=== PATIENT | male | born 1950 | race Caucasian/White ===

== ENCOUNTER 2020-11-12 06:57 | Outpatient (REF) | payer OTHER, SELFPAY ==
[2020-11-12 07:33] LABS: MANUAL DIFF FLAG NO
[2020-11-12 07:36] LABS: Basophils Percent Auto 0.2 % (0-2); Eosinophils Absolute Auto 0.2 X10*3/uL (0.0-0.4); Eosinophils Percent Auto 3.8 % (0-4); Hematocrit 45.9 % (42-52); Hemoglobin 14.9 g/dl (14.0-18.0); Imm Gran Abs Auto 0.01 X10*3/uL (0.00-0.03); Imm Gran Pct Auto 0.2 % (0.0-0.4); Mean Corpuscular HGB Conc 32.5 g/dl (31.0-36.0); Mean Corpuscular Hemoglobin 28.3 pg (27.0-33.0); Mean Corpuscular Volume 87.3 fL (80-98); Mean Platelet Volume 10.5 fL (9.4-12.4); Monocytes Absolute Auto 0.5 X10*3/uL (0.1-1.2); Monocytes Percent Auto 12.2 % (2-11); Neutrophils Absolute Auto 2.7 X10*3/uL (2.0-8.3); Neutrophils Percent Auto 60.6 % (45-73); Platelet Count 209 X10*3/uL (160-400); Red Blood Count 5.26 X10*6/uL (4.60-5.80); Red Cell Distribution Width 13.2 % (11.0-16.0); White Blood Count 4.4 X10*3/uL (4.8-10.8)
[2020-11-12 07:43] LABS: Glucose Urine UA NEG (NEG); Leukocyte Esterase Urine NEG (NEG); Nitrite Urine NEG (NEG); Urine Blood NEG (NEG); Urine Ketones NEG (NEG); Urine Protein NEG (NEG-TRACE)
[2020-11-12 07:45] LABS: Appearance Urine CLEAR; Color Urine YELLOW
[2020-11-12 07:46] LABS: Estimated Average Glucose 111 mg/dL; Hemoglobin A1c % 5.5 %
[2020-11-12 07:58] LABS: Alanine Aminotransferase 17 U/L (0-40); Albumin Level 4.1 g/dL (3.5-5.0); Alkaline Phosphatase 72 U/L (39-117); Anion Gap 10 (12-20); Aspartate Amino Transferase 18 U/L (5-37); Blood Urea Nitrogen 17 mg/dL (9-16); Calcium 8.7 mg/dL (8.4-10.2); Carbon Dioxide 29 mmol/L (22-29); Chloride 106 mmol/L (96-108); Cholesterol 100 mg/dL; Estimated Glomerular Filt Rate > 60; Glucose Fasting 102 mg/dL (60-99); HDL Cholesterol 40 mg/dL; LDL Cholesterol Calculated 48 mg/dl; Sodium 141 mmol/L (135-145); Total Protein 6.5 g/dL (6.5-8.0); Triglycerides 60 mg/dL
[2020-11-12 08:21] LABS: Creatinine Urine 103.13 mg/dL; Microalbum/Creatinine Ratio Ur 6.7 ug/mg cr
[2020-11-12 08:28] LABS: Prostate Specific Antigen 0.89 ng/mL (<0.05-4.0)
[2020-11-12 08:42] LABS: Reflex LDLD? No
[2020-11-12 08:58] LABS: Thyroid Stimulating Hormone 3.86 uIU/mL (0.32-4.0)
== END 2020-11-12 06:58 | disposition home or self-care (01) ==
LOC: HO.LAB 06:57
PROVIDERS: Visit Provider Internal Medicine
DX: Z00.00 Encounter for general adult medical examination without abnormal findings (principal); E78.00 Pure hypercholesterolemia, unspecified; E03.9 Hypothyroidism, unspecified; R73.03 Prediabetes; E78.6 Lipoprotein deficiency; Z12.5 Encounter for screening for malignant neoplasm of prostate
CPT/HCPCS: 36415; 80053; 80061; 81003; 82043; 83036; 84153; 84443; 85025

== ENCOUNTER → 2020-11-25 08:23 | Outpatient (BNVA) | payer OTHER, SELFPAY | PROVIDERS: PCP Internal Medicine; Visit Provider Internal Medicine Cardiovascular Disease | DX: R00.1 Bradycardia, unspecified (principal); I71.2 Thoracic aortic aneurysm, without rupture; I10 Essential (primary) hypertension; I48.0 Paroxysmal atrial fibrillation | CPT/HCPCS: 93005 ==

== ENCOUNTER → 2021-01-17 08:13 | Outpatient (REF) | payer OTHER, SELFPAY ==
--- NOTE | 2021-01-17 08:17 | CA_ITS ---
Transthoracic Echocardiogram Patient (Last, First, Middle): Cordell Cox H Gender: Male Date of : 1950 Age: 70 Procedure Date: 01/17/2021 Procedure Type: Transthoracic Echocardiogram Location: OP Height: 172.72 cm Weight: 95.26 kg BSA: 2.09 m2 Heart Rate: bpm BP: 128 / 60 mmHg Clinical Sociologist: Referring MD: Troy Collins MD Consumer Marketing Specialist: Troy Collins MD Symptoms: I71.2 - Thoracic aortic aneurysm, without rupture Study Quality: Good ECG Rhythm: Sinus Conclusions: - 1. Normal LV systolic function with impaired relaxation filling pattern 2. Mildly dilated left atrium 3. Mildly dilated ascending aorta at 4.1 cm 4. No pericardial effusion 5. Normal RV systolic pressure Findings Left Ventricle Normal left ventricular size and systolic function. There is mildly increased left ventricular wall thickness. The visually estimated ejection fraction is between 60-65%. Spectral Doppler is indicative of an impaired relaxation filling pattern. E/E prime ratio is <8, consistent with normal filling pressures. Right Ventricle Normal right ventricular cavity size and systolic function. Atria The left atrium is mildly dilated. Interatrial shunt cannot be excluded. The right atrium was not well visualized. Aortic Valve The aortic valve structure and function is likely normal. There is no aortic valve stenosis. There is trace (trivial) aortic valve regurgitation. Mitral Valve Normal mitral valve structure and function. There is trace mitral valve regurgitation. There is no mitral valve stenosis. Pulmonic Valve The pulmonic valve was not well visualized. Tricuspid Valve Likely normal tricuspid valve structure and function. There is trace tricuspid valve regurgitation. The right ventricular systolic pressure is normal. The right ventricular systolic pressure is 16 mmHg. Normal right atrial pressure. There is no evidence of pulmonary hypertension. Great Vessels The pulmonary artery was not well visualized. There is mild dilatation of the ascending aorta measuring 4.10 cm. Venous The inferior vena cava is normal in size and collapses greater than 50% with inspiration. Pericardium/Pleural There is no evidence of pericardial effusion. Prior Study Comparison No significant change compared to prior study dated: 08/17/2019. Measurements 2D Linear Measurements IVSd: 1.30 0.6-0.9/0.6-1.0 cm LVIDd: 4.25 3.9-5.3/4.2-5.9 cm LVIDd Index: 2.03 2.4-3.2/2.2-3.1 cm/m2 LVIDs: 2.51 2.0-3.6 cm LVPWd: 1.23 0.7-1.1 cm Ao Root: 3.70 2.1-3.5 cm LA Diam: 4.00 2.7-3.8/3.0-4.0 cm LAIDs Index: 1.91 1.5-2.3 cm/m2 LV Mass: 244.30 67-162/88-224 g LV Mass Index: 116.89 43-95/49-115 g/m2 LVOT Diam: 2.50 3.0+(-)1.3 cm 2D Systolic Function EF 4C: 66.00 >55% EF 2C: 65.80 >55% EF BiP: 65.50 >55% Mitral Valve MV Pk E: 0.70 MV PK A: 0.83 MV Decel Time: 206.00 E/A: 0.90 E'Lateral: 9.86 E'Medial: 6.58 E/E' Med: 10.70 E/E' Lat: 7.10 PHT: 60.00 MVA PHT: 3.67 Decel Hendricks: 3.42 Aortic Valve AoV Pk Lukasz: 1.21 AoV Mn Lukasz: 0.74 AoV VTI: 0.31 AoV Pk Grad: 6.00 Aov Mn Grad: 3.00 DELVIN Cont.VTI: 3.85 LVOT LVOT Pk Lukasz: 0.95 LVOT Mn Lukasz: 0.62 LVOT VTI: 0.24 LVOT Pk Grad: 4.00 LVOT Mn Grad: 2.00 LVOT Diam: 2.50 LVOT Area: 4.91 Diastolic Function MV Pk E: 0.70 MV Pk A: 0.83 E/A: 0.90 E'Medial: 6.58 E/E' Med: 10.70 E' Laterial: 9.86 E/E' Lat: 7.10 Tricuspid Valve TR Pk Lukasz: 1.80 TR Pk Grad: 13.00 RA Press: 3.00 RVSP: 16.00 Great Vessels Aorta Ao Root-2D: 3.70 2.0-3.7 cm Ao Asc: 4.10 2.1-3.4 cm Pulmonary Valve PV Pk Lukasz: 0.99 Peak PV Grad: 4.00 Updated in Other Vendor System with Status of Final Troy Collins MD electronically signed on 01/18/2021 3:44:25 PM with status of Final
== END ==
LOC: HO.CARD 08:13
PROVIDERS: Visit Provider Internal Medicine Cardiovascular Disease
DX: I10 Essential (primary) hypertension (principal); I48.0 Paroxysmal atrial fibrillation; I71.2 Thoracic aortic aneurysm, without rupture
CPT/HCPCS: 93306

== ENCOUNTER → 2021-05-13 08:09 | Outpatient (BNVA) | payer OTHER, SELFPAY | PROVIDERS: PCP Internal Medicine; Referring Provider Internal Medicine; Visit Provider Internal Medicine Cardiovascular Disease | DX: I48.0 Paroxysmal atrial fibrillation (principal); I71.2 Thoracic aortic aneurysm, without rupture | CPT/HCPCS: 93005 ==

== ENCOUNTER 2021-05-19 10:47 | Outpatient (REF) | payer OTHER, SELFPAY ==
[2021-05-19 11:38] LABS: Estimated Average Glucose 114 mg/dL; Hemoglobin A1c % 5.6 %
[2021-05-19 11:57] LABS: TSH reflex Free T4 1.07 uIU/mL (0.32-4.0)
[2021-05-19 12:11] LABS: Alanine Aminotransferase 9 U/L (0-40); Albumin Level 3.9 g/dL (3.5-5.0); Alkaline Phosphatase 85 U/L (39-117); Aspartate Amino Transferase 15 U/L (5-37); Bilirubin Direct 0.3 mg/dL (0.0-0.5); Bilirubin Total 0.8 mg/dL (0.0-1.0); Cholesterol 92 mg/dL; Glucose Fasting 98 mg/dL (60-99); HDL Cholesterol 31 mg/dL; LDL Cholesterol Calculated 48 mg/dl; Total Protein 6.4 g/dL (6.5-8.0); Triglycerides 68 mg/dL
[2021-05-19 12:22] LABS: Reflex LDLD? No
== END 2021-05-19 10:48 | disposition home or self-care (01) ==
LOC: HO.LNP 10:47
PROVIDERS: Visit Provider Internal Medicine
DX: E03.9 Hypothyroidism, unspecified (principal); R73.03 Prediabetes; E78.00 Pure hypercholesterolemia, unspecified
CPT/HCPCS: 80061; 80076; 82947; 83036; 84443

== ENCOUNTER 2021-11-10 08:25 | Outpatient (REF) | payer OTHER, SELFPAY ==
[2021-11-10 10:26] LABS: Anion Gap 10 (12-20); Blood Urea Nitrogen 14 mg/dL (9-16); Calcium 9.1 mg/dL (8.4-10.2); Carbon Dioxide 28 mmol/L (22-29); Chloride 106 mmol/L (96-108); Estimated Glomerular Filt Rate > 60; Glucose Random 106 mg/dL (60-115); Potassium 4.2 mmol/L (3.3-5.1); Sodium 140 mmol/L (135-145)
== END 2021-11-10 08:26 | disposition home or self-care (01) ==
LOC: HO.LAB 08:25
PROVIDERS: PCP Internal Medicine; Referring Provider Internal Medicine; Visit Provider Internal Medicine Cardiovascular Disease
DX: I48.0 Paroxysmal atrial fibrillation (principal); Z71.2 Person consulting for explanation of examination or test findings
CPT/HCPCS: 36415; 80048; 93005

== ENCOUNTER 2021-12-01 10:38 | Outpatient (REF) | payer OTHER, SELFPAY ==
[2021-12-01 10:41] LABS: MANUAL DIFF FLAG NO
[2021-12-01 10:52] LABS: Basophils Percent Auto 0.6 % (0-2); Eosinophils Absolute Auto 0.2 X10*3/uL (0.0-0.4); Eosinophils Percent Auto 3.3 % (0-4); Hematocrit 46.8 % (42.0-52.0); Hemoglobin 15.1 g/dl (14.0-18.0); Imm Gran Abs Auto 0.01 X10*3/uL (0.00-0.03); Imm Gran Pct Auto 0.2 % (0.0-0.4); Lymphocytes Absolute Auto 1.2 X10*3/uL (1.2-4.9); Lymphocytes Percent Auto 22.6 % (20-40); Mean Corpuscular HGB Conc 32.3 g/dl (31.0-36.0); Mean Corpuscular Hemoglobin 28.3 pg (27.0-33.0); Mean Corpuscular Volume 87.8 fL (80.0-98.0); Mean Platelet Volume 11.5 fL (9.4-12.4); Monocytes Absolute Auto 0.6 X10*3/uL (0.1-1.2); Monocytes Percent Auto 11.7 % (2-11); Neutrophils Absolute Auto 3.2 x10*3/uL (2.0-8.3); Neutrophils Percent Auto 61.6 % (45-73); Platelet Count 216 X10*3/uL (160-400); Red Blood Count 5.33 X10*6/uL (4.60-5.80); Red Cell Distribution Width 13.9 % (11.0-16.0); White Blood Count 5.1 X10*3/uL (4.8-10.8)
[2021-12-01 10:59] LABS: Appearance Urine HAZY; Color Urine STRAW; Glucose Urine UA NEG (NEG); Leukocyte Esterase Urine NEG (NEG); Nitrite Urine NEG (NEG); Specific Gravity - Urine 1.015 (1.005-1.025); Urine Blood NEG (NEG); Urine Ketones NEG (NEG); Urine Protein NEG (NEG-TRACE)
[2021-12-01 11:19] LABS: PSA,Total (Free>4and<10) 0.82 ng/mL (0.00-4.00)
[2021-12-01 11:32] LABS: Alanine Aminotransferase 14 U/L (0-40); Albumin Level 3.8 g/dL (3.5-5.0); Alkaline Phosphatase 71 U/L (39-117); Aspartate Amino Transferase 15 U/L (5-37); Bilirubin Total 0.8 mg/dL (0.0-1.0); Blood Urea Nitrogen 16 mg/dL (9-16); Cholesterol 94 mg/dL; Estimated Glomerular Filt Rate > 60; Glucose Fasting 100 mg/dL (60-99); HDL Cholesterol 35 mg/dL; LDL Cholesterol Calculated 48 mg/dl; Total Protein 6.5 g/dL (6.5-8.0); Triglycerides 56 mg/dL
[2021-12-01 11:42] LABS: Anion Gap 10 (12-20); Carbon Dioxide 28 mmol/L (22-29); Chloride 109 mmol/L (96-108); Potassium 4.1 mmol/L (3.3-5.1); Sodium 143 mmol/L (135-145)
== END 2021-12-01 10:39 | disposition home or self-care (01) ==
LOC: HO.LNP 10:38
PROVIDERS: PCP Internal Medicine; Visit Provider Internal Medicine
DX: Z00.00 Encounter for general adult medical examination without abnormal findings (principal); Z12.5 Encounter for screening for malignant neoplasm of prostate; E03.9 Hypothyroidism, unspecified; I10 Essential (primary) hypertension; E78.00 Pure hypercholesterolemia, unspecified
CPT/HCPCS: 80053; 80061; 81003; 84153; 84443; 85025

== ENCOUNTER → 2022-04-06 07:22 | Outpatient (REF) | payer MEDICARE, SELFPAY ==
--- NOTE | 2022-04-06 07:24 | CA_ITS ---
Transthoracic Echocardiogram Patient (Last, First, Middle): Cordell Cox H Gender: Male Date of : 1950 Age: 71 Procedure Date: 04/06/2022 Procedure Type: Transthoracic Echocardiogram Location: OP Height: 172.72 cm Weight: 96.16 kg BSA: 2.10 m2 Heart Rate: 47 bpm BP: 112 / 78 mmHg Pipe Threading Machine Operator: SB Referring MD: Troy Collins MD Symptoms: I71.2 - Thoracic aortic aneurysm, without rupture Study Quality: Adequate ECG Rhythm: Bradycardia Conclusions: - The left ventricular systolic function is normal. The calculated ejection fraction is 61% by biplane method. - No obvious valvular pathology seen on this study. - Top normal ascending aortic size at 3.9 cm. Findings Left Ventricle Normal left ventricular cavity size. There is normal left ventricular wall thickness. The left ventricular systolic function is normal. The calculated ejection fraction is 61% by biplane method. There is no evidence of regional wall motion abnormalities. Diastolic function is normal for age. Right Ventricle Normal right ventricular cavity size and systolic function. Atria Both atria are normal in size. Aortic Valve There is a normal trileaflet aortic valve. There is no aortic valve stenosis. There is no aortic valve regurgitation. Mitral Valve The mitral valve appears normal. There is trace mitral valve regurgitation. There is no mitral valve stenosis. Pulmonic Valve The pulmonic valve was not well visualized. There is mild pulmonic valve regurgitation. Tricuspid Valve Normal tricuspid valve structure. There is no tricuspid valve regurgitation. The pulmonary artery systolic pressure is normal. Great Vessels The aortic arch is normal in size. Top normal ascending aortic size at 3.9 cm. Venous The inferior vena cava is normal in size and collapses greater than 50% with inspiration. Pericardium/Pleural There is no evidence of pericardial effusion. Prior Study Comparison Changes noted compared to prior study dated: 01/17/2021. Ascending aortic size lower than previously reported. Recommendations, Care & Conclusions No obvious valvular pathology seen on this study. Measurements 2D Linear Measurements RVIDd: 3.42 IVSd: 1.00 0.6-0.9/0.6-1.0 cm LVIDd: 4.58 3.9-5.3/4.2-5.9 cm LVIDd Index: 2.18 2.4-3.2/2.2-3.1 cm/m2 LVIDs: 2.90 2.0-3.6 cm LVPWd: 0.98 0.7-1.1 cm Ao Root: 3.90 2.1-3.5 cm LA Diam: 3.60 2.7-3.8/3.0-4.0 cm LAIDs Index: 1.71 1.5-2.3 cm/m2 LV Mass: 193.28 67-162/88-224 g LV Mass Index: 92.04 43-95/49-115 g/m2 LVOT Diam: 2.60 3.0+(-)1.3 cm RA Area,d: 20.50 8.3-19.5 cm2 2D Volumes LA ESV A/L: 33.80 22-52/18-58 ML/M2 RA ESV A/L: 27.90 19-21 ML/M2 2D Systolic Function EF Teich: 66.00 >55% EF 4C: 57.40 >55% EF 2C: 63.30 >55% EF BiP: 61.10 >55% Mitral Valve MV Pk Grad: 2.00 MV Pk E: 0.78 MV PK A: 0.60 MV Decel Time: 210.00 E/A: 1.30 E'Lateral: 8.38 E'Medial: 6.31 E/E' Med: 12.40 E/E' Lat: 9.40 PHT: 61.00 MVA PHT: 3.61 Decel [place]: 3.73 Aortic Valve AoV Pk Lukasz: 1.07 AoV Mn Lukasz: 0.74 AoV VTI: 0.24 AoV Pk Grad: 5.00 Aov Mn Grad: 2.00 DELVIN Cont.VTI: 3.85 DELVIN Method: Continuity Equation LVOT LVOT Pk Lukasz: 0.80 LVOT Mn Lukasz: 0.53 LVOT VTI: 0.18 LVOT Pk Grad: 3.00 LVOT Mn Grad: 1.00 LVOT Diam: 2.60 LVOT Area: 5.31 Diastolic Function MV Pk E: 0.78 MV Pk A: 0.60 E/A: 1.30 E'Medial: 6.31 E/E' Med: 12.40 E' Laterial: 8.38 E/E' Lat: 9.40 IVC Diam Insp: 1.46 IVC Diam Exp: 0.86 Right Ventricle TAPSE (mm): 25.90 TVS' Lukasz: 11.00 Tricuspid Valve IVC Diam Exp: 0.86 IVC Diam Insp: 1.46 Great Vessels Aorta Ao Root-2D: 3.90 2.0-3.7 cm Sinus of Valsalva: 3.90 2.0-3.[address] [place]: 3.71 1.7-3.4 cm Ao Asc: 3.80 2.1-3.4 cm Ao Arch: 3.40 Pulmonary Veins Pulm Vein Pk S Lukasz: 0.45 Pulm Vein Pk D Lukasz: 0.51 Pulm Vein S/D 0.90 Pulmonary Valve PV Pk Lukasz: 0.98 Peak PV Grad: 4.00 Updated in Other Vendor System with Status of Final Johnathan Claudio MD electronically signed on 04/10/2022 12:59:48 PM with status of Final
== END ==
LOC: HO.CARD 07:22
PROVIDERS: PCP Internal Medicine; Visit Provider Internal Medicine Cardiovascular Disease
DX: I71.2 Thoracic aortic aneurysm, without rupture (principal)
CPT/HCPCS: 93306

== ENCOUNTER → 2022-05-19 08:24 | Outpatient (BNVA) | payer MEDICARE, SELFPAY | PROVIDERS: PCP Internal Medicine; Referring Provider Internal Medicine; Visit Provider Internal Medicine Cardiovascular Disease | DX: R00.1 Bradycardia, unspecified (principal); I48.0 Paroxysmal atrial fibrillation; I71.2 Thoracic aortic aneurysm, without rupture; Z79.899 Other long term (current) drug therapy | CPT/HCPCS: 93005; 99212 ==

== ENCOUNTER 2022-05-28 11:23 | Outpatient (REF) | payer MEDICARE, SELFPAY ==
[2022-05-28 11:52] LABS: Estimated Average Glucose 108 mg/dL; Hemoglobin A1c % 5.4 %
[2022-05-28 12:12] LABS: Alanine Aminotransferase 13 U/L (0-40); Albumin Level 3.9 g/dL (3.5-5.0); Alkaline Phosphatase 77 U/L (39-117); Aspartate Amino Transferase 17 U/L (5-37); Bilirubin Direct 0.5 mg/dL (0.0-0.5); Bilirubin Total 1.2 mg/dL (0.0-1.0); Cholesterol 100 mg/dL; Glucose Fasting 71 mg/dL (60-99); HDL Cholesterol 30 mg/dL; LDL Cholesterol Calculated 56 mg/dl; Total Protein 6.3 g/dL (6.5-8.0); Triglycerides 72 mg/dL
[2022-05-28 13:24] LABS: Reflex LDLD? No
== END 2022-05-28 11:24 | disposition home or self-care (01) ==
LOC: HO.LNP 11:23
PROVIDERS: Visit Provider Internal Medicine
DX: R73.03 Prediabetes (principal); E78.00 Pure hypercholesterolemia, unspecified
CPT/HCPCS: 80061; 80076; 82947; 83036

== ENCOUNTER 2022-06-02 08:59 | Day surgery (SDC) | payer MEDICARE, SELFPAY ==
[2022-05-27 20:27] VITALS: BMI 31.6
--- NOTE | 2022-06-01 10:44 | HO.ANESPROP2 ---
Documented by User: Ginette Gaffney NP 06/01/22 10:48 HPI - Anesthesia Eval Consult details Narrative: 71yo M for Colonoscopy Stable at 05/2022 cardiac visit Eliquis for afib PMFSH Active Problems Active Problems: All Active Problems (Updated 05/27/22 @ 20:27 by Silvana Tim RN) Sinus bradycardia (Acute) Thoracic aortic aneurysm (Acute) HTN (hypertension) (Acute) Paroxysmal atrial fibrillation (Acute) Past Medical History Medical History (Updated 05/27/22 @ 20:27 by Silvana Tim RN) CVA (cerebral vascular accident) HTN (hypertension) Hyperlipemia Hypothyroid Paroxysmal atrial fibrillation Sinus bradycardia Thoracic aortic aneurysm Family History Family History Father No problems noted. Mother CVD (cardiovascular disease) Surgical History Surgical History (Updated 05/27/22 @ 20:27 by Silvana Tim RN) History of colonoscopy History of radiofrequency ablation (RFA) procedure for cardiac arrhythmia Social History Social History Alcohol intake: current Alcohol intake frequency: holidays/special occasions only Patient Tobacco Use Status: Never used Tobacco Use of substances other than those prescribed or required for medical reasons: No Are you DNR?: No Advance Directives: No Advance Directives Information Provided: Yes Advance Directives on File: No Recently lost weight without trying: No Meds Allergies Allergy/AdvReac Type Severity Reaction Status Date / Time No Known Allergies Allergy Verified 05/19/22 08:31 [No Known Allergies*] Home Medications Medication Instructions Recorded Confirmed Last Taken Type atorvastatin 80 mg tablet 80 mg PO DAILY 11/25/20 05/27/22 Unknown History flecainide 100 mg tablet 100 mg PO BID 11/25/20 05/27/22 06/02/22 History levothyroxine 150 mcg tablet 150 mcg PO DAILY 11/25/20 05/27/22 06/02/22 History metoprolol succinate 25 mg 25 mg PO DAILY 11/25/20 05/27/22 06/02/22 History tablet,extended release 24 hr omeprazole 20 mg capsule,delayed 20 mg PO BID 11/25/20 05/27/22 06/02/22 History release tamsulosin 0.4 mg capsule 0.4 mg PO DAILY 11/25/20 05/27/22 Unknown History Exam Exam Date and Time: June 01, 2022 1044 Height,Weight and Vital Signs: Height 5 ft 8 in Weight 94.347 kg Pertinent Lab Results Pertinent Lab Results: Laboratory Tests 12/01/21 12/01/21 07:00 07:00 WBC 5.1 Hgb 15.1 Hct 46.8 Plt Count 216 Sodium 143 Potassium 4.1 Chloride 109 H Carbon Dioxide 28 BUN 16 Creatinine 1.10 Narrative Narrative: ECHO 04/2022 Conclusions: - The left ventricular systolic function is normal.? The ? calculated ejection fraction is 61% by biplane method. ? - No obvious valvular pathology seen on this study.? - Top normal ascending aortic size at 3.9 cm.? ? ? EKG 05/2022 sinus bradycardia with first-degree AV block with nonspecific ST-T in changes with normal QTC interval Assessment and Plan Assessment Anesthesia Assessment: Chart Reviewed Documented by User: Javier Blanca MD 06/02/22 16:49 [facility] Past Medical History Medical History (Updated 05/27/22 @ 20:27 by Silvana Tim RN) CVA (cerebral vascular accident) HTN (hypertension) Hyperlipemia Hypothyroid Paroxysmal atrial fibrillation Sinus bradycardia Thoracic aortic aneurysm Functional capacity: independent ambulation Family History Family History Father No problems noted. Mother CVD (cardiovascular disease) Family history of problems with anesthesia: No Surgical History Surgical History (Updated 05/27/22 @ 20:27 by Silvana Tim RN) History of colonoscopy History of radiofrequency ablation (RFA) procedure for cardiac arrhythmia History of Problems with Anesthesia: No Social History Social History Alcohol intake: current Alcohol intake frequency: holidays/special occasions only Patient Tobacco Use Status: Never used Tobacco Use of substances other than those prescribed or required for medical reasons: No Are you DNR?: No Advance Directives: No Advance Directives Information Provided: Yes Advance Directives on File: No Recently lost weight without trying: No Meds Allergies Allergy/AdvReac Type Severity Reaction Status Date / Time No Known Allergies Allergy Verified 05/19/22 08:31 [No Known Allergies*] Home Medications Medication Instructions Recorded Confirmed Last Taken Type atorvastatin 80 mg tablet 80 mg PO DAILY 11/25/20 05/27/22 Unknown History flecainide 100 mg tablet 100 mg PO BID 11/25/20 05/27/22 06/02/22 History levothyroxine 150 mcg tablet 150 mcg PO DAILY 11/25/20 05/27/22 06/02/22 History metoprolol succinate 25 mg 25 mg PO DAILY 11/25/20 05/27/22 06/02/22 History tablet,extended release 24 hr omeprazole 20 mg capsule,delayed 20 mg PO BID 11/25/20 05/27/22 06/02/22 History release tamsulosin 0.4 mg capsule 0.4 mg PO DAILY 11/25/20 05/27/22 Unknown History Exam Airway Mallampati Class: III TM Dist: >3cm Neck ROM: Full Partial: Upper and Lower Loose/Missing/Broken Teeth: Yes Heart: S1,S2 Lungs: b/l breath sounds Assessment and Plan Assessment Anesthesia Assessment: Anesthesia Plan Discussed Final Anesthetic Review Family History of Problems with Anesthesia: No History of Problems with Anesthesia: No NPO: Yes ASA Class: III Final Preanesthetic Review: Meds/Allgs Chart Reviewed, Consent Obtained/Reviewed and Anes Risks/Benef Reviewed Patient Risk: Intermediate Procedure Risk: Intermediate Anesthetic Plan Anesthetic Plan: MAC: Disposition: Standard PACU
[2022-06-02 09:22] VITALS: BP 156/82; PULSE 50; RESP 16; TEMP 36.7; O2SAT 96
[2022-06-02] MEDS: Lactated Ringers 1,000 ML 100 ML IVCONT (09:28)
--- NOTE | 2022-06-02 10:28 | MHC.SHP ---
Pre-Procedural Eval Section A Date of Service: 06/02/22 Section B Chief Complaint: screening Details of Present Illness: see H&P no changes Relevant Family History (Specify if Yes): No Relevant Social History: None Present Medications: see Short Stay Collaborative assessment Medical History: No relevant PMH History of Previous Operations: No relevant previous surgery Allergies: Allergies Allergy/AdvReac Type Severity Reaction Status Date / Time No Known Allergies Allergy Verified 05/19/22 08:31 [No Known Allergies*] Review of Systems Sugical H&P ROS: Negative: Constitution, Cardiovascular, Respiratory, Neurological, Psychiatric, Hem-Onc, Allergic/Immunologic, Gastrointestinal, Genitourinary, Musculoskeletal, Integumentary, Endocrine and Eyes/Ears/Nose/Throat Exam Surgical H&P Exam: Normal: HEENT, Normal: Heart, Normal: Lungs, Normal: Extremities, Normal: Abdomen, Normal: Skin and Normal: Neurological Plan Diagnosis/Plan: Unchanged I have reviewed the history and physical and performed a pertinent physical examination on my patient. No changes have occurred unless specified.
--- NOTE | 2022-06-02 11:04 | PM.OP ---
Brief Operative Note Date of Service: 06/02/22 Pre-op diagnosis: screening Post-op diagnosis: same Surgeon: Corey Fung Anesthesia: MAC Was an Special Needs Teacher used for this Procedure?: No Estimated blood loss (mL): 0 Pathology: none sent Condition: stable Disposition: PACU
[2022-06-02 11:06] VITALS: BP 84/44; PULSE 46; RESP 16; TEMP 36.7; O2SAT 93
[2022-06-02 11:21] VITALS: BP 122/70; PULSE 45; RESP 18; TEMP 36.7; O2SAT 97
--- NOTE | 2022-06-02 22:18 | OP_ITS ---
SURGEON: Corey Fung MD INDICATIONS: Colon cancer screening. PREOPERATIVE DIAGNOSIS: POSTOPERATIVE DIAGNOSIS: PROCEDURE PERFORMED: Colonoscopy to the terminal ileum. ESTIMATED BLOOD LOSS: COMPLICATIONS: ANESTHESIA: ASSISTANTS: SPECIMENS: MEDICATIONS: Monitored anesthesia care. DESCRIPTION OF PROCEDURE: History and physical performed. The risks and benefits of the procedure were explained to the patient. Informed consent was obtained. The patient was placed in the left lateral decubitus position. A digital rectal exam was performed, was found to be normal. The Olympus pediatric video colonoscope was introduced into the rectum and advanced to the cecum without difficulty. The cecum was identified by transillumination, palpation, and identification of ileocecal valve. Examination was performed. The scope was removed. He tolerated the procedure well and was transferred to recovery area in stable condition. FINDINGS: The terminal ileum was normal. Visualized colonic mucosa was normal. The quality of prep was good. There was mild sigmoid diverticulosis. Retroflexed examination showed small internal hemorrhoids and hypertrophic anal papillae. No polyps were identified. IMPRESSION: Normal screening colonoscopy. RECOMMENDATIONS: 1. Follow up as needed. 2. Repeat colonoscopy could be considered in 10 years. This is optional based on the patient's age. MD CHRIS Chris/HALIE / [phone]
== END 2022-06-02 12:01 | disposition home or self-care (01) ==
PROVIDERS: PCP Internal Medicine; Visit Provider Internal Medicine Gastroenterology
PROC: 0DJD8ZZ Inspection of Lower Intestinal Tract, Via Natural or Artificial Opening Endoscopic (ICD-10-PCS; CPT 45378; principal; 2022-06-02 10:10)
DX: Z12.11 Encounter for screening for malignant neoplasm of colon (principal); K57.30 Diverticulosis of large intestine without perforation or abscess without bleeding; K64.8 Other hemorrhoids; K62.89 Other specified diseases of anus and rectum; K21.9 Gastro-esophageal reflux disease without esophagitis; K44.9 Diaphragmatic hernia without obstruction or gangrene; I25.2 Old myocardial infarction; I25.10 Atherosclerotic heart disease of native coronary artery without angina pectoris; I10 Essential (primary) hypertension; E03.9 Hypothyroidism, unspecified; I48.0 Paroxysmal atrial fibrillation; Z79.01 Long term (current) use of anticoagulants; Z79.899 Other long term (current) drug therapy; Z86.73 Personal history of transient ischemic attack (TIA), and cerebral infarction without residual deficits; Z87.442 Personal history of urinary calculi
CPT/HCPCS: G0121

== ENCOUNTER → 2022-11-24 08:48 | Outpatient (BNVA) | payer MEDICARE, SELFPAY | PROVIDERS: PCP Internal Medicine; Referring Provider Internal Medicine; Visit Provider Internal Medicine Cardiovascular Disease | DX: I48.0 Paroxysmal atrial fibrillation (principal); R00.1 Bradycardia, unspecified; I71.20 Thoracic aortic aneurysm, without rupture, unspecified | CPT/HCPCS: 93005; 99212 ==

== ENCOUNTER 2022-12-01 10:49 | Outpatient (REF) | payer MEDICARE, SELFPAY ==
[2022-12-01 10:52] LABS: MANUAL DIFF FLAG NO
[2022-12-01 11:14] LABS: Basophils Percent Auto 0.7 % (0-2); Eosinophils Absolute Auto 0.2 X10*3/uL (0.0-0.4); Eosinophils Percent Auto 4.5 % (0-4); Hematocrit 46.6 % (42.0-52.0); Hemoglobin 15.1 g/dl (14.0-18.0); Imm Gran Abs Auto 0.02 X10*3/uL (0.00-0.03); Imm Gran Pct Auto 0.5 % (0.0-0.4); Lymphocytes Absolute Auto 1.1 X10*3/uL (1.2-4.9); Lymphocytes Percent Auto 25.3 % (20-40); Mean Corpuscular HGB Conc 32.4 g/dl (31.0-36.0); Mean Corpuscular Hemoglobin 27.7 pg (27.0-33.0); Mean Corpuscular Volume 85.5 fL (80.0-98.0); Mean Platelet Volume 10.7 fL (9.4-12.4); Monocytes Absolute Auto 0.5 X10*3/uL (0.1-1.2); Monocytes Percent Auto 10.8 % (2-11); Neutrophils Absolute Auto 2.6 x10*3/uL (2.0-8.3); Neutrophils Percent Auto 58.2 % (45-73); Platelet Count 238 X10*3/uL (160-400); Red Blood Count 5.45 X10*6/uL (4.60-5.80); Red Cell Distribution Width 13.7 % (11.0-16.0); White Blood Count 4.4 X10*3/uL (4.8-10.8)
[2022-12-01 11:16] LABS: Appearance Urine Cloudy; Color Urine Yellow; Glucose Urine UA Negative (Negative); Leukocyte Esterase Urine Negative (Negative); Nitrite Urine Positive (Negative); PH 6.5 (5.0-9.0); Specific Gravity - Urine 1.025 (1.005-1.025); UMIC TRIGGER UACC YES; Urine Blood Trace (Negative); Urine Ketones Negative (Negative); Urine Protein Trace mg/dL (Neg-Trace)
[2022-12-01 11:20] LABS: Bacteria Urine 4+ (None Seen); Hyaline Casts Urine 0-2 /LPF (0-2); Squamous Epithelial Cell Urine 0-2 /HPF (0-2); UACC Culture Trigger YES
[2022-12-01 12:08] LABS: Alanine Aminotransferase 12 U/L (0-40); Albumin Level 3.7 g/dL (3.5-5.0); Alkaline Phosphatase 90 U/L (39-117); Anion Gap 11 (12-20); Aspartate Amino Transferase 17 U/L (5-37); Bilirubin Total 0.8 mg/dL (0.0-1.0); Blood Urea Nitrogen 16 mg/dL (9-16); Calcium 8.9 mg/dL (8.4-10.2); Carbon Dioxide 29 mmol/L (22-29); Chloride 106 mmol/L (96-108); Cholesterol 109 mg/dL; Estimated Glomerular Filt Rate > 60; Glucose Fasting 97 mg/dL (60-99); HDL Cholesterol 35 mg/dL; LDL Cholesterol Calculated 56 mg/dl; Potassium 3.9 mmol/L (3.3-5.1); Sodium 142 mmol/L (135-145); Total Protein 6.2 g/dL (6.5-8.0); Triglycerides 91 mg/dL
[2022-12-01 12:09] LABS: PSA,Total (Free>4and<10) 1.08 ng/mL (0.00-4.00); TSH reflex Free T4 1.76 uIU/mL (0.32-4.0)
[2022-12-01 12:35] LABS: Estimated Average Glucose 108 mg/dL; Hemoglobin A1c % 5.4 %
[2022-12-01 12:42] LABS: Creatinine Urine 217.53 mg/dL; Microalbum/Creatinine Ratio Ur 7.8 ug/mg cr
== END 2022-12-01 10:50 | disposition home or self-care (01) ==
LOC: HO.LNP 10:49
PROVIDERS: Visit Provider Internal Medicine
DX: Z00.00 Encounter for general adult medical examination without abnormal findings (principal); Z12.5 Encounter for screening for malignant neoplasm of prostate; E03.9 Hypothyroidism, unspecified; I10 Essential (primary) hypertension; R73.03 Prediabetes; E78.00 Pure hypercholesterolemia, unspecified
CPT/HCPCS: 80053; 80061; 81001; 82043; 83036; 84153; 84443; 85025; 87086; 87088; 87186

== ENCOUNTER → 2022-12-10 14:48 | Outpatient (BNVA) | payer MEDICARE, SELFPAY | PROVIDERS: PCP Internal Medicine; Visit Provider Surgery | DX: R19.09 Other intra-abdominal and pelvic swelling, mass and lump (principal); B02.9 Zoster without complications | CPT/HCPCS: 99202 ==

== ENCOUNTER 2022-12-17 11:15 | Outpatient (REF) | payer MEDICARE, SELFPAY ==
[2022-12-17 11:51] LABS: Appearance Urine Clear; Color Urine Yellow; Glucose Urine UA Negative (Negative); Leukocyte Esterase Urine Trace (Negative); Nitrite Urine Negative (Negative); Specific Gravity - Urine 1.015 (1.005-1.025); UMIC TRIGGER UACC YES; Urine Blood Negative (Negative); Urine Ketones Negative (Negative); Urine Protein Negative (Neg-Trace)
[2022-12-17 11:55] LABS: Bacteria Urine None Seen (None Seen); Hyaline Casts Urine 0-2 /LPF (0-2); RBC Urine 0-2 /HPF (0-2); Squamous Epithelial Cell Urine 0-2 /HPF (0-2); WBC Urine 0-5 /HPF (0-5)
== END 2022-12-17 11:16 | disposition home or self-care (01) ==
LOC: HO.LNP 11:15
PROVIDERS: Visit Provider Internal Medicine
DX: R31.9 Hematuria, unspecified (principal)
CPT/HCPCS: 81001

== ENCOUNTER 2022-12-28 09:32 | Outpatient (REF) | payer MEDICARE, SELFPAY ==
--- NOTE | ~2022-12-28 | CT_ITS ---
EXAMINATION: CT ABDOMEN AND PELVIS WITHOUT CONTRAST CLINICAL INFORMATION: Other intra-abdominal and pelvic swelling, mass and lump. COMPARISON: Ultrasound abdomen 04/23/2016, CT abdomen pelvis 04/21/2016. TECHNIQUE: Multidetector volumetric imaging was performed from the superior aspect of the liver through the pubic symphysis. Sagittal and coronal reformatted images were obtained on the technologist's workstation. This CT examination was performed using dose optimization techniques as appropriate, variously including the following: *Automated exposure control *Adjustment of mA and/or kV according to patient size (this includes techniques or standardized protocols for targeted exams where dose is matched to indication/reason for exam; i.e. extremities or head) *Use of iterative reconstruction technique DLP: 854 mGy-cm FINDINGS: LUNG BASES: Again noted, is elevation of the left hemidiaphragm with a large hiatal hernia with the entire stomach in the left chest. Thickening of the distal esophagus is again noted. LIVER, GALLBLADDER, AND BILIARY TREE: The liver is enlarged at 18.5 cm in cephalocaudad dimension in size, shape, and attenuation. No focal hepatic lesion or biliary ductal dilatation is present. The gallbladder is unremarkable with no evidence of radiopaque gallstones, gallbladder wall thickening, or obvious pericholecystic inflammatory changes. PANCREAS: Unremarkable. SPLEEN: Unremarkable. ADRENAL GLANDS: Unremarkable. KIDNEYS AND URETERS: The kidneys are normal in size, shape, and attenuation. Bilateral nonobstructing nephrolithiasis is present with a 5 mm nonobstructing calculus at the lower pole of the right kidney and 3 calculi on the left the largest at the upper pole measuring 6 mm. No hydronephrosis, hydroureter, or solid renal masses seen. Benign Bosniak class I simple renal cysts are present bilaterally, which need no additional imaging or follow-up. No perinephric stranding. BLADDER: Unremarkable. GASTROINTESTINAL TRACT: The small and large bowel are unremarkable. The appendix is unremarkable. ABDOMINAL WALL: There is a left-sided inguinal hernia present containing nonobstructed colon. Diverticular changes are present in the colon without gross diverticulitis. Some mild inflammatory changes are seen around the portion of colon within the left hernia sac. This is a new finding when compared to the 04/21/2016 CT scan and could be the cause of the patient's pelvic swelling, mass and lump . There is a small right inguinal hernia seen containing only fat. LYMPH NODES: No retroperitoneal lymphadenopathy. VASCULAR: Unremarkable. PELVIC VISCERA: Mild to moderate BPH. Seminal vesicles appear normal. OSSEOUS STRUCTURES: Mild scoliosis convex to left with degenerative changes in the spine. CT/CT abdomen pelvis wo IV con IMPRESSION: Left-sided inguinal hernia containing nonobstructed colon. There is some mild inflammatory changes seen around the portion of the colon within the hernia sac. This could be the cause of the patient's pelvic swelling, mass and lump . Incidental note made of elevation of left hemidiaphragm, large hiatal hernia, hepatomegaly, bilateral nonobstructing nephrolithiasis and BPH. Fleischner guidelines were followed.
== END 2022-12-28 09:33 | disposition home or self-care (01) ==
LOC: HO.CT 09:32
PROVIDERS: PCP Internal Medicine; Visit Provider Surgery
DX: R19.09 Other intra-abdominal and pelvic swelling, mass and lump (principal); B02.9 Zoster without complications
CPT/HCPCS: 74176

== ENCOUNTER → 2023-01-05 08:33 | Outpatient (BNVA) | payer MEDICARE, SELFPAY | PROVIDERS: PCP Internal Medicine; Visit Provider Surgery | DX: K40.90 Unilateral inguinal hernia, without obstruction or gangrene, not specified as recurrent (principal); I10 Essential (primary) hypertension; I48.0 Paroxysmal atrial fibrillation; R00.1 Bradycardia, unspecified; I71.20 Thoracic aortic aneurysm, without rupture, unspecified | CPT/HCPCS: 99212 ==

== ENCOUNTER 2023-01-21 07:07 | Day surgery (SDC) | payer MEDICARE, SELFPAY ==
[2023-01-15 13:36] VITALS: BMI 33.0
--- NOTE | 2023-01-20 11:00 | HO.ANESPROP2 ---
Documented by User: Ginette Gaffney NP 01/20/23 11:01 HPI - Anesthesia Eval Consult details Narrative: 72yo M for Left Hernia Repair Inguinal Stable at 11/2022 cardiac visit Eliquis for afib PMFSH Active Problems Active Problems: All Active Problems (Updated 01/05/23 @ 08:44 by Carlyle Ward MD) Left groin mass (Acute) Zoster (Acute) Left inguinal hernia (Acute) Sinus bradycardia (Acute) Thoracic aortic aneurysm (Acute) HTN (hypertension) (Acute) Paroxysmal atrial fibrillation (Acute) Past Medical History Medical History (Updated 01/21/23 @ 07:54 by Aracelis Snow, RN) CVA (cerebral vascular accident) GERD (gastroesophageal reflux disease) HTN (hypertension) Hyperlipemia Hypothyroid Paroxysmal atrial fibrillation Sinus bradycardia Thoracic aortic aneurysm Family History Family History Father No problems noted. Mother CVD (cardiovascular disease) Family history of problems with anesthesia: No Surgical History Surgical History (Updated 01/21/23 @ 07:54 by Aracelis Snow RN) History of colonoscopy History of esophagogastroduodenoscopy (EGD) History of radiofrequency ablation (RFA) procedure for cardiac arrhythmia Hx of cystoscopy History of Problems with Anesthesia: No Social History Social History Alcohol intake: current Alcohol intake frequency: holidays/special occasions only Patient Tobacco Use Status: Never used Tobacco Use of substances other than those prescribed or required for medical reasons: No Are you DNR?: No Advance Directives: No Advance Directives Information Provided: Yes Meds Allergies Allergy/AdvReac Type Severity Reaction Status Date / Time No Known Allergies Allergy Verified 01/21/23 07:54 [No Known Allergies*] Home Medications Medication Instructions Recorded Confirmed Last Taken Type atorvastatin 80 mg tablet 80 mg PO DAILY 11/25/20 01/15/23 Unknown History flecainide 100 mg tablet 100 mg PO BID 11/25/20 01/15/23 01/21/23 05:30 History levothyroxine 150 mcg tablet 150 mcg PO DAILY 11/25/20 01/15/23 01/21/23 05:30 History metoprolol succinate 25 mg 25 mg PO DAILY 11/25/20 01/15/23 01/21/23 05:30 History tablet,extended release 24 hr omeprazole 20 mg capsule,delayed 20 mg PO BID 11/25/20 01/15/23 01/21/23 05:30 History release tamsulosin 0.4 mg capsule 0.4 mg PO DAILY 11/25/20 01/15/23 Unknown History Exam Exam Date and Time: January 20, 2023 1100 Height,Weight and Vital Signs: Height 5 ft 8 in Weight 98.43 kg Narrative Narrative: EKG 11/2022 sinus bradycardia with first-degree AV block with nonspecific T-wave changes ECHO 2021 Conclusions: - The left ventricular systolic function is normal.? The ? calculated ejection fraction is 61% by biplane method. ? - No obvious valvular pathology seen on this study.? - Top normal ascending aortic size at 3.9 cm.? Assessment and Plan Assessment Anesthesia Assessment: Chart Reviewed Final Anesthetic Review Family History of Problems with Anesthesia: No History of Problems with Anesthesia: No Documented by User: Cande Webb MD 01/21/23 08:33 [facility] Past Medical History Medical History (Updated 01/21/23 @ 07:54 by Aracelis Snow RN) CVA (cerebral vascular accident) GERD (gastroesophageal reflux disease) HTN (hypertension) Hyperlipemia Hypothyroid Paroxysmal atrial fibrillation Sinus bradycardia Thoracic aortic aneurysm Family History Family History Father No problems noted. Mother CVD (cardiovascular disease) Surgical History Surgical History (Updated 01/21/23 @ 07:54 by Aracelis Snow, RAN) History of colonoscopy History of esophagogastroduodenoscopy (EGD) History of radiofrequency ablation (RFA) procedure for cardiac arrhythmia Hx of cystoscopy Social History Social History Alcohol intake: current Alcohol intake frequency: holidays/special occasions only Patient Tobacco Use Status: Never used Tobacco Use of substances other than those prescribed or required for medical reasons: No Are you DNR?: No Advance Directives: No Advance Directives Information Provided: Yes Meds Allergies Allergy/AdvReac Type Severity Reaction Status Date / Time No Known Allergies Allergy Verified 01/21/23 07:54 [No Known Allergies*] Home Medications Medication Instructions Recorded Confirmed Last Taken Type atorvastatin 80 mg tablet 80 mg PO DAILY 11/25/20 01/15/23 Unknown History flecainide 100 mg tablet 100 mg PO BID 11/25/20 01/15/23 01/21/23 05:30 History levothyroxine 150 mcg tablet 150 mcg PO DAILY 11/25/20 01/15/23 01/21/23 05:30 History metoprolol succinate 25 mg 25 mg PO DAILY 11/25/20 01/15/23 01/21/23 05:30 History tablet,extended release 24 hr omeprazole 20 mg capsule,delayed 20 mg PO BID 11/25/20 01/15/23 01/21/23 05:30 History release tamsulosin 0.4 mg capsule 0.4 mg PO DAILY 11/25/20 01/15/23 Unknown History Exam Airway Mallampati Class: II TM Dist: >3cm Neck ROM: Full Denture: Upper and Lower Heart: sb rr [id number] Lungs: cta Assessment and Plan Assessment Anesthesia Assessment: Anesthesia Plan Discussed Final Anesthetic Review NPO: Yes ASA Class: II Final Preanesthetic Review: No Changes in Pt Med Stat, Meds/Allgs Chart Reviewed, Consent Obtained/Reviewed and Anes Risks/Benef Reviewed Patient Risk: Intermediate Procedure Risk: Intermediate Anesthetic Plan Anesthetic Plan: MAC: Disposition: Standard PACU
[2023-01-21] VITALS (10 sets, daily range): BP systolic 109–133; BP diastolic 68–80; PULSE 47–71; RESP 12–16; TEMP 36.3–36.6; O2SAT 89–97
--- NOTE | 2023-01-21 08:10 | PCN2_ITS ---
Brief Operative Note Date of procedure: 01/21/23 Procedure: Preop diagnosis: [LEFT inguinal hernia] Postop diagnosis: [Same, indirect] Procedure: [Open left indirect inguinal hernia repair with mesh] Surgeon: Carlyle Ward MD Assist: [] Anesthesia: [general WEAVER NEEDLE LOOM; Marcaine, 0.5% with epi] Estimated blood loss: [10cc] Specimen: [none] Intraoperative findings: [Indirect left inguinal hernia containing viable fat, reduced and ring plasty performed with Bryce tension-free repair using Bard polypropylene mesh.] Indications: [The patient is a 72-year-old gentleman with a symptomatic left inguinal hernia who wished to have it repaired. There were no prior attempts in the hernia is reducible but symptomatic. After reviewing options including laparoscopic/MIS or 2nd opinion, the patient wanted to proceed with an open repair with mesh. These risks of hernia surgery include, but are not limited to: Bleeding, infection, hernia recurrence especially if weight gain or postoperative instructions are not followed, nerve entrapment, urinary retention, chronic pain, mesh complications that could require reoperation. The patient seemed to understand all of these options, had their questions answered and wanted to proceed. Activity restrictions were also discussed at length in the patient's questions seemed to be answered. ] Procedure: [The patient was identified in the preoperative holding area by myself and the operative site marked by me confirming a LEFT inguinal hernia. 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 The operative field hair had been clipped in preop holding. The patient was again identified in the operating suite and placed supine on the table. See anesthesia notes for full details regarding anesthesia care and management. An appropriate time-out was performed confirming the operative site and procedure. The patient was then widely prepped and draped in the usual manner using chlorhexidine. An ileoinguinal nerve block was performed using Marcaine, 0.5% with epi and a standard left inguinal herniorrhaphy incision made sharply through the skin. Dissection was carried through all layers using electric cautery for dissection and hemostasis. Additional local was infiltrated is the external oblique aponeurosis, in the external oblique aponeurosis opened sharply in the direction of its fibers to the external ring. The ilioinguinal nerve was identified and preserved/sacrificed through the dissection. The cord was mobilized at the level of the pubic tubercle and surrounded with hernia tape. The floor was inspected and found intact. Careful dissection of the spermatic cord to preserve the vessels and vas was performed to assess for indirect hernia sac. The hernia sac was highly dissected, opened, its contents reduced and suture ligation performed. Next, a standard Bryce tension-free herniorrhaphy performed using polypropylene patch that was sutured to the pubic tubercle and inguinal ligament using a 2-0 Polysorb. A new internal ring was made using 2-0 polypropylene suture. The new internal ring was snug enough that it could just accommodate a tip of a hemostat. Next, the operative field was inspected for hemostasis which was good, the external oblique aponeurosis was closed with a running 0 Polysorb suture, subcutaneous tissues closed with 3-0 Polysorb and skin closed with running 4-0 Monocryl subcuticular suture. The abdomen was washed and dried, Mastisol and Steri-Strips applied followed by a sterile dressing. Patient tolerated the procedure well was sent to the recovery area in stable condition. All sponge and instrument counts were correct x2. The patient will resume his Eliquis tomorrow night and is advised to avoid aspirin and NSAIDs.]
--- NOTE | 2023-01-21 08:20 | MHC.SHP ---
Pre-Procedural Eval Section A Date of Service: 01/21/23 The patient is an INPATIENT: No The History & Physical has been completed within 30 days and I have reviewed it.: Yes Section B Chief Complaint: Unilateral inguinal hernia, without obstruction or Allergies: Allergies Allergy/AdvReac Type Severity Reaction Status Date / Time No Known Allergies Allergy Verified 01/21/23 07:54 [No Known Allergies*] Plan I have reviewed the history and physical and performed a pertinent physical examination on my patient. No changes have occurred unless specified. Time Spent With Patient Time: Total time managing care of this patient today ____ minutes.
== END 2023-01-21 14:15 | disposition home or self-care (01) ==
PROVIDERS: PCP Internal Medicine; Visit Provider Surgery
PROC: (CPT 49505; principal; 2023-01-21 09:20)
DX: K40.90 Unilateral inguinal hernia, without obstruction or gangrene, not specified as recurrent (principal); I10 Essential (primary) hypertension; I48.0 Paroxysmal atrial fibrillation; I71.20 Thoracic aortic aneurysm, without rupture, unspecified; R00.1 Bradycardia, unspecified; R21 Rash and other nonspecific skin eruption; Z79.01 Long term (current) use of anticoagulants; Z79.899 Other long term (current) drug therapy
CPT/HCPCS: 49505; C1781; J0131; J0690; J2405; J3010

== ENCOUNTER 2023-01-23 11:55 | Inpatient (IN) | payer MEDICARE, SELFPAY ==
[2023-01-23] VITALS (8 sets, daily range): BP systolic 114–155; BP diastolic 65–110; PULSE 63–161; RESP 16–20; TEMP 36.9–37.4; O2SAT 91–95; BMI 31.1
--- NOTE | ~2023-01-23 | XR_ITS ---
EXAMINATION: XR CHEST CLINICAL INFORMATION: Chest pain COMPARISON: CT abdomen pelvis 12/28/2022 TECHNIQUE: Frontal view of the chest was obtained. FINDINGS: There is elevated left hemidiaphragm with a large hiatal hernia. The lungs are otherwise well-expanded and clear. There is minimal compressive atelectasis left lung base secondary to hiatal hernia. Minimal linear atelectatic changes also visualized in right middle lobe. Heart size and pulmonary vascularity is normal. No gross bony abnormality seen. XR/XR chest 1V IMPRESSION: 1. Elevated left hemidiaphragm with compressive atelectasis left lung base. 2. Minimal linear atelectasis right middle lobe. 3. Large hiatal hernia.
--- NOTE | ~2023-01-23 | CT_ITS ---
EXAMINATION: CT ABDOMEN AND PELVIS WITHOUT CONTRAST CLINICAL INFORMATION: Abdominal pain COMPARISON: CT from 12/28/2022 TECHNIQUE: Multidetector volumetric imaging was performed from the superior aspect of the liver through the pubic symphysis. Sagittal and coronal reformatted images were obtained on the technologist's workstation. This CT examination was performed using dose optimization techniques as appropriate, variously including the following: *Automated exposure control *Adjustment of mA and/or kV according to patient size (this includes techniques or standardized protocols for targeted exams where dose is matched to indication/reason for exam; i.e. extremities or head) *Use of iterative reconstruction technique DLP: 705 mGy-cm FINDINGS: LUNG BASES: Atelectasis seen in the bilateral lower lobes, left greater than right LIVER, GALLBLADDER, AND BILIARY TREE: The liver is normal in size, shape, and attenuation. No focal hepatic lesion or biliary ductal dilatation is present. The gallbladder is unremarkable with no evidence of radiopaque gallstones, gallbladder wall thickening, or obvious pericholecystic inflammatory changes. PANCREAS: Unremarkable. SPLEEN: Unremarkable. ADRENAL GLANDS: Unremarkable. KIDNEYS AND URETERS: The kidneys are normal in size, shape, and attenuation. No hydronephrosis, hydroureter seen. No perinephric stranding. Multiple nonobstructing calcification seen in the bilateral renal parenchyma which are stable. There is a stable 2.2 cm simple fluid density cyst in the left kidney. No follow-up indicated. BLADDER: Decompressed by a Dunham catheter GASTROINTESTINAL TRACT: There is a large hiatal hernia containing the stomach extending into the chest. The small and large bowel are unremarkable. The appendix is unremarkable. ABDOMINAL WALL: Previously seen large left inguinal hernia has reduced in size with reduction of the previously seen the bowel loops within the hernia sac. There is significant inflammatory stranding is seen within the left inguinal hernia as well as the surrounding subcutaneous soft tissues of the left inguinal region and visualized scrotal sac. There are a few foci of air are seen within the soft tissues of the left inguinal canal and overlying skin changes suggesting an interval surgery. LYMPH NODES: Normal. VASCULAR: Unremarkable. PELVIC VISCERA: Unremarkable. OSSEOUS STRUCTURES: Unremarkable. CT/CT abdomen pelvis wo IV con IMPRESSION: Previously seen large left inguinal hernia has reduced in size with reduction of the previously seen bowel loops within the hernia sac. There is significant inflammatory stranding seen within the left inguinal hernia as well as the surrounding subcutaneous soft tissues of the left inguinal region and visualized scrotal sac. There are a few foci of air seen within the soft tissues of the left inguinal canal and overlying skin changes suggesting an interval surgery. Increased bibasilar atelectasis Stable large hiatal hernia
--- NOTE | 2023-01-23 08:07 | ECG_ITS ---
Test Reason : CP Blood Pressure : / mmHG Vent. Rate : 067 BPM Atrial Rate : 067 BPM P-R Int : 208 ms QRS Dur : 106 ms QT Int : 418 ms P-R-T Axes : 027 -11 020 degrees QTc Int : 441 ms Normal sinus rhythm Normal ECG When compared with ECG of 23-JAN-2023 12:15, Rhythm change Vent. rate has decreased BY 56 BPM Referred By: Silvana Thapa Electronically Signed By:NAYE HARVEY
--- NOTE | 2023-01-23 12:03 | ED.ABDPAIN ---
HPI - Abdominal Pain General Chief Complaint: Chest Pain <DANIE Manley - Last Filed: 01/23/23 13:23> Stated Complaint: hernia <DANIE Manley - Last Filed: 01/23/23 13:23> Time Seen by Provider: 01/23/23 12:26 <DANIE Manley - Last Filed: 01/23/23 13:23> Related Data Home Medications: Home Medications Medication Instructions Recorded Confirmed atorvastatin 80 mg tablet 80 mg PO DAILY 11/25/20 01/15/23 flecainide 100 mg tablet 100 mg PO BID 11/25/20 01/15/23 levothyroxine 150 mcg tablet 150 mcg PO DAILY 11/25/20 01/15/23 metoprolol succinate 25 mg 25 mg PO DAILY 11/25/20 01/15/23 tablet,extended release 24 hr omeprazole 20 mg capsule,delayed 20 mg PO BID 11/25/20 01/15/23 release tamsulosin 0.4 mg capsule 0.4 mg PO DAILY 11/25/20 01/15/23 Previous Rx's Medication Instructions Recorded apixaban 5 mg tablet (Eliquis) 5 mg PO BID #180 tabs 05/19/22 amlodipine 2.5 mg tablet 2.5 mg PO DAILY 90 days #90 tabs 08/19/22 oxycodone 5 mg tablet 5 mg PO Q4H PRN pain #20 tabs 01/21/23 <DANIE Manley - Last Filed: 01/23/23 13:23> Allergies/Adverse Reactions: Allergies Allergy/AdvReac Type Severity Reaction Status Date / Time No Known Allergies Allergy Verified 01/21/23 07:54 [No Known Allergies*] <DANIE Manley - Last Filed: 01/23/23 13:23> [facility] Past Medical History Attestation statement: The following information was validated with the patient. <Dillan Hardin MD - Last Filed: 01/23/23 15:06> Medical History: Medical History CVA (cerebral vascular accident) GERD (gastroesophageal reflux disease) HTN (hypertension) Hyperlipemia Hypothyroid Paroxysmal atrial fibrillation Sinus bradycardia Thoracic aortic aneurysm <DANIE Manley - Last Filed: 01/23/23 13:23> Surgical History: Surgical History History of colonoscopy History of esophagogastroduodenoscopy (EGD) History of radiofrequency ablation (RFA) procedure for cardiac arrhythmia Hx of cystoscopy <DANIE Manley - Last Filed: 01/23/23 13:23> Family History Family History: Family History Father No problems noted. Mother CVD (cardiovascular disease) <DANIE Manley - Last Filed: 01/23/23 13:23> Social History Social History: Social History Alcohol intake: current Alcohol intake frequency: does not drink Patient Tobacco Use Status: Never used Tobacco Smoked in Last 30 Days: No Use of substances other than those prescribed or required for medical reasons: No Advance Directives: No <DANIE Manley - Last Filed: 01/23/23 13:23> Physical Exam ED Vital Signs: Vital Signs - 24 hr 01/23/23 12:05 01/23/23 12:28 01/23/23 13:15 Temperature 98.5 F 99.4 F Pulse Rate 161 H 82 107 H Respiratory Rate 18 19 16 Blood Pressure 155/110 H 143/95 H 130/78 Pulse Oximetry 93 91 L Oxygen Delivery Method Room Air Room Air BMI result Body Mass Index 31.1 <DANIE Manley - Last Filed: 01/23/23 13:23> Vital Signs - 24 hr 01/23/23 12:05 01/23/23 12:28 01/23/23 13:15 Temperature 98.5 F 99.4 F Pulse Rate 161 H 82 107 H Respiratory Rate 18 19 16 Blood Pressure 155/110 H 143/95 H 130/78 Pulse Oximetry 93 91 L Oxygen Delivery Method Room Air Room Air BMI result Body Mass Index 31.1 <Dillan Hardin MD - Last Filed: 01/23/23 15:06> Course Course Course Narrative: RME--72yo M with A.fib on Eliquis, HTN, s/p inguinal hernia repair on 01/[address] Walko c/o abdominal pain, nausea, urinary hesitancy/drippling, constipation and chest pain x 2 days. Denies urinating or having BM since surgery. Reports feels like hes in A.fib from his sx/stress, reports heart rate feels fast HR bouncing from 114-140's in triage. Hypertensive, appears in pain EKG, Labs, UA, COVID, CXR, CTAP ordered Charge nurse aware, patient will be brought back into room <DANIE Manley - Last Filed: 01/23/23 13:23> Medical Decision Making Medical Decision Making MDM Narrative: Patient presented in rapid AFib and urinary retention with preceded week cardiacs than 3 and Dunham catheter <Dillan Hardin MD - Last Filed: 01/23/23 15:06> Differential Diagnosis Differential Diagnoses: The differential diagnosis associated with the presentation includes <Dillan Hardin MD - Last Filed: 01/23/23 15:06> Rapid the femur /dehydration/infections <Dillan Hardin MD - Last Filed: 01/23/23 15:06> Admission/Observation Consideration of admission/observation: Escalation of care including admission/observation considered <Dillan Hardin MD - Last Filed: 01/23/23 15:06> Consult Healthcare Provider Management of the patient was discussed with: Individual Pension Consultant <Dillan Hardin MD - Last Filed: 01/23/23 15:06> Discussed case with Cardiology <Dillan Hardin MD - Last Filed: 01/23/23 15:06> Lab Data Result Diagrams: 01/23/23 12:54 01/23/23 12:54 <DANIE Manley - Last Filed: 01/23/23 13:23> Labs: Lab Results 01/23/23 01/23/23 01/23/23 Range/Units 12:35 12:41 12:54 WBC 11.6 H (4.8-10.8) X10*3/uL RBC 5.95 H (4.60-5.80) X10*6/uL Hgb 16.4 (14.0-18.0) g/dl Hct 49.3 (42.0-52.0) % MCV 82.9 (80.0-98.0) fL MCH 27.6 (27.0-33.0) pg MCHC 33.3 (31.0-36.0) g/dl RDW 14.0 (11.0-16.0) % Plt Count 218 (160-400) X10*3/uL MPV 9.5 (9.4-12.4) fL Immature Gran % (Auto) 0.5 H (0.0-0.4) % Neut % (Auto) 80.6 H (45-73) % Lymph % (Auto) 6.1 L (20-40) % [place] % (Auto) 12.5 H (2-11) % Eos % (Auto) 0.2 (0-4) % Baso % (Auto) 0.1 (0-2) % Lymph # (Auto) 0.7 L (1.2-4.9) X10*3/uL [place] # (Auto) 1.5 H (0.1-1.2) X10*3/uL Eos # (Auto) 0.0 (0.0-0.4) X10*3/uL Baso # (Auto) 0.0 (0.0-0.2) X10*3/uL Abs Immat Gran (auto) 0.06 H (0.00-0.03) X10*3/uL Absolute Neuts (auto) 9.3 H (2.0-8.3) x10*3/uL Absolute Nucleated RBC 0.000 (0.0-0.012) X10*3/uL Nucleated RBC % (auto) 0.0 (0.0-0.2) /100WBC PT (10.0-13.1) SEC INR (0.9-1.1) Sodium (135-145) mmol/L Potassium (3.3-5.1) mmol/L Chloride (96-108) mmol/L Carbon Dioxide (22-29) mmol/L Anion Gap (12-20) BUN (9-16) mg/dL Creatinine (0.5-1.4) mg/dL Estim Creat Clear Calc Estimated GFR Random Glucose (60-115) mg/dL Calcium (8.4-10.2) mg/dL Magnesium (1.6-2.6) mg/dL Total Bilirubin (0.0-1.0) mg/dL Direct Bilirubin (0.0-0.5) mg/dL AST (5-37) U/L ALT (0-40) U/L Alkaline Phosphatase (39-117) U/L Troponin I High Sens (<3.5-35.0) ng/L B-Natriuretic Peptide (<100) pg/mL Total Protein (6.5-8.0) g/dL Albumin (3.5-5.0) g/dL Lipase (8-78) U/L Urine Color Dark Yellow Urine Appearance Clear Urine pH 6.0 (5.0-9.0) Ur Specific [place] 1.015 (1.005-1.025) Urine Protein Trace (Neg-Trace) mg/dL Urine Glucose (UA) Negative (Negative) mg/dL Urine Ketones Negative (Negative) mg/dL Urine Blood Negative (Negative) Urine Nitrite Positive H (Negative) Ur Leukocyte Esterase Small (1+) H (Negative) Urine RBC 0-2 (0-2) /HPF Urine WBC 11-20 H (0-5) /HPF Ur Squamous Epith Cells 0-2 (0-2) /HPF Urine Bacteria Trace (None Seen) Hyaline Casts 0-2 (0-2) /LPF COVID-19 ([facility]) Negative (Negative) COVID-19 Clin Com See Note 01/23/23 01/23/23 01/23/23 Range/Units 12:54 12:54 12:54 WBC (4.8-10.8) X10*3/uL RBC (4.60-5.80) X10*6/uL Hgb (14.0-18.0) g/dl Hct (42.0-52.0) % MCV (80.0-98.0) fL MCH (27.0-33.0) pg MCHC (31.0-36.0) g/dl RDW (11.0-16.0) % Plt Count (160-400) X10*3/uL MPV (9.4-12.4) fL Immature Gran % (Auto) (0.0-0.4) % Neut % (Auto) (45-73) % Lymph % (Auto) (20-40) % [place] % (Auto) (2-11) % Eos % (Auto) (0-4) % Baso % (Auto) (0-2) % Lymph # (Auto) (1.2-4.9) X10*3/uL [place] # (Auto) (0.1-1.2) X10*3/uL Eos # (Auto) (0.0-0.4) X10*3/uL Baso # (Auto) (0.0-0.2) X10*3/uL Abs Immat Gran (auto) (0.00-0.03) X10*3/uL Absolute Neuts (auto) (2.0-8.3) x10*3/uL Absolute Nucleated RBC (0.0-0.012) X10*3/uL Nucleated RBC % (auto) (0.0-0.2) /100WBC PT 15.9 H (10.0-13.1) SEC INR 1.4 H (0.9-1.1) Sodium 136 (135-145) mmol/L Potassium 4.2 (3.3-5.1) mmol/L Chloride 102 (96-108) mmol/L Carbon Dioxide 24 (22-29) mmol/L Anion Gap 14 (12-20) BUN 13 (9-16) mg/dL Creatinine 1.08 (0.5-1.4) mg/dL Estim Creat Clear Calc 69.4 Estimated GFR > 60 Random Glucose 127 H (60-115) mg/dL Calcium 9.2 (8.4-10.2) mg/dL Magnesium 1.8 (1.6-2.6) mg/dL Total Bilirubin 1.9 H (0.0-1.0) mg/dL Direct Bilirubin 0.6 H (0.0-0.5) mg/dL AST 15 (5-37) U/L ALT 7 (0-40) U/L Alkaline Phosphatase 81 (39-117) U/L Troponin I High Sens 5.6 (<3.5-35.0) ng/L B-Natriuretic Peptide (<100) pg/mL Total Protein 6.9 (6.5-8.0) g/dL Albumin 4.1 (3.5-5.0) g/dL Lipase 10 (8-78) U/L Urine Color Urine Appearance Urine pH (5.0-9.0) Ur Specific [place] (1.005-1.025) Urine Protein (Neg-Trace) mg/dL Urine Glucose (UA) (Negative) mg/dL Urine Ketones (Negative) mg/dL Urine Blood (Negative) Urine Nitrite (Negative) Ur Leukocyte Esterase (Negative) Urine RBC (0-2) /HPF Urine WBC (0-5) /HPF Ur Squamous Epith Cells (0-2) /HPF Urine Bacteria (None Seen) Hyaline Casts (0-2) /LPF COVID-19 ([place]) (Negative) COVID-19 Clin Com 01/23/23 Range/Units 12:54 WBC (4.8-10.8) X10*3/uL RBC (4.60-5.80) X10*6/uL Hgb (14.0-18.0) g/dl Hct (42.0-52.0) % MCV (80.0-98.0) fL MCH (27.0-33.0) pg MCHC (31.0-36.0) g/dl RDW (11.0-16.0) % Plt Count (160-400) X10*3/uL MPV (9.4-12.4) fL Immature Gran % (Auto) (0.0-0.4) % Neut % (Auto) (45-73) % Lymph % (Auto) (20-40) % [place] % (Auto) (2-11) % Eos % (Auto) (0-4) % Baso % (Auto) (0-2) % Lymph # (Auto) (1.2-4.9) X10*3/uL [place] # (Auto) (0.1-1.2) X10*3/uL Eos # (Auto) (0.0-0.4) X10*3/uL Baso # (Auto) (0.0-0.2) X10*3/uL Abs Immat Gran (auto) (0.00-0.03) X10*3/uL Absolute Neuts (auto) (2.0-8.3) x10*3/uL Absolute Nucleated RBC (0.0-0.012) X10*3/uL Nucleated RBC % (auto) (0.0-0.2) /100WBC PT (10.0-13.1) SEC INR (0.9-1.1) Sodium (135-145) mmol/L Potassium (3.3-5.1) mmol/L Chloride (96-108) mmol/L Carbon Dioxide (22-29) mmol/L Anion Gap (12-20) BUN (9-16) mg/dL Creatinine (0.5-1.4) mg/dL Estim Creat Clear Calc Estimated GFR Random Glucose (60-115) mg/dL Calcium (8.4-10.2) mg/dL Magnesium (1.6-2.6) mg/dL Total Bilirubin (0.0-1.0) mg/dL Direct Bilirubin (0.0-0.5) mg/dL AST (5-37) U/L ALT (0-40) U/L Alkaline Phosphatase (39-117) U/L Troponin I High Sens (<3.5-35.0) ng/L B-Natriuretic Peptide 57 (<100) pg/mL Total Protein (6.5-8.0) g/dL Albumin (3.5-5.0) g/dL Lipase (8-78) U/L Urine Color Urine Appearance Urine pH (5.0-9.0) Ur Specific [place] (1.005-1.025) Urine Protein (Neg-Trace) mg/dL Urine Glucose (UA) (Negative) mg/dL Urine Ketones (Negative) mg/dL Urine Blood (Negative) Urine Nitrite (Negative) Ur Leukocyte Esterase (Negative) Urine RBC (0-2) /HPF Urine WBC (0-5) /HPF Ur Squamous Epith Cells (0-2) /HPF Urine Bacteria (None Seen) Hyaline Casts (0-2) /LPF COVID-19 ([facility]) (Negative) COVID-19 Clin Com <DANIE Manley - Last Filed: 01/23/23 13:23> Lab Results 01/23/23 01/23/23 01/23/23 Range/Units 12:35 12:41 12:54 WBC 11.6 H (4.8-10.8) X10*3/uL RBC 5.95 H (4.60-5.80) X10*6/uL Hgb 16.4 (14.0-18.0) g/dl Hct 49.3 (42.0-52.0) % MCV 82.9 (80.0-98.0) fL MCH 27.6 (27.0-33.0) pg MCHC 33.3 (31.0-36.0) g/dl RDW 14.0 (11.0-16.0) % Plt Count 218 (160-400) X10*3/uL MPV 9.5 (9.4-12.4) fL Immature Gran % (Auto) 0.5 H (0.0-0.4) % Neut % (Auto) 80.6 H (45-73) % Lymph % (Auto) 6.1 L (20-40) % [place] % (Auto) 12.5 H (2-11) % Eos % (Auto) 0.2 (0-4) % Baso % (Auto) 0.1 (0-2) % Lymph # (Auto) 0.7 L (1.2-4.9) X10*3/uL [place] # (Auto) 1.5 H (0.1-1.2) X10*3/uL Eos # (Auto) 0.0 (0.0-0.4) X10*3/uL Baso # (Auto) 0.0 (0.0-0.2) X10*3/uL Abs Immat Gran (auto) 0.06 H (0.00-0.03) X10*3/uL Absolute Neuts (auto) 9.3 H (2.0-8.3) x10*3/uL Absolute Nucleated RBC 0.000 (0.0-0.012) X10*3/uL Nucleated RBC % (auto) 0.0 (0.0-0.2) /100WBC PT (10.0-13.1) SEC INR (0.9-1.1) Sodium (135-145) mmol/L Potassium (3.3-5.1) mmol/L Chloride (96-108) mmol/L Carbon Dioxide (22-29) mmol/L Anion Gap (12-20) BUN (9-16) mg/dL Creatinine (0.5-1.4) mg/dL Estim Creat Clear Calc Estimated GFR Random Glucose (60-115) mg/dL Calcium (8.4-10.2) mg/dL Magnesium (1.6-2.6) mg/dL Total Bilirubin (0.0-1.0) mg/dL Direct Bilirubin (0.0-0.5) mg/dL AST (5-37) U/L ALT (0-40) U/L Alkaline Phosphatase (39-117) U/L Troponin I High Sens (<3.5-35.0) ng/L B-Natriuretic Peptide (<100) pg/mL Total Protein (6.5-8.0) g/dL Albumin (3.5-5.0) g/dL Lipase (8-78) U/L Urine Color Dark Yellow Urine Appearance Clear Urine pH 6.0 (5.0-9.0) Ur Specific [place] 1.015 (1.005-1.025) Urine Protein Trace (Neg-Trace) mg/dL Urine Glucose (UA) Negative (Negative) mg/dL Urine Ketones Negative (Negative) mg/dL Urine Blood Negative (Negative) Urine Nitrite Positive H (Negative) Ur Leukocyte Esterase Small (1+) H (Negative) Urine RBC 0-2 (0-2) /HPF Urine WBC 11-20 H (0-5) /HPF Ur Squamous Epith Cells 0-2 (0-2) /HPF Urine Bacteria Trace (None Seen) Hyaline Casts 0-2 (0-2) /LPF COVID-19 ([place]) Negative (Negative) COVID-19 Clin Com See Note 01/23/23 01/23/23 01/23/23 Range/Units 12:54 12:54 12:54 WBC (4.8-10.8) X10*3/uL RBC (4.60-5.80) X10*6/uL Hgb (14.0-18.0) g/dl Hct (42.0-52.0) % MCV (80.0-98.0) fL MCH (27.0-33.0) pg MCHC (31.0-36.0) g/dl RDW (11.0-16.0) % Plt Count (160-400) X10*3/uL MPV (9.4-12.4) fL Immature Gran % (Auto) (0.0-0.4) % Neut % (Auto) (45-73) % Lymph % (Auto) (20-40) % [place] % (Auto) (2-11) % Eos % (Auto) (0-4) % Baso % (Auto) (0-2) % Lymph # (Auto) (1.2-4.9) X10*3/uL [place] # (Auto) (0.1-1.2) X10*3/uL Eos # (Auto) (0.0-0.4) X10*3/uL Baso # (Auto) (0.0-0.2) X10*3/uL Abs Immat Gran (auto) (0.00-0.03) X10*3/uL Absolute Neuts (auto) (2.0-8.3) x10*3/uL Absolute Nucleated RBC (0.0-0.012) X10*3/uL Nucleated RBC % (auto) (0.0-0.2) /100WBC PT 15.9 H (10.0-13.1) SEC INR 1.4 H (0.9-1.1) Sodium 136 (135-145) mmol/L Potassium 4.2 (3.3-5.1) mmol/L Chloride 102 (96-108) mmol/L Carbon Dioxide 24 (22-29) mmol/L Anion Gap 14 (12-20) BUN 13 (9-16) mg/dL Creatinine 1.08 (0.5-1.4) mg/dL Estim Creat Clear Calc 69.4 Estimated GFR > 60 Random Glucose 127 H (60-115) mg/dL Calcium 9.2 (8.4-10.2) mg/dL Magnesium 1.8 (1.6-2.6) mg/dL Total Bilirubin 1.9 H (0.0-1.0) mg/dL Direct Bilirubin 0.6 H (0.0-0.5) mg/dL AST 15 (5-37) U/L ALT 7 (0-40) U/L Alkaline Phosphatase 81 (39-117) U/L Troponin I High Sens 5.6 (<3.5-35.0) ng/L B-Natriuretic Peptide (<100) pg/mL Total Protein 6.9 (6.5-8.0) g/dL Albumin 4.1 (3.5-5.0) g/dL Lipase 10 (8-78) U/L Urine Color Urine Appearance Urine pH (5.0-9.0) Ur Specific [place] (1.005-1.025) Urine Protein (Neg-Trace) mg/dL Urine Glucose (UA) (Negative) mg/dL Urine Ketones (Negative) mg/dL Urine Blood (Negative) Urine Nitrite (Negative) Ur Leukocyte Esterase (Negative) Urine RBC (0-2) /HPF Urine WBC (0-5) /HPF Ur Squamous Epith Cells (0-2) /HPF Urine Bacteria (None Seen) Hyaline Casts (0-2) /LPF COVID-19 ([facility]) (Negative) COVID-19 Clin Com 01/23/23 Range/Units 12:54 WBC (4.8-10.8) X10*3/uL RBC (4.60-5.80) X10*6/uL Hgb (14.0-18.0) g/dl Hct (42.0-52.0) % MCV (80.0-98.0) fL MCH (27.0-33.0) pg MCHC (31.0-36.0) g/dl RDW (11.0-16.0) % Plt Count (160-400) X10*3/uL MPV (9.4-12.4) fL Immature Gran % (Auto) (0.0-0.4) % Neut % (Auto) (45-73) % Lymph % (Auto) (20-40) % [place] % (Auto) (2-11) % Eos % (Auto) (0-4) % Baso % (Auto) (0-2) % Lymph # (Auto) (1.2-4.9) X10*3/uL [place] # (Auto) (0.1-1.2) X10*3/uL Eos # (Auto) (0.0-0.4) X10*3/uL Baso # (Auto) (0.0-0.2) X10*3/uL Abs Immat Gran (auto) (0.00-0.03) X10*3/uL Absolute Neuts (auto) (2.0-8.3) x10*3/uL Absolute Nucleated RBC (0.0-0.012) X10*3/uL Nucleated RBC % (auto) (0.0-0.2) /100WBC PT (10.0-13.1) SEC INR (0.9-1.1) Sodium (135-145) mmol/L Potassium (3.3-5.1) mmol/L Chloride (96-108) mmol/L Carbon Dioxide (22-29) mmol/L Anion Gap (12-20) BUN (9-16) mg/dL Creatinine (0.5-1.4) mg/dL Estim Creat Clear Calc Estimated GFR Random Glucose (60-115) mg/dL Calcium (8.4-10.2) mg/dL Magnesium (1.6-2.6) mg/dL Total Bilirubin (0.0-1.0) mg/dL Direct Bilirubin (0.0-0.5) mg/dL AST (5-37) U/L ALT (0-40) U/L Alkaline Phosphatase (39-117) U/L Troponin I High Sens (<3.5-35.0) ng/L B-Natriuretic Peptide 57 (<100) pg/mL Total Protein (6.5-8.0) g/dL Albumin (3.5-5.0) g/dL Lipase (8-78) U/L Urine Color Urine Appearance Urine pH (5.0-9.0) Ur Specific [place] (1.005-1.025) Urine Protein (Neg-Trace) mg/dL Urine Glucose (UA) (Negative) mg/dL Urine Ketones (Negative) mg/dL Urine Blood (Negative) Urine Nitrite (Negative) Ur Leukocyte Esterase (Negative) Urine RBC (0-2) /HPF Urine WBC (0-5) /HPF Ur Squamous Epith Cells (0-2) /HPF Urine Bacteria (None Seen) Hyaline Casts (0-2) /LPF COVID-19 ([facility]) (Negative) COVID-19 Clin Com <Dillan Hardin MD - Last Filed: 01/23/23 15:06> Medications Administered Discontinued Medications Generic Name Dose Route Start Last Admin Trade Name Freq PRN Reason Stop Dose Admin Diltiazem HCl 23.2465 mg 01/23/23 12:38 01/23/23 13:13 Diltiazem Hcl 50 Mg/10 Ml Vial 0.25 mg/kg (23.2465 mg) 01/23/23 12:39 23.2465 mg IVPUSH Administration ONCE ONE Diltiazem HCl 125 mg/ Sodium 125 mls @ 0 mls/hr 01/23/23 12:45 01/23/23 14:56 Chloride IVCONT Infused .Q0M SASKIA Titration Protocol Per Protocol <DANIE Manley - Last Filed: 01/23/23 13:23> Medications Administered Discontinued Medications Generic Name Dose Route Start Last Admin Trade Name Freq PRN Reason Stop Dose Admin Diltiazem HCl 23.2465 mg 01/23/23 12:38 01/23/23 13:13 Diltiazem Hcl 50 Mg/10 Ml Vial 0.25 mg/kg (23.2465 mg) 01/23/23 12:39 23.2465 mg IVPUSH Administration ONCE ONE Diltiazem HCl 125 mg/ Sodium 125 mls @ 0 mls/hr 01/23/23 12:45 01/23/23 14:56 Chloride IVCONT Infused .Q0M SASKIA Titration Protocol Per Protocol <Dillan Hardin MD - Last Filed: 01/23/23 15:06> Discharge Plan Discharge Clinical Impression: Atrial fibrillation with rapid ventricular response, Acute urinary retention <DANIE Manley - Last Filed: 01/23/23 13:23> Patient Disposition: Admitted As Inpatient <DANIE Manley - Last Filed: 01/23/23 13:23>
--- NOTE | 2023-01-23 12:04 | ECG_ITS ---
Test Reason : CP Blood Pressure : / mmHG Vent. Rate : 123 BPM Atrial Rate : 000 BPM P-R Int : 000 ms QRS Dur : 108 ms QT Int : 286 ms P-R-T Axes : 000 -15 019 degrees QTc Int : 409 ms Rhythm shows atrial flutter with variable block Minimal voltage criteria for LVH, may be normal variant ( [place] product ) Abnormal ECG When compared with ECG of 25-APR-2016 00:13, No significant change was found Referred By: Silvana Thapa Electronically Signed By:ALECIA RUSSELL MD
--- NOTE | 2023-01-23 12:39 | ED_ITS ---
HPI - General Adult General Chief complaint: Chest Pain Stated complaint: hernia Time Seen by Provider: 01/23/23 12:26 Source: patient Limitations: no limitations History of Present Illness HPI narrative: Patient presented to emergency room complaining or inability to urinate since the surgery on also palpitations. Patient has history of paroxysmal atrial fibrillation is anticoagulated with Eliquis he was found tachycardic in triage with a rate of 161 Onset (ago): day(s) (1) Radiation: non-radiation Severity: moderate Pain Consistency: constant Relieving factors: none Exacerbating factors: none Associated symptoms: denies other symptoms Related Data Home Medications Medication Instructions Recorded Confirmed atorvastatin 80 mg tablet 80 mg PO DAILY 11/25/20 01/15/23 flecainide 100 mg tablet 100 mg PO BID 11/25/20 01/15/23 levothyroxine 150 mcg tablet 150 mcg PO DAILY 11/25/20 01/15/23 metoprolol succinate 25 mg 25 mg PO DAILY 11/25/20 01/15/23 tablet,extended release 24 hr omeprazole 20 mg capsule,delayed 20 mg PO BID 11/25/20 01/15/23 release tamsulosin 0.4 mg capsule 0.4 mg PO DAILY 11/25/20 01/15/23 Previous Rx's Medication Instructions Recorded apixaban 5 mg tablet (Eliquis) 5 mg PO BID #180 tabs 05/19/22 amlodipine 2.5 mg tablet 2.5 mg PO DAILY 90 days #90 tabs 08/19/22 oxycodone 5 mg tablet 5 mg PO Q4H PRN pain #20 tabs 01/21/23 Allergies Allergy/AdvReac Type Severity Reaction Status Date / Time No Known Allergies Allergy Verified 01/21/23 07:54 [No Known Allergies*] Review of Systems Constitutional: Constitutional: Reports no additional constitutional complaints Eyes: Eyes: Reports no additional eye complaints ENT: Reports system reviewed and no additional complaints, except as documented Gastrointestinal: Gastrointestinal: Reports no additional gastrointestinal complaints [facility] Past Medical History Medical History CVA (cerebral vascular accident) GERD (gastroesophageal reflux disease) HTN (hypertension) Hyperlipemia Hypothyroid Paroxysmal atrial fibrillation Sinus bradycardia Thoracic aortic aneurysm Surgical History History of colonoscopy History of esophagogastroduodenoscopy (EGD) History of radiofrequency ablation (RFA) procedure for cardiac arrhythmia Hx of cystoscopy Family History Family History Father No problems noted. Mother CVD (cardiovascular disease) Social History Social History Alcohol intake: current Alcohol intake frequency: does not drink Patient Tobacco Use Status: Never used Tobacco Smoked in Last 30 Days: No Use of substances other than those prescribed or required for medical reasons: No Advance Directives: No Physical Exam ED Vital Signs: Vital Signs - 24 hr 01/23/23 12:05 01/23/23 12:28 01/23/23 13:15 Temperature 98.5 F 99.4 F Pulse Rate 161 H 82 107 H Respiratory Rate 18 19 16 Blood Pressure 155/110 H 143/95 H 130/78 Pulse Oximetry 93 91 L Oxygen Delivery Method Room Air Room Air BMI result Body Mass Index 31.1 Const General: cooperative Nutritional Appearance: average body habitus Orientation/consciousness: patient oriented x3 Limitations: no limitations HENMT Head: Yes normal to inspection Ears: hearing grossly normal bilaterally General nose exam: Normal external nose present Face and sinus: Yes normal facial exam Mouth: Normal oral and palatal mucosa present Throat: Yes posterior oropharynx normal Neck Neck: Yes normal visual inspection and Yes full ROM Chest Chest palpation & inspection: normal inspection of the chest Resp Effort & Inspection: normal respiratory effort and able to speak in complete sentences Cardio Rate: tachycardic Rhythm: abnormal rhythm GI Inspection: Yes normal to inspection Palpation (GI): not firm and nontender Percussion: Yes normal to percussion Skin General skin exam: no rashes or lesions noted and elasticity normal Lesions: no lesions Rashes: no rashes Trauma: no lacerations or abrasions Neuro General: patient oriented x3 Course Course Course Narrative: Patient presented with rapid atrial fibrillation we go ahead with IV Cardizem in a titration Reevaluation(s) Reevaluation #1: seen by infrastructure engineer in ED Time: 13:51 Medications Administered Discontinued Medications Generic Name Dose Route Start Last Admin Trade Name Freq PRN Reason Stop Dose Admin Diltiazem HCl 23.2465 mg 01/23/23 12:38 01/23/23 13:13 Diltiazem Hcl 50 Mg/10 Ml Vial 0.25 mg/kg (23.2465 mg) 01/23/23 12:39 23.2465 mg IVPUSH Administration ONCE ONE Diltiazem HCl 125 mg/ Sodium 125 mls @ 0 mls/hr 01/23/23 12:45 01/23/23 14:56 Chloride IVCONT Infused .Q0M SASKIA Titration Protocol Per Protocol Medical Decision Making Medical Decision Making MDM Narrative: Patient presented with urinary retention iand rapid AFib, poly was inserted and the IV Cardizem the titration started cardiology was consulted Differential Diagnosis Differential Diagnoses: The differential diagnosis associated with the presentation includes Dehydration /acute NH Admission/Observation Consideration of admission/observation: Escalation of care including admission/observation considered Consult Healthcare Provider Management of the patient was discussed with: Wallet Assembler Lab Data [facility] Lab Attestation statement: I reviewed the patient's lab results. 01/23/23 12:54 01/23/23 12:54 Labs: Lab Results 01/23/23 01/23/23 01/23/23 Range/Units 12:35 12:41 12:54 WBC 11.6 H (4.8-10.8) X10*3/uL RBC 5.95 H (4.60-5.80) X10*6/uL Hgb 16.4 (14.0-18.0) g/dl Hct 49.3 (42.0-52.0) % MCV 82.9 (80.0-98.0) fL MCH 27.6 (27.0-33.0) pg MCHC 33.3 (31.0-36.0) g/dl RDW 14.0 (11.0-16.0) % Plt Count 218 (160-400) X10*3/uL MPV 9.5 (9.4-12.4) fL Immature Gran % (Auto) 0.5 H (0.0-0.4) % Neut % (Auto) 80.6 H (45-73) % Lymph % (Auto) 6.1 L (20-40) % [place] % (Auto) 12.5 H (2-11) % Eos % (Auto) 0.2 (0-4) % Baso % (Auto) 0.1 (0-2) % Lymph # (Auto) 0.7 L (1.2-4.9) X10*3/uL [place] # (Auto) 1.5 H (0.1-1.2) X10*3/uL Eos # (Auto) 0.0 (0.0-0.4) X10*3/uL Baso # (Auto) 0.0 (0.0-0.2) X10*3/uL Abs Immat Gran (auto) 0.06 H (0.00-0.03) X10*3/uL Absolute Neuts (auto) 9.3 H (2.0-8.3) x10*3/uL Absolute Nucleated RBC 0.000 (0.0-0.012) X10*3/uL Nucleated RBC % (auto) 0.0 (0.0-0.2) /100WBC PT (10.0-13.1) SEC INR (0.9-1.1) Sodium (135-145) mmol/L Potassium (3.3-5.1) mmol/L Chloride (96-108) mmol/L Carbon Dioxide (22-29) mmol/L Anion Gap (12-20) BUN (9-16) mg/dL Creatinine (0.5-1.4) mg/dL Estim Creat Clear Calc Estimated GFR Random Glucose (60-115) mg/dL Calcium (8.4-10.2) mg/dL Magnesium (1.6-2.6) mg/dL Total Bilirubin (0.0-1.0) mg/dL Direct Bilirubin (0.0-0.5) mg/dL AST (5-37) U/L ALT (0-40) U/L Alkaline Phosphatase (39-117) U/L Troponin I High Sens (<3.5-35.0) ng/L B-Natriuretic Peptide (<100) pg/mL Total Protein (6.5-8.0) g/dL Albumin (3.5-5.0) g/dL Lipase (8-78) U/L Urine Color Dark Yellow Urine Appearance Clear Urine pH 6.0 (5.0-9.0) Ur Specific [place] 1.015 (1.005-1.025) Urine Protein Trace (Neg-Trace) mg/dL Urine Glucose (UA) Negative (Negative) mg/dL Urine Ketones Negative (Negative) mg/dL Urine Blood Negative (Negative) Urine Nitrite Positive H (Negative) Ur Leukocyte Esterase Small (1+) H (Negative) Urine RBC 0-2 (0-2) /HPF Urine WBC 11-20 H (0-5) /HPF Ur Squamous Epith Cells 0-2 (0-2) /HPF Urine Bacteria Trace (None Seen) Hyaline Casts 0-2 (0-2) /LPF COVID-19 (LA[facility]O) Negative (Negative) COVID-19 Clin Com See Note 01/23/23 01/23/23 01/23/23 Range/Units 12:54 12:54 12:54 WBC (4.8-10.8) X10*3/uL RBC (4.60-5.80) X10*6/uL Hgb (14.0-18.0) g/dl Hct (42.0-52.0) % MCV (80.0-98.0) fL MCH (27.0-33.0) pg MCHC (31.0-36.0) g/dl RDW (11.0-16.0) % Plt Count (160-400) X10*3/uL MPV (9.4-12.4) fL Immature Gran % (Auto) (0.0-0.4) % Neut % (Auto) (45-73) % Lymph % (Auto) (20-40) % [place] % (Auto) (2-11) % Eos % (Auto) (0-4) % Baso % (Auto) (0-2) % Lymph # (Auto) (1.2-4.9) X10*3/uL [place] # (Auto) (0.1-1.2) X10*3/uL Eos # (Auto) (0.0-0.4) X10*3/uL Baso # (Auto) (0.0-0.2) X10*3/uL Abs Immat Gran (auto) (0.00-0.03) X10*3/uL Absolute Neuts (auto) (2.0-8.3) x10*3/uL Absolute Nucleated RBC (0.0-0.012) X10*3/uL Nucleated RBC % (auto) (0.0-0.2) /100WBC PT 15.9 H (10.0-13.1) SEC INR 1.4 H (0.9-1.1) Sodium 136 (135-145) mmol/L Potassium 4.2 (3.3-5.1) mmol/L Chloride 102 (96-108) mmol/L Carbon Dioxide 24 (22-29) mmol/L Anion Gap 14 (12-20) BUN 13 (9-16) mg/dL Creatinine 1.08 (0.5-1.4) mg/dL Estim Creat Clear Calc 69.4 Estimated GFR > 60 Random Glucose 127 H (60-115) mg/dL Calcium 9.2 (8.4-10.2) mg/dL Magnesium 1.8 (1.6-2.6) mg/dL Total Bilirubin 1.9 H (0.0-1.0) mg/dL Direct Bilirubin 0.6 H (0.0-0.5) mg/dL AST 15 (5-37) U/L ALT 7 (0-40) U/L Alkaline Phosphatase 81 (39-117) U/L Troponin I High Sens 5.6 (<3.5-35.0) ng/L B-Natriuretic Peptide (<100) pg/mL Total Protein 6.9 (6.5-8.0) g/dL Albumin 4.1 (3.5-5.0) g/dL Lipase 10 (8-78) U/L Urine Color Urine Appearance Urine pH (5.0-9.0) Ur Specific [place] (1.005-1.025) Urine Protein (Neg-Trace) mg/dL Urine Glucose (UA) (Negative) mg/dL Urine Ketones (Negative) mg/dL Urine Blood (Negative) Urine Nitrite (Negative) Ur Leukocyte Esterase (Negative) Urine RBC (0-2) /HPF Urine WBC (0-5) /HPF Ur Squamous Epith Cells (0-2) /HPF Urine Bacteria (None Seen) Hyaline Casts (0-2) /LPF COVID-19 ([place]O) (Negative) COVID-19 Clin Com 01/23/23 Range/Units 12:54 WBC (4.8-10.8) X10*3/uL RBC (4.60-5.80) X10*6/uL Hgb (14.0-18.0) g/dl Hct (42.0-52.0) % MCV (80.0-98.0) fL MCH (27.0-33.0) pg MCHC (31.0-36.0) g/dl RDW (11.0-16.0) % Plt Count (160-400) X10*3/uL MPV (9.4-12.4) fL Immature Gran % (Auto) (0.0-0.4) % Neut % (Auto) (45-73) % Lymph % (Auto) (20-40) % [place] % (Auto) (2-11) % Eos % (Auto) (0-4) % Baso % (Auto) (0-2) % Lymph # (Auto) (1.2-4.9) X10*3/uL [place] # (Auto) (0.1-1.2) X10*3/uL Eos # (Auto) (0.0-0.4) X10*3/uL Baso # (Auto) (0.0-0.2) X10*3/uL Abs Immat Gran (auto) (0.00-0.03) X10*3/uL Absolute Neuts (auto) (2.0-8.3) x10*3/uL Absolute Nucleated RBC (0.0-0.012) X10*3/uL Nucleated RBC % (auto) (0.0-0.2) /100WBC PT (10.0-13.1) SEC INR (0.9-1.1) Sodium (135-145) mmol/L Potassium (3.3-5.1) mmol/L Chloride (96-108) mmol/L Carbon Dioxide (22-29) mmol/L Anion Gap (12-20) BUN (9-16) mg/dL Creatinine (0.5-1.4) mg/dL Estim Creat Clear Calc Estimated GFR Random Glucose (60-115) mg/dL Calcium (8.4-10.2) mg/dL Magnesium (1.6-2.6) mg/dL Total Bilirubin (0.0-1.0) mg/dL Direct Bilirubin (0.0-0.5) mg/dL AST (5-37) U/L ALT (0-40) U/L Alkaline Phosphatase (39-117) U/L Troponin I High Sens (<3.5-35.0) ng/L B-Natriuretic Peptide 57 (<100) pg/mL Total Protein (6.5-8.0) g/dL Albumin (3.5-5.0) g/dL Lipase (8-78) U/L Urine Color Urine Appearance Urine pH (5.0-9.0) Ur Specific [place] (1.005-1.025) Urine Protein (Neg-Trace) mg/dL Urine Glucose (UA) (Negative) mg/dL Urine Ketones (Negative) mg/dL Urine Blood (Negative) Urine Nitrite (Negative) Ur Leukocyte Esterase (Negative) Urine RBC (0-2) /HPF Urine WBC (0-5) /HPF Ur Squamous Epith Cells (0-2) /HPF Urine Bacteria (None Seen) Hyaline Casts (0-2) /LPF COVID-19 (LA[facility]O) (Negative) COVID-19 Clin Com Independent Interpretation I performed an independent interpretation of an: EKG Interpretation: Rapid a fever rate [address]-T changes Radiology Impression Discussion of test interpretation with radiology: I have reviewed the radiologist's reading. Radiologist Impression: TECHNIQUE: Frontal view of the chest was obtained. FINDINGS: There is elevated left hemidiaphragm with a large hiatal hernia. The lungs are otherwise well-expanded and clear. There is minimal compressive atelectasis left lung base secondary to hiatal hernia. Minimal linear atelectatic changes also visualized in right middle lobe. Heart size and pulmonary vascularity is normal. No gross bony abnormality seen. XR/XR chest 1V IMPRESSION: 1.? Elevated left hemidiaphragm with compressive atelectasis left lung base. 2.? Minimal linear atelectasis right middle lobe. 3.? Large hiatal hernia. ? Dictated By: Robin Partida MD Signed By: <Electronically signed by Robin Partida MD in [place]> External Record Review External record reviewed: Inpatient record Critical Care Time Critical Care Time Critical Care Time: Yes Total Critical Care Time: 60 Attestation: IV cardizem and titratioin Discharge Plan Discharge Clinical Impression: Atrial fibrillation with rapid ventricular response, Acute urinary retention Patient Disposition: Admitted As Inpatient
[2023-01-23 12:47] LABS: Appearance Urine Clear; Color Urine Dark Yellow; Glucose Urine UA Negative (Negative); Leukocyte Esterase Urine Small (1+) (Negative); Nitrite Urine Positive (Negative); Specific Gravity - Urine 1.015 (1.005-1.025); UMIC TRIGGER UACC YES; Urine Blood Negative (Negative); Urine Ketones Negative (Negative); Urine Protein Trace mg/dL (Neg-Trace)
[2023-01-23 12:58] LABS: Bacteria Urine Trace (None Seen); Hyaline Casts Urine 0-2 /LPF (0-2); RBC Urine 0-2 /HPF (0-2); Squamous Epithelial Cell Urine 0-2 /HPF (0-2); UACC Culture Trigger YES
[2023-01-23 12:58] LABS: MANUAL DIFF FLAG NO
[2023-01-23 13:00] LABS: Basophils Percent Auto 0.1 % (0-2); Eosinophils Percent Auto 0.2 % (0-4); Hematocrit 49.3 % (42.0-52.0); Hemoglobin 16.4 g/dl (14.0-18.0); Imm Gran Abs Auto 0.06 X10*3/uL (0.00-0.03); Imm Gran Pct Auto 0.5 % (0.0-0.4); Lymphocytes Absolute Auto 0.7 X10*3/uL (1.2-4.9); Lymphocytes Percent Auto 6.1 % (20-40); Mean Corpuscular HGB Conc 33.3 g/dl (31.0-36.0); Mean Corpuscular Hemoglobin 27.6 pg (27.0-33.0); Mean Corpuscular Volume 82.9 fL (80.0-98.0); Mean Platelet Volume 9.5 fL (9.4-12.4); Monocytes Absolute Auto 1.5 X10*3/uL (0.1-1.2); Monocytes Percent Auto 12.5 % (2-11); Neutrophils Absolute Auto 9.3 x10*3/uL (2.0-8.3); Neutrophils Percent Auto 80.6 % (45-73); Platelet Count 218 X10*3/uL (160-400); Red Blood Count 5.95 X10*6/uL (4.60-5.80); White Blood Count 11.6 X10*3/uL (4.8-10.8)
[2023-01-23 13:05] LABS: COVID-19 Test Negative (Negative); IDNOW Serial# BCCEAD1C
[2023-01-23 13:05] LABS: INTERNATIONAL NORM RATIO 1.4 (0.9-1.1); Prothrombin Time 15.9 SEC (10.0-13.1)
[2023-01-23] MEDS: dilTIAZem HCL 50 MG/10 ML VIAL 23.2465 MG IVPUSH (13:13)
[2023-01-23] MEDS: dilTIAZem HCL 125 MG in 0.9 % Sodium Chloride 100 ML 10 MG IVCONT (13:14)
[2023-01-23 13:15] LABS: Alanine Aminotransferase 7 U/L (0-40); Albumin Level 4.1 g/dL (3.5-5.0); Alkaline Phosphatase 81 U/L (39-117); Anion Gap 14 (12-20); Aspartate Amino Transferase 15 U/L (5-37); Bilirubin Direct 0.6 mg/dL (0.0-0.5); Bilirubin Total 1.9 mg/dL (0.0-1.0); Blood Urea Nitrogen 13 mg/dL (9-16); Calcium 9.2 mg/dL (8.4-10.2); Carbon Dioxide 24 mmol/L (22-29); Chloride 102 mmol/L (96-108); Creatinine Clr Calc Pharmacy 69.4; Estimated Glomerular Filt Rate > 60; Glucose Random 127 mg/dL (60-115); Lipase 10 U/L (8-78); Magnesium 1.8 mg/dL (1.6-2.6); Potassium 4.2 mmol/L (3.3-5.1); Sodium 136 mmol/L (135-145); Total Protein 6.9 g/dL (6.5-8.0)
[2023-01-23 13:21] LABS: B Type Natriuretic Peptide 57 pg/mL (<100)
[2023-01-23 13:23] LABS: Troponin-I High Sensitivity 5.6 ng/L (<3.5-35.0)
--- NOTE | 2023-01-23 13:41 | PC.NURSE ---
Pt is alert/oriented. Reporting inability to void x 2 days with bladder discomfort. Bladder scan >999. Pt also noted a fib on tele rate up to 150s paroxysmal with periods of NSR with rate 70s. Cardizem given and gtt started per order. Initially at 10mg, titrated to 5mg/hr as pt noted with periods of HR 70-80s. Dr Hardin aware/agreeable. Hernia repair site remains swollen to left groin and red. Discomfort with positional changes. Skin pwd. Runs of ectopy noted, pacer pads placed for precaution.
--- NOTE | 2023-01-23 13:50 | PM.IMHP ---
History of Present Illness Date of Service: 01/23/23 Attending physician on admission: Krysten Frausto Chief Complaint: Urinary retention, palpitations Pt is a 72-year-old male with a PMH significant for?paroxysmal AFib on Eliquis, HTN, HLD, hypothyroidism, CVA, thoracic aorta aneurysm, bradycardia, and left inguinal hernia s/p surgery who presents to the ED with?inability to urinate since surgery and palpitations since this morning. Pt underwent left hernia repair with Dr. Aguilar on . Since then pt has not been able to move his bowels or fully empty his bladder. Pt states he has the urge to go but is only capable of producing a small dribble or two. Feels like he is constantly trying to go. Pt has had some suprapubic and diffuse abdominal pain. This morning pt noticed palpitations, which prompted his visit to the ED. Pt states he feels himself slip into AFib roughly once a month. Pt denies fever, chills, nausea, vomiting. Denies dysuria. No chest pain/pressure. No shortness of breath. In the ED patient was tachycardic to 170s, satting at 91% O2 on room air. Labs were significant for leukocytosis of 11.6 and hyperbilirubinemia 1.9. UA not convincingly positive for UTI. CXR showed large hiatal hernia with compressive atelectasis of the left lung base and minimal linear atelectasis of right lobe. CT?of abdomen and pelvis show significant palpatory stranding seen within the left inguinal hernia and the surrounding subcutaneous soft tissues of left inguinal region and visualized scrotal sac.. Initial EKG demonstrated AFib with RVR of 123 with repeat EKG showing normal sinus rhythm with a rate of 67. Pt was treated with diltiazem drip. Pt will be admitted to observation on telemetry for further evaluation and treatment of AFib RVR and urinary retention. Review of Systems Review of Systems: Urinary retention since surgery on Constipation since surgery Abdominal and suprapubic pain, resolved Palpitations since this morning Denies fever, chills, nausea, vomiting, diarrhea No chest pain/pressure Denies shortness of breath No edema Yes all other systems are reviewed and are negative [facility] Medical History CVA (cerebral vascular accident) GERD (gastroesophageal reflux disease) HTN (hypertension) Hyperlipemia Hypothyroid Paroxysmal atrial fibrillation Sinus bradycardia Thoracic aortic aneurysm Family History Father No problems noted. Mother CVD (cardiovascular disease) Surgical History History of colonoscopy History of esophagogastroduodenoscopy (EGD) History of radiofrequency ablation (RFA) procedure for cardiac arrhythmia Hx of cystoscopy Social History Alcohol intake: current Alcohol intake frequency: does not drink Patient Tobacco Use Status: Never used Tobacco Smoked in Last 30 Days: No Use of substances other than those prescribed or required for medical reasons: No Advance Directives: No Meds Allergies Allergy/AdvReac Type Severity Reaction Status Date / Time No Known Allergies Allergy Verified 01/21/23 07:54 [No Known Allergies*] Active Medications: Current Medications Diltiazem HCl 125 mg/ Sodium (Chloride) 125 mls @ 0 mls/hr IVCONT .Q0M SASKIA; Protocol Last Titration: 01/23/23 13:40 Dose: 5 mg/hr, 5 mls/hr Home Medications Medication Instructions Recorded Confirmed Last Taken Type atorvastatin 80 mg tablet 80 mg PO DAILY 11/25/20 01/23/23 01/23/23 09:00 History flecainide 100 mg tablet 100 mg PO BID 11/25/20 01/23/23 01/23/23 09:00 History levothyroxine 150 mcg tablet 150 mcg PO DAILY@0600 11/25/20 01/23/23 01/23/23 09:00 History metoprolol succinate 25 mg 25 mg PO DAILY 11/25/20 01/23/23 01/23/23 09:00 History tablet,extended release 24 hr omeprazole 20 mg capsule,delayed 20 mg PO BID 11/25/20 01/23/23 01/23/23 09:00 History release tamsulosin 0.4 mg capsule 0.4 mg PO DAILY 11/25/20 01/23/23 01/23/23 09:00 History amlodipine 2.5 mg tablet 2.5 mg PO BEDTIME 01/23/23 01/23/2301/22/23 History Physical Exam Vital Signs and Narrative: Vital Signs: Last Vital Signs Temp 99.4 F 01/23/23 12:28 Pulse 107 H 01/23/23 13:15 Resp 16 01/23/23 13:15 BP 130/78 01/23/23 13:15 Pulse Ox 91 L 01/23/23 12:28 O2 Del Method Room Air 01/23/23 12:28 BMI result Body Mass Index 31.1 Constitutional: Alert, in no acute distress. Mental Status: Oriented to person, place and time. Eyes: Pupils are equal, round, and reactive to light. Ear, Nose, and Throat: Oropharynx clear, mucous membranes moist. Ears and nose without deformities. Trachea midline. Respiratory: Clear to auscultation bilaterally. No wheezing, rales, or rhonchi. Cardiovascular: S1, S2 regular. No murmurs, rubs, or gallops. Gastrointestinal: Abdomen soft, non-distended, mildly tender around incision site. Clean dressing in place, no erythema or drainage noted. Normal bowel sounds. Neurologic: Cranial nerves II-XII are grossly intact bilaterally. No focal neurological deficits. Moves all extremities spontaneously. Skin: Warm, dry. Urologic: Avery catheter in place, draining juju-colored urine. Musculoskeletal: No cyanosis or clubbing. Extremities: No edema. Psychiatric: Normal mood and affect. Results Labs 01/23/23 12:54 01/23/23 12:54 Labs: Laboratory Results - last 24 hr 01/23/23 01/23/23 01/23/23 12:35 12:41 12:54 MCV 82.9 MCH 27.6 MCHC 33.3 RDW 14.0 Plt Count 218 MPV 9.5 Immature Gran % (Auto) 0.5 H Neut % (Auto) 80.6 H Lymph % (Auto) 6.1 L [place] % (Auto) 12.5 H Eos % (Auto) 0.2 Baso % (Auto) 0.1 Lymph # (Auto) 0.7 L [place] # (Auto) 1.5 H Eos # (Auto) 0.0 Baso # (Auto) 0.0 Abs Immat Gran (auto) 0.06 H Absolute Neuts (auto) 9.3 H Absolute Nucleated RBC 0.000 Nucleated RBC % (auto) 0.0 PT INR Anion Gap Estim Creat Clear Calc Estimated GFR Random Glucose Calcium Magnesium Total Bilirubin Direct Bilirubin AST ALT Alkaline Phosphatase Troponin I High Sens B-Natriuretic Peptide Total Protein Albumin Lipase Urine Color Dark Yellow Urine Appearance Clear Urine pH 6.0 Ur Specific [place] 1.015 Urine Protein Trace Urine Glucose (UA) Negative Urine Ketones Negative Urine Blood Negative Urine Nitrite Positive H Ur Leukocyte Esterase Small (1+) H Urine RBC 0-2 Urine WBC 11-20 H Ur Squamous Epith Cells 0-2 Urine Bacteria Trace Hyaline Casts 0-2 COVID-19 ([facility]) Negative COVID-19 Clin Com See Note 01/23/23 01/23/23 01/23/23 12:54 12:54 12:54 MCV MCH MCHC RDW Plt Count MPV Immature Gran % (Auto) Neut % (Auto) Lymph % (Auto) [place] % (Auto) Eos % (Auto) Baso % (Auto) Lymph # (Auto) [place] # (Auto) Eos # (Auto) Baso # (Auto) Abs Immat Gran (auto) Absolute Neuts (auto) Absolute Nucleated RBC Nucleated RBC % (auto) PT 15.9 H INR 1.4 H Anion Gap 14 Estim Creat Clear Calc 69.4 Estimated GFR > 60 Random Glucose 127 H Calcium 9.2 Magnesium 1.8 Total Bilirubin 1.9 H Direct Bilirubin 0.6 H AST 15 ALT 7 Alkaline Phosphatase 81 Troponin I High Sens 5.6 B-Natriuretic Peptide Total Protein 6.9 Albumin 4.1 Lipase 10 Urine Color Urine Appearance Urine pH Ur Specific [place] Urine Protein Urine Glucose (UA) Urine Ketones Urine Blood Urine Nitrite Ur Leukocyte Esterase Urine RBC Urine WBC Ur Squamous Epith Cells Urine Bacteria Hyaline Casts COVID-19 ([facility]O) COVID-19 Clin Com 01/23/23 12:54 MCV MCH MCHC RDW Plt Count MPV Immature Gran % (Auto) Neut % (Auto) Lymph % (Auto) [place] % (Auto) Eos % (Auto) Baso % (Auto) Lymph # (Auto) [place] # (Auto) Eos # (Auto) Baso # (Auto) Abs Immat Gran (auto) Absolute Neuts (auto) Absolute Nucleated RBC Nucleated RBC % (auto) PT INR Anion Gap Estim Creat Clear Calc Estimated GFR Random Glucose Calcium Magnesium Total Bilirubin Direct Bilirubin AST ALT Alkaline Phosphatase Troponin I High Sens B-Natriuretic Peptide 57 Total Protein Albumin Lipase Urine Color Urine Appearance Urine pH Ur Specific [place] Urine Protein Urine Glucose (UA) Urine Ketones Urine Blood Urine Nitrite Ur Leukocyte Esterase Urine RBC Urine WBC Ur Squamous Epith Cells Urine Bacteria Hyaline Casts COVID-19 ([facility]O) COVID-19 Clin Com Imaging Radiologist's Impressions: Impressions Chest X-Ray 01/23/23 12:25 IMPRESSION: 1. Elevated left hemidiaphragm with compressive atelectasis left lung base. 2. Minimal linear atelectasis right middle lobe. 3. Large hiatal hernia. Assessment and Plan (1) Atrial fibrillation with rapid ventricular response: Status: Acute (2) Acute urinary retention: Status: Acute Plan Pt is a 72-year-old male with a PMH significant for?paroxysmal AFib on Eliquis, HTN, HLD, hypothyroidism, CVA, thoracic aorta aneurysm, bradycardia, and left inguinal hernia s/p surgery who presents to the ED with?inability to urinate since surgery and palpitations since this morning. Pt will be admitted to observation on telemetry for further evaluation and treatment of AFib RVR and urinary retention. AFib with RVR Patient presented to the ED in AFib with ventricular rate up to 170s Pt placed on diltiazem drip for rate control in ED, now in NSR with rate of 63 Stop diltiazem drip Hold flecainide, per cardiology Add Multaq, per cardiology Check Mg in morning Continue metoprolol, Eliquis Cardiology consult Admit to telemetry Urinary retention Patient has not been able to fully empty bladder since surgery at States he has urge to go but capable of producing only small dribbles at a time Suprapubic and abdominal pain largely resolved after Avery catheter placed Start FloMax 0.4mg at bedtime Continue avery catheter for now Constipation Patient has not had a movement since surgery 2 days ago Colace, MiraLax Leukocytosis WBC mildly elevated at 11.6 No clear source of infection: Patient afebrile, fever, UA not clearly positive for UTI, surgical site nonerythematous, nondraining Follow urine cultures Follow CBC Inguinal hernia repair Clean dressing place, no erhythema or drainage noted Pt currently with mild abdominal pain at incision site CT of abdomen and plevis show significant inflammatory stranding Continue home pain management General surgery consult HTN Stable Continue home meds HLD Continue home meds Full Code Attending:?Dr. Frausto DVT Prophylaxis: On Eliquis Pt will be admitted to observation on telemetry for further evaluation and treatment of AFib with RVR and urinary retention. Time Spent With Patient Time: Total time managing care of this patient today ____ minutes. Quality Stroke Does the patient have a stroke diagnosis?: No VTE Prior VTE?: No VTE Risk Level:: Medical - moderate - high VTE Device Contraindication: Treatment Not Indicated VTE Drug Contraindication: N/A - Med Ordered
--- NOTE | 2023-01-23 14:21 | PM.EVENT ---
Event Note Date of Service: 01/23/23 Event Note: This patient is seen and examined with APC. Patient had recent hernia surgery-left inguinal area, he says he was having problem with constipation as well as urine frequency, question urinary retention. He was in significant amount of pain at home due to above, could not sleep from last 2 3 days, this morning he also started having heart racing. Denies any chest pain or shortness of breath or fever chills Lab imaging, EKG reviewed. CBC mild leukocytosis 11.6, BMP seems fine. Troponin x1 negative Initial EKG shows AFib, subsequently patient converted into and NSR. Physical exam and assessment and plan coordinated in APCs note, Agree with the plan in addition: ? Urinary retention/anxiety might have triggered AFib.: Patient converted into NSR, will stop Cardizem drip and start Multaq. Continue anticoagulation Will stop flecainide, he took the his metoprolol this morning, continue that. Patient already has Dunham for urinary retention Send UA, urine culture pending: Will add antibiotics until urine culture come back question of UTI. Abdominal hernia area: Has swellingmild, CT abdomen shows? Inflammatory changes in the area of hernia surgery: Will add general surgery evaluation, patient does not have significant pain in the hernia area so question the CT changes are likely postop. Time Spent With Patient Time: Total time managing care of this patient today ____ minutes.
--- NOTE | 2023-01-23 14:22 | PC.NURSE ---
Cardiology at bedside and Dr Frausto for admission. Per Dr Frausto, Cardizem titrated down to 2.5mg as pt remains in NSR at this time with plan to discontinue and transition to PO meds. Pt denies pain or discomfort.
--- NOTE | 2023-01-23 14:48 | PM.CNCAR ---
History of Present Illness History of Present Illness Date of Service: 01/23/23 Requesting physician: Dillan Hardin Consult reason: other (Atrial flutter, wide complex run) Chief complaint: Palpitations, Afib RVR Narrative: I was consulted to see Cordell in cardiology consultation today as he present with symptoms of palpitations. On presentation is EKG was suggestive atrial fibrillation however on review appears to be atrial flutter with variable conduction. While in the emergency room with still anxious and then subsequently developed wide complex run which to me appears to be atrial flutter with variable conduction with aberrancy. Patient on flecainide to maintain rhythm. He underwent surgery for hernia 2 days ago. Resume his oral anticoagulation yesterday. Being having issues with urinary retention at home and has not slept well in the night. He started feeling anxious and this morning started having symptoms of palpitation came to the emergency room very was noted to have this arrhythmia. Since then has been started on IV Cardizem drip and when I saw him has converted back to normal rhythm. He also had a bladder catheter put in which has resolved his urinary symptoms and feels better. He denies any significant belly pain at this point time. Denies any neurologic symptoms. No major bleeding issues. Review of Systems Constitutional: Constitutional: Reports no additional constitutional complaints Cardiovascular: Cardiovascular: Denies chest pain, Denies leg edema, Denies lightheadedness, Denies Loss of Consciousness, Reports palpitations and Denies dyspnea Respiratory: Respiratory: Reports no additional respiratory complaints and Denies dyspnea Genitourinary: Genitourinary: Reports difficulty urinating and Reports urinary urgency Neurologic: Reports system reviewed and no additional complaints, except as documented Endocrine: Endocrine: Reports palpitations PMFSH Past Medical History Medical History CVA (cerebral vascular accident) GERD (gastroesophageal reflux disease) HTN (hypertension) Hyperlipemia Hypothyroid Paroxysmal atrial fibrillation Sinus bradycardia Thoracic aortic aneurysm Family History Family History Father No problems noted. Mother CVD (cardiovascular disease) Surgical History Surgical History History of colonoscopy History of esophagogastroduodenoscopy (EGD) History of radiofrequency ablation (RFA) procedure for cardiac arrhythmia Hx of cystoscopy Social History Social History Alcohol intake: current Alcohol intake frequency: does not drink Patient Tobacco Use Status: Never used Tobacco Smoked in Last 30 Days: No Use of substances other than those prescribed or required for medical reasons: No Advance Directives: No Meds Allergies Allergy/AdvReac Type Severity Reaction Status Date / Time No Known Allergies Allergy Verified 01/21/23 07:54 [No Known Allergies*] Active Medications: Current Medications Acetaminophen (Acetaminophen 325 Mg Tablet) 650 mg PO Q6H PRN PRN Reason: Pain, Mild (Pain Scale 1-3) Docusate Sodium (Docusate Sodium 100 Mg Capsule) 100 mg PO DAILY [facility] Dronedarone (Dronedarone Hcl 400 Mg Tablet) 400 mg PO BID [facility] Pharmacy Consult (Consult Rx Perform Med Rec) 1 each MISCELLANE ONCE PRN PRN Reason: Consult order Sodium Chloride (0.9 % Sodium Chloride Flush 3 Ml Syringe) 3 ml IVFLUSH QSHIFT [facility] Home Medications Medication Instructions Recorded Confirmed Last Taken Type atorvastatin 80 mg tablet 80 mg PO DAILY 11/25/20 01/15/23 Unknown History flecainide 100 mg tablet 100 mg PO BID 11/25/20 01/15/23 01/21/23 05:30 History levothyroxine 150 mcg tablet 150 mcg PO DAILY 11/25/20 01/15/23 01/21/23 05:30 History metoprolol succinate 25 mg 25 mg PO DAILY 11/25/20 01/15/23 01/21/23 05:30 History tablet,extended release 24 hr omeprazole 20 mg capsule,delayed 20 mg PO BID 11/25/20 01/15/23 01/21/23 05:30 History release tamsulosin 0.4 mg capsule 0.4 mg PO DAILY 11/25/20 01/15/23 Unknown History Physical Exam Vital Signs: Vital Signs: Last Vital Signs Temp 99.4 F 01/23/23 12:28 Pulse 63 01/23/23 14:21 Resp 18 01/23/23 14:21 BP 119/76 01/23/23 14:21 Pulse Ox 95 01/23/23 14:21 O2 Del Method Nasal Cannula 01/23/23 14:21 O2 Flow Rate 2 01/23/23 14:21 BMI result Body Mass Index 31.1 Const: General: cooperative, comfortable, no acute distress, alert, awake and anxious Nutritional Appearance: overweight Orientation/consciousness: patient oriented x3 HEENT: Head: Yes normocephalic and Yes atraumatic Neck: Neck: Yes trachea midline, Yes supple and Yes no JVD Resp: Effort & Inspection: normal respiratory effort Auscultation: clear to auscultation bilaterally Cardio: Jugular venous distension: no JVD Palpation: normal PMI Rate: regular rate Rhythm: regular rhythm Heart sounds: S1 normal heart sound present, S2 normal heart sound present, no click, no gallops, no murmurs and no rubs Skin: General skin exam: no rashes or lesions noted Neuro: General: patient oriented x3 and no focal motor deficits Extrem: General: Yes no clubbing, cyanosis or edema Objective Labs and Meds 01/23/23 12:54 01/23/23 12:54 Lab results: Laboratory Results - last 24 hr 01/23/23 01/23/23 01/23/23 12:35 12:41 12:54 WBC 11.6 H RBC 5.95 H Hgb 16.4 Hct 49.3 MCV 82.9 MCH 27.6 MCHC 33.3 RDW 14.0 Plt Count 218 MPV 9.5 Immature Gran % (Auto) 0.5 H Neut % (Auto) 80.6 H Lymph % (Auto) 6.1 L [place] % (Auto) 12.5 H Eos % (Auto) 0.2 Baso % (Auto) 0.1 Lymph # (Auto) 0.7 L [place] # (Auto) 1.5 H Eos # (Auto) 0.0 Baso # (Auto) 0.0 Abs Immat Gran (auto) 0.06 H Absolute Neuts (auto) 9.3 H Absolute Nucleated RBC 0.000 Nucleated RBC % (auto) 0.0 PT INR Sodium Potassium Chloride Carbon Dioxide Anion Gap BUN Creatinine Estim Creat Clear Calc Estimated GFR Random Glucose Calcium Magnesium Total Bilirubin Direct Bilirubin AST ALT Alkaline Phosphatase Troponin I High Sens B-Natriuretic Peptide Total Protein Albumin Lipase Urine Color Dark Yellow Urine Appearance Clear Urine pH 6.0 Ur Specific [place] 1.015 Urine Protein Trace Urine Glucose (UA) Negative Urine Ketones Negative Urine Blood Negative Urine Nitrite Positive H Ur Leukocyte Esterase Small (1+) H Urine RBC 0-2 Urine WBC 11-20 H Ur Squamous Epith Cells 0-2 Urine Bacteria Trace Hyaline Casts 0-2 COVID-19 ([facility]) Negative COVID-19 Clin Com See Note 01/23/23 01/23/23 01/23/23 12:54 12:54 12:54 WBC RBC Hgb Hct MCV MCH MCHC RDW Plt Count MPV Immature Gran % (Auto) Neut % (Auto) Lymph % (Auto) [place] % (Auto) Eos % (Auto) Baso % (Auto) Lymph # (Auto) [place] # (Auto) Eos # (Auto) Baso # (Auto) Abs Immat Gran (auto) Absolute Neuts (auto) Absolute Nucleated RBC Nucleated RBC % (auto) PT 15.9 H INR 1.4 H Sodium 136 Potassium 4.2 Chloride 102 Carbon Dioxide 24 Anion Gap 14 BUN 13 Creatinine 1.08 Estim Creat Clear Calc 69.4 Estimated GFR > 60 Random Glucose 127 H Calcium 9.2 Magnesium 1.8 Total Bilirubin 1.9 H Direct Bilirubin 0.6 H AST 15 ALT 7 Alkaline Phosphatase 81 Troponin I High Sens 5.6 B-Natriuretic Peptide Total Protein 6.9 Albumin 4.1 Lipase 10 Urine Color Urine Appearance Urine pH Ur Specific [place] Urine Protein Urine Glucose (UA) Urine Ketones Urine Blood Urine Nitrite Ur Leukocyte Esterase Urine RBC Urine WBC Ur Squamous Epith Cells Urine Bacteria Hyaline Casts COVID-19 ([facility]) COVID-19 Clin Com 01/23/23 12:54 WBC RBC Hgb Hct MCV MCH MCHC RDW Plt Count MPV Immature Gran % (Auto) Neut % (Auto) Lymph % (Auto) [place] % (Auto) Eos % (Auto) Baso % (Auto) Lymph # (Auto) [place] # (Auto) Eos # (Auto) Baso # (Auto) Abs Immat Gran (auto) Absolute Neuts (auto) Absolute Nucleated RBC Nucleated RBC % (auto) PT INR Sodium Potassium Chloride Carbon Dioxide Anion Gap BUN Creatinine Estim Creat Clear Calc Estimated GFR Random Glucose Calcium Magnesium Total Bilirubin Direct Bilirubin AST ALT Alkaline Phosphatase Troponin I High Sens B-Natriuretic Peptide 57 Total Protein Albumin Lipase Urine Color Urine Appearance Urine pH Ur Specific [place] Urine Protein Urine Glucose (UA) Urine Ketones Urine Blood Urine Nitrite Ur Leukocyte Esterase Urine RBC Urine WBC Ur Squamous Epith Cells Urine Bacteria Hyaline Casts COVID-19 ([facility]) COVID-19 Clin Com EKG on admission shows atrial flutter with variable conduction It to subsequent EKG shows normal sinus rhythm normal EKG with normal QTC interval Imaging Radiologist's impression: Impressions Chest X-Ray 01/23/23 12:25 IMPRESSION: 1. Elevated left hemidiaphragm with compressive atelectasis left lung base. 2. Minimal linear atelectasis right middle lobe. 3. Large hiatal hernia. Assessment and Plan (1) Paroxysmal atrial fibrillation: Status: Acute Paroxysmal atrial flutter with variable conduction subsequently wide complex run which is suggestive of atrial flutter with rapid conduction with aberrancy most likely related to flecainide therapy. Currently has subsided after bladder catheterization and relief of his urinary retention and reducing anxiety. Most likely recurrent triggered atrial arrhythmias due to recent surgery and acute bladder retention with anxiety. Symptoms are not resolved. Discontinue flecainide in the long run because of the aberrant conduction and rapid ventricular rate. Will switch to Multaq 400 mg b.i.d. starting later tonight. Check magnesium. Continue full oral anticoagulation with Eliquis. Antianxiety therapy. Continue current blood pressure regimen as well. EKG tomorrow a.m.. Will check on him tomorrow Time Spent With Patient Time: Total time managing care of this patient today ____ minutes. Procedures Date of Service Date of Service: 01/23/23
--- NOTE | 2023-01-23 14:58 | PC.NURSE ---
Cardizem discontinued. Rate NSR in 60s. Pt resting with eyes closed. Breathing even/unlabored
[2023-01-23] MEDS: polyethylene glycoL 3350 17 GM POWD.PACK PO (15:04)
--- NOTE | 2023-01-23 15:27 | PHA.MEDREC ---
Pharmacy Consult ? Medication Reconciliation Pharmacy has completed the medication reconciliation. Spoke to patient which had med list with them.
[2023-01-23] MEDS: Dronedarone HCl 400 MG TABLET PO ×2 (15:44→21:18)
[2023-01-23] MEDS: 0.9 % Sodium Chloride Flush 3 ML SYRINGE IVFLUSH (15:45)
--- NOTE | 2023-01-23 15:52 | MHC.EDTECH ---
this pct assumed care of pt at 1500 ,vitals sign taken ,pt watching television .
[2023-01-23] MEDS: Magnesium Sulfate/D5W 1 GM/100 ML PIGGYBACK IV (17:27)
[2023-01-23] MEDS: cefTRIAXone sodium 1 GM in 0.9 % Sodium Chloride 50 ML IV (18:46)
--- NOTE | 2023-01-23 20:02 | PC.NURSE ---
Assumed care of pt. at 1900. At this time pt. pending transport to go to room upstairs. Report called to floor by outgoing nurse.
[2023-01-23] MEDS: amLODIPine Besylate 2.5 MG TABLET PO (21:18)
[2023-01-23] MEDS: Apixaban 5 MG TABLET PO (21:19)
[2023-01-24 03:24] VITALS: BP 116/66; PULSE 60; RESP 16; TEMP 37.1; O2SAT 92
[2023-01-24] MEDS: Levothyroxine Sodium 150 MCG TABLET PO (06:13)
[2023-01-24] MEDS: Omeprazole 20 MG CAPSULE.DR PO ×2 (06:13→17:29)
[2023-01-24 07:42] LABS: Hematocrit 42.5 % (42.0-52.0); Hemoglobin 14.3 g/dl (14.0-18.0); Mean Corpuscular HGB Conc 33.6 g/dl (31.0-36.0); Mean Corpuscular Hemoglobin 28.4 pg (27.0-33.0); Mean Corpuscular Volume 84.3 fL (80.0-98.0); Mean Platelet Volume 10.4 fL (9.4-12.4); Platelet Count 204 X10*3/uL (160-400); Red Blood Count 5.04 X10*6/uL (4.60-5.80); Red Cell Distribution Width 14.1 % (11.0-16.0); White Blood Count 8.6 X10*3/uL (4.8-10.8)
[2023-01-24 08:00] VITALS: BP 115/61; PULSE 67; RESP 20; TEMP 37; O2SAT 91
[2023-01-24 08:05] LABS: Anion Gap 12 (12-20); Blood Urea Nitrogen 15 mg/dL (9-16); Calcium 8.3 mg/dL (8.4-10.2); Carbon Dioxide 27 mmol/L (22-29); Chloride 103 mmol/L (96-108); Creatinine Clr Calc Pharmacy 72.7; Estimated Glomerular Filt Rate > 60; Glucose Random 91 mg/dL (60-115); Magnesium 1.9 mg/dL (1.6-2.6); Potassium 4.1 mmol/L (3.3-5.1); Sodium 138 mmol/L (135-145)
[2023-01-24] MEDS: Tamsulosin HCL 0.4 MG CAPSULE PO (08:48)
[2023-01-24] MEDS: Metoprolol Succinate ER 25 MG TAB.ER.24H PO (08:48)
[2023-01-24] MEDS: Dronedarone HCl 400 MG TABLET PO ×2 (08:48→20:53)
[2023-01-24] MEDS: Apixaban 5 MG TABLET PO ×2 (08:49→20:53)
[2023-01-24] MEDS: Docusate Sodium 100 MG CAPSULE PO (08:49)
[2023-01-24] MEDS: Atorvastatin Calcium 80 MG TABLET PO (08:49)
[2023-01-24] MEDS: 0.9 % Sodium Chloride Flush 3 ML SYRINGE IVFLUSH ×2 (08:56→17:38)
--- NOTE | 2023-01-24 09:30 | MHC.CM.PN ---
CM met with Patient at bedside and addressed IMM with him, providing him with the original and placing a copy on the chart. 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 Home/self care is the goal and CM has initiated and will follow for dc planning. Patient has received Pfizer/Covid vax x4 and his PCP is Dr. Christopher Batres.
[2023-01-24 12:00] VITALS: BP 103/61; PULSE 72; RESP 20; TEMP 36.6; O2SAT 92
--- NOTE | 2023-01-24 12:04 | P.PNCA_ITS ---
Subjective Subjective Date of Service: 01/24/23 Principal diagnosis: Paroxysmal atrial flutter Interval history: Patient remained in sinus rhythm. No symptoms from cardiac perspective. Review of Systems Constitutional: Reports no additional constitutional complaints Cardiovascular: Reports no additional cardiovascular complaints Respiratory: Reports no additional respiratory complaints Reports system reviewed and no additional complaints, except as documented Psychiatric: Reports no additional psychiatric complaints Endocrine: Reports no additional endocrine complaints Physical Exam Vital Signs: Last Vital Signs Temp 98.6 F 01/24/23 08:00 Pulse 67 01/24/23 08:00 Resp 20 01/24/23 08:00 BP 115/61 01/24/23 08:00 Pulse Ox 91 L 01/24/23 08:00 O2 Del Method Room Air 01/24/23 08:00 O2 Flow Rate 2 01/24/23 03:24 BMI result Body Mass Index 31.1 Const General: cooperative, comfortable, no acute distress, alert, awake and anxious Nutritional Appearance: overweight Orientation/consciousness: patient oriented x3 Neck Neck: Yes trachea midline, Yes supple and Yes no JVD Resp Effort & Inspection: normal respiratory effort Auscultation: clear to auscultation bilaterally Cardio Jugular venous distension: no JVD Palpation: normal PMI Rate: regular rate Rhythm: regular rhythm Heart sounds: S1 normal heart sound present, S2 normal heart sound present, no click, no gallops, no murmurs and no rubs Neuro General: patient oriented x3 and no focal motor deficits Extrem General: Yes no clubbing, cyanosis or edema Objective Labs and Meds 01/24/23 07:01 01/24/23 07:01 Lab results: Laboratory Results - last 24 hr 01/23/23 01/23/23 01/23/23 12:35 12:41 12:54 WBC 11.6 H RBC 5.95 H Hgb 16.4 Hct 49.3 MCV 82.9 MCH 27.6 MCHC 33.3 RDW 14.0 Plt Count 218 MPV 9.5 Immature Gran % (Auto) 0.5 H Neut % (Auto) 80.6 H Lymph % (Auto) 6.1 L [place] % (Auto) 12.5 H Eos % (Auto) 0.2 Baso % (Auto) 0.1 Lymph # (Auto) 0.7 L [place] # (Auto) 1.5 H Eos # (Auto) 0.0 Baso # (Auto) 0.0 Abs Immat Gran (auto) 0.06 H Absolute Neuts (auto) 9.3 H Absolute Nucleated RBC 0.000 Nucleated RBC % (auto) 0.0 PT INR Sodium Potassium Chloride Carbon Dioxide Anion Gap BUN Creatinine Estim Creat Clear Calc Estimated GFR Random Glucose Calcium Magnesium Total Bilirubin Direct Bilirubin AST ALT Alkaline Phosphatase Troponin I High Sens B-Natriuretic Peptide Total Protein Albumin Lipase Urine Color Dark Yellow Urine Appearance Clear Urine pH 6.0 Ur Specific [place] 1.015 Urine Protein Trace Urine Glucose (UA) Negative Urine Ketones Negative Urine Blood Negative Urine Nitrite Positive H Ur Leukocyte Esterase Small (1+) H Urine RBC 0-2 Urine WBC 11-20 H Ur Squamous Epith Cells 0-2 Urine Bacteria Trace Hyaline Casts 0-2 COVID-19 ([facility]) Negative COVID-19 Clin Com See Note 01/23/23 01/23/23 01/23/23 12:54 12:54 12:54 WBC RBC Hgb Hct MCV MCH MCHC RDW Plt Count MPV Immature Gran % (Auto) Neut % (Auto) Lymph % (Auto) [place] % (Auto) Eos % (Auto) Baso % (Auto) Lymph # (Auto) [place] # (Auto) Eos # (Auto) Baso # (Auto) Abs Immat Gran (auto) Absolute Neuts (auto) Absolute Nucleated RBC Nucleated RBC % (auto) PT 15.9 H INR 1.4 H Sodium 136 Potassium 4.2 Chloride 102 Carbon Dioxide 24 Anion Gap 14 BUN 13 Creatinine 1.08 Estim Creat Clear Calc 69.4 Estimated GFR > 60 Random Glucose 127 H Calcium 9.2 Magnesium 1.8 Total Bilirubin 1.9 H Direct Bilirubin 0.6 H AST 15 ALT 7 Alkaline Phosphatase 81 Troponin I High Sens 5.6 B-Natriuretic Peptide Total Protein 6.9 Albumin 4.1 Lipase 10 Urine Color Urine Appearance Urine pH Ur Specific [place] Urine Protein Urine Glucose (UA) Urine Ketones Urine Blood Urine Nitrite Ur Leukocyte Esterase Urine RBC Urine WBC Ur Squamous Epith Cells Urine Bacteria Hyaline Casts COVID-19 ([facility]) COVID-19 Clin Com 01/23/23 01/24/23 01/24/23 12:54 07:01 07:01 WBC 8.6 RBC 5.04 Hgb 14.3 Hct 42.5 MCV 84.3 MCH 28.4 MCHC 33.6 RDW 14.1 Plt Count 204 MPV 10.4 Immature Gran % (Auto) Neut % (Auto) Lymph % (Auto) [place] % (Auto) Eos % (Auto) Baso % (Auto) Lymph # (Auto) [place] # (Auto) Eos # (Auto) Baso # (Auto) Abs Immat Gran (auto) Absolute Neuts (auto) Absolute Nucleated RBC 0.000 Nucleated RBC % (auto) 0.0 PT INR Sodium 138 Potassium 4.1 Chloride 103 Carbon Dioxide 27 Anion Gap 12 BUN 15 Creatinine 1.03 Estim Creat Clear Calc 72.7 Estimated GFR > 60 Random Glucose 91 Calcium 8.3 L D Magnesium 1.9 Total Bilirubin Direct Bilirubin AST ALT Alkaline Phosphatase Troponin I High Sens B-Natriuretic Peptide 57 Total Protein Albumin Lipase Urine Color Urine Appearance Urine pH Ur Specific [place] Urine Protein Urine Glucose (UA) Urine Ketones Urine Blood Urine Nitrite Ur Leukocyte Esterase Urine RBC Urine WBC Ur Squamous Epith Cells Urine Bacteria Hyaline Casts COVID-19 ([facility]) COVID-19 Clin Com Imaging Radiologist's impression: Impressions Chest X-Ray 01/23/23 12:25 IMPRESSION: 1. Elevated left hemidiaphragm with compressive atelectasis left lung base. 2. Minimal linear atelectasis right middle lobe. 3. Large hiatal hernia. Abdomen/Pelvis CT 01/23/23 13:52 IMPRESSION: Previously seen large left inguinal hernia has reduced in size with reduction of the previously seen bowel loops within the hernia sac. There is significant inflammatory stranding seen within the left inguinal hernia as well as the surrounding subcutaneous soft tissues of the left inguinal region and visualized scrotal sac. There are a few foci of air seen within the soft tissues of the left inguinal canal and overlying skin changes suggesting an interval surgery. Increased bibasilar atelectasis Stable large hiatal hernia Progress Note: A&P Assessment and plan (1) Paroxysmal atrial fibrillation: Status: Acute Assessment and Plan: Paroxysmal atrial fibrillation currently suppressed after resolution of his acute urinary retention and current medical therapy. Discontinue flecainide due to recurrent atrial fibrillation but also with fast ventricular rate with aberrancy. Switch to Multaq 400 mg b.i.d. for safer use of antiarrhythmic send maintenance of rhythm. This was discussed with him. Continue full oral anticoagulation. Avoidance of stimulants was discussed. Continue medical/melchor gical treatment. Will follow up as outpatient. Will sign of the case Time Spent With Patient Time: Total time managing care of this patient today ____ minutes. Progress Note: Quality Stroke Does the patient have a stroke diagnosis?: No Procedures Date of Service Date of Service: 01/24/23
--- NOTE | 2023-01-24 13:26 | P.PNIM_ITS ---
Subjective Subjective Date of Service: 01/24/23 Interval History: afib with rvr ,recent ingunial hernia surgery, urinary retention. Review of Systems Denies any chest pain or shortness of breath or abdominal pain. Has soreness in inguinal hernia surgery area Denies any nausea vomiting or fever. Physical Exam Vital Signs: Vital Signs: Last Vital Signs Temp 97.8 F 01/24/23 12:00 Pulse 72 01/24/23 12:00 Resp 20 01/24/23 12:00 BP 103/61 01/24/23 12:00 Pulse Ox 92 01/24/23 12:00 O2 Del Method Room Air 01/24/23 12:00 O2 Flow Rate 2 01/24/23 03:24 BMI result Body Mass Index 31.1 Appearance: Alert.? Oriented X3.? not in distress.? cvs: rrr, [id number] , no murmur res: clear to auscultation ,no rhonchii or wheezing abd: no rebound or guarding ,nt, bs present. ext pulses present , no cyanosis . Gu-has avery ,inguinal area -left: swellin, has mild soarness neuro: axo3 , nonfocal. Objective Data Active Medications Acetaminophen (Acetaminophen 325 Mg Tablet) 650 mg PO Q6H PRN PRN Reason: Pain, Mild (Pain Scale 1-3) Amlodipine Besylate (Amlodipine Besylate 2.5 Mg Tablet) 2.5 mg PO BEDTIME [facility]; Protocol Last Admin: 01/23/23 21:18 Dose: 2.5 mg Documented By: BERT Apixaban (Apixaban 5 Mg Tablet) 5 mg PO BID [facility] Last Admin: 01/24/23 08:49 Dose: 5 mg Documented By: AUGUSTO Atorvastatin Calcium (Atorvastatin Calcium 80 Mg Tablet) 80 mg PO DAILY [facility] Last Admin: 01/24/23 08:49 Dose: 80 mg Documented By: AUGUSTO Docusate Sodium (Docusate Sodium 100 Mg Capsule) 100 mg PO DAILY [facility] Last Admin: 01/24/23 08:49 Dose: 100 mg Documented By: AUGUSTO Dronedarone (Dronedarone Hcl 400 Mg Tablet) 400 mg PO BID [facility] Last Admin: 01/24/23 08:48 Dose: 400 mg Documented By: AUGUSTO Ceftriaxone Sodium 1 gm/ (Sodium Chloride) 50 mls @ 100 mls/hr IV Q24H [facility] Last Infusion: 01/23/23 20:41 Dose: 0 mls/hr Documented By: DOUGLAS Levothyroxine Sodium (Levothyroxine Sodium 150 Mcg Tablet) 150 mcg PO DAILY@0600 [facility] Last Admin: 01/24/23 06:13 Dose: 150 mcg Documented By: BRET Metoprolol Succinate (Metoprolol Succinate Er 25 Mg Tab.Er.24h) 25 mg PO DAILY [facility]; Protocol Last Admin: 01/24/23 08:48 Dose: 25 mg Documented By: AUGUSTO Omeprazole (Omeprazole 20 Mg Capsule.) 20 mg PO BID@0630,1630 [facility] Last Admin: 01/24/23 06:13 Dose: 20 mg Documented By: BRET Pharmacy Consult (Consult Rx Perform Med Rec) 1 each MISCELLANE ONCE PRN PRN Reason: Consult order Sodium Chloride (0.9 % Sodium Chloride Flush 3 Ml Syringe) 3 ml IVFLUSH QSHIFT [facility] Last Admin: 01/24/23 08:56 Dose: 3 ml Documented By: AUGUSTO Tamsulosin HCl (Tamsulosin Hcl 0.4 Mg Capsule) 0.8 mg PO DAILY [facility] Labs 01/24/23 07:01 01/24/23 07:01 Labs: Laboratory Results - last 24 hr 01/24/23 01/24/23 07:01 07:01 MCV 84.3 MCH 28.4 MCHC 33.6 RDW 14.1 Plt Count 204 MPV 10.4 Absolute Nucleated RBC 0.000 Nucleated RBC % (auto) 0.0 Anion Gap 12 Estim Creat Clear Calc 72.7 Estimated GFR > 60 Random Glucose 91 Calcium 8.3 L D Magnesium 1.9 Microbiology Microbiology Results: Microbiology 01/23/23 15:33 Urine Culture - Final Urine clean catch - Urine baird top No growth. Assessment and Plan (1) Left inguinal hernia: Status: Acute (2) Atrial fibrillation with rapid ventricular response: Status: Acute (3) Acute urinary retention: Status: Acute Plan 72-year-old male with a PMH significant for?paroxysmal AFib on Eliquis, HTN, HLD, hypothyroidism, CVA, thoracic aorta aneurysm, bradycardia, and? left inguinal hernia s/p surgery who presents to the ED with?inability to urinate since surgery and palpitations since this morning. Pt will be admitted to observation on telemetry for further evaluation and treatment of AFib RVR and urinary retention. AFib with RVR Patient presented to the ED in AFib with ventricular rate up to 170s Pt placed on diltiazem drip for rate control in ED, now in NSR with rate of 63 continue telemetry Stop diltiazem dripand off flecainide. started on Multaq,continue metoprolol. potassium4.1, mag 1.9 Continue metoprolol, Eliquis Cardiology evela noted. Urinary retention Patient has not been able to fully empty bladder since surgery at States he has urge to go but capable of producing only small dribbles at a time Suprapubic and abdominal pain largely resolved after Avery catheter placed Start FloMax 0.8mg at bedtime Continue avery catheter for now Constipation Patient has not had a movement since surgery 2 days ago Colace, MiraLax Leukocytosis-resolved No clear source of infection:? Patient afebrile, fever, UA not clearly positive for UTI, surgical site nonerythematous, nondraining urine cultures neg Follow CBC Inguinal hernia repair Clean dressing place, no erhythema or drainage noted Pt currently with mild abdominal pain at incision site CT of abdomen and plevis show significant inflammatory stranding-? postsurgical changes Continue home pain management,General surgery consult HTN Stable Continue home meds HLD Continue home meds Full Code inpatient need: treatment of AFib with RVR and urinary retention, ingunial hernia surgery -swellin : need workup ,urology and surgery eval. Time Spent With Patient Time: Total time managing care of this patient today ____ minutes. Quality Stroke Does the patient have a stroke diagnosis?: No VTE Prior VTE?: No VTE Risk Level:: Medical - moderate - high VTE Device Contraindication: Treatment Not Indicated VTE Drug Contraindication: N/A - Med Ordered
[2023-01-24 16:00] VITALS: BP 115/65; PULSE 59; RESP 18; TEMP 36.6; O2SAT 92
--- NOTE | 2023-01-24 16:16 | PM.CNGS ---
History of Present Illness Consult details Consult date: 01/24/23 Narrative: Patient is status post recent open left inguinal hernia repair. Presented with urinary retention. Consult for wound evaluation. Patient's tongue a diet. He is having normal bowel habits PMFSH Past Medical History Medical History CVA (cerebral vascular accident) GERD (gastroesophageal reflux disease) HTN (hypertension) Hyperlipemia Hypothyroid Paroxysmal atrial fibrillation Sinus bradycardia Thoracic aortic aneurysm Family History Family History Father No problems noted. Mother CVD (cardiovascular disease) Surgical History Surgical History History of colonoscopy History of esophagogastroduodenoscopy (EGD) History of radiofrequency ablation (RFA) procedure for cardiac arrhythmia Hx of cystoscopy Social History Social History Household Members: None Housing: House Do you presently have visiting nurse or other home services: No Alcohol intake: current Alcohol intake frequency: does not drink Patient Tobacco Use Status: Never used Tobacco Smoked in Last 30 Days: No Use of substances other than those prescribed or required for medical reasons: No Currently Displaying Signs/Symptoms of Drug Intoxication Withdrawal: No Have you been hit, kicked, punched, or otherwise hurt by someone within the past year? If so, by whom?: No Do you feel safe in your current relationship?: Yes Is there a partner from a previous relationship who is making you feel unsafe now?: No Are you made to feel afraid or neglected: No Advance Directives: No Do you have thoughts of harming others: None Do you have a plan to hurt others: No Plan Recently lost weight without trying: No Nutrition Risks: No Nutritional Risk service: No Current occupational status: retired Meds Allergies Allergy/AdvReac Type Severity Reaction Status Date / Time No Known Allergies Allergy Verified 01/21/23 07:54 [No Known Allergies*] Active Medications: Current Medications Acetaminophen (Acetaminophen 325 Mg Tablet) 650 mg PO Q6H PRN PRN Reason: Pain, Mild (Pain Scale 1-3) Amlodipine Besylate (Amlodipine Besylate 2.5 Mg Tablet) 2.5 mg PO BEDTIME [facility]; Protocol Last Admin: 01/23/23 21:18 Dose: 2.5 mg Apixaban (Apixaban 5 Mg Tablet) 5 mg PO BID [facility] Last Admin: 01/24/23 08:49 Dose: 5 mg Atorvastatin Calcium (Atorvastatin Calcium 80 Mg Tablet) 80 mg PO DAILY [facility] Last Admin: 01/24/23 08:49 Dose: 80 mg Docusate Sodium (Docusate Sodium 100 Mg Capsule) 100 mg PO DAILY [facility] Last Admin: 01/24/23 08:49 Dose: 100 mg Dronedarone (Dronedarone Hcl 400 Mg Tablet) 400 mg PO BID [facility] Last Admin: 01/24/23 08:48 Dose: 400 mg Piperacillin Sod/Tazobactam (Sod 3.375 gm/ Sodium Chloride) 50 mls @ 100 mls/hr IV Q6H [facility] Levothyroxine Sodium (Levothyroxine Sodium 150 Mcg Tablet) 150 mcg PO DAILY@0600 [facility] Last Admin: 01/24/23 06:13 Dose: 150 mcg [facility] Metoprolol Succinate (Metoprolol Succinate Er 25 Mg Tab.Er.24h) 25 mg PO DAILY [facility]; Protocol Last Admin: 01/24/23 08:48 Dose: 25 mg Omeprazole (Omeprazole 20 Mg Capsule.Dr) 20 mg PO BID@0630,1630 [facility] Last Admin: 01/24/23 06:13 Dose: 20 mg Pharmacy Consult (Consult Rx Perform Med Rec) 1 each MISCELLANE ONCE PRN PRN Reason: Consult order Sodium Chloride (0.9 % Sodium Chloride Flush 3 Ml Syringe) 3 ml IVFLUSH QSHIFT [facility] Last Admin: 01/24/23 08:56 Dose: 3 ml Tamsulosin HCl (Tamsulosin Hcl 0.4 Mg Capsule) 0.8 mg PO DAILY [facility] Home Medications Medication Instructions Recorded Confirmed Last Taken Type atorvastatin 80 mg tablet 80 mg PO DAILY 11/25/20 01/23/23 01/23/23 09:00 History flecainide 100 mg tablet 100 mg PO BID 11/25/20 01/23/23 01/23/23 09:00 History levothyroxine 150 mcg tablet 150 mcg PO DAILY@0600 11/25/20 01/23/23 01/23/23 09:00 History metoprolol succinate 25 mg 25 mg PO DAILY 11/25/20 01/23/23 01/23/23 09:00 History tablet,extended release 24 hr omeprazole 20 mg capsule,delayed 20 mg PO BID 11/25/20 01/23/23 01/23/23 09:00 History release tamsulosin 0.4 mg capsule 0.4 mg PO DAILY 11/25/20 01/23/23 01/23/23 09:00 History amlodipine 2.5 mg tablet 2.5 mg PO BEDTIME 01/23/23 01/23/23 01/22/23 History Physical Exam Vital Signs: Vital Signs: Last Vital Signs Temp 97.8 F 01/24/23 16:00 Pulse 59 01/24/23 16:00 Resp 18 01/24/23 16:00 BP 115/65 01/24/23 16:00 Pulse Ox 92 01/24/23 16:00 O2 Del Method Room Air 01/24/23 16:00 O2 Flow Rate 2 01/24/23 03:24 BMI result Body Mass Index 31.1 GI: Other: Abdomen soft. Left inguinal hernia wound is clean dry intact with some mild edema and ecchymosis but no evidence of any acute infection. Scanning was consistent with postoperative changes. Results Labs 01/24/23 07:01 01/24/23 07:01 Labs: Abnormal lab results 01/24/23 Range/Units 07:01 Calcium 8.3 L D (8.4-10.2) mg/dL Short CBC 01/24/23 Range/Units 07:01 WBC 8.6 (4.8-10.8) X10*3/uL Hgb 14.3 (14.0-18.0) g/dl Hct 42.5 (42.0-52.0) % Plt Count 204 (160-400) X10*3/uL BMP 01/24/23 07:01 Sodium 138 Potassium 4.1 Chloride 103 Carbon Dioxide 27 BUN 15 Creatinine 1.03 Calcium 8.3 L D Urine 01/23/23 Range/Units 12:35 Urine Color Dark Yellow Urine Appearance Clear Urine pH 6.0 (5.0-9.0) Ur Specific [place] 1.015 (1.005-1.025) Urine Protein Trace (Neg-Trace) mg/dL Urine Glucose (UA) Negative (Negative) mg/dL All other labs normal. Assessment and Plan (1) Left inguinal hernia: Status: Acute Plan No acute surgical issues. Advanced diet as tolerated, incentive spirometry, ice pack to wound, follow up in surgical clinic Time Spent With Patient Time: Total time managing care of this patient today ____ minutes. Procedures Date of Service Date of Service: 01/24/23
[2023-01-24] MEDS: Piperacillin Sodium/Tazobactam 3.375 GM in 0.9 % Sodium Chloride 50 ML IV ×2 (17:28→21:00)
[2023-01-24] MEDS: Magnesium Oxide 400 MG TABLET PO (17:29)
[2023-01-24 19:52] VITALS: BP 108/70; PULSE 58; RESP 18; TEMP 36.4; O2SAT 94
[2023-01-24] MEDS: amLODIPine Besylate 2.5 MG TABLET PO (20:53)
[2023-01-24 23:10] VITALS: BP 117/68; PULSE 59; RESP 20; TEMP 37.3; O2SAT 91
[2023-01-25 03:40] VITALS: BP 119/70; PULSE 58; RESP 16; TEMP 37.1; O2SAT 91
[2023-01-25] MEDS: Piperacillin Sodium/Tazobactam 3.375 GM in 0.9 % Sodium Chloride 50 ML IV ×2 (04:22→08:47)
[2023-01-25] MEDS: Levothyroxine Sodium 150 MCG TABLET PO (06:11)
[2023-01-25] MEDS: Omeprazole 20 MG CAPSULE.DR PO (06:11)
[2023-01-25 08:00] VITALS: BP 108/69; PULSE 70; RESP 20; TEMP 36.9; O2SAT 93
--- NOTE | 2023-01-25 08:12 | P.PNGS_ITS ---
Subjective Subjective Date of Service: 01/25/23 Patient reports: no new complaints, feels better, flatus and bowel movement Interval history: Events of the weekend reviewed. Patient reports expected pain in his left inguinal hernia repair, swelling is noted and the pain is worse with movement responsive to p.o. medications and an ice pack. He denies any chest pain, difficulty breathing or shortness of breath. Dunham catheter is in place and clear yellow urine is being expressed, urology consultation is pending Physical Exam Vital Signs: Vital Signs: Last Vital Signs Temp 98.8 F 01/25/23 03:40 Pulse 58 01/25/23 03:40 Resp 16 01/25/23 03:40 BP 119/70 01/25/23 03:40 Pulse Ox 91 L 01/25/23 03:40 O2 Del Method Nasal Cannula 01/25/23 03:40 O2 Flow Rate 1 01/25/23 03:40 BMI result Body Mass Index 31.1 The patient is nontoxic and in surprisingly good spirits Sclera remain anicteric He is in no acute respiratory distress Abdomen is soft with no tenderness Expected healing ridge is noted in the left inguinal area with no erythema. Clear yellow urine is present in the Dunham bag Objective Data Active Medications Acetaminophen (Acetaminophen 325 Mg Tablet) 650 mg PO Q6H PRN PRN Reason: Pain, Mild (Pain Scale 1-3) Amlodipine Besylate (Amlodipine Besylate 2.5 Mg Tablet) 2.5 mg PO BEDTIME [facility]; Protocol Last Admin: 01/24/23 20:53 Dose: 2.5 mg Documented By: BRET Apixaban (Apixaban 5 Mg Tablet) 5 mg PO BID [facility] Last Admin: 01/24/23 20:53 Dose: 5 mg Documented By: BRET Atorvastatin Calcium (Atorvastatin Calcium 80 Mg Tablet) 80 mg PO DAILY [facility] Last Admin: 01/24/23 08:49 Dose: 80 mg Documented By: AUGUSTO Docusate Sodium (Docusate Sodium 100 Mg Capsule) 100 mg PO DAILY [facility] Last Admin: 01/24/23 08:49 Dose: 100 mg Documented By: AUGUSTO Dronedarone (Dronedarone Hcl 400 Mg Tablet) 400 mg PO BID [facility] Last Admin: 01/24/23 20:53 Dose: 400 mg Documented By: BRET Piperacillin Sod/Tazobactam (Sod 3.375 gm/ Sodium Chloride) 50 mls @ 100 mls/hr IV Q6H [facility] Last Infusion: 01/25/23 05:52 Dose: 0 mls/hr Documented By: BRET Levothyroxine Sodium (Levothyroxine Sodium 150 Mcg Tablet) 150 mcg PO DAILY@0600 [facility] Last Admin: 01/25/23 06:11 Dose: 150 mcg Documented By: BRET Magnesium Oxide (Magnesium Oxide 400 Mg Tablet) 400 mg PO BIDPC [facility] Last Admin: 01/24/23 17:29 Dose: 400 mg Documented By: BLANCA Metoprolol Succinate (Metoprolol Succinate Er 25 Mg Tab.Er.24h) 25 mg PO DAILY [facility]; Protocol Last Admin: 01/24/23 08:48 Dose: 25 mg Documented By: AUGUSTO Omeprazole (Omeprazole 20 Mg Capsule.) 20 mg PO BID@0630,1630 [facility] Last Admin: 01/25/23 06:11 Dose: 20 mg Documented By: BRET Pharmacy Consult (Consult Rx Perform Med Rec) 1 each MISCELLANE ONCE PRN PRN Reason: Consult order Sodium Chloride (0.9 % Sodium Chloride Flush 3 Ml Syringe) 3 ml IVFLUSH QSHIFT [facility] Last Admin: 01/25/23 00:19 Dose: Not Given Documented By: BRET Non-Admin Reason: IV Running Tamsulosin HCl (Tamsulosin Hcl 0.4 Mg Capsule) 0.8 mg PO DAILY [facility] Labs 01/24/23 07:01 01/24/23 07:01 Microbiology Microbiology Results: Microbiology 01/23/23 15:33 Urine Culture - Final Urine clean catch - Urine baird top No growth. Procedures Date of Service Date of Service: 01/25/23 Progress Note: A&P Assessment and plan (1) Atrial fibrillation with rapid ventricular response: Status: Acute (2) Acute urinary retention: Status: Acute (3) HTN (hypertension): Status: Acute Plan Instructions regarding diet and activity reviewed with the patient. Surgically, he is experiencing expected pain in the use of an ice pack and p.o. narcotics taking care to avoid constipation was discussed. Medication titration as per cardiology Urology consult pending re urinary retention. Time Spent With Patient Time: Total time managing care of this patient today ____ minutes. Quality Stroke Does the patient have a stroke diagnosis?: No VTE Prior VTE?: No VTE Risk Level:: Medical - moderate - high VTE Device Contraindication: Treatment Not Indicated VTE Drug Contraindication: N/A - Med Ordered
[2023-01-25] MEDS: Metoprolol Succinate ER 25 MG TAB.ER.24H PO (08:46)
[2023-01-25] MEDS: Apixaban 5 MG TABLET PO (08:46)
[2023-01-25] MEDS: Docusate Sodium 100 MG CAPSULE PO (08:46)
[2023-01-25] MEDS: Atorvastatin Calcium 80 MG TABLET PO (08:46)
[2023-01-25] MEDS: Tamsulosin HCL 0.4 MG CAPSULE 0.8 MG PO (08:46)
[2023-01-25] MEDS: Magnesium Oxide 400 MG TABLET PO (08:46)
[2023-01-25] MEDS: 0.9 % Sodium Chloride Flush 3 ML SYRINGE IVFLUSH (08:47)
[2023-01-25] MEDS: Dronedarone HCl 400 MG TABLET PO (08:47)
[2023-01-25 08:50] VITALS: BP 108/69; PULSE 70; O2SAT 93
--- NOTE | 2023-01-25 11:26 | MHC.CM.PN ---
pts dcd home no skilled servcies ordered by
[2023-01-25 12:00] VITALS: BP 103/62; PULSE 58; RESP 20; TEMP 36.8; O2SAT 97
--- NOTE | 2023-01-25 13:52 | P.CNUR_ITS ---
History of Present Illness Consult details Consult date: 01/25/23 Narrative: 72-year-old male with a PMH significant for?paroxysmal AFib on Eliquis, HTN, HLD, hypothyroidism, CVA, thoracic aorta aneurysm, bradycardia, and? left inguinal hernia s/p surgery who presents to the ED with?inability to urinate since surgery and palpitations since this morning. Pt underwent left hernia repair with Dr. Aguilar on . Since then pt has not been able to move his bowels or fully empty his bladder. Pt states he has the urge to go but is only capable of producing a small dribble or two. Feels like he is constantly trying to go. Pt has had some suprapubic and diffuse abdominal pain. This morning pt noticed palpitations, which prompted his visit to the ED. Pt states he feels himself slip into AFib roughly once a month. Pt denies fever, chills, nausea, vomiting.? Denies dysuria.? No chest pain/pressure.? No shortness of breath. Neal catheter was inserted. The patient has been on flomax 0.8 mg for several years. CTAP - 01/23/23- Pertinent findings: KIDNEYS AND URETERS: The kidneys are normal in size, shape, and attenuation. No hydronephrosis, hydroureter seen. No perinephric stranding. Multiple nonobstructing calcification seen in the bilateral renal parenchyma which are stable. There is a stable 2.2 cm simple fluid density cyst in the left kidney. No follow-up indicated. BLADDER: Decompressed by a Neal catheter? Review of Systems Review of Systems: ROS negative other than stated in HPI [facility] Past Medical History Medical History CVA (cerebral vascular accident) GERD (gastroesophageal reflux disease) HTN (hypertension) Hyperlipemia Hypothyroid Paroxysmal atrial fibrillation Sinus bradycardia Thoracic aortic aneurysm Family History Family History Father No problems noted. Mother CVD (cardiovascular disease) Surgical History Surgical History History of colonoscopy History of esophagogastroduodenoscopy (EGD) History of radiofrequency ablation (RFA) procedure for cardiac arrhythmia Hx of cystoscopy Social History Social History Household Members: None Housing: House Do you presently have visiting nurse or other home services: No Alcohol intake: current Alcohol intake frequency: does not drink Patient Tobacco Use Status: Never used Tobacco service: No Current occupational status: retired Meds Allergies Allergy/AdvReac Type Severity Reaction Status Date / Time No Known Allergies Allergy Verified 01/21/23 07:54 [No Known Allergies*] Active Medications: Current Medications Acetaminophen (Acetaminophen 325 Mg Tablet) 650 mg PO Q6H PRN PRN Reason: Pain, Mild (Pain Scale 1-3) Amlodipine Besylate (Amlodipine Besylate 2.5 Mg Tablet) 2.5 mg PO BEDTIME [facility]; Protocol Last Admin: 01/24/23 20:53 Dose: 2.5 mg Apixaban (Apixaban 5 Mg Tablet) 5 mg PO BID [facility] Last Admin: 01/25/23 08:46 Dose: 5 mg Atorvastatin Calcium (Atorvastatin Calcium 80 Mg Tablet) 80 mg PO DAILY [facility] Last Admin: 01/25/23 08:46 Dose: 80 mg Docusate Sodium (Docusate Sodium 100 Mg Capsule) 100 mg PO BID [facility] Last Admin: 01/25/23 08:46 Dose: 100 mg Dronedarone (Dronedarone Hcl 400 Mg Tablet) 400 mg PO BID [facility] Last Admin: 01/25/23 08:47 Dose: 400 mg Levothyroxine Sodium (Levothyroxine Sodium 150 Mcg Tablet) 150 mcg PO DAILY@0600 [facility] Last Admin: 01/25/23 06:11 Dose: 150 mcg [facility] ([facility] Mg [facility] Last Admin: 01/25/23 08:46 Dose: 400 mg Metoprolol Succinate (Metoprolol Succinate Er 25 Mg Tab.Er.24h) 25 mg PO DAILY [facility]; Protocol Last Admin: 01/25/23 08:46 Dose: 25 mg Omeprazole (Omeprazole 20 Mg Capsule.Dr) 20 mg PO BID@0630,1630 [facility] Last Admin: 01/25/23 06:11 Dose: 20 mg Pharmacy Consult (Consult Rx Perform Med Rec) 1 each MISCELLANE ONCE PRN PRN Reason: Consult order Sodium Chloride (0.9 % Sodium Chloride Flush 3 Ml Syringe) 3 ml IVFLUSH QSHIFT [facility] Last Admin: 01/25/23 08:47 Dose: 3 ml Tamsulosin HCl (Tamsulosin Hcl 0.4 Mg Capsule) 0.8 mg PO DAILY [facility] Last Admin: 01/25/23 08:46 Dose: 0.8 mg Home Medications Medication Instructions Recorded Confirmed Last Taken Type atorvastatin 80 mg tablet 80 mg PO DAILY 11/25/20 01/23/23 01/23/23 09:00 History levothyroxine 150 mcg tablet 150 mcg PO DAILY@0600 11/25/20 01/23/23 01/23/23 09:00 History metoprolol succinate 25 mg 25 mg PO DAILY 11/25/20 01/23/23 01/23/23 09:00 History tablet,extended release 24 hr omeprazole 20 mg capsule,delayed 20 mg PO BID 11/25/20 01/23/23 01/23/23 09:00 History release amlodipine 2.5 mg tablet 2.5 mg PO BEDTIME 01/23/23 01/23/23 01/22/23 History Physical Exam Vital Signs: Vital Signs: Last Vital Signs Temp 98.2 F 01/25/23 12:00 Pulse 58 01/25/23 12:00 Resp 20 01/25/23 12:00 BP 103/62 01/25/23 12:00 Pulse Ox 97 01/25/23 12:00 O2 Del Method Room Air 01/25/23 12:00 O2 Flow Rate 1 01/25/23 03:40 BMI result Body Mass Index 31.1 Const: General: healthy appearing, no acute distress and well developed Rip entation/consciousness: patient oriented x3 HEENT: Head: Yes normocephalic and Yes atraumatic Eyes: Conjunctivae: conjunctivae normal Neck: Neck: Yes normal visual inspection Chest: Chest palpation & inspection: normal inspection of the chest Resp: Effort & Inspection: normal respiratory effort Cardio: Rate: regular rate GI: Inspection: Yes normal to inspection Palpation (GI): Soft to palpation : Other: neal in place, urine clear yellow Penis: normal penis Scrotum: scrotum normal Skin: General skin exam: no rashes or lesions noted Neuro: General: patient oriented x3 Extrem: General: No pedal edema Psych: Appearance: grossly normal Affect: normal affect Results Labs 01/24/23 07:01 01/24/23 07:01 Labs: Urine 01/23/23 Range/Units 12:35 Urine Color Dark Yellow Urine Appearance Clear Urine pH 6.0 (5.0-9.0) Ur Specific [place] 1.015 (1.005-1.025) Urine Protein Trace (Neg-Trace) mg/dL Urine Glucose (UA) Negative (Negative) mg/dL Imaging Abdomen CT scan report/results: report reviewed and image reviewed CT scan - pelvis: report reviewed and image reviewed Additional studies: Date of Service: 01/23/23 EXAMINATION: CT ABDOMEN AND PELVIS WITHOUT CONTRAST? CLINICAL INFORMATION: Abdominal pain? COMPARISON: CT from 12/28/2022? TECHNIQUE: Multidetector volumetric imaging was performed from the superior aspect of the liver through the pubic symphysis. Sagittal and coronal reformatted images were obtained on the technologist's workstation.? This CT examination was performed using dose optimization techniques as appropriate, variously including the following: *Automated exposure control *Adjustment of mA and/or kV according to patient size (this includes techniques or standardized protocols for targeted exams where dose is matched to indication/reason for exam; i.e. extremities or head) *Use of iterative reconstruction technique DLP: 705 mGy-cm FINDINGS: LUNG BASES: Atelectasis seen in the bilateral lower lobes, left greater than right? LIVER, GALLBLADDER, AND BILIARY TREE: The liver is normal in size, shape, and attenuation. No focal hepatic lesion or biliary ductal dilatation is present. The gallbladder is unremarkable with no evidence of radiopaque gallstones, gallbladder wall thickening, or obvious pericholecystic inflammatory changes.? PANCREAS: Unremarkable.? SPLEEN: Unremarkable.? ADRENAL GLANDS: Unremarkable.? KIDNEYS AND URETERS: The kidneys are normal in size, shape, and attenuation. No hydronephrosis, hydroureter seen. No perinephric stranding. Multiple nonobstructing calcification seen in the bilateral renal parenchyma which are stable. There is a stable 2.2 cm simple fluid density cyst in the left kidney. No follow-up indicated. BLADDER: Decompressed by a Neal catheter? GASTROINTESTINAL TRACT: There is a large hiatal hernia containing the stomach extending into the chest. The small and large bowel are unremarkable. The appendix is unremarkable.? ABDOMINAL WALL: Previously seen large left inguinal hernia has reduced in size with reduction of the previously seen the bowel loops within the hernia sac. There is significant inflammatory stranding is seen within the left inguinal hernia as well as the surrounding subcutaneous soft tissues of the left inguinal region and visualized scrotal sac. There are a few foci of air are seen within the soft tissues of the left inguinal canal and overlying skin changes suggesting an interval surgery.? LYMPH NODES: Normal. VASCULAR: Unremarkable. PELVIC VISCERA: Unremarkable.? OSSEOUS STRUCTURES: Unremarkable.? IMPRESSION: Previously seen large left inguinal hernia has reduced in size with reduction of the previously seen bowel loops within the hernia sac. There is significant inflammatory stranding seen within the left inguinal hernia as well as the surrounding subcutaneous soft tissues of the left inguinal region and visualized scrotal sac. There are a few foci of air seen within the soft tissues of the left inguinal canal and overlying skin changes suggesting an interval surgery. ? Increased bibasilar atelectasis ? Stable large hiatal hernia Assessment and Plan (1) Urinary retention: Status: Acute (2) BPH loc w urin obs/LUTS: Status: Acute (3) Kidney stones: Status: Acute Plan D/C WITH NEAL CONTINUE TAMSULOSIN TWICE A DAY FOLLOW-UP IN THE OFFICE WEDNESDAY FOR VOIDING TRIAL WITH ME. Time Spent With Patient Time: Total time managing care of this patient today ____ minutes. Procedures Date of Service Date of Service: 01/25/23
--- NOTE | 2023-01-25 14:14 | P.DS_ITS ---
DS: Providers Provider Date of Service: 01/25/23 Date of admission: 01/24/23 07:39 Date of discharge: 01/25/23 Primary care physician: Christopher Batres MD Consults: 01/23/23 13:08 Consult to Cardiology Stat Consulting Provider: [facility] Cardiovascular Services Reason for consultation: a.fib Has provider been notified: Yes 01/23/23 15:16 Consult to General Surgery Routine Consulting Provider: [facility] General Surgeons Reason for consultation: s/p inguinal sx , CT w/significant inflammation, ?normal finding 01/24/23 10:40 Consult to Urology Routine Consulting Provider: [facility] [facility] Urology Services Reason for consultation: urinary retention Has provider been notified: No DS: Diagnosis Discharge Diagnosis (1) Urinary retention: Status: Acute (2) BPH loc w urin obs/LUTS: Status: Acute (3) Left inguinal hernia: Status: Acute (4) Atrial fibrillation with rapid ventricular response: Status: Acute DS: Summary Hospital Course Hospital Course: 72-year-old male with a PMH significant for?paroxysmal AFib on Eliquis, HTN, HLD, hypothyroidism, CVA, thoracic aorta aneurysm, bradycardia, and? left inguinal hernia s/p surgery who presents to the ED with?inability to urinate since surgery and palpitations since this morning. Pt underwent left hernia repair with Dr. Aguilar on . Since then pt has not been able to move his bowels or fully empty his bladder. Pt states he has the urge to go but is only capable of producing a small dribble or two. Feels like he is constantly trying to go. Pt has had some suprapubic and diffuse abdominal pain. This morning pt noticed palpitations, which prompted his visit to the ED. Pt states h e feels himself slip into AFib roughly once a month. Pt denies fever, chills, nausea, vomiting.? Denies dysuria.? No chest pain/pressure.? No shortness of breath. In the ED patient was tachycardic to 170s, satting at 91% O2 on room air. Labs were significant for leukocytosis of 11.6 and hyperbilirubinemia 1.9. UA not convincingly positive for UTI. CXR showed large hiatal hernia with compressive a telectasis of the left lung base and minimal linear atelectasis of right lobe. CT?of abdomen and pelvis show significant palpatory stranding seen within the left inguinal hernia and the surrounding subcutaneous soft tissues of left inguinal region and visualized scrotal sac.. Initial EKG demonstrated AFib with RVR of 123 with repeat EKG showing normal sinus rhythm with a rate of 67. Pt was treated with diltiazem drip. Pt will be admitted to observation on telemetry for further evaluation and treatment of AFib RVR and urinary retention. hospital course:Patient came to the hospital because of urine retention, abdominal pain and constipation, tachycardia: Patient was treated with Cardizem drip for AFib: Converted to sinus rhythm and seen by Cardiology-subsequently switched to Multaq, flecainide discontinued, continue home metoprolol and Eliquis. Constipation and abdominal pain: Seems to be improved significantly with laxatives, passing bowels. Will add laxatives p.r.n. upon discharge. Urinary retention-patient takes Flomax at home already, urine retention possible got aggravated due to constipation and abdominal pain: The Avery was placed and urinating well. Urology evaluation is pending. Less likely UTI: Patient does not have any symptoms, urine culture negative. Patient likely had asymptomatic pyuria. Inguinal hernia surgery: Seen by surgery patient soreness is significantly better in the inguinal area, also swelling is improving, advised ice packs and CT abdomen also reviewed with surgery no additional recommendations ,ct changes are postop chnages. Plan: Please continue Multaq and metoprolol and Eliquis as above for AFib. Continue Flomax and Avery for urinary retention, follow-up with Urology outpatient. Urology arrange their own appointment Follow-up with surgery for recent inguinal hernia surgery . Above management discussed the patient and his in detail and they both understand and in agreement with the above plan, time spent 50 minute. Time Spent with Patient Time attestation: Total time managing care of this patient today ____ minutes. Discharge coordination time: Greater than 30 minutes Quality: Safe Use of Opioids Does Pt have an Active Cancer Diagnosis on the Problem List?: No Quality: Stroke Does the patient have a stroke diagnosis?: No Physical Exam Vital Signs: Vital Signs: Last Vital Signs Temp 98.2 F 01/25/23 12:00 Pulse 58 01/25/23 12:00 Resp 20 01/25/23 12:00 BP 103/62 01/25/23 12:00 Pulse Ox 97 01/25/23 12:00 O2 Del Method Room Air 01/25/23 12:00 O2 Flow Rate 1 01/25/23 03:40 BMI result Body Mass Index 31.1 Appearance: Alert.? Oriented X3.? not in distress.? cvs: rrr, [id number] , no murmur res: clear to auscultation ,no rhonchii or wheezing abd: no rebound or guarding ,nt, bs present. ext pulses present , no cyanosis . Gu-has avery ,inguinal area -left: swellin, has mild soarness improvin neuro: axo3 , nonfocal. DS: Data Imaging Chest x-ray: Radiologist's impression: ITS Impressions Chest X-Ray 01/23/23 12:25 IMPRESSION: 1. Elevated left hemidiaphragm with compressive atelectasis left lung base. 2. Minimal linear atelectasis right middle lobe. 3. Large hiatal hernia. Abdomen/Pelvis CT 01/23/23 13:52 IMPRESSION: Previously seen large left inguinal hernia has reduced in size with reduction of the previously seen bowel loops within the hernia sac. There is significant inflammatory stranding seen within the left inguinal hernia as well as the surrounding subcutaneous soft tissues of the left inguinal region and visualized scrotal sac. There are a few foci of air seen within the soft tissues of the left inguinal canal and overlying skin changes suggesting an interval surgery. Increased bibasilar atelectasis Stable large hiatal hernia Discharge Plan Discharge Anticipated Discharge Date/Time: 01/25/23 11:04 Patient Disposition: Home, Self-Care Discharge Diagnosis: afib ,urinary retention,constipation,recent hernia surgery Referrals: Christopher Batres MD [Primary Care Provider] - 1 Week Discharge Medications: New Multaq 400 mg Tablet 400 mg PO BID Qty: 60 0RF magnesium oxide 400 mg (241.3 mg magnesium) Tablet 400 mg PO BIDPC Qty: 8 0RF docusate sodium 100 mg Capsule 100 mg PO BID Qty: 30 0RF polyethylene glycol 3350 [Miralax] 17 gram/dose powder 17 g PO DAILY PRN (Reason: constipation) Qty: 119 0RF Continued amlodipine 2.5 mg tablet 2.5 mg PO BEDTIME metoprolol succinate 25 mg tablet extended release 24 hr 25 mg PO DAILY omeprazole 20 mg capsule,delayed release(DR/EC) 20 mg PO BID levothyroxine 150 mcg tablet 150 mcg PO DAILY@0600 atorvastatin 80 mg tablet 80 mg PO DAILY Eliquis 5 mg tablet 5 mg PO BID Qty: 180 3RF Changed tamsulosin 0.4 mg capsule 0.8 mg PO DAILY Qty: 60 0RF Discontinued flecainide 100 mg tablet 100 mg PO BID Discharge Orders: Discharge Order (Routine); Ordered 01/25/23 Ordered By: Krysten Frausto Diet: Advance to usual diet Activity on Discharge: As tolerated Stand Alone Forms: Patient Portal Discharge page Care Plan Goals: Patient came to the hospital because of urine retention, abdominal pain and constipation, tachycardia: Patient was treated with Cardizem drip for AFib: Converted to sinus rhythm and seen by Cardiology-subsequently switched to Multaq, flecainide discontinued, continue home metoprolol and Eliquis. Constipation and abdominal pain: Seems to be improved significantly with laxatives, passing bowels. Will add laxatives p.r.n. upon discharge. Urinary retention-patient takes Flomax at home already, urine retention possible got aggravated due to constipation and abdominal pain: The Avery was placed and urinating well. Urology evaluation is pending. Inguinal hernia surgery: Seen by surgery patient soreness is significantly better in the inguinal area, also swelling is improving, advised ice packs and CT abdomen also reviewed with surgery no additional recommendations at this point. Health Concerns: As above. Plan of Treatment: As above. Assessment: As above. Patient Instructions: Dronedarone (By mouth), A-fib (Atrial Fibrillation) (DC), Constipation (DC), Urinary Retention in Men (ED)
== END 2023-01-25 16:54 | disposition home or self-care (01) | DRG 309 ==
LOC: HO.ED 13:53 → HO.EDOVER 14:28 → HO.IMC 18:03
PROVIDERS: Physician Assistant; Admitting Provider Student in an Organized Health Care Education/Training Program; Emergency Provider Emergency Medicine; PCP Internal Medicine; Visit Provider Internal Medicine
DX: I48.91 Unspecified atrial fibrillation (principal); J98.11 Atelectasis; E03.9 Hypothyroidism, unspecified; I10 Essential (primary) hypertension; E78.5 Hyperlipidemia, unspecified; D72.829 Elevated white blood cell count, unspecified; N40.1 Benign prostatic hyperplasia with lower urinary tract symptoms; N20.0 Calculus of kidney; R33.8 Other retention of urine; R39.14 Feeling of incomplete bladder emptying; K59.00 Constipation, unspecified; Z20.822 Contact with and (suspected) exposure to COVID-19; Z86.73 Personal history of transient ischemic attack (TIA), and cerebral infarction without residual deficits; Z79.01 Long term (current) use of anticoagulants; Z79.890 Hormone replacement therapy; Z79.899 Other long term (current) drug therapy
CPT/HCPCS: 36415; 71045; 74176; 80048; 80076; 81001; 83690; 83735; 83880; 84484; 85025; 85027; 85610; 87086; 87635; 93005; 97161; 99285; C1758; J0696; J2543; J3475

== ENCOUNTER → 2023-01-28 11:08 | Outpatient (BNVA) | payer MEDICARE, SELFPAY | PROVIDERS: PCP Internal Medicine; Visit Provider Urology | DX: N40.1 Benign prostatic hyperplasia with lower urinary tract symptoms (principal); R33.9 Retention of urine, unspecified; N20.0 Calculus of kidney | CPT/HCPCS: 51702; 99212 ==

== ENCOUNTER 2023-01-29 12:24 | Outpatient (REF) | payer MEDICARE, SELFPAY ==
--- NOTE | ~2023-01-29 | XR_ITS ---
EXAMINATION: XR CHEST CLINICAL INFORMATION: Elevated diaphragm. COMPARISON: 01/23/2023 TECHNIQUE: PA and lateral views of the chest were obtained. FINDINGS: Unchanged hiatal hernia extending into the left hemithorax with surrounding atelectasis. No new airspace consolidation. Cardiac and mediastinal contours are normal aside from the aforementioned hernia. Pulmonary vasculature is normal. No acute osseous findings. XR/XR chest 2V IMPRESSION: Unchanged large hiatal hernia extending into the left hemithorax, mimicking an elevated left hemidiaphragm. No acute pulmonary findings.
== END 2023-01-29 12:25 | disposition home or self-care (01) ==
LOC: HO.XRAY 12:24
PROVIDERS: PCP Internal Medicine; Visit Provider Internal Medicine
DX: J98.6 Disorders of diaphragm (principal)
CPT/HCPCS: 71046

== ENCOUNTER → 2023-02-01 11:22 | Outpatient (BNVA) | payer MEDICARE, SELFPAY | PROVIDERS: PCP Internal Medicine; Visit Provider Urology | DX: N40.0 Benign prostatic hyperplasia without lower urinary tract symptoms (principal); N21.0 Calculus in bladder; N20.0 Calculus of kidney; R33.9 Retention of urine, unspecified | CPT/HCPCS: 52000; 99212 ==

== ENCOUNTER → 2023-02-16 08:46 | Outpatient (BNVA) | payer MEDICARE, SELFPAY | PROVIDERS: PCP Internal Medicine; Visit Provider Urology | DX: R33.9 Retention of urine, unspecified (principal) | CPT/HCPCS: 51700; 51702; 51798 ==

== ENCOUNTER → 2023-03-18 10:01 | Outpatient (BNVA) | payer MEDICARE, SELFPAY | PROVIDERS: PCP Internal Medicine | DX: N40.1 Benign prostatic hyperplasia with lower urinary tract symptoms (principal); R33.9 Retention of urine, unspecified | CPT/HCPCS: 51702 ==

== ENCOUNTER → 2023-04-01 08:16 | Outpatient (REF) | payer MEDICARE, SELFPAY ==
--- NOTE | ~2023-04-01 | NM_ITS ---
Myocardial perfusion study Indication: Preoperative cardiovascular risk stratification with atrial fibrillation Technique: The patient was brought in for a Lexiscan perfusion study on 04/01/2023. Patient performed low-level exercise and was injected 0.4 mg of Lexiscan intravenously. Within a minute of injection, 35 mCi of sestamibi was given intravenously. Images were obtained using the SPECT gamma camera interlaced with the gating device. Images were obtained in supine position. Resting perfusion study was performed on 04/06/2023. Patient was administered 35 mCi of sestamibi intravenously at rest. Images were then obtained in supine position. Images obtained with and without CT attenuation. Total DLP 97 mGy-cm. Images were processed with the software and compared side to side in short axis, horizontal long axis and vertical long axis views. Findings: The stress perfusion study showed non attenuated images show moderately reduced uptake in the inferior inferoseptal wall of the LV myocardium along with severely reduced uptake in the basal inferior wall of the LV myocardium. Attenuation corrected images show normal uptake of radiotracer in all segments of LV myocardium. The gated study shows normal LV systolic function with calculated LVEF of 65%. LV cavity is normal in size. The gated study shows normal systolic wall thickening and contraction of segments. Resting study shows no change in perfusion pattern compared to stress perfusion study. Gating at rest reveals normal systolic wall motion with ejection fraction at 58%. The findings are consistent with normal myocardial perfusion. NM/NM cardiolite stress test Impression: 1. Myocardial perfusion imaging study shows normal myocardial perfusion 2. Gated LVEF is 65% 3. Transient ischemic dilatation not present EKG is nondiagnostic for ischemia
--- NOTE | 2023-04-01 08:19 | CA_ITS ---
Acquisition Time: 2023-04-01 08:31:44 Total Exercise Time: 00:02:00 Test Indications: AFIB Medications: SEE H Protocol: LEXISCAN Max HR: 094 BPM 63% of Pred: 149 BPM Max BP: 124/066 mmHG Max Work Load: 1.0 METS Pharmacological stress test with Lexiscan injection while sitting and kicking his legs, without anginal symptoms, with isolated PACs, with normotensive response to injection, without EKG changes. Nuclear images pending. Test reviewed with Dr. Collins. Referred By: Troy Collins Overread By: CHEN BRIGHT
== END ==
LOC: HO.CARD 08:16
PROVIDERS: PCP Internal Medicine; Visit Provider Internal Medicine Cardiovascular Disease
DX: Z01.810 Encounter for preprocedural cardiovascular examination (principal); I48.0 Paroxysmal atrial fibrillation; I71.20 Thoracic aortic aneurysm, without rupture, unspecified
CPT/HCPCS: 78452; 93017; A9500; J0280; J2785

== ENCOUNTER 2023-04-01 16:34 | Emergency (ER) | payer MEDICARE, SELFPAY ==
[2023-04-01 18:41] VITALS: BP 120/76; PULSE 70; RESP 18; TEMP 36.6; O2SAT 94; BMI 31.9
--- NOTE | 2023-04-01 18:41 | ED.GENADULT ---
HPI - General Adult General Chief complaint: Abdominal Pain Stated complaint: abd pain ,catheter not draining well Time Seen by Provider: 04/01/23 20:13 Source: patient Mode of arrival: ambulatory Limitations: no limitations History of Present Illness HPI narrative: Patient with indwelling Dunham catheter noticed at urinating small amount of urine no pain no blood in the urine has mild discomfort suprapubic area no fever or chills patient does have history of kidney stone denies any flank pain Related Data Home Medications Medication Instructions Recorded Confirmed atorvastatin 80 mg tablet 80 mg PO DAILY 11/25/20 02/01/23 levothyroxine 150 mcg tablet 150 mcg PO DAILY@0600 11/25/20 02/01/23 metoprolol succinate 25 mg 25 mg PO DAILY 11/25/20 02/01/23 tablet,extended release 24 hr omeprazole 20 mg capsule,delayed 20 mg PO BID 11/25/20 02/01/23 release amlodipine 2.5 mg tablet 2.5 mg PO BEDTIME 01/23/23 02/01/23 Previous Rx's Medication Instructions Recorded apixaban 5 mg tablet (Eliquis) 5 mg PO BID #180 tabs 05/19/22 docusate sodium 100 mg capsule 100 mg PO BID #30 caps 01/25/23 magnesium oxide 400 mg (241.3 mg 400 mg PO BIDPC #8 tabs 01/25/23 magnesium) tablet polyethylene glycol 3350 17 17 g PO DAILY PRN constipation 01/25/23 gram/dose oral powder (Miralax) #119 grams tamsulosin 0.4 mg capsule 0.8 mg PO DAILY #60 caps 01/25/23 bethanechol chloride 25 mg tablet 25 mg PO TID #90 tabs 01/28/23 finasteride 5 mg tablet (Proscar) 5 mg PO DAILY 90 days #90 tabs 02/01/23 cefuroxime axetil 250 mg tablet 250 mg PO BID 10 days #20 tabs 04/01/23 dronedarone 400 mg tablet (Multaq) 400 mg PO BID 90 days #180 tabs 04/05/23 Allergies Allergy/AdvReac Type Severity Reaction Status Date / Time No Known Allergies Allergy Verified 02/01/23 15:32 [No Known Allergies*] Review of Systems Review of Systems: Yes all other systems are reviewed and are negative PMFSH Past Medical History Medical History CVA (cerebral vascular accident) GERD (gastroesophageal reflux disease) HTN (hypertension) Hyperlipemia Hypothyroid Paroxysmal atrial fibrillation Sinus bradycardia Thoracic aortic aneurysm Surgical History History of colonoscopy History of esophagogastroduodenoscopy (EGD) History of radiofrequency ablation (RFA) procedure for cardiac arrhythmia Hx of cystoscopy Hx of left inguinal hernia repair Family History Family History Father No problems noted. Mother CVD (cardiovascular disease) Social History Social History Household Members: None Housing: House Do you presently have visiting nurse or other home services: No Alcohol intake: never Patient Tobacco Use Status: Never used Tobacco Smoked in Last 30 Days: No Use of substances other than those prescribed or required for medical reasons: No Advance Directives: No Advance Directives Information Provided: No service: No Current occupational status: retired Physical Exam ED Vital Signs: Vital Signs - 24 hr 04/01/23 18:41 Temperature 98 F Pulse Rate 70 Respiratory Rate 18 Blood Pressure 120/76 Pulse Oximetry 94 Oxygen Delivery Method Room Air BMI result Body Mass Index 31.9 Appearance: Alert. Oriented X3. No acute distress. ENT: Pharynx normal. Oral Mucosa moist Neck: Normal inspection. Neck supple. CVS: Normal heart rate and rhythm. Pulses normal. Respiratory: No respiratory distress. Equal air entry bilateral, no wheezing/rales/rhonchi Abdomen: Soft and nontender. Bowel sounds are present, no mass palpable, no CVA tenderness Dunham catheter in place and draining urine Skin: Skin warm and dry. Normal skin color. Normal skin turgor. Extremities: No lower extremity edema. No calf tenderness Neuro: Oriented X 3. No motor deficit. Course Course Course Narrative: This is an RME: Additional HPI, ROS, PE not included below will be deferred to primary provider. This is a [id number], with a history of HLD, CVA, GERD, Hypothyroid, paroxysmal a fib on eliquis, presenting to the emergency department with a complaint of abdominal pain, nausea, decreased appetite, and only able to urinate small amounts. Hx of urinary retention in the past. Reports subjective fevers and chills. VSS. Plan: Labs and UA ordered. Medications Administered Discontinued Medications Generic Name Dose Route Start Last Admin Trade Name Conor PRN Reason Stop Dose Admin Sodium Chloride 1,000 mls @ 999 mls/hr 04/01/23 20:30 04/01/23 21:51 Ns IV 04/01/23 21:30 Infused .Q1H1M ONE Infusion Ceftriaxone Sodium 1 gm/ 50 mls @ 100 mls/hr 04/01/23 20:30 04/01/23 21:35 Sodium Chloride IV 04/01/23 20:59 Infused ONCE ONE Infusion Medical Decision Making Medical Decision Making MDM Narrative: Patient with chronic Dunham catheter UTI will place a new Dunham catheter patient home on [place] Lab Data [facility] Lab Attestation statement: I reviewed the patient's lab results. 04/01/23 20:02 04/01/23 20:02 Labs: Lab Results 04/01/23 04/01/23 04/01/23 Range/Units 20:02 20:02 20:58 WBC 10.6 (4.8-10.8) X10*3/uL RBC 5.44 (4.60-5.80) X10*6/uL Hgb 15.2 (14.0-18.0) g/dl Hct 45.5 (42.0-52.0) % MCV 83.6 (80.0-98.0) fL MCH 27.9 (27.0-33.0) pg MCHC 33.4 (31.0-36.0) g/dl RDW 13.8 (11.0-16.0) % Plt Count 170 (160-400) X10*3/uL MPV 9.8 (9.4-12.4) fL Immature Gran % (Auto) 0.5 H (0.0-0.4) % Neut % (Auto) 81.1 H (45-73) % Lymph % (Auto) 6.3 L (20-40) % [place] % (Auto) 11.9 H (2-11) % Eos % (Auto) 0.0 (0-4) % Baso % (Auto) 0.2 (0-2) % Lymph # (Auto) 0.7 L (1.2-4.9) X10*3/uL [place] # (Auto) 1.3 H (0.1-1.2) X10*3/uL Eos # (Auto) 0.0 (0.0-0.4) X10*3/uL Baso # (Auto) 0.0 (0.0-0.2) X10*3/uL Abs Immat Gran (auto) 0.05 H (0.00-0.03) X10*3/uL Absolute Neuts (auto) 8.6 H (2.0-8.3) x10*3/uL Absolute Nucleated RBC 0.000 (0.0-0.012) X10*3/uL Nucleated RBC % (auto) 0.0 (0.0-0.2) /100WBC Sodium 135 (135-145) mmol/L Potassium 3.9 (3.3-5.1) mmol/L Chloride 101 (96-108) mmol/L Carbon Dioxide 25 (22-29) mmol/L Anion Gap 13 (12-20) BUN 14 (9-16) mg/dL Creatinine 1.32 (0.5-1.4) mg/dL Estim Creat Clear Calc 57.4 Estimated GFR 53 Random Glucose 123 H (60-115) mg/dL Calcium 8.8 D (8.4-10.2) mg/dL Magnesium 1.7 (1.6-2.6) mg/dL Total Bilirubin 2.0 H (0.0-1.0) mg/dL Direct Bilirubin 0.5 (0.0-0.5) mg/dL AST 13 (5-37) U/L ALT 9 (0-40) U/L Alkaline Phosphatase 62 (39-117) U/L Total Protein 6.5 (6.5-8.0) g/dL Albumin 3.8 (3.5-5.0) g/dL Lipase 9 (8-78) U/L Urine Color Dark Yellow Urine Appearance Cloudy Urine pH 6.0 (5.0-9.0) Ur Specific [place] 1.025 (1.005-1.025) Urine Protein 100 (2+) H (Neg-Trace) mg/dL Urine Glucose (UA) Negative (Negative) mg/dL Urine Ketones Trace (Negative) mg/dL Urine Blood Large (3+) H (Negative) Urine Nitrite Positive H (Negative) Ur Leukocyte Esterase Large (3+) H (Negative) Urine RBC >20 H (0-2) /HPF Urine WBC >50 H (0-5) /HPF Ur Squamous Epith Cells 0-2 (0-2) /HPF Urine Bacteria 4+ (None Seen) Hyaline Casts 0-2 (0-2) /LPF Discharge Plan Discharge Clinical Impression: Gastroenteritis, UTI (urinary tract infection) Patient Disposition: Home, Self-Care Instructions: Gastroenteritis (ED), Catheter-associated Urinary Tract Infection (ED) Additional Instructions: Drink plenty of fluid Take antibiotic as prescribed Report to the ER if high fever/vomiting not getting better Prescriptions: New cefuroxime axetil 250 mg tablet 250 mg PO BID 10 Days Qty: 20 0RF No Action Multaq 400 mg tablet 400 mg PO BID 90 Days Qty: 180 1RF amlodipine 2.5 mg tablet 2.5 mg PO BEDTIME magnesium oxide 400 mg (241.3 mg magnesium) Tablet 400 mg PO BIDPC Qty: 8 0RF docusate sodium 100 mg Capsule 100 mg PO BID Qty: 30 0RF polyethylene glycol 3350 [Miralax] 17 gram/dose powder 17 g PO DAILY PRN (Reason: constipation) Qty: 119 0RF tamsulosin 0.4 mg capsule 0.8 mg PO DAILY Qty: 60 0RF metoprolol succinate 25 mg tablet extended release 24 hr 25 mg PO DAILY omeprazole 20 mg capsule,delayed release(DR/EC) 20 mg PO BID levothyroxine 150 mcg tablet 150 mcg PO DAILY@0600 atorvastatin 80 mg tablet 80 mg PO DAILY Eliquis 5 mg tablet 5 mg PO BID Qty: 180 3RF ciprofloxacin HCl 500 mg tablet 500 mg PO ONCE Qty: 1 0RF naproxen 500 mg tablet 500 mg PO ONCE Qty: 1 0RF lidocaine HCl 2 % jelly in applicator 20 ml intra-urethral ONCE Qty: 10 0RF finasteride [Proscar] 5 mg tablet 5 mg PO DAILY 90 Days Qty: 90 3RF bethanechol chloride 25 mg tablet 25 mg PO TID Qty: 90 0RF Interventions: ED Discharge Assessment Last Done: 04/01/23 22:34 Discharge Date/Time: 04/01/23 22:34
[2023-04-01 20:06] LABS: MANUAL DIFF FLAG NO
[2023-04-01 20:08] LABS: Basophils Percent Auto 0.2 % (0-2); Hematocrit 45.5 % (42.0-52.0); Hemoglobin 15.2 g/dl (14.0-18.0); Imm Gran Abs Auto 0.05 X10*3/uL (0.00-0.03); Imm Gran Pct Auto 0.5 % (0.0-0.4); Lymphocytes Absolute Auto 0.7 X10*3/uL (1.2-4.9); Lymphocytes Percent Auto 6.3 % (20-40); Mean Corpuscular HGB Conc 33.4 g/dl (31.0-36.0); Mean Corpuscular Hemoglobin 27.9 pg (27.0-33.0); Mean Corpuscular Volume 83.6 fL (80.0-98.0); Mean Platelet Volume 9.8 fL (9.4-12.4); Monocytes Absolute Auto 1.3 X10*3/uL (0.1-1.2); Monocytes Percent Auto 11.9 % (2-11); Neutrophils Absolute Auto 8.6 x10*3/uL (2.0-8.3); Neutrophils Percent Auto 81.1 % (45-73); Platelet Count 170 X10*3/uL (160-400); Red Blood Count 5.44 X10*6/uL (4.60-5.80); Red Cell Distribution Width 13.8 % (11.0-16.0); White Blood Count 10.6 X10*3/uL (4.8-10.8)
[2023-04-01 20:23] LABS: Alanine Aminotransferase 9 U/L (0-40); Albumin Level 3.8 g/dL (3.5-5.0); Alkaline Phosphatase 62 U/L (39-117); Anion Gap 13 (12-20); Aspartate Amino Transferase 13 U/L (5-37); Bilirubin Direct 0.5 mg/dL (0.0-0.5); Blood Urea Nitrogen 14 mg/dL (9-16); Calcium 8.8 mg/dL (8.4-10.2); Carbon Dioxide 25 mmol/L (22-29); Chloride 101 mmol/L (96-108); Creatinine Clr Calc Pharmacy 57.4; Estimated Glomerular Filt Rate 53; Glucose Random 123 mg/dL (60-115); Lipase 9 U/L (8-78); Magnesium 1.7 mg/dL (1.6-2.6); Potassium 3.9 mmol/L (3.3-5.1); Sodium 135 mmol/L (135-145); Total Protein 6.5 g/dL (6.5-8.0)
[2023-04-01] MEDS: 0.9 % Sodium Chloride 1,000 ML 999 ML IV (20:40)
[2023-04-01] MEDS: cefTRIAXone sodium 1 GM in 0.9 % Sodium Chloride 50 ML IV (21:01)
[2023-04-01 21:07] LABS: Appearance Urine Cloudy; Color Urine Dark Yellow; Glucose Urine UA Negative (Negative); Leukocyte Esterase Urine Large (3+) (Negative); Nitrite Urine Positive (Negative); Specific Gravity - Urine 1.025 (1.005-1.025); UMIC TRIGGER UACC YES; Urine Blood Large (3+) (Negative); Urine Ketones Trace mg/dL (Negative); Urine Protein 100 (2+) mg/dL (Neg-Trace)
[2023-04-01 21:12] LABS: Bacteria Urine 4+ (None Seen); Hyaline Casts Urine 0-2 /LPF (0-2); RBC Urine >20 /HPF (0-2); Squamous Epithelial Cell Urine 0-2 /HPF (0-2); UACC Culture Trigger YES; WBC Urine >50 /HPF (0-5)
--- NOTE | 2023-04-01 21:18 | PC.NURSE ---
IV line est 20g R AC for NS 1L and rocephin per DEC no apparent distress aox4 resting comfortably while on phone warm blanket provided as requested
--- NOTE | 2023-04-01 21:30 | PC.NURSE ---
provider declined bldcs prior to IV rocephin
[2023-04-01 22:00] VITALS: BP 136/72; PULSE 69; RESP 22; TEMP 37.1; O2SAT 96
--- NOTE | 2023-04-01 22:15 | PC.NURSE ---
VSS slightly tachypneic at 24
--- NOTE | 2023-04-01 22:16 | PC.NURSE ---
no apparent distress resting quietly
--- NOTE | 2023-04-01 22:29 | PC.NURSE ---
pt declined cath replacement d/t not wanting avery that had avery bag attached MD herrera
--- NOTE | 2023-04-01 22:34 | PC.NURSE ---
Discharge instructions given and explained to patient No apparent distress denies pain aox4 Ambulates safely and independently IV cath tip intact upon removal
== END 2023-04-01 22:34 | disposition home or self-care (01) ==
PROVIDERS: Physician Assistant Medical; Emergency Provider Internal Medicine; PCP Internal Medicine
DX: N39.0 Urinary tract infection, site not specified (principal); K52.9 Noninfective gastroenteritis and colitis, unspecified; Z79.899 Other long term (current) drug therapy
CPT/HCPCS: 36415; 51702; 80048; 80076; 81001; 83690; 83735; 85025; 87086; 96361; 96374; 99284; 99285; J0696

== ENCOUNTER → 2023-05-12 08:35 | Outpatient (BNVA) | payer MEDICARE, SELFPAY | PROVIDERS: Visit Provider Internal Medicine Cardiovascular Disease ==

== ENCOUNTER → 2023-05-31 08:01 | Outpatient (REF) | payer MEDICARE, SELFPAY ==
--- NOTE | 2023-05-31 08:05 | HM_ITS ---
Conclusion: 1. Baseline was normal sinus rhythm with average heart of 53 beats per minute 2. Frequent sinus bradycardia with 80% of time heart rate below 60 beats per minute with no significant pauses 3. Frequent PACs noted with total burden of 3.3% 4. No patient reported events MTDD
== END ==
LOC: HO.CARD 08:01
PROVIDERS: Visit Provider Internal Medicine Cardiovascular Disease
DX: I48.0 Paroxysmal atrial fibrillation (principal)
CPT/HCPCS: 93242

== ENCOUNTER → 2023-05-31 08:05 | Outpatient (BNV) | payer MEDICARE, SELFPAY | PROVIDERS: Visit Provider Internal Medicine Cardiovascular Disease | DX: R00.1 Bradycardia, unspecified (principal) | CPT/HCPCS: 93244 ==

== ENCOUNTER 2023-06-10 11:07 | Outpatient (REF) | payer MEDICARE, SELFPAY ==
[2023-06-10 12:14] LABS: Estimated Average Glucose 105 mg/dL; Hemoglobin A1c % 5.3 %
[2023-06-10 12:23] LABS: Cholesterol 86 mg/dL; HDL Cholesterol 29 mg/dL; LDL Cholesterol Calculated 45 mg/dl; Triglycerides 60 mg/dL
[2023-06-10 12:25] LABS: Alanine Aminotransferase 10 U/L (0-40); Albumin Level 3.8 g/dL (3.5-5.0); Alkaline Phosphatase 70 U/L (39-117); Aspartate Amino Transferase 15 U/L (5-37); Bilirubin Direct 0.4 mg/dL (0.0-0.5); Glucose Fasting 99 mg/dL (60-99); Total Protein 6.5 g/dL (6.5-8.0)
[2023-06-10 15:27] LABS: Reflex LDLD? No
== END 2023-06-10 11:08 | disposition home or self-care (01) ==
LOC: HO.LNP 11:07
PROVIDERS: Visit Provider Internal Medicine
DX: E78.00 Pure hypercholesterolemia, unspecified (principal); R73.03 Prediabetes
CPT/HCPCS: 80061; 80076; 82947; 83036

== ENCOUNTER 2023-06-21 08:02 | Outpatient (AMB) | payer MEDICARE, SELFPAY ==
[2023-06-21 08:10] VITALS: BP 130/72; PULSE 45; BMI 14.4
--- NOTE | 2023-06-21 08:10 | MHC.OFFVIS ---
Intake Vital Signs 06/21/23 08:10 Height 5 ft 8 in Weight 95 lb BMI 14.4 BP 130/72 Blood Pressure Location Lt brachial Position Sitting Pulse 45 L Intake Visit Reasons: follow-up dx afib med changes with ekg Intake Note: f/up dx afib med change [employer] Project [employer] Required: No Allergies No Known Allergies [No Known Allergies*] Allergy (Verified 06/21/23 08:15) Medication List - Last Reconciled 06/21/23 by MANDO Marquez amlodipine 2.5 mg PO BEDTIME apixaban (Eliquis) 5 mg PO BID 90 days atorvastatin 80 mg PO DAILY bethanechol chloride 25 mg PO TID cefuroxime axetil 250 mg PO BID 10 days docusate sodium 100 mg PO BID finasteride (Proscar) 5 mg PO DAILY 90 days levothyroxine 150 mcg PO DAILY@0600 magnesium oxide 400 mg PO BIDPC metoprolol succinate ER 25 mg PO DAILY 90 days omeprazole 20 mg PO BID tamsulosin 0.8 mg (2 x 0.4 mg) PO DAILY HPI follow-up dx afib med changes with ekg HPI Details Cordell is a 72-year-old male with past medical history of hypertension, hyperlipidemia, thoracic aortic aneurysm, paroxysmal atrial fibrillation, sinus bradycardia who presents for follow-up. Since his last visit in November he had been admitted to [facility] in December with urinary retention following hernia surgery. During that admission he had AFib RVR and a run of wide complex apparent conduction rapid rhythm. He was taken off flecainide and started on Multaq. Then as outpatient his Multaq was stopped and changed to metoprolol XL 50 mg daily. Following a Holter monitor showing frequent sinus bradycardia his metoprolol dose was further reduced. Today he reports he has been feeling well with no concerning symptoms. He denies excess fatigue, shortness of breath, activity intolerance. No dizziness, presyncope, syncope, falls. No chest discomfort at rest or with activity. No palpitations or concerns that he has been in AFib recently. No PND, orthopnea or edema. Tolerates normal ADLs without reported difficulty. No bleeding issues reported. Urinary retention improving. Has been without a catheter for the last week and voiding on his own. Taking all meds as directed. [facility] Medical History CVA (cerebral vascular accident) GERD (gastroesophageal reflux disease) HTN (hypertension) Hyperlipemia Hypothyroid Paroxysmal atrial fibrillation Sinus bradycardia Thoracic aortic aneurysm Surgical History History of colonoscopy History of esophagogastroduodenoscopy (EGD) History of radiofrequency ablation (RFA) procedure for cardiac arrhythmia Hx of cystoscopy Hx of left inguinal hernia repair Family History Father No problems noted. Mother CVD (cardiovascular disease) Social History Household Members: None Housing: House Do you presently have visiting nurse or other home services: No Alcohol intake: never Patient Tobacco Use Status: Never used Tobacco service: No Current occupational status: retired Review of Systems Const All systems reviewed & are unremarkable except as noted in HPI and below ENT Reports dizziness Card Denies chest pain, Denies chest pain at rest, Denies chest pain with activity, Denies rapid heart rate, Denies pedal edema, Denies edema, Denies leg edema, Denies lightheadedness, Denies palpitations, Denies dyspnea, Denies dyspnea on exertion and Denies orthopnea Resp Denies cough, Denies dyspnea and Denies dyspnea on exertion GI Denies hematochezia and Denies change in stool character Musc Denies abnormal gait, Reports limited range of motion, Reports muscle cramps, Denies muscle weakness, Denies numbness, Denies radiating pain into limb, Denies stiffness and Denies tingling Neuro Denies abnormal gait, Reports dizziness, Denies numbness and Denies tingling Endo Denies palpitations Physical Exam Vital Signs: Last Vital Signs BP 130/72 06/21/23 08:10 BMI result Body Mass Index 14.4 Const General: cooperative, healthy appearing, comfortable and no acute distress Orientation/consciousness: patient oriented x3 Neck Neck: Yes normal visual inspection Resp Effort & Inspection: normal respiratory effort Auscultation: clear to auscultation bilaterally, no crackles, no rales, no rhonchi and no wheezes Cardio Jugular venous distension: no JVD Rate: regular rate Rhythm: regular rhythm Heart sounds: S1 normal heart sound present, S2 normal heart sound present, no murmurs and no rubs GI Inspection: Yes normal to inspection Neuro General: patient oriented x3 Extrem General: Yes normal to inspection and No no pedal edema Psych Appearance: grossly normal Mental Status: mental status grossly normal Speech and movement: Normal speech and movement present Office Procedures EKG Details: Today, read by me, sinus bradycardia with sinus arrhythmia, nonspecific T-wave abnormality, rate 45, QTC 385 milliseconds [id number], Complete Assessment & Plan Assessment & Plan (1) Paroxysmal atrial fibrillation: Code(s): I48.0 - Paroxysmal atrial fibrillation Plan: History of paroxysmal atrial fibrillation. He had been on flecainide which was stopped in December following hospital admission at which time he had recurrent AFib RVR and a wide complex apparent rhythm. He was started on Multaq which has since been discontinued for unclear reason. More recently he has been on metoprolol XL 50 mg daily. A Holter monitor done on 05/31/2023 showed sinus rhythm with average heart rate 53, 80% of the time heart rate less than 60, PACs 3.3% of time. Following that results his metoprolol dose was reduced to 25 mg daily. Today he reports feeling well with no concerning symptoms. EKG shows sinus Ino with sinus arrhythmia, rate 45, QTC 385 milliseconds. No report of fatigue, lightheadedness, shortness of breath. Tolerates normal ADLs without difficulty. Will continue on current metoprolol XL 25 mg daily. Continue Eliquis for anticoagulation. No bleeding issues reported. Instructed to call for recurrent heart palpitations. ED care if needed for symptoms. Cardiology follow-up in 6 months, sooner if needed (2) Thoracic aortic aneurysm: Code(s): I71.2 - Thoracic aortic aneurysm, without rupture Plan: Echocardiogram done 04/06/2022 shows EF 61%, no valve abnormalities and ascending aorta 3.9 cm. A repeat echocardiogram is due prior to his next visit in 6 months. Blood pressure is well controlled. (3) HTN (hypertension): Code(s): I10 - Essential (primary) hypertension Plan: Well controlled at present. Continue on amlodipine and metoprolol XL. (4) Sinus bradycardia: Code(s): R00.1 - Bradycardia, unspecified Plan: Frequent sinus bradycardia, asymptomatic, suggestive of SA node dysfunction. No indication for pacemaker at this time. We will continue to follow Medications: Discontinued amlodipine 2.5 mg PO DAILY 90 tabs 2RF 90 days Coding Level of Care Code Est Pt Level 4 (69489) Diagnoses Paroxysmal atrial fibrillation I48.0 Thoracic aortic aneurysm I71.2 HTN (hypertension) I10 Sinus bradycardia R00.1 CPT Codes EKG - CPT: [id number], Complete ([id number]) Time Spent (min) 26 Comment Chart review, documentation, interview, assessment
== END 2023-06-21 08:35 | disposition home or self-care (01) ==
PROVIDERS: PCP Internal Medicine; Visit Provider Nurse Practitioner Family
DX: I48.0 Paroxysmal atrial fibrillation (principal); I71.20 Thoracic aortic aneurysm, without rupture, unspecified; I10 Essential (primary) hypertension; R00.1 Bradycardia, unspecified
CPT/HCPCS: 93010; 99214

== ENCOUNTER → 2023-06-21 08:02 | Outpatient (BNVA) | payer MEDICARE, SELFPAY | PROVIDERS: PCP Internal Medicine; Visit Provider Nurse Practitioner Family | DX: I48.0 Paroxysmal atrial fibrillation (principal); R00.1 Bradycardia, unspecified; I71.20 Thoracic aortic aneurysm, without rupture, unspecified; I10 Essential (primary) hypertension; Z98.890 Other specified postprocedural states | CPT/HCPCS: 93005; 99212 ==

== ENCOUNTER 2023-08-09 10:13 | Emergency (ER) | payer MEDICARE, SELFPAY ==
[2023-08-09 10:49] VITALS: BP 143/85; PULSE 75; RESP 16; TEMP 37.6; O2SAT 93; BMI 30.4
--- NOTE | 2023-08-09 12:59 | ED.MALEGU ---
HPI - Male Genitourinary General Chief complaint: Urogenital-Male Stated complaint: quest uti Time Seen by Provider: 08/09/23 12:22 Source: patient and RN notes reviewed Mode of arrival: ambulatory Limitations: no limitations History of Present Illness HPI Narrative: This is a 72-year-old male presenting to the emergency department for evaluation of dysuria, subjective fevers and chills since yesterday. He also endorses some nausea. He states that he sometimes self catheterization on and off, last time was last week. He believes that he has a urinary tract infection as his symptoms are consistent with UTIs which he has had before. Denies any testicular swelling or pain. No concern for STIs. No other complaints or concerns at this time. Duration: constant Severity: mild Relieving factors: none Exacerbating factors: none Associated symptoms: Reports denies other symptoms Related Data Home Medications Medication Instructions Recorded Confirmed atorvastatin 80 mg tablet 80 mg PO DAILY 11/25/20 06/21/23 levothyroxine 150 mcg tablet 150 mcg PO DAILY@0600 11/25/20 06/21/23 omeprazole 20 mg capsule,delayed 20 mg PO BID 11/25/20 06/21/23 release Previous Rx's Medication Instructions Recorded docusate sodium 100 mg capsule 100 mg PO BID #30 caps 01/25/23 magnesium oxide 400 mg (241.3 mg 400 mg PO BIDPC #8 tabs 01/25/23 magnesium) tablet tamsulosin 0.4 mg capsule 0.8 mg (2 x 0.4 mg) PO DAILY #60 01/25/23 caps bethanechol chloride 25 mg tablet 25 mg PO TID #90 tabs 01/28/23 finasteride 5 mg tablet (Proscar) 5 mg PO DAILY 90 days #90 tabs 02/01/23 cefuroxime axetil 250 mg tablet 250 mg PO BID 10 days #20 tabs 04/01/23 amlodipine 2.5 mg tablet 2.5 mg PO BEDTIME #90 tabs 05/11/23 apixaban 5 mg tablet (Eliquis) 5 mg PO BID 90 days #180 tabs 05/11/23 metoprolol succinate 25 mg 25 mg PO DAILY 90 days #90 tabs 06/07/23 tablet,extended release 24 hr doxycycline hyclate 100 mg capsule 100 mg PO BID 10 days #20 caps 08/09/23 Allergies Allergy/AdvReac Type Severity Reaction Status Date / Time No Known Allergies Allergy Verified 06/21/23 08:15 [No Known Allergies*] Review of Systems Review of Systems: Yes all other systems are reviewed and are negative Constitutional: Constitutional: Reports as per [facility] Past Medical History Attestation statement: The following information was validated with the patient. Medical History GERD (gastroesophageal reflux disease) Hypothyroid Hyperlipemia Sinus bradycardia Thoracic aortic aneurysm HTN (hypertension) Paroxysmal atrial fibrillation CVA (cerebral vascular accident) Surgical History Hx of left inguinal hernia repair Hx of cystoscopy History of esophagogastroduodenoscopy (EGD) History of colonoscopy History of radiofrequency ablation (RFA) procedure for cardiac arrhythmia Family History Family History Father No problems noted. Mother CVD (cardiovascular disease) Social History Social History Household Members: None Housing: House Do you presently have visiting nurse or other home services: No Alcohol intake: never Patient Tobacco Use Status: Never used Tobacco Advance Directives: No Advance Directives Information Provided: Yes service: No Current occupational status: retired Physical Exam Vital Signs: Vital Signs: Last Vital Signs Temp 99.6 F 08/09/23 10:49 Pulse 75 08/09/23 10:49 Resp 16 08/09/23 10:49 BP 143/85 H 08/09/23 10:49 Pulse Ox 93 08/09/23 10:49 O2 Del Method Room Air 08/09/23 10:49 BMI result Body Mass Index 30.4 Const: General: cooperative, comfortable and no acute distress Orientation/consciousness: patient oriented x3 Limitations: no limitations HEENT: Head: Yes normal to inspection, Yes normocephalic and Yes atraumatic Ears: hearing grossly normal bilaterally General nose exam: Normal external nose present Face and sinus: Yes normal facial exam Mouth: Normal oral and palatal mucosa present, oropharynx normal and moist mucous membranes Throat: Yes posterior oropharynx normal Eyes: General: appearance normal, both eyes and all related structures Eyelids: Yes eyelids normal Conjunctivae: conjunctivae normal Sclerae: sclerae normal Pupils: Equal, round and reactive pupils present EOM: EOMs intact bilaterally Neck: Neck: Yes normal visual inspection, Yes full ROM and Yes no lymphadenopathy Lymphatic: no lymphadenopathy noted Chest: Chest palpation & inspection: normal inspection of the chest Resp: Effort & Inspection: normal respiratory effort and able to speak in complete sentences Auscultation: clear to auscultation bilaterally, no crackles, no rales, no rhonchi and no wheezes Cardio: Rate: regular rate Rhythm: regular rhythm Heart sounds: S1 normal heart sound present and S2 normal heart sound present GI: Other: Abdomen is soft, nontender. Normoactive bowel sounds present in all 4 quadrants. Inspection: Yes normal to inspection : Other: No CVA tenderness Skin: General skin exam: no rashes or lesions noted Trauma: no lacerations or abrasions Wounds: no wounds Neuro: General: patient oriented x3 and moves all extremities Cranial nerves: Yes Equal, round and reactive pupils present Extrem: General: Yes normal to inspection Right upper extremity: normal to inspection Left upper extremity: normal to inspection Right lower extremity: normal to inspection Left lower extremity: normal to inspection Medical Decision Making Medical Decision Making MDM Narrative: 73 year male, with a past medical history of BPH, presenting to the emergency department for evaluation of dysuria, subjective fevers and chills since yesterday. He states that he self catheterized himself 1 week ago as he has difficulty with urination (due to BPH). History of tract infections and his symptoms feel similar. On arrival, patient is afebrile, mildly hypertensive at 143/85, all other VSS. Abdomen is soft, nontender. No CVA tenderness on examination. Urine sample appears infected. Consistent with UTI. Preference of ABX would be cipro/flouroquinolone, however pt with hx of thoracic aneurysm. On review urine cultures in the past, which were performed in the past, bacteria sensitive to doxycycline - sensitivities not performed with betalactams. Will tx with course of doxycycline pending urine culture results. Given strict return precautions. Pt understands and agrees with plan. Stable for d/c. Differential Diagnosis Differential Diagnoses: The differential diagnosis associated with the presentation includes UTI, pylonephritis, BPH, nephroliathiasis Lab Data Labs: Lab Results 08/09/23 Range/Units 10:57 Urine Color Yellow Urine Appearance Cloudy Urine pH 6.5 (5.0-9.0) Ur Specific [place] 1.020 (1.005-1.025) Urine Protein 30 (1+) H (Neg-Trace) mg/dL Urine Glucose (UA) Negative (Negative) mg/dL Urine Ketones Negative (Negative) mg/dL Urine Blood Moderate (2+) H (Negative) Urine Nitrite Positive H (Negative) Ur Leukocyte Esterase Large (3+) H (Negative) Urine RBC >20 H (0-2) /HPF Urine WBC >50 H (0-5) /HPF Ur Squamous Epith Cells 0-2 (0-2) /HPF Urine Bacteria 4+ (None Seen) Hyaline Casts 0-2 (0-2) /LPF Discharge Plan Discharge Clinical Impression: Acute UTI Patient Disposition: Home, Self-Care Instructions: Urinary Tract Infection in Men (ED) Additional Instructions: You have a urinary tract infection. Please take prescribed antibiotic as directed. Finish the entire course even if your feeling better. We will call you if we need to switch his antibiotic. Please follow-up with your urologist. Drink plenty of fluids and get plenty of rest. Please return if you develop any new or worsening symptoms including but not limited to chest pain, shortness breath, or worsening symptoms. Prescriptions: New doxycycline hyclate 100 mg capsule 100 mg PO BID 10 Days Qty: 20 0RF No Action amlodipine 2.5 mg tablet 2.5 mg PO BEDTIME Qty: 90 3RF Eliquis 5 mg tablet 5 mg PO BID 90 Days Qty: 180 3RF metoprolol succinate 25 mg tablet extended release 24 hr 25 mg PO DAILY 90 Days Qty: 90 1RF magnesium oxide 400 mg (241.3 mg magnesium) Tablet 400 mg PO BIDPC Qty: 8 0RF docusate sodium 100 mg Capsule 100 mg PO BID Qty: 30 0RF tamsulosin 0.4 mg capsule 0.8 mg PO DAILY Qty: 60 0RF cefuroxime axetil 250 mg tablet 250 mg PO BID 10 Days Qty: 20 0RF omeprazole 20 mg capsule,delayed release(DR/EC) 20 mg PO BID levothyroxine 150 mcg tablet 150 mcg PO DAILY@0600 atorvastatin 80 mg tablet 80 mg PO DAILY ciprofloxacin HCl 500 mg tablet 500 mg PO ONCE Qty: 1 0RF naproxen 500 mg tablet 500 mg PO ONCE Qty: 1 0RF lidocaine HCl 2 % jelly in applicator 20 ml intra-urethral ONCE Qty: 10 0RF finasteride [Proscar] 5 mg tablet 5 mg PO DAILY 90 Days Qty: 90 3RF bethanechol chloride 25 mg tablet 25 mg PO TID Qty: 90 0RF Interventions: ED Discharge Assessment Last Done: 08/09/23 13:23 Discharge Date/Time: 08/09/23 13:24
== END 2023-08-09 13:24 | disposition home or self-care (01) ==
PROVIDERS: Emergency Provider Emergency Medicine; PCP Internal Medicine
DX: N39.0 Urinary tract infection, site not specified (principal); R30.0 Dysuria; R50.9 Fever, unspecified; Z79.899 Other long term (current) drug therapy
CPT/HCPCS: 81001; 87086; 87088; 87186; 99282; 99283

== ENCOUNTER 2023-08-16 09:26 | Outpatient (AMB) | payer MEDICARE, SELFPAY ==
--- NOTE | 2023-08-16 09:45 | MHC.OFFVIS ---
Intake Vital Signs 08/16/23 09:46 Height 5 ft 8 in Weight 204 lb 9.423 oz BMI 31.1 BP 140/82 H Blood Pressure Location Lt brachial Position Sitting Pulse 79 Intake Visit Reasons: follow up per patient/AFIB Intake Note: f/u pt /afib Experiential Therapist Required: No Allergies No Known Allergies [No Known Allergies*] Allergy (Verified 08/16/23 09:49) Medication List - Last Reconciled 08/16/23 by MANDO Marquez amlodipine 2.5 mg PO BEDTIME apixaban (Eliquis) 5 mg PO BID 90 days atorvastatin 80 mg PO DAILY bethanechol chloride 25 mg PO TID cefuroxime axetil 250 mg PO BID 10 days docusate sodium 100 mg PO BID doxycycline hyclate 100 mg PO BID 10 days finasteride (Proscar) 5 mg PO DAILY 90 days levothyroxine 150 mcg PO DAILY@0600 magnesium oxide 400 mg PO BIDPC metoprolol succinate ER 25 mg PO DAILY 90 days omeprazole 20 mg PO BID tamsulosin 0.8 mg (2 x 0.4 mg) PO DAILY HPI follow up per patient/AFIB HPI Details Cordell is a 72-year-old male with past medical history of hypertension, hyperlipidemia, thoracic aortic aneurysm, paroxysmal atrial fibrillation, sinus bradycardia who presents for follow-up. Since his last visit in November he had been admitted to [facility] in December with urinary retention following hernia surgery. During that admission he had AFib RVR and a run of wide complex apparent conduction rapid rhythm. He was taken off flecainide and started on Multaq. Then as outpatient his Multaq was stopped due to recurrent AFib and changed to metoprolol XL 50 mg daily. Following a Holter monitor showing frequent sinus bradycardia his metoprolol dose was reduced to XL 25 mg daily. Today he reports that he has not been feeling well recently. He can feel heart palpitations of atrial fibrillation. He is also noticing more shortness of breath when he is in AFib. He denies any chest discomfort, presyncope, syncope, falls, PND, orthopnea or edema. No bleeding issues with Eliquis. Taking meds as directed. Still having issues with UTIs, no hematuria. Leaving next week for [place] for 1 month. [facility] Medical History GERD (gastroesophageal reflux disease) Hypothyroid Hyperlipemia Sinus bradycardia Thoracic aortic aneurysm HTN (hypertension) Paroxysmal atrial fibrillation CVA (cerebral vascular accident) Surgical History Hx of left inguinal hernia repair Hx of cystoscopy History of esophagogastroduodenoscopy (EGD) History of colonoscopy History of radiofrequency ablation (RFA) procedure for cardiac arrhythmia Family History Father No problems noted. Mother CVD (cardiovascular disease) Social History Household Members: None Housing: House Do you presently have visiting nurse or other home services: No Alcohol intake: never Patient Tobacco Use Status: Never used Tobacco service: No Current occupational status: retired Review of Systems Const All systems reviewed & are unremarkable except as noted in HPI and below ENT Denies dizziness Card Details: Heart palpitations Denies chest pain, Denies chest pain at rest, Denies chest pain with activity, Denies rapid heart rate, Denies pedal edema, Denies edema, Denies leg edema, Denies lightheadedness, Denies palpitations, Denies dyspnea, Reports dyspnea on exertion and Denies orthopnea Resp Denies cough, Denies dyspnea and Reports dyspnea on exertion GI Denies hematochezia and Denies change in stool character Musc Denies abnormal gait, Denies limited range of motion, Denies muscle cramps, Denies muscle weakness, Denies numbness, Denies radiating pain into limb, Denies stiffness and Denies tingling Neuro Denies abnormal gait, Denies dizziness, Denies numbness and Denies tingling Endo Denies palpitations Physical Exam Vital Signs: Last Vital Signs Pulse 79 08/16/23 09:46 BP 140/82 H 08/16/23 09:46 BMI result Body Mass Index 31.1 Const General: cooperative, healthy appearing, comfortable and no acute distress Neck Neck: Yes normal visual inspection Resp Effort & Inspection: normal respiratory effort Auscultation: clear to auscultation bilaterally, no crackles, no rales, no rhonchi and no wheezes Cardio Jugular venous distension: no JVD Rate: regular rate Heart sounds: S1 normal heart sound present, S2 normal heart sound present, no murmurs and no rubs Peripheral pulses: Peripheral pulses 2+ throughout Extrem General: Yes normal to inspection Psych Appearance: grossly normal Mental Status: mental status grossly normal Speech and movement: Normal speech and movement present Office Procedures EKG Details: Today, read by me, atrial fibrillation, rate 79, QTC 435 milliseconds [id number], Complete Assessment & Plan Assessment & Plan (1) Paroxysmal atrial fibrillation: Code(s): I48.0 - Paroxysmal atrial fibrillation Plan: History of paroxysmal atrial fibrillation. He had been on flecainide which was stopped in December following hospital admission at which time he had recurrent AFib RVR and a wide complex apparent rhythm. He was started on Multaq which was then discontinued for EKG showing recurrent AFib. More recently he has been on metoprolol XL 50 mg daily. A Holter monitor done on 05/31/2023 showed sinus rhythm with average heart rate 53, 80% of the time heart rate less than 60, PACs 3.3% of time. Following that results his metoprolol dose was reduced to 25 mg daily. Today he reports that for the last few weeks he has noticed increasing atrial fibrillation. He can feel the heart palpitations and shortness of breath. EKG done today confirms atrial fibrillation, rate controlled at 79. He has no signs of heart failure on examination. At this time it seems he is in persistent AFib so will increase metoprolol XL back to 50 mg daily. He is leaving next week for [place] for 1 month. Instructed to seek emergency medical care in the event that he has any concerning symptoms. At the time he wore the Holter monitor in May he does not recall feeling unwell at all. No fatigue or lightheadedness with sinus Ino in the 50s. Will arrange for an EKG upon his return to see if he continues to have persistent AFib at which time for treatment plan can be adjusted if needed. Continue Eliquis for anticoagulation. No bleeding issues reported. Cardiology follow-up in 3 months, sooner if needed (2) Thoracic aortic aneurysm: Code(s): I71.2 - Thoracic aortic aneurysm, without rupture Plan: Echocardiogram done 04/06/2022 shows EF 61%, no valve abnormalities and ascending aorta 3.9 cm. A repeat echocardiogram is due prior to his next visit. Blood pressure is mildly elevated. Increasing metoprolol dose. (3) HTN (hypertension): Code(s): I10 - Essential (primary) hypertension Plan: Med changes as above (4) Sinus bradycardia: Code(s): R00.1 - Bradycardia, unspecified Plan: Frequent sinus bradycardia on recent Holter, asymptomatic, suggestive of SA node dysfunction. Now with atrial fibrillation which is symptomatic. Medications: Changed From metoprolol succinate ER 25 mg PO DAILY 90 days 90 tabs 1RF To metoprolol succinate ER 25 mg PO BID 90 days 180 tabs 1RF Coding Level of Care Code Est Pt Level 4 (60174) Diagnoses Paroxysmal atrial fibrillation I48.0 Thoracic aortic aneurysm I71.2 HTN (hypertension) I10 Sinus bradycardia R00.1 CPT Codes EKG - CPT: [id number], Complete ([id number]) Time Spent (min) 28
[2023-08-16 09:46] VITALS: BP 140/82; PULSE 79; BMI 31.1
== END 2023-08-16 10:26 | disposition home or self-care (01) ==
PROVIDERS: PCP Internal Medicine; Visit Provider Nurse Practitioner Family
DX: I48.0 Paroxysmal atrial fibrillation (principal); I71.20 Thoracic aortic aneurysm, without rupture, unspecified; I10 Essential (primary) hypertension; R00.1 Bradycardia, unspecified
CPT/HCPCS: 93010; 99214

== ENCOUNTER → 2023-08-16 09:26 | Outpatient (BNVA) | payer MEDICARE, SELFPAY | PROVIDERS: PCP Internal Medicine; Visit Provider Nurse Practitioner Family | DX: I48.0 Paroxysmal atrial fibrillation (principal); I10 Essential (primary) hypertension; I71.20 Thoracic aortic aneurysm, without rupture, unspecified; R00.1 Bradycardia, unspecified | CPT/HCPCS: 93005; 99212 ==

== ENCOUNTER → 2023-10-12 14:08 | Outpatient (BNVA) | payer MEDICARE, SELFPAY | PROVIDERS: PCP Internal Medicine; Visit Provider Nurse Practitioner Family ==

== ENCOUNTER → 2023-11-15 08:00 | Outpatient (REF) | payer MEDICARE, SELFPAY ==
--- NOTE | 2023-11-15 08:02 | CA_ITS ---
Transthoracic Echocardiogram Patient (Last, First, Middle): Cordell Cox H Gender: Male Date of : 1950 Age: 73 Procedure Date: 11/15/2023 Procedure Type: Transthoracic Echocardiogram Location: OP Height: 172.72 cm Weight: 90.72 kg BSA: 2.04 m2 Heart Rate: bpm BP: 112 / 64 mmHg Animal Skinner: KIARA Referring MD: Troy Collins MD Symptoms: I71.2 - Thoracic aortic aneurysm, without rupture Study Quality: Adequate ECG Rhythm: Sinus Conclusions: - The left ventricular systolic function is normal. The calculated ejection fraction is 68% by biplane method. - No obvious valvular pathology seen on this study. - There is mild dilatation of the ascending aorta measuring 3.90 cm. Findings Left Ventricle Normal left ventricular cavity size. The left ventricular systolic function is normal. The calculated ejection fraction is 68% by biplane method. There is no evidence of regional wall motion abnormalities. Diastolic function is normal for age. There is mild septal asymmetric hypertrophy. LV peak GLS 20.4%. Right Ventricle Normal right ventricular cavity size and systolic function. Atria The left atrium is normal in size. The right atrium is mildly dilated. Aortic Valve There is a normal trileaflet aortic valve. There is no aortic valve stenosis. There is no aortic valve regurgitation. Mitral Valve The mitral valve appears normal. There is no mitral valve regurgitation. There is no mitral valve stenosis. Pulmonic Valve There is trace pulmonic valve regurgitation. Tricuspid Valve Normal tricuspid valve structure. There is mild tricuspid valve regurgitation. There is no evidence of pulmonary hypertension. Great Vessels There is mild dilatation of the ascending aorta measuring 3.90 cm. Venous The inferior vena cava is normal in size and collapses greater than 50% with inspiration. Pericardium/Pleural There is no evidence of pericardial effusion. Prior Study Comparison No significant change compared to prior study dated: 04/06/2022. Recommendations, Care & Conclusions No obvious valvular pathology seen on this study. Measurements 2D Linear Measurements IVSd: 1.03 0.6-0.9/0.6-1.0 cm LVIDd: 4.62 3.9-5.3/4.2-5.9 cm LVIDd Index: 2.26 2.4-3.2/2.2-3.1 cm/m2 LVIDs: 2.73 2.0-3.6 cm LVPWd: 0.95 0.7-1.1 cm LA Diam: 2.30 2.7-3.8/3.0-4.0 cm LAIDs Index: 1.13 1.5-2.3 cm/m2 LV Mass: 196.30 67-162/88-224 g LV Mass Index: 96.23 43-95/49-115 g/m2 LVOT Diam: 2.30 3.0+(-)1.3 cm 2D Systolic Function EF 4C: 71.30 >55% EF 2C: 65.90 >55% EF BiP: 68.10 >55% Mitral Valve MV Pk E: 0.68 MV PK A: 0.77 MV Decel Time: 281.00 E/A: 0.90 E'Lateral: 7.48 E'Medial: 4.81 E/E' Med: 14.20 E/E' Lat: 9.10 PHT: 82.00 MVA PHT: 2.68 Decel [place]: 2.47 Aortic Valve AoV Pk Lukasz: 1.43 AoV Mn Lukasz: 0.90 AoV VTI: 0.31 AoV Pk Grad: 8.00 Aov Mn Grad: 4.00 DELVIN Cont.VTI: 3.87 LVOT LVOT Pk Lukasz: 1.31 LVOT Mn Lukasz: 0.80 LVOT VTI: 0.29 LVOT Pk Grad: 7.00 LVOT Mn Grad: 3.00 LVOT Diam: 2.30 LVOT Area: 4.15 Diastolic Function MV Pk E: 0.68 MV Pk A: 0.77 E/A: 0.90 E'Medial: 4.81 E/E' Med: 14.20 E' Laterial: 7.48 E/E' Lat: 9.10 Right Ventricle TAPSE (mm): 21.70 TVS' Lukasz: 17.60 Tricuspid Valve TR Pk Lukasz: 2.64 TR Pk Grad: 28.00 RA Press: 3.00 RVSP: 31.00 Great Vessels Aorta Sinus of Valsalva: 4.19 2.0-3.[address] [place]: 3.38 1.7-3.4 cm Ao Asc: 3.90 2.1-3.4 cm Updated in Other Vendor System with Status of Final Johnathan Claudio MD electronically signed on 11/16/2023 3:14:43 PM with status of Final
== END ==
LOC: HO.CARD 08:00
PROVIDERS: PCP Internal Medicine; Visit Provider Internal Medicine Cardiovascular Disease
DX: I71.20 Thoracic aortic aneurysm, without rupture, unspecified (principal)
CPT/HCPCS: 93306; 93356

== ENCOUNTER → 2023-11-15 08:02 | Outpatient (BNV) | payer MEDICARE, SELFPAY | PROVIDERS: PCP Internal Medicine; Visit Provider Internal Medicine | DX: I71.20 Thoracic aortic aneurysm, without rupture, unspecified (principal) | CPT/HCPCS: 93306 ==

== ENCOUNTER 2023-11-23 08:22 | Outpatient (REF) | payer MEDICARE, SELFPAY ==
[2023-11-23 10:54] LABS: Anion Gap 8 (12-20); Blood Urea Nitrogen 11 mg/dL (9-16); Calcium 9.1 mg/dL (8.4-10.2); Carbon Dioxide 30 mmol/L (22-29); Chloride 105 mmol/L (96-108); Estimated Glomerular Filt Rate > 60; Glucose Random 102 mg/dL (60-115); Potassium 3.9 mmol/L (3.3-5.1); Sodium 139 mmol/L (135-145)
== END 2023-11-23 08:23 | disposition home or self-care (01) ==
LOC: HO.LAB 08:22
PROVIDERS: PCP Internal Medicine; Visit Provider Internal Medicine Cardiovascular Disease
DX: I48.0 Paroxysmal atrial fibrillation (principal); I71.20 Thoracic aortic aneurysm, without rupture, unspecified; I10 Essential (primary) hypertension; R00.1 Bradycardia, unspecified; Z79.899 Other long term (current) drug therapy
CPT/HCPCS: 36415; 80048; 93005; 99212

== ENCOUNTER 2023-11-23 08:22 | Outpatient (AMB) | payer MEDICARE, SELFPAY ==
[2023-11-23 08:32] VITALS: BP 130/70; RESP 52; BMI 31.5
--- NOTE | 2023-11-23 08:32 | MHC.OFFVIS ---
Intake Vital Signs 11/23/23 08:32 Height 5 ft 8 in Weight 207 lb 3.752 oz BMI 31.5 BP 130/70 Blood Pressure Location Lt brachial Position Sitting Respiration 52 H Intake Visit Reasons: 1 yr f/up w/ ekg Intake Note: 1 yr f/up w/ ekg/ pt its feeling fine. 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 Accompanied by: Self / Same As Patient Allergies No Known Allergies [No Known Allergies*] Allergy (Verified 08/16/23 09:49) Medication List - Last Reconciled 11/23/23 by Troy Collins MD amlodipine 2.5 mg PO BEDTIME apixaban (Eliquis) 5 mg PO BID 90 days atorvastatin 80 mg PO DAILY bethanechol chloride 25 mg PO TID cefuroxime axetil 250 mg PO BID 10 days docusate sodium 100 mg PO BID doxycycline hyclate 100 mg PO BID 10 days finasteride (Proscar) 5 mg PO DAILY 90 days levothyroxine 150 mcg PO DAILY@0600 magnesium oxide 400 mg PO BIDPC metoprolol succinate ER 25 mg PO BID 90 days omeprazole 20 mg PO BID tamsulosin 0.8 mg (2 x 0.4 mg) PO DAILY HPI HPI Comments History of Present Illness Details Bill comes for follow-up. Since last seen in August he has been in sinus rhythm. He feels well when he sinus rhythm. He has not had any symptoms of palpitations or shortness of breath. Recent echocardiogram shows normal LV ejection fraction with mildly dilated right atrium and mildly dilated ascending aorta 3.9 cm. Patient denies any exertional chest pain. Denies any shortness of breath, orthopnea, PND, leg edema. Denies any lightheadedness, syncope. Taking all his medications. No bleeding issues or neurologic events [facility] Medical History (Updated 11/23/23 @ 08:49 by Troy Collins MD) GERD (gastroesophageal reflux disease) Hypothyroid Hyperlipemia Sinus bradycardia Thoracic aortic aneurysm HTN (hypertension) Paroxysmal atrial fibrillation CVA (cerebral vascular accident) Surgical History Hx of left inguinal hernia repair Hx of cystoscopy History of esophagogastroduodenoscopy (EGD) History of colonoscopy History of radiofrequency ablation (RFA) procedure for cardiac arrhythmia Family History Father No problems noted. Mother CVD (cardiovascular disease) Social History Household Members: None Housing: House Do you presently have visiting nurse or other home services: No Alcohol intake: never Patient Tobacco Use Status: Never used Tobacco service: No Current occupational status: retired Review of Systems Const Reports chills, Reports fatigue, Reports fever(s), Reports frequent falls, Reports weakness, Reports weight gain and Reports weight loss ENT Reports dizziness Card Reports chest pain, Reports leg edema, Reports lightheadedness, Reports palpitations, Reports dyspnea and Reports dyspnea on exertion Resp Reports cough, Reports dyspnea and Reports dyspnea on exertion GI Reports hematochezia Musc Reports abnormal gait, Reports muscle weakness, Reports numbness, Reports radiating pain into limb and Reports tingling Neuro Reports abnormal gait, Reports dizziness, Reports frequent falls, Reports numbness, Reports tingling and Reports weakness Endo Reports fatigue and Reports palpitations Physical Exam Const General: cooperative, healthy appearing, comfortable and no acute distress Neck Neck: Yes normal visual inspection Resp Effort & Inspection: normal respiratory effort Auscultation: clear to auscultation bilaterally, no crackles, no rales, no rhonchi and no wheezes Cardio Jugular venous distension: no JVD Rate: bradycardic Rhythm: regular rhythm Heart sounds: S1 normal heart sound present, S2 normal heart sound present, no murmurs and no rubs Peripheral pulses: Peripheral pulses 2+ throughout Extrem General: Yes normal to inspection Psych Appearance: grossly normal Mental Status: mental status grossly normal Speech and movement: Normal speech and movement present Office Procedures EKG Details: EKG shows sinus bradycardia with sinus arrhythmia otherwise normal EKG [id number], Complete Assessment & Plan Assessment & Plan (1) Paroxysmal atrial fibrillation: Code(s): I48.0 - Paroxysmal atrial fibrillation Plan: Highly symptomatic paroxysmal atrial fibrillation doing well in sinus rhythm. Currently without any antiarrhythmic drug probably given positive remodeling over many years of maintaining rhythm. We discussed about management of atrial fibrillation detail. He is done well with rhythm control approach will continue pursue the same. Advised self monitoring and reporting any symptoms. He can take pill in the pocket approach with flecainide when he goes into atrial fibrillation last for greater than half an hour. Continue metoprolol therapy. Avoidance of stimulants was discussed. Continue full oral anticoagulation given high risk for thromboembolic complication. Semi annual renal function test should be pursued. (2) Thoracic aortic aneurysm: Code(s): I71.2 - Thoracic aortic aneurysm, without rupture Plan: Thoracic aortic aneurysm which has remained stable. Continue monitor on annual basis. Continue aggressive blood pressure control. Target goal LDL less than 100 mg/dL. (3) HTN (hypertension): Code(s): I10 - Essential (primary) hypertension Plan: High blood pressure which is currently well optimized on current therapy. Importance of good blood pressure control was discussed. Target goal blood pressure less than 130/84. Low-salt diet was discussed. Advised to maintain heart healthy lifestyle activity. (4) Sinus bradycardia: Code(s): R00.1 - Bradycardia, unspecified Plan: Sinus bradycardia suggestive sinoatrial node dysfunction. Exacerbated by medical therapy. He is currently having no symptoms. Will continue to monitor advised to call me with any new symptoms. Follow up in the clinic in 1 year after an echocardiogram. Thank you for allowing me to partake in his care Orders: Orders Basic Metabolic Panel Today I48.0 - Paroxysmal atrial fibrillation Coding Level of Care Code Est Pt Level 4 (55388) Diagnoses Paroxysmal atrial fibrillation I48.0 Thoracic aortic aneurysm I71.2 HTN (hypertension) I10 Sinus bradycardia R00.1 CPT Codes EKG - CPT: 24859-[id number], Complete ([id number])
== END 2023-11-23 08:51 | disposition home or self-care (01) ==
PROVIDERS: PCP Internal Medicine; Visit Provider Internal Medicine Cardiovascular Disease
DX: I48.0 Paroxysmal atrial fibrillation (principal); I71.20 Thoracic aortic aneurysm, without rupture, unspecified; I10 Essential (primary) hypertension; R00.1 Bradycardia, unspecified
CPT/HCPCS: 93010; 99214

== ENCOUNTER 2023-11-23 09:27 | Emergency (ER) | payer MEDICARE, SELFPAY ==
--- NOTE | ~2023-11-23 | XR_ITS ---
EXAMINATION: XR HIP, RIGHT CLINICAL INFORMATION: Tenderness at iliac crest COMPARISON: CT abdomen pelvis 01/23/2023 TECHNIQUE: Single view pelvis with 2 additional views of the right hip. FINDINGS: No fracture. Alignment is anatomic. Hip joint space is maintained. Soft tissues are unremarkable. There is a large coarse calcification in the subcutaneous tissues of the right buttock, possibly an injection granuloma. XR/XR hip RT w PEL1V IMPRESSION: No acute fracture or dislocation. No abnormality is seen to account for the patient's acute iliac crest tenderness
[2023-11-23 09:35] VITALS: BP 151/88; PULSE 58; RESP 18; TEMP 36.6; O2SAT 98; BMI 30.4
--- NOTE | 2023-11-23 09:58 | ED_ITS ---
HPI - General Adult General Chief complaint: Back Pain/Injury Stated complaint: R Hip Pain No Injury Time Seen by Provider: 11/23/23 09:58 Source: patient Mode of arrival: ambulatory Limitations: no limitations History of Present Illness HPI narrative: Patient is a 73-year-old male presenting to the emergency department with complaint of right hip pain radiating to low back. States that as he was moving a heavy object 2 weeks ago, he developed the pain. Denies fall or other trauma. States that since that time the pain has neither worsened nor decreased. He denies any decreased range of motion or strength. Denies any radiation of pain down lower extremities. Denies any saddle anesthesia or bowel or bladder incontinence. Denies fevers. Does report mild constipation for which he has used Dulcolax with good relief, does not feel symptoms are related. Has been taking [id number] pain medications with little relief. MD complaint: hip pain Onset (ago): week(s) Radiation: non-radiation Severity: severe Quality: aching Pain Consistency: colicky Associated symptoms: denies other symptoms Treatments prior to arrival: NSAID Related Data Home Medications Medication Instructions Recorded Confirmed atorvastatin 80 mg tablet 80 mg PO DAILY 11/25/20 11/23/23 levothyroxine 150 mcg tablet 150 mcg PO DAILY@0600 11/25/20 11/23/23 omeprazole 20 mg capsule,delayed 20 mg PO BID 11/25/20 11/23/23 release Previous Rx's Medication Instructions Recorded docusate sodium 100 mg capsule 100 mg PO BID #30 caps 01/25/23 magnesium oxide 400 mg (241.3 mg 400 mg PO BIDPC #8 tabs 01/25/23 magnesium) tablet tamsulosin 0.4 mg capsule 0.8 mg (2 x 0.4 mg) PO DAILY #60 01/25/23 caps bethanechol chloride 25 mg tablet 25 mg PO TID #90 tabs 01/28/23 finasteride 5 mg tablet (Proscar) 5 mg PO DAILY 90 days #90 tabs 02/01/23 cefuroxime axetil 250 mg tablet 250 mg PO BID 10 days #20 tabs 04/01/23 amlodipine 2.5 mg tablet 2.5 mg PO BEDTIME #90 tabs 05/11/23 apixaban 5 mg tablet (Eliquis) 5 mg PO BID 90 days #180 tabs 05/11/23 doxycycline hyclate 100 mg capsule 100 mg PO BID 10 days #20 caps 08/09/23 metoprolol succinate 25 mg 25 mg PO BID 90 days #180 tabs 08/16/23 tablet,extended release 24 hr lidocaine 5 % topical patch 1 patch topical DAILY #15 ea 11/23/23 Allergies Allergy/AdvReac Type Severity Reaction Status Date / Time No Known Allergies Allergy Verified 11/23/23 09:35 [No Known Allergies*] Review of Systems Review of Systems: As per HPI. Yes all other systems are reviewed and are negative Constitutional: Constitutional: Reports as per HPI [facility] Past Medical History Medical History (Updated 11/23/23 @ 11:31 by Melia Mcguire NP) GERD (gastroesophageal reflux disease) Hypothyroid Hyperlipemia Sinus bradycardia Thoracic aortic aneurysm HTN (hypertension) Paroxysmal atrial fibrillation CVA (cerebral vascular accident) Surgical History Hx of left inguinal hernia repair Hx of cystoscopy History of esophagogastroduodenoscopy (EGD) History of colonoscopy History of radiofrequency ablation (RFA) procedure for cardiac arrhythmia Family History Family History Father No problems noted. Mother CVD (cardiovascular disease) Social History Social History Household Members: None Housing: House Do you presently have visiting nurse or other home services: No Alcohol intake: never Patient Tobacco Use Status: Never used Tobacco Smoked in Last 30 Days: No Advance Directives: No Advance Directives Information Provided: Yes service: No Current occupational status: retired Physical Exam ED Vital Signs: Vital Signs - 24 hr 11/23/23 09:35 11/23/23 10:38 Temperature 98 F 98 F Pulse Rate 58 48 L Respiratory Rate 18 16 Blood Pressure 151/88 H 140/71 H Pulse Oximetry 98 96 Oxygen Delivery Method Room Air Room Air BMI result Body Mass Index 30.4 Vital signs have been reviewed and appear to be correct. Blood pressure normal. Heart rate normal, bradycardic on repeat VS, hx of same. Respiratory rate normal. Temperature normal. Oxygen saturation normal. Const General: cooperative, healthy appearing and no acute distress Orientation/consciousness: oriented to person, oriented to place, oriented to time and patient oriented x3 Limitations: no limitations HENMT Head: Yes normocephalic and Yes atraumatic Ears: external ears normal General nose exam: Normal external nose present Face and sinus: Yes face symmetric Mouth: oropharynx normal and moist mucous membranes Throat: Yes uvula midline Eyes Pupils: Equal, round and reactive pupils present Neck Neck: Yes normal visual inspection and Yes supple Resp Effort & Inspection: normal respiratory effort and able to speak in complete sentences Auscultation: clear to auscultation bilaterally Cardio Rate: regular rate Rhythm: regular rhythm Heart sounds: S1 normal heart sound present and S2 normal heart sound present GI Palpation (GI): Soft to palpation and nontender Auscultation: normoactive bowel sounds General: Yes no CVA tenderness Back/Spine/Pelvis Back: no CVA tenderness Thoracic/Lumbar Spine: thoracic and lumbar spine normal to inspection, thoraco-l umbar ROM normal, straight leg raise negative bilaterally, paraspinal muscle tenderness on the right in the upper lumbar and in the mid lumbar, No thoracic spinal tenderness and No lumbar spinal tenderness Pelvis: no pain with anterior-posterior compression, no pain with lateral compression and no unilateral elevation of iliac crest Sacroiliac joints: bilaterally nontender Skin General skin exam: elasticity normal and turgor normal Neuro General: oriented to person, oriented to place, oriented to time, patient oriented x3, gait normal, tone normal, moves all extremities, no focal motor deficits, CN's II-XI intact bilaterally and deep tendon reflexes 2+ bilaterally Cranial nerves: Yes Equal, round and reactive pupils present Cognition (Neuro): normal cognition Gait exam (Neuro): Normal gait present Motor exam (neuro): 5/5 motor strength present throughout, Normal motor muscle tone present throughout and Motor abnormalities not present Sensory Exam: Normal double simultaneous stimulation for sensation Extrem General: Yes full ROM, Yes no pedal edema and Yes no calf tenderness Right lower extremity: hip/thigh Details: normal to inspection and tenderness Location: of the hip (tenderness to iliac crest and surrounding area) Psych Mental Status: mental status grossly normal Affect: normal affect Thought process: Normal thought process present Medical Decision Making Medical Decision Making MDM Narrative: Patient is a 73-year-old male presenting to the emergency department with complaint of right hip pain radiating to low back. On exam patient is awake, A+Ox3, VS WNL, afebrile, normal neurological exam without focal deficits, physical exam findings as above. Given reported symptoms and physical exam findings, initial differential includes hip strain, fracture, bone lesion, osteoarthritis. Do not suspect septic arthritis. X-ray notable for no acute fracture or other abnormality. My interpretation is in agreement with the radiologist's interpretation. Symptoms likely related to muscle strain. Will prescribe topical lidocaine patches. Advised patient to add Tylenol as needed. Will refer to orthopedics for any ongoing symptoms. Instructed patient follow- up with primary care provider as well. Discussed taking warm baths with Epsom salt as well as alternating warm and cold compresses. Return precautions discussed at bedside. Patient verbalized understanding of and agreement with plan. Differential Diagnosis Differential Diagnoses: The differential diagnosis associated with the presentation includes As per MDM. Independent Interpretation I performed an independent interpretation of an: Plain X-Ray Interpretation: No evidence of fracture or other acute abnormalities to right hip Radiology Impression Discussion of test interpretation with radiology: I have reviewed the radiologist's reading. Radiologist Impression: XR/XR hip RT w PEL1V IMPRESSION: No acute fracture or dislocation. No abnormality is seen to account for the patient's acute iliac crest tenderness External Record Review External record reviewed: Inpatient record, Office record and Outpatient record Prescription Management I considered prescription management with: Pain Medication and Other Discharge Plan Discharge Clinical Impression: Strain of muscle of right hip Patient Disposition: Home, Self-Care Instructions: Muscle Strain (DC) Additional Instructions: You were evaluated in the emergency department today for right hip pain. Your x-ray did not show evidence of a fracture or any other concerning findings. You can take Tylenol 650 mg every 6 hours as needed for pain. You are being prescribed topical lidocaine patches which you can wear for up to 12 hours in a 24 hour period, do not apply heat directly over the patches. Please follow-up with your primary care provider as you may require physical therapy for full resolution of your symptoms. You can also soak in a warm bath with Epsom salt. Return to the emergency department if you develop worsening pain, new weakness, numbness, tingling, fever 100.4? F or greater, change of color in your leg or any other concerning symptoms. Prescriptions: New lidocaine 5 % adhesive patch,medicated 1 patch topical DAILY Qty: 15 0RF Rx Instructions: leave on most painful area for up to 12 hrs No Action amlodipine 2.5 mg tablet 2.5 mg PO BEDTIME Qty: 90 3RF Eliquis 5 mg tablet 5 mg PO BID 90 Days Qty: 180 3RF magnesium oxide 400 mg (241.3 mg magnesium) Tablet 400 mg PO BIDPC Qty: 8 0RF docusate sodium 100 mg Capsule 100 mg PO BID Qty: 30 0RF tamsulosin 0.4 mg capsule 0.8 mg PO DAILY Qty: 60 0RF cefuroxime axetil 250 mg tablet 250 mg PO BID 10 Days Qty: 20 0RF doxycycline hyclate 100 mg capsule 100 mg PO BID 10 Days Qty: 20 0RF omeprazole 20 mg capsule,delayed release(DR/EC) 20 mg PO BID levothyroxine 150 mcg tablet 150 mcg PO DAILY@0600 atorvastatin 80 mg tablet 80 mg PO DAILY ciprofloxacin HCl 500 mg tablet 500 mg PO ONCE Qty: 1 0RF naproxen 500 mg tablet 500 mg PO ONCE Qty: 1 0RF lidocaine HCl 2 % jelly in applicator 20 ml intra-urethral ONCE Qty: 10 0RF finasteride [Proscar] 5 mg tablet 5 mg PO DAILY 90 Days Qty: 90 3RF metoprolol succinate 25 mg tablet extended release 24 hr 25 mg PO BID 90 Days Qty: 180 1RF bethanechol chloride 25 mg tablet 25 mg PO TID Qty: 90 0RF
[2023-11-23 10:38] VITALS: BP 140/71; PULSE 48; RESP 16; TEMP 36.6; O2SAT 96
== END 2023-11-23 11:49 | disposition home or self-care (01) ==
PROVIDERS: Emergency Provider Emergency Medicine Emergency Medical Services; PCP Internal Medicine
DX: S76.011A Strain of muscle, fascia and tendon of right hip, initial encounter (principal); X50.0XXA Overexertion from strenuous movement or load, initial encounter; I10 Essential (primary) hypertension; E78.5 Hyperlipidemia, unspecified; I48.0 Paroxysmal atrial fibrillation; Y93.9 Activity, unspecified; Y92.9 Unspecified place or not applicable; Y99.9 Unspecified external cause status
CPT/HCPCS: 73502; 99283; 99284

== ENCOUNTER 2024-02-17 11:50 | Outpatient (REF) | payer MEDICARE, SELFPAY ==
[2024-02-17 11:54] LABS: MANUAL DIFF FLAG NO
[2024-02-17 12:20] LABS: Basophils Percent Auto 0.4 % (0-2); Eosinophils Absolute Auto 0.2 X10*3/uL (0.0-0.4); Eosinophils Percent Auto 3.8 % (0-4); Hematocrit 49.3 % (42.0-52.0); Hemoglobin 15.9 g/dl (14.0-18.0); Imm Gran Abs Auto 0.01 X10*3/uL (0.00-0.03); Imm Gran Pct Auto 0.2 % (0.0-0.4); Lymphocytes Absolute Auto 1.1 X10*3/uL (1.2-4.9); Lymphocytes Percent Auto 20.1 % (20-40); Mean Corpuscular HGB Conc 32.3 g/dl (31.0-36.0); Mean Corpuscular Hemoglobin 27.7 pg (27.0-33.0); Mean Corpuscular Volume 85.7 fL (80.0-98.0); Mean Platelet Volume 10.9 fL (9.4-12.4); Monocytes Absolute Auto 0.7 X10*3/uL (0.1-1.2); Neutrophils Absolute Auto 3.5 x10*3/uL (2.0-8.3); Neutrophils Percent Auto 62.5 % (45-73); Platelet Count 252 X10*3/uL (160-400); Red Blood Count 5.75 X10*6/uL (4.60-5.80); Red Cell Distribution Width 14.3 % (11.0-16.0); White Blood Count 5.5 X10*3/uL (4.8-10.8)
[2024-02-17 12:36] LABS: Estimated Average Glucose 108 mg/dL; Hemoglobin A1c % 5.4 % (<6.0)
[2024-02-17 13:12] LABS: Appearance Urine Clear; Color Urine Yellow; Glucose Urine UA Negative (Negative); Leukocyte Esterase Urine Small (1+) (Negative); Nitrite Urine Positive (Negative); PH 7.5 (5.0-9.0); Specific Gravity - Urine 1.015 (1.005-1.025); UMIC TRIGGER UACC YES; Urine Blood Negative (Negative); Urine Ketones Negative (Negative); Urine Protein Negative (Neg-Trace)
[2024-02-17 13:22] LABS: Alanine Aminotransferase 10 U/L (0-40); Alkaline Phosphatase 74 U/L (39-117); Anion Gap 8 (12-20); Aspartate Amino Transferase 14 U/L (5-37); Bilirubin Total 1.1 mg/dL (0.0-1.0); Blood Urea Nitrogen 14 mg/dL (9-16); Carbon Dioxide 29 mmol/L (22-29); Chloride 107 mmol/L (96-108); Cholesterol 105 mg/dL (<200); Estimated Glomerular Filt Rate > 60; Glucose Fasting 102 mg/dL (60-99); HDL Cholesterol 37 mg/dL (>40); LDL Cholesterol Calculated 56 mg/dL (<100); Potassium 3.7 mmol/L (3.3-5.1); Sodium 140 mmol/L (135-145); Total Protein 6.7 g/dL (6.5-8.0); Triglycerides 61 mg/dL (<150)
[2024-02-17 13:24] LABS: TSH reflex Free T4 0.61 uIU/mL (0.32-4.0)
[2024-02-17 13:25] LABS: PSA,Total (Free>4and<10) 0.57 ng/mL (0.00-4.00)
[2024-02-17 13:29] LABS: Bacteria Urine None Seen (None Seen); Creatinine Urine 72.53 mg/dL; Hyaline Casts Urine 0-2 /LPF (0-2); RBC Urine 0-2 /HPF (0-2); Squamous Epithelial Cell Urine 0-2 /HPF (0-2); UACC Culture Trigger YES; WBC Clumps Urine Present
== END 2024-02-17 11:51 | disposition home or self-care (01) ==
LOC: HO.LNP 11:50
PROVIDERS: Visit Provider Internal Medicine
DX: Z00.00 Encounter for general adult medical examination without abnormal findings (principal); E03.9 Hypothyroidism, unspecified; R73.09 Other abnormal glucose; E78.00 Pure hypercholesterolemia, unspecified; R82.90 Unspecified abnormal findings in urine; Z12.5 Encounter for screening for malignant neoplasm of prostate
CPT/HCPCS: 80053; 80061; 81001; 82043; 82570; 83036; 84153; 84443; 85025; 87086; 87088; 87186

== ENCOUNTER 2024-02-24 11:15 | Outpatient (REF) | payer MEDICARE, SELFPAY ==
[2024-02-24 11:36] LABS: Appearance Urine Clear; Color Urine Yellow; Glucose Urine UA Negative (Negative); Leukocyte Esterase Urine Negative (Negative); Nitrite Urine Negative (Negative); PH 6.5 (5.0-9.0); Specific Gravity - Urine 1.015 (1.005-1.025); Urine Blood Negative (Negative); Urine Ketones Negative (Negative); Urine Protein Negative (Neg-Trace)
[2024-02-24 11:38] LABS: Bacteria Urine None Seen (None Seen); Hyaline Casts Urine 0-2 /LPF (0-2); RBC Urine 0-2 /HPF (0-2); Squamous Epithelial Cell Urine 0-2 /HPF (0-2); WBC Urine 0-5 /HPF (0-5)
== END 2024-02-24 11:16 | disposition home or self-care (01) ==
LOC: HO.LNP 11:15
PROVIDERS: Visit Provider Internal Medicine
DX: N31.9 Neuromuscular dysfunction of bladder, unspecified (principal)
CPT/HCPCS: 81001

== ENCOUNTER 2024-03-11 07:07 | Inpatient (IN) | payer MEDICARE, SELFPAY ==
[2024-03-11] VITALS (10 sets, daily range): BP systolic 88–103; BP diastolic 44–67; PULSE 80–103; RESP 16–18; TEMP 36.8–37.7; O2SAT 93–96; BMI 29.9
--- NOTE | ~2024-03-11 | CT_ITS ---
EXAMINATION: CT ABDOMEN AND PELVIS WITHOUT CONTRAST CLINICAL INFORMATION: Left flank pain, recent stent, hematuria. COMPARISON: CT abdomen/pelvis 01/23/2023. TECHNIQUE: Multidetector volumetric imaging was performed from the superior aspect of the liver through the pubic symphysis. Sagittal and coronal reformatted images were obtained on the technologist's workstation. This CT examination was performed using dose optimization techniques as appropriate, variously including the following: *Automated exposure control *Adjustment of mA and/or kV according to patient size (this includes techniques or standardized protocols for targeted exams where dose is matched to indication/reason for exam; i.e. extremities or head) *Use of iterative reconstruction technique DLP: 603 mGy-cm FINDINGS: The lack of intravenous contrast limits evaluation of the solid visceral organs including the liver, spleen, pancreas, and kidneys. LUNG BASES: Left greater than right subsegmental atelectasis. New small left pleural effusion. Partially seen cardiomegaly with a small amount of pericardial fluid. LIVER, GALLBLADDER, AND BILIARY TREE: The liver is normal in size, shape, and attenuation. No focal hepatic lesion or biliary ductal dilatation is present. The gallbladder is unremarkable with no evidence of radiopaque gallstones, gallbladder wall thickening, or obvious pericholecystic inflammatory changes. PANCREAS: Unremarkable. SPLEEN: Unremarkable. ADRENAL GLANDS: Unremarkable. KIDNEYS AND URETERS: Left-sided ureteric stent projecting from calices in the upper pole to the lumen of the urinary bladder with persistent mild hydroureteronephrosis and increased fat stranding and free fluid around the collecting system, ureter, perinephric space and retroperitoneum. Stable 0.5 cm calculus in the distal left ureter posterior to the stent at approximately 1.8 cm from the ureterovesical junction (3:72). Stable nonobstructing calculi in the left kidney measuring 0.7 cm and 0.3 cm in the upper pole (3:31) and 0.4 cm in the lower pole (3:40). Unchanged nonobstructive calculus in the lower right kidney measuring 0.8 cm. Redemonstration of benign-appearing simple fluid attenuating cyst in the upper left kidney, for which no imaging follow-up is recommended and homogeneously hyperdense observation in the posterior cortex of the upper right kidney measuring 1 cm and 41 Hounsfield units (3:30), possibly representing a hemorrhagic/proteinaceous cyst. BLADDER: Unremarkable. GASTROINTESTINAL TRACT: Again seen large hiatal hernia with intrathoracic stomach as well as intrathoracic loops of small bowel, redemonstration of organoaxial rotation of the stomach. The stomach and the small bowel are nondilated. Normal appendix. Colonic diverticulosis without significant pericolonic inflammatory changes. ABDOMINAL WALL: Decreased fat stranding in the left inguinal canal compared to recent prior. No significant abdominal wall hernia. LYMPH NODES: No lymphadenopathy. VASCULAR: Atherosclerotic disease. Normal caliber of the abdominal aorta. PELVIC VISCERA: Enlarged prostate protruding into the bladder base. OSSEOUS STRUCTURES: Degenerative changes of the spine. No acute or aggressive appearing osseous findings. CT/CT abdomen pelvis wo IV con IMPRESSION: 1. Left-sided ureteric stent with persistent mild hydroureteronephrosis and increased fat stranding and free fluid around the collecting system, ureter, perinephric space and retroperitoneum; the stent is located within calyces of the upper pole of the kidney, recommend clinical correlation and if indicated repositioning. Also recommend correlation with superimposed infection. A 0.5 cm calculus in the distal left ureter is unchanged. Additional nonobstructing bilateral renal calculi are stable. 2. Large hiatal hernia with intrathoracic stomach and intrathoracic loops of small bowel. 3. Colonic diverticulosis but no evidence of acute diverticulitis. 4. Enlarged prostate. 5. Small hyperdense focus in the right kidney could represent a proteinaceous/hemorrhagic cyst, recommend attention on follow-up in future examinations. 6. Decreased inflammatory changes in the left inguinal region. 7. New small left pleural effusion. 8. Partially seen cardiomegaly with a small amount of pericardial fluid.
[2024-03-11 07:57] LABS: Appearance Urine Hazy; Color Urine Dark Yellow; PH 5.5 (5.0-9.0)
[2024-03-11 07:58] LABS: Glucose Urine UA Negative (Negative); Leukocyte Esterase Urine Moderate (2+) (Negative); Nitrite Urine Negative (Negative); Specific Gravity - Urine 1.025 (1.005-1.025); UMIC TRIGGER UACC YES; Urine Blood Large (3+) (Negative); Urine Ketones Negative (Negative); Urine Protein 100 (2+) mg/dL (Neg-Trace)
[2024-03-11 08:01] LABS: Bacteria Urine None Seen (None Seen); Hyaline Casts Urine 0-2 /LPF (0-2); RBC Urine >20 /HPF (0-2); UACC Culture Trigger YES; WBC Urine >50 /HPF (0-5)
--- NOTE | 2024-03-11 08:06 | ED_ITS ---
HPI - Male Genitourinary General Chief complaint: Urogenital-Male Stated complaint: uti Time Seen by Provider: 03/11/24 07:41 Source: patient Mode of arrival: ambulatory Limitations: no limitations History of Present Illness HPI Narrative: Patient is a 73-year-old male presents emergency department with concern for urinary tract infection. He reports that he follows with Dr. Esquivel at [facility], he has been experiencing urinary tract infections monthly for ?quite some time? secondary to infected kidney stones. He reports 2 weeks ago he had a ureteral stent placed on the left, and he is due to have it removed in 4 days. However, he is experiencing dysuria, hematuria, and pain to the left flank with fevers and chills. Denies nausea vomiting diarrhea constipation. He reports that he typically has successful treatment of his urinary infections with Bactrim DS twice daily, most recently prescribed on 02/24/2024 Related Data Home Medications ?Medication ?Instructions ?Recorded ?Confirmed atorvastatin 80 mg tablet 80 mg PO DAILY 11/25/20 03/11/24 levothyroxine 150 mcg tablet 150 mcg PO DAILY@0600 11/25/20 03/11/24 omeprazole 20 mg capsule,delayed 20 mg PO BID 11/25/20 03/11/24 release tamsulosin 0.4 mg capsule 0.4 mg PO BID 03/11/24 03/11/24 Previous Rx's ?Medication ?Instructions ?Recorded finasteride 5 mg tablet (Proscar) 5 mg PO DAILY 90 days #90 tabs 02/01/23 amlodipine 2.5 mg tablet 2.5 mg PO BEDTIME #90 tabs 05/11/23 apixaban 5 mg tablet (Eliquis) 5 mg PO BID 90 days #180 tabs 05/11/23 metoprolol succinate 25 mg 25 mg PO BID 90 days #180 tabs 02/07/24 tablet,extended release 24 hr cefuroxime axetil 500 mg tablet 500 mg PO BID #8 tabs 03/13/24 Allergies Allergy/AdvReac Type Severity Reaction Status Date / Time No Known Allergies Allergy Verified 03/11/24 07:24 [No Known Allergies*] Review of Systems 2 Review of Systems: Yes all other systems are reviewed and are negative PMFSH Past Medical History Attestation statement: The following information was validated with the patient. Source: old records reviewed Medical History GERD (gastroesophageal reflux disease) Hypothyroid Hyperlipemia Sinus bradycardia Thoracic aortic aneurysm HTN (hypertension) Paroxysmal atrial fibrillation CVA (cerebral vascular accident) Surgical History Hx of left inguinal hernia repair Hx of cystoscopy History of esophagogastroduodenoscopy (EGD) History of colonoscopy History of radiofrequency ablation (RFA) procedure for cardiac arrhythmia Family History Family History Father No problems noted. Mother CVD (cardiovascular disease) Social History Social History Household Members: None Housing: House Do you presently have visiting nurse or other home services: No Alcohol intake: never Patient Tobacco Use Status: Never used Tobacco service: No Current occupational status: retired Physical Exam 2 Vital Signs: Vital Signs: Last Vital Signs Temp 97.1 F 03/13/24 07:34 Pulse 82 03/13/24 08:13 Resp 16 03/13/24 07:34 BP 117/81 03/13/24 08:13 Pulse Ox 96 03/13/24 07:34 O2 Del Method Room Air 03/13/24 07:34 BMI result Body Mass Index 32.9 Appearance: Alert.?Oriented to person, place and time. No acute distress.?Normal affect. Neck: Normal inspection.? Neck supple.?? CVS: Heart sounds normal. Normal heart rate and rhythm.? Pulses normal.?? Respiratory: No respiratory distress.? Lung sounds clear to auscultation bilaterally?? Abdomen: Soft and with left lateral tenderness upon palpation. Normoactive bowel sounds. Left CVA tenderness Skin: Skin warm and dry.? Normal skin color.? Extremities: No lower extremity edema.? Neuro: Moves all extremities spontaneously. Sensation intact bilaterally. Ambulates with normal steady gait. Course Reevaluation(s) Reevaluation #1: Leukocytosis with left shift and mild FARIBA on labs. CT revealing left ureteric stent with mild hydroureter nephrosis and increased fat stranding, stent located within calyces of the upper pole kidney with radiologist recommendation for repositioning if indicated and consideration of superimposed infection. I consulted with Urology on-call, Dr Robert Celaya who advises the stent is positioned correctly, no indication for any urgent intervention. Upon reassessment he remains hypotensive 89/60 he endorse some mild dizziness when walking to the bathroom patient received an additional L of IV fluid at this time Time: 11:55 Reevaluation #2: Patient admitted to medicine service for further treatment and management of pyelonephritis, sepsis, FARIBA Medications Administered Discontinued Medications Generic Name Dose Route Start Last Admin Trade Name Freq PRN Reason Stop Dose Admin Acetaminophen 975 mg 03/11/24 15:51 03/11/24 16:09 Acetaminophen 325 Mg Tablet PO 03/11/24 15:52 975 mg ONCE ONE Administration Apixaban 5 mg 03/12/24 12:15 03/13/24 08:14 Apixaban 5 Mg Tablet PO 5 mg BID SASKIA Administration Atorvastatin Calcium 80 mg 03/13/24 09:00 03/13/24 08:13 Atorvastatin Calcium 80 Mg Tablet PO 80 mg DAILY SASKIA Administration Finasteride 5 mg 03/12/24 12:15 03/13/24 08:13 Finasteride 5 Mg Tablet PO 5 mg DAILY SASKIA Administration Ceftriaxone Sodium 1 gm/ 50 mls @ 100 mls/hr 03/11/24 07:53 03/11/24 08:56 Sodium Chloride IV 03/11/24 08:22 Infused ONCE ONE Infusion Sodium Chloride 1,000 mls @ 999 mls/hr 03/11/24 08:30 03/11/24 09:29 Ns IV 03/11/24 09:30 Infused .Q1H1M SASKIA Infusion Sodium Chloride 1,000 mls @ 999 mls/hr 03/11/24 12:00 03/11/24 13:05 Ns IV 03/11/24 13:00 Infused .Q1H1M SASKIA Infusion Sodium Chloride 1,000 mls @ 100 mls/hr 03/11/24 16:45 03/12/24 12:32 Ns IVCONT Infused .Q10H SASKIA Infusion Piperacillin Sod/Tazobactam 100 mls @ 200 mls/hr 03/11/24 16:45 03/12/24 12:13 Sod 4.5 gm/ Sodium Chloride IV Infused Q6H SASKIA Infusion Ceftriaxone Sodium 1 gm/ 50 mls @ 100 mls/hr 03/12/24 12:15 03/13/24 13:12 Sodium Chloride IV Infused Q24H SASKIA Infusion Levothyroxine Sodium 150 mcg 03/13/24 06:00 03/13/24 06:31 Levothyroxine Sodium 150 Mcg Tablet PO 150 mcg DAILY@0600 SASKIA Administration Metoprolol Succinate 25 mg 03/12/24 12:15 03/13/24 08:13 Metoprolol Succinate Er 25 Mg Tab.Er.24h PO 25 mg BID SASKIA Administration Protocol Omeprazole 20 mg 03/12/24 16:30 03/13/24 06:31 Omeprazole 20 Mg Capsule.Dr PO 20 mg BID@0630,1630 SASKIA Administration Sodium Chloride 3 ml 03/12/24 00:00 03/13/24 08:13 0.9 % Sodium Chloride Flush 3 Ml Syringe IVFLUSH 3 ml QSHIFT SASKIA Administration Tamsulosin HCl 0.4 mg 03/12/24 12:15 03/13/24 08:13 Tamsulosin Hcl 0.4 Mg Capsule PO 0.4 mg BID SASKIA Administration Medical Decision Making Medical Decision Making [facility] Narrative: Patient is a 73-year-old male with past medical history of paroxysmal atrial fibrillation on Eliquis, GERD, hypothyroidism, hyperlipidemia, hypertension, CVA, nephrolithiasis with recent ureteral stenting as per HPI presenting to emergency department with concern for urinary tract infection. On arrival he is noted to be hypotensive 93/44 and mildly tachycardic 103 with reported fever at home but currently afebrile. Sepsis alert was called, lactic acid and blood cultures to be obtained in addition to CBC/CMP and CT of the abdomen pelvis for further evalution. Will cover patient with Rocephin, patient received 1 L normal saline IV fluid. He states that he did not take his metoprolol for the past 3 mornings. Differential Diagnosis Differential Diagnoses: The differential diagnosis associated with the presentation includes (Pyelonephritis hydronephrosis, obstructive calculi, stent failure, urinary tract infection likely diverticulitis, gastroenteritis.) Admission/Observation Consideration of admission/observation: Escalation of care including admission/observation considered (See narrative above in course narrative for further detail) Lab Data [facility] Lab Attestation statement: I reviewed the patient's lab results. CBC reveals leukocytosis of 12.2 with left shift. Mild hyponatremia 134, FARIBA with BUN 16 creatinine 1.46. No lactic acidosis. LFTs within normal range. Urinalysis with 2+ leukocyte esterase, >50 WBC, microscopic hematuria, no urine bacteria seen. 03/12/24 06:05 03/12/24 06:05 Labs: Lab Results 03/11/24 03/11/24 03/11/24 Range/Units 07:39 08:05 16:09 WBC 12.2 H (4.8-10.8) X10*3/uL RBC 5.37 (4.60-5.80) X10*6/uL Hgb 15.3 (14.0-18.0) g/dl Hct 44.8 (42.0-52.0) % MCV 83.4 (80.0-98.0) fL MCH 28.5 (27.0-33.0) pg MCHC 34.2 (31.0-36.0) g/dl RDW 14.1 (11.0-16.0) % Plt Count 164 D (160-400) X10*3/uL MPV 10.2 (9.4-12.4) fL Immature Gran % (Auto) 0.6 H (0.0-0.4) % Neut % (Auto) 83.5 H (45-73) % Lymph % (Auto) 4.7 L (20-40) % Page % (Auto) 11.0 (2-11) % Eos % (Auto) 0.0 (0-4) % Baso % (Auto) 0.2 (0-2) % Lymph # (Auto) 0.6 L (1.2-4.9) X10*3/uL Page # (Auto) 1.3 H (0.1-1.2) X10*3/uL Eos # (Auto) 0.0 (0.0-0.4) X10*3/uL Baso # (Auto) 0.0 (0.0-0.2) X10*3/uL Abs Immat Gran (auto) 0.07 H (0.00-0.03) X10*3/uL Absolute Neuts (auto) 10.2 H (2.0-8.3) x10*3/uL Absolute Nucleated RBC 0.000 (0.0-0.012) X10*3/uL Nucleated RBC % (auto) 0.0 (0.0-0.2) /100WBC Sodium 134 L (135-145) mmol/L Potassium 3.6 (3.3-5.1) mmol/L Chloride 101 (96-108) mmol/L Carbon Dioxide 23 (22-29) mmol/L Anion Gap 14 (12-20) BUN 16 (9-16) mg/dL Creatinine 1.46 H (0.5-1.4) mg/dL Estim Creat Clear Calc 49.6 Estimated GFR 47 Random Glucose 125 H (60-115) mg/dL Lactic Acid 1.6 (0.5-2.0) mmol/L Calcium 9.2 (8.4-10.2) mg/dL Total Bilirubin 1.4 H (0.0-1.0) mg/dL AST 13 (5-37) U/L ALT 10 (0-40) U/L Alkaline Phosphatase 70 (39-117) U/L Total Protein 6.5 (6.5-8.0) g/dL Albumin 3.6 (3.5-5.0) g/dL Urine Color Dark Yellow Urine Appearance Hazy Urine pH 5.5 (5.0-9.0) Ur Specific [place] 1.025 (1.005-1.025) Urine Protein 100 (2+) H (Neg-Trace) mg/dL Urine Glucose (UA) Negative (Negative) mg/dL Urine Ketones Negative (Negative) mg/dL Urine Blood Large (3+) H (Negative) Urine Nitrite Negative (Negative) Ur Leukocyte Esterase Moderate (2+) H (Negative) Urine RBC >20 H (0-2) /HPF Urine WBC >50 H (0-5) /HPF Ur Squamous Epith Cells 6-10 (0-2) /HPF Urine Bacteria None Seen (None Seen) Hyaline Casts 0-2 (0-2) /LPF C. difficile Tox B Gene (Negative) Influenza Type A (PCR) NEGATIVE (Negative) Influenza Type B (PCR) NEGATIVE (Negative) RSV RNA Qual (PCR) NEGATIVE (Negative) SARS-CoV-2 RNA (RT-PCR) NEGATIVE (Negative) 03/12/24 03/12/24 Range/Units 03:02 06:05 WBC 6.3 (4.8-10.8) X10*3/uL RBC 4.57 L (4.60-5.80) X10*6/uL Hgb 13.0 L (14.0-18.0) g/dl Hct 37.9 L (42.0-52.0) % MCV 82.9 (80.0-98.0) fL MCH 28.4 (27.0-33.0) pg MCHC 34.3 (31.0-36.0) g/dl RDW 14.2 (11.0-16.0) % Plt Count 150 L (160-400) X10*3/uL MPV 10.5 (9.4-12.4) fL Immature Gran % (Auto) 0.6 H (0.0-0.4) % Neut % (Auto) 79.2 H (45-73) % Lymph % (Auto) 7.3 L (20-40) % Page % (Auto) 12.0 H (2-11) % Eos % (Auto) 0.6 (0-4) % Baso % (Auto) 0.3 (0-2) % Lymph # (Auto) 0.5 L (1.2-4.9) X10*3/uL Page # (Auto) 0.8 (0.1-1.2) X10*3/uL Eos # (Auto) 0.0 (0.0-0.4) X10*3/uL Baso # (Auto) 0.0 (0.0-0.2) X10*3/uL Abs Immat Gran (auto) 0.04 H (0.00-0.03) X10*3/uL Absolute Neuts (auto) 5.0 (2.0-8.3) x10*3/uL Absolute Nucleated RBC 0.000 (0.0-0.012) X10*3/uL Nucleated RBC % (auto) 0.0 (0.0-0.2) /100WBC Sodium 135 (135-145) mmol/L Potassium 3.7 (3.3-5.1) mmol/L Chloride 108 (96-108) mmol/L Carbon Dioxide 18 L (22-29) mmol/L Anion Gap 13 (12-20) BUN 15 (9-16) mg/dL Creatinine 1.09 (0.5-1.4) mg/dL Estim Creat Clear Calc 69.5 Estimated GFR > 60 Random Glucose 105 (60-115) mg/dL Lactic Acid (0.5-2.0) mmol/L Calcium 7.9 L D (8.4-10.2) mg/dL Total Bilirubin (0.0-1.0) mg/dL AST (5-37) U/L ALT (0-40) U/L Alkaline Phosphatase (39-117) U/L Total Protein (6.5-8.0) g/dL Albumin (3.5-5.0) g/dL Urine Color Urine Appearance Urine pH (5.0-9.0) Ur Specific [place] (1.005-1.025) Urine Protein (Neg-Trace) mg/dL Urine Glucose (UA) (Negative) mg/dL Urine Ketones (Negative) mg/dL Urine Blood (Negative) Urine Nitrite (Negative) Ur Leukocyte Esterase (Negative) Urine RBC (0-2) /HPF Urine WBC (0-5) /HPF Ur Squamous Epith Cells (0-2) /HPF Urine Bacteria (None Seen) Hyaline Casts (0-2) /LPF C. difficile Tox B Gene NEGATIVE (Negative) Influenza Type A (PCR) (Negative) Influenza Type B (PCR) (Negative) RSV RNA Qual (PCR) (Negative) SARS-CoV-2 RNA (RT-PCR) (Negative) Radiology Impression Discussion of test interpretation with radiology: I have reviewed the radiologist's reading. Radiologist Impression: CT/CT abdomen pelvis wo IV con IMPRESSION: 1. Left-sided ureteric stent with persistent mild hydroureteronephrosis and increased fat stranding and free fluid around the collecting system, ureter, perinephric space and retroperitoneum; the stent is located within calyces of the upper pole of the kidney, recommend clinical correlation and if indicated repositioning. Also recommend correlation with superimposed infection. A 0.5 cm calculus in the distal left ureter is unchanged. Additional nonobstructing bilateral renal calculi are stable. 2. Large hiatal hernia with intrathoracic stomach and intrathoracic loops of small bowel. 3. Colonic diverticulosis but no evidence of acute diverticulitis. 4. Enlarged prostate. 5. Small hyperdense focus in the right kidney could represent a proteinaceous/hemorrhagic cyst, recommend attention on follow-up in future examinations. 6. Decreased inflammatory changes in the left inguinal region. 7. New small left pleural effusion. 8. Partially seen cardiomegaly with a small amount of pericardial fluid. External Record Review External record reviewed: Outpatient record Prescription Management I considered prescription management with: Pain Medication and Antibiotic Critical Care Time Critical Care Time Critical Care Time: Yes Total Critical Care Time: 40 Attestation: I personally attest to this critical care time spent taking care of the patient exclusive of all other billable procedures was approximately 40 minutes including initial evaluation of patient, ordering tests, CT interpretation, sepsis alert, medical consultation, documentation, re-evaluation. Discharge Plan Discharge Clinical Impression: Acute pyelonephritis, Acute kidney injury, Sepsis Patient Disposition: Admitted As Inpatient Interventions: Admission Worksheet (ED) Last Done: 03/12/24 00:49 Discharge Date/Time: 03/12/24 02:05
[2024-03-11 08:10] LABS: MANUAL DIFF FLAG NO
--- NOTE | 2024-03-11 08:11 | PC.NURSE ---
alert and oriented with even and unlabored respirations. coming in for urinary symptoms, patient states it has been ongoing for approx 3 days. placed on rn cardiac rehab, IV established, first set of cultures/labs obtained and sent. awaiting ct scan at this time.
[2024-03-11] MEDS: cefTRIAXone sodium 1 GM in 0.9 % Sodium Chloride 50 ML IV (08:25)
[2024-03-11 08:26] LABS: Lactic Acid 1.6 mmol/L (0.5-2.0)
[2024-03-11 08:28] LABS: Basophils Percent Auto 0.2 % (0-2); Hematocrit 44.8 % (42.0-52.0); Hemoglobin 15.3 g/dl (14.0-18.0); Imm Gran Abs Auto 0.07 X10*3/uL (0.00-0.03); Imm Gran Pct Auto 0.6 % (0.0-0.4); Lymphocytes Absolute Auto 0.6 X10*3/uL (1.2-4.9); Lymphocytes Percent Auto 4.7 % (20-40); Mean Corpuscular HGB Conc 34.2 g/dl (31.0-36.0); Mean Corpuscular Hemoglobin 28.5 pg (27.0-33.0); Mean Corpuscular Volume 83.4 fL (80.0-98.0); Mean Platelet Volume 10.2 fL (9.4-12.4); Monocytes Absolute Auto 1.3 X10*3/uL (0.1-1.2); Neutrophils Absolute Auto 10.2 x10*3/uL (2.0-8.3); Neutrophils Percent Auto 83.5 % (45-73); Platelet Count 164 X10*3/uL (160-400); Red Blood Count 5.37 X10*6/uL (4.60-5.80); Red Cell Distribution Width 14.1 % (11.0-16.0); White Blood Count 12.2 X10*3/uL (4.8-10.8)
[2024-03-11] MEDS: 0.9 % Sodium Chloride 1,000 ML 999 ML IV ×2 (08:28→12:02)
[2024-03-11 08:33] LABS: Alanine Aminotransferase 10 U/L (0-40); Albumin Level 3.6 g/dL (3.5-5.0); Alkaline Phosphatase 70 U/L (39-117); Anion Gap 14 (12-20); Aspartate Amino Transferase 13 U/L (5-37); Bilirubin Total 1.4 mg/dL (0.0-1.0); Blood Urea Nitrogen 16 mg/dL (9-16); Calcium 9.2 mg/dL (8.4-10.2); Carbon Dioxide 23 mmol/L (22-29); Chloride 101 mmol/L (96-108); Creatinine Clr Calc Pharmacy 49.6; Estimated Glomerular Filt Rate 47; Glucose Random 125 mg/dL (60-115); Potassium 3.6 mmol/L (3.3-5.1); Sodium 134 mmol/L (135-145); Total Protein 6.5 g/dL (6.5-8.0)
--- NOTE | 2024-03-11 09:15 | PC.NURSE ---
antibiotics infused, continues to rest in room w/ no complaints. fluids continue to infuse at this time, call cavazos within reach.
--- NOTE | 2024-03-11 12:07 | PC.NURSE ---
remains hypotensive, patient denies any related symptoms - states sometimes he feels lightheaded but at the moment has no complaints. 2nd liter of fluids infusing. call cavazos within reach
[2024-03-11] MEDS: Acetaminophen 325 MG TABLET 975 MG PO (16:09)
--- NOTE | 2024-03-11 16:39 | P.HPHOSP_ITS ---
History of Present Illness Date of Service: 03/11/24 Attending physician on admission: [facility] Chief Complaint: left flank pain, dysuria 73-year-old male with history of paroxysmal atrial fibrillation anticoagulated with Eliquis, GERD, hypothyroidism, hyperlipidemia, hypertension, history of CVA, history of nephrolithiasis with infected stones following with Dr. Esquivel at [facility] s/p left-sided renal stent placement 2 weeks ago presented to the ED earlier today for evaluation of left flank pain and dysuria that has been ongoing for several days. He states he did reach out to his urologist but did not hear back so presented to the ED for further evaluation. He denies any fevers or chills. States he did have some hematuria postoperatively but this has since resolved. No abdominal pain, nausea, vomiting, increased urinary frequency or urgency. On arrival, patient did develop hypotension to 89/59 with improvement to 99/64 on admission following 2 L IVF. He was also initially tachycardic to 103 but afebrile. He has a leukocytosis of 12.2. Creatinine 1.46, baseline around 1.1, electrolyte levels normal. Lactic acid 1.6. Urinalysis significant for 2+ leukocytes, negative nitrites, 3+ blood, positive urinary sediment but negative bacteria. CT abdomen/pelvis shows left-sided ureteric stent with persistent mild hydroureter nephrosis and increased fat stranding and free fluid around the collecting system, ureter, perinephric space and retroperitoneum. Stent is located within calyces of the upper pole of the kidney which urology states appears to be in the correct position. There is also a 0.5 cm calculus in the distal left ureteral which is unchanged and additional nonobstructing bilateral renal calculi which are stable. In the ED given ivf and ceftriaxone. Review of Systems 2 Review of Systems: General: No fevers, malaise, unintentional weight loss HEENT: No blurred vision, diplopia. No sore throat, nasal congestion, rhinorrhea, sinus pain, ear pain Cardiovascular: No chest pain, palpitations, or leg edema Respiratory: No shortness of breath, wheezing, cough GI: No abdominal pain, nausea, vomiting, diarrhea, constipation, melena, hematochezia : +dysuria. No hematuria, increased urinary frequency, decreased urinary output MSK: No myalgia. +left flank pain Neuro: No headaches, weakness, paresthesias Skin: No rashes or lesions [facility] Medical History GERD (gastroesophageal reflux disease) Hypothyroid Hyperlipemia Sinus bradycardia Thoracic aortic aneurysm HTN (hypertension) Paroxysmal atrial fibrillation CVA (cerebral vascular accident) Family History Father No problems noted. Mother CVD (cardiovascular disease) Surgical History Hx of left inguinal hernia repair Hx of cystoscopy History of esophagogastroduodenoscopy (EGD) History of colonoscopy History of radiofrequency ablation (RFA) procedure for cardiac arrhythmia Social History Household Members: None Housing: House Do you presently have visiting nurse or other home services: No Alcohol intake: never Patient Tobacco Use Status: Never used Tobacco Advance Directives: No Advance Directives Information Provided: Yes Do you have a plan to hurt others: No Plan service: No Current occupational status: retired [employer] Allergies Allergy/AdvReac Type Severity Reaction Status Date / Time No Known Allergies Allergy Verified 03/11/24 07:24 [No Known Allergies*] Active Medications: Current Medications Acetaminophen (Acetaminophen 325 Mg Tablet) 650 mg PO Q6H PRN PRN Reason: Pain, Mild (Pain Scale 1-3) Sodium Chloride (Ns) 1,000 mls @ 100 mls/hr IVCONT .Q10H SASKIA Piperacillin Sod/Tazobactam (Sod 4.5 gm/ Sodium Chloride) 100 mls @ 200 mls/hr IV Q6H SASKIA Ondansetron HCl (Ondansetron Hcl 4 Mg/2 Ml Vial) 4 mg IVPUSH Q8H PRN PRN Reason: Nausea and Vomiting Senna (Sennosides 8.6 Mg Tablet) 17.2 mg PO BEDTIME PRN PRN Reason: Constipation Sodium Chloride (0.9 % Sodium Chloride Flush 3 Ml Syringe) 3 ml IVFLUSH QSHIFT SASKIA Home Medications ?Medication ?Instructions ?Recorded ?Confirmed ?Last Taken ?Type atorvastatin 80 mg tablet 80 mg PO DAILY 11/25/20 11/23/23 01/23/23 09:00 History levothyroxine 150 mcg tablet 150 mcg PO DAILY@0600 11/25/20 11/23/23 01/23/23 09:00 History omeprazole 20 mg capsule,delayed 20 mg PO BID 11/25/20 11/23/23 01/23/23 09:00 History release Physical Exam 2 Vital Signs and Narrative: Vital Signs: Last Vital Signs Temp 99.8 F 03/11/24 15:49 Pulse 93 03/11/24 15:49 Resp 18 03/11/24 15:49 BP 99/64 03/11/24 15:49 Pulse Ox 94 03/11/24 15:49 O2 Del Method Room Air 03/11/24 15:49 BMI result Body Mass Index 29.9 Constitutional - Awake and Alert, No apparent distress Eyes - PERRLA, EOMI Cardiovascular - S1S2, RRR, No edema Respiratory - Normal lung expansion, Normal respiratory effort, No respiratory distress, CTA bilaterally Gastrointestinal - NT / ND; +BS; No rebound or guarding - no cva tenderness Extremities - no calf tenderness bilaterally, no swelling Skin - Warm/Dry Neurological - Alert & oriented x3 Psychological - Appropriate affect Results Labs 03/11/24 08:05 03/11/24 08:05 Labs: Laboratory Results - last 24 hr 03/11/24 03/11/24 07:39 08:05 MCV 83.4 MCH 28.5 MCHC 34.2 RDW 14.1 Plt Count 164 D MPV 10.2 Immature Gran % (Auto) 0.6 H Neut % (Auto) 83.5 H Lymph % (Auto) 4.7 L Sharkey % (Auto) 11.0 Eos % (Auto) 0.0 Baso % (Auto) 0.2 Lymph # (Auto) 0.6 L Sharkey # (Auto) 1.3 H Eos # (Auto) 0.0 Baso # (Auto) 0.0 Abs Immat Gran (auto) 0.07 H Absolute Neuts (auto) 10.2 H Absolute Nucleated RBC 0.000 Nucleated RBC % (auto) 0.0 Anion Gap 14 Estim Creat Clear Calc 49.6 Estimated GFR 47 Random Glucose 125 H Lactic Acid 1.6 Calcium 9.2 Total Bilirubin 1.4 H AST 13 ALT 10 Alkaline Phosphatase 70 Total Protein 6.5 Albumin 3.6 Urine Color Dark Yellow Urine Appearance Hazy Urine pH 5.5 Ur Specific [place] 1.025 Urine Protein 100 (2+) H Urine Glucose (UA) Negative Urine Ketones Negative Urine Blood Large (3+) H Urine Nitrite Negative Ur Leukocyte Esterase Moderate (2+) H Urine RBC >20 H Urine WBC >50 H Ur Squamous Epith Cells 6-10 Urine Bacteria None Seen Hyaline Casts 0-2 Imaging Radiologist's Impressions: Impressions Abdomen/Pelvis CT 03/11/24 08:47 IMPRESSION: 1. Left-sided ureteric stent with persistent mild hydroureteronephrosis and increased fat stranding and free fluid around the collecting system, ureter, perinephric space and retroperitoneum; the stent is located within calyces of the upper pole of the kidney, recommend clinical correlation and if indicated repositioning. Also recommend correlation with superimposed infection. A 0.5 cm calculus in the distal left ureter is unchanged. Additional nonobstructing bilateral renal calculi are stable. 2. Large hiatal hernia with intrathoracic stomach and intrathoracic loops of small bowel. 3. Colonic diverticulosis but no evidence of acute diverticulitis. 4. Enlarged prostate. 5. Small hyperdense focus in the right kidney could represent a proteinaceous/hemorrhagic cyst, recommend attention on follow-up in future examinations. 6. Decreased inflammatory changes in the left inguinal region. 7. New small left pleural effusion. 8. Partially seen cardiomegaly with a small amount of pericardial fluid. Assessment and Plan (1) Acute pyelonephritis: Status: Acute (2) Bilateral kidney stones: Status: Acute (3) Severe sepsis: Status: Acute (4) FARIBA (acute kidney injury): Status: Acute Plan 73-year-old male with history of paroxysmal atrial fibrillation anticoagulated with Eliquis, GERD, hypothyroidism, hyperlipidemia, hypertension, history of CVA, history of nephrolithiasis with infected stones [facility] s/p left-sided renal stent placement 2 weeks ago admitted for further management of acute pyelonephritis with possible infected stone and stent. #Acute pyelonephritis with possible infected stone/stent and severe sepsis -leukocytosis, tachycardia, hypotension resolved with ivf. No lactic acidosis or other end organ damage (FARIBA but creat <2.0). Blood cultures pending. NO shock -CT abd/pelvis left-sided ureteric stent with persistent mild hydroureter nephrosis and increased fat stranding and free fluid around the collecting system, ureter, perinephric space and retroperitoneum. Stent is located within calyces of the upper pole of the kidney which urology states appears to be in the correct position. There is also a 0.5 cm calculus in the distal left ureteral which is unchanged and additional nonobstructing bilateral renal calculi which are stable. -UA with 3+ leukocytes, negative nitrites, 3+ blood, positive urinary sediment -IV zosyn (initiated 03/11) -urology consult -continue IVF -follow CBC, cultures # acute kidney injury related to above -creatinine 1.47, baseline 1.1 -continue IVF -avoid nephrotoxins -follow I&O -follow renal function/lytes # paroxysmal atrial fibrillation-rate controlled -continue Eliquis for AC -hold metoprolol for now given hypotension. Resume as appropriate # hypothyroidism -continue levothyroxine # hypertension -hold metoprolol and amlodipine setting of hypotension # hyperlipidemia -statin # history of CVA -Eliquis and statin # BPH -tamsulosin DVT prophylaxis-Eliquis Full code Patient requires inpatient stay at least 2 midnights for management of acute pyelonephritis with possible infected stone versus stent and sepsis requiring IV fluid resuscitation IV antibiotics and expert consultation Quality Stroke Does the patient have a stroke diagnosis?: No VTE Prior VTE?: No VTE Risk Level:: Medical - moderate - high VTE Device Contraindication: Treatment Not Indicated VTE Drug Contraindication: N/A - Med Ordered
[2024-03-11 16:52] LABS: Influenza A PCR NEGATIVE (Negative); Influenza B PCR NEGATIVE (Negative); Resp Syncy Virus RNA Qual PCR NEGATIVE (Negative); SARS COV2 PCR INHOUSE NEGATIVE (Negative)
--- NOTE | 2024-03-11 17:29 | PHA.MEDREC ---
Pharmacy Consult ? Medication Reconciliation Pharmacy has completed the medication reconciliation. spoke with patient to confirm medications. He had a medication list with him however Atorvastatin and Metoprolol seemed to have their frequencies mixed up on the list (they were next to each other). When I asked how he separates his medications he reports that he goes off of what the bottle says. Used claim history to confirm their frequencies. He reports that he did not take any medications today.
[2024-03-11] MEDS: 0.9 % Sodium Chloride 1,000 ML 100 ML IVCONT (17:49)
[2024-03-11] MEDS: Piperacillin Sodium/Tazobactam 4.5 GM in 0.9 % Sodium Chloride 100 ML IV ×2 (17:49→23:03)
--- NOTE | 2024-03-11 19:30 | PC.NURSE ---
This RN assumed pt care @ 1900. Pt resting comfortably in bed watching TV, no signs of distress. Pt denies pain at this time. Plan of care ongoing.
--- NOTE | 2024-03-11 23:07 | PC.NURSE ---
Pt resting, ca&ox4, no signs of distress. Pt medicated per mar. Pt denies pain at this time. Plan of care ongoing.
[2024-03-12] VITALS (8 sets, daily range): BP systolic 98–126; BP diastolic 58–71; PULSE 81–91; RESP 12–18; TEMP 36.1–37.4; O2SAT 94–96; BMI 32.9
--- NOTE | 2024-03-12 03:03 | PM.EVENT ---
Event Note Date of Service: 03/12/24 Event Note: Pt with multiple watery bowel movements as per RN. Obtaining GI panel and cdiff Time Spent With Patient Time: Total time managing care of this patient today ____ minutes.
[2024-03-12] MEDS: 0.9 % Sodium Chloride 1,000 ML 100 ML IVCONT (03:21)
[2024-03-12] MEDS: Piperacillin Sodium/Tazobactam 4.5 GM in 0.9 % Sodium Chloride 100 ML IV ×2 (05:11→11:37)
--- NOTE | 2024-03-12 05:55 | PC.NURSE ---
Patient admitted to s3 from ED, arrived at 02:10 seen for acute pyelonephritis in the setting of a recent left renal stent placement approximately two weeks ago. A&Ox4. MAEE. Pt states he is a patient at [facility]. BP is soft 90's/50's as it was in the ED. Pt asymptomatic, afebrile. NS continues at 100ml/hr with q6h zosyn. Pt states he is voiding adequate amounts. +pp/cms, -edema. Lungs mildly course in LLL, otherwise CTA. Denies SOB. Breathing is even and unlabored without distress on RA. Denies n/v though reports poor po intake for about four days/since onset of feeling unwell. Pt also reports diarrhea, LBM in ED this morning before transfer, that it has been going on for the same duration and denies recent abx use prior to the ED. Covering Dr. Ortega notified and cdiff & GI panels ordered. No BM for this shift. Discussed with patient and collection equipment placed in pt's BR. Contact precautions in place. +BSx4, abdomen soft, round, non-tender, non-distended. Denies pain. Ambulated independently steady to bed from stretcher on arrival. Safety measures in place and hourly purposeful rounding enacted. Call cavazos within reach and educated on use. Plan of care initiated.
[2024-03-12 06:40] LABS: MANUAL DIFF FLAG NO
[2024-03-12 06:50] LABS: Basophils Percent Auto 0.3 % (0-2); Eosinophils Percent Auto 0.6 % (0-4); Hematocrit 37.9 % (42.0-52.0); Imm Gran Abs Auto 0.04 X10*3/uL (0.00-0.03); Imm Gran Pct Auto 0.6 % (0.0-0.4); Lymphocytes Absolute Auto 0.5 X10*3/uL (1.2-4.9); Lymphocytes Percent Auto 7.3 % (20-40); Mean Corpuscular HGB Conc 34.3 g/dl (31.0-36.0); Mean Corpuscular Hemoglobin 28.4 pg (27.0-33.0); Mean Corpuscular Volume 82.9 fL (80.0-98.0); Mean Platelet Volume 10.5 fL (9.4-12.4); Monocytes Absolute Auto 0.8 X10*3/uL (0.1-1.2); Neutrophils Percent Auto 79.2 % (45-73); Platelet Count 150 X10*3/uL (160-400); Red Blood Count 4.57 X10*6/uL (4.60-5.80); Red Cell Distribution Width 14.2 % (11.0-16.0); White Blood Count 6.3 X10*3/uL (4.8-10.8)
[2024-03-12 07:08] LABS: Anion Gap 13 (12-20); Blood Urea Nitrogen 15 mg/dL (9-16); Carbon Dioxide 18 mmol/L (22-29); Chloride 108 mmol/L (96-108); Creatinine Clr Calc Pharmacy 69.5; Estimated Glomerular Filt Rate > 60; Glucose Random 105 mg/dL (60-115); Potassium 3.7 mmol/L (3.3-5.1); Sodium 135 mmol/L (135-145)
[2024-03-12 07:15] LABS: Calcium 7.9 mg/dL (8.4-10.2)
--- NOTE | 2024-03-12 08:01 | PM.UROCN ---
History of Present Illness Consult details Consult date: 03/12/24 Narrative: 73-year-old male presents emergency department with concern for urinary tract infection. Denies nausea vomiting diarrhea constipation. He reports that he follows with Dr. Esquivel at [facility], He states that he had a left ureteral stent placed 2 weeks ago due to a stone that was obstructed in his left ureter. He is scheduled to have surgical treatment of the stone on Wednesday this week with Dr. Esquivel. The patient had a urine culture documented on 02/17/2024 Klebsiella sensitive to Bactrim, the patient states he had been on Bactrim antibiotic previously. Clinically he is improved, white count has improved, from 12.2 to -6.3 Blood cultures pending. Urine culture no growth. Clinically he is improving with IV antibiotics. At this time there is not an urgent need to change the ureteral stent. CT imaging reviewed there is fat stranding around the collecting system the stent is in good position. 0.5 cm stone in the left ureter, bilateral nonobstructing stones. left kidney measuring 0.7 cm and 0.3 cm in the upper pole and 0.4 cm in the lower pole, right kidney lower pole measuring 0.8 cm. [facility] Past Medical History Medical History GERD (gastroesophageal reflux disease) Hypothyroid Hyperlipemia Sinus bradycardia Thoracic aortic aneurysm HTN (hypertension) Paroxysmal atrial fibrillation CVA (cerebral vascular accident) Family History Family History Father No problems noted. Mother CVD (cardiovascular disease) Surgical History Surgical History Hx of left inguinal hernia repair Hx of cystoscopy History of esophagogastroduodenoscopy (EGD) History of colonoscopy History of radiofrequency ablation (RFA) procedure for cardiac arrhythmia Social History Social History Household Members: None Housing: House Do you presently have visiting nurse or other home services: No Alcohol intake: never Patient Tobacco Use Status: Never used Tobacco Use of substances other than those prescribed or required for medical reasons: No Currently Displaying Signs/Symptoms of Drug Intoxication Withdrawal: No Have you been hit, kicked, punched, or otherwise hurt by someone within the past year? If so, by whom?: No Do you feel safe in your current relationship?: Yes Is there a partner from a previous relationship who is making you feel unsafe now?: No Are you made to feel afraid or neglected: No Buddhist Healthcare Practices: Christian Advance Directives: No Advance Directives Information Provided: Yes (pt would like to address when his gf visits during the day) Advance Directives on File: No Do you have a plan to hurt others: No Plan Recently lost weight without trying: No Eating poorly because of decreased appetite: Yes Nutrition Risks: Poor intake 0-25% >4 days Poor oral hygiene: No service: No Current occupational status: retired [employer] Allergies Allergy/AdvReac Type Severity Reaction Status Date / Time No Known Allergies Allergy Verified 03/11/24 07:24 [No Known Allergies*] Active Medications: Current Medications Acetaminophen (Acetaminophen 325 Mg Tablet) 650 mg PO Q6H PRN PRN Reason: Pain, Mild, fever Sodium Chloride (Ns) 1,000 mls @ 100 mls/hr IVCONT .Q10H [facility] Last Admin: 03/12/24 03:21 Dose: 100 mls/hr Piperacillin Sod/Tazobactam (Sod 4.5 gm/ Sodium Chloride) 100 mls @ 200 mls/hr IV Q6H [facility] Last Infusion: 03/12/24 05:41 Dose: Infused Ondansetron HCl (Ondansetron Hcl 4 Mg/2 Ml Vial) 4 mg IVPUSH Q8H PRN PRN Reason: Nausea and Vomiting Senna (Sennosides 8.6 Mg Tablet) 17.2 mg PO BEDTIME PRN PRN Reason: Constipation Sodium Chloride (0.9 % Sodium Chloride Flush 3 Ml Syringe) 3 ml IVFLUSH QSHIFT [facility] Last Admin: 03/12/24 00:47 Dose: Not Given Home Medications ?Medication ?Instructions ?Recorded ?Confirmed ?Last Taken ?Type atorvastatin 80 mg tablet 80 mg PO DAILY 11/25/20 03/11/24 01/23/23 09:00 History levothyroxine 150 mcg tablet 150 mcg PO DAILY@0600 11/25/20 03/11/24 01/23/23 09:00 History omeprazole 20 mg capsule,delayed 20 mg PO BID 11/25/20 03/11/24 01/23/23 09:00 History release tamsulosin 0.4 mg capsule 0.4 mg PO BID 03/11/24 03/11/24 Unknown History Physical Exam Vital Signs: Vital Signs: Last Vital Signs Temp 97.6 F 03/12/24 07:46 Pulse 81 03/12/24 07:46 Resp 12 03/12/24 07:46 BP 112/71 03/12/24 07:46 Pulse Ox 94 03/12/24 07:46 O2 Del Method Room Air 03/12/24 07:46 BMI result Body Mass Index 32.9 Const: General: healthy appearing, no acute distress and well developed Orientation/consciousness: patient oriented x3 HEENT: Head: Yes normocephalic and Yes atraumatic Eyes: Conjunctivae: conjunctivae normal Neck: Neck: Yes normal visual inspection Chest: Chest palpation & inspection: normal inspection of the chest Resp: Effort & Inspection: normal respiratory effort Cardio: Rate: regular rate GI: Inspection: Yes normal to inspection Palpation (GI): Soft to palpation Skin: General skin exam: no rashes or lesions noted Neuro: General: patient oriented x3 Extrem: General: No pedal edema Psych: Appearance: grossly normal Affect: normal affect Results Labs 03/12/24 06:05 03/12/24 06:05 Labs: Abnormal lab results 03/11/24 03/11/24 03/12/24 Range/Units 07:39 08:05 06:05 WBC 12.2 H (4.8-10.8) X10*3/uL RBC 4.57 L (4.60-5.80) X10*6/uL Hgb 13.0 L (14.0-18.0) g/dl Hct 37.9 L (42.0-52.0) % Plt Count 150 L (160-400) X10*3/uL Immature Gran % (Auto) 0.6 H 0.6 H (0.0-0.4) % Neut % (Auto) 83.5 H 79.2 H (45-73) % Lymph % (Auto) 4.7 L 7.3 L (20-40) % [place] % (Auto) 12.0 H (2-11) % Lymph # (Auto) 0.6 L 0.5 L (1.2-4.9) X10*3/uL [place] # (Auto) 1.3 H (0.1-1.2) X10*3/uL Abs Immat Gran (auto) 0.07 H 0.04 H (0.00-0.03) X10*3/uL Absolute Neuts (auto) 10.2 H (2.0-8.3) x10*3/uL Sodium 134 L (135-145) mmol/L Carbon Dioxide 18 L (22-29) mmol/L Creatinine 1.46 H (0.5-1.4) mg/dL Random Glucose 125 H (60-115) mg/dL Calcium 7.9 L D (8.4-10.2) mg/dL Total Bilirubin 1.4 H (0.0-1.0) mg/dL Urine Protein 100 (2+) H (Neg-Trace) mg/dL Urine Blood Large (3+) H (Negative) Ur Leukocyte Esterase Moderate (2+) H (Negative) Urine RBC >20 H (0-2) /HPF Urine WBC >50 H (0-5) /HPF Short CBC 03/11/24 03/12/24 Range/Units 08:05 06:05 WBC 12.2 H 6.3 (4.8-10.8) X10*3/uL Hgb 15.3 13.0 L (14.0-18.0) g/dl Hct 44.8 37.9 L (42.0-52.0) % Plt Count 164 D 150 L (160-400) X10*3/uL BMP 03/11/24 03/12/24 08:05 06:05 Sodium 134 L 135 Potassium 3.6 3.7 Chloride 101 108 Carbon Dioxide 23 18 L BUN 16 15 Creatinine 1.46 H 1.09 Calcium 9.2 7.9 L D Liver Function 03/11/24 Range/Units 08:05 Total Bilirubin 1.4 H (0.0-1.0) mg/dL AST 13 (5-37) U/L ALT 10 (0-40) U/L Alkaline Phosphatase 70 (39-117) U/L Albumin 3.6 (3.5-5.0) g/dL Urine 03/11/24 Range/Units 07:39 Urine Color Dark Yellow Urine Appearance Hazy Urine pH 5.5 (5.0-9.0) Ur Specific [place] 1.025 (1.005-1.025) Urine Protein 100 (2+) H (Neg-Trace) mg/dL Urine Glucose (UA) Negative (Negative) mg/dL Imaging Additional studies: Date of Service: 03/11/24 CT ABDOMEN AND PELVIS WITHOUT CONTRAST CLINICAL INFORMATION: Left flank pain, recent stent, hematuria. COMPARISON: CT abdomen/pelvis 01/23/2023. TECHNIQUE: Multidetector volumetric imaging was performed from the superior aspect of the liver through the pubic symphysis. Sagittal and coronal reformatted images were obtained on the technologist's workstation. This CT examination was performed using dose optimization techniques as appropriate, variously including the following: *Automated exposure control *Adjustment of mA and/or kV according to patient size (this includes techniques or standardized protocols for targeted exams where dose is matched to indication/reason for exam; i.e. extremities or head) *Use of iterative reconstruction technique DLP: 603 mGy-cm FINDINGS: The lack of intravenous contrast limits evaluation of the solid visceral organs including the liver, spleen, pancreas, and kidneys. LUNG BASES: Left greater than right subsegmental atelectasis. New small left pleural effusion. Partially seen cardiomegaly with a small amount of pericardial fluid. LIVER, GALLBLADDER, AND BILIARY TREE: The liver is normal in size, shape, and attenuation. No focal hepatic lesion or biliary ductal dilatation is present. The gallbladder is unremarkable with no evidence of radiopaque gallstones, gallbladder wall thickening, or obvious pericholecystic inflammatory changes. PANCREAS: Unremarkable. SPLEEN: Unremarkable. ADRENAL GLANDS: Unremarkable. KIDNEYS AND URETERS: Left-sided ureteric stent projecting from calices in the upper pole to the lumen of the urinary bladder with persistent mild hydroureteronephrosis and increased fat stranding and free fluid around the collecting system, ureter, perinephric space and retroperitoneum. Stable 0.5 cm calculus in the distal left ureter posterior to the stent at approximately 1.8 cm from the ureterovesical junction (3:72). Stable nonobstructing calculi in the left kidney measuring 0.7 cm and 0.3 cm in the upper pole (3:31) and 0.4 cm in the lower pole (3:40). Unchanged nonobstructive calculus in the lower right kidney measuring 0.8 cm. Redemonstration of benign-appearing simple fluid attenuating cyst in the upper left kidney, for which no imaging follow-up is recommended and homogeneously hyperdense observation in the posterior cortex of the upper right kidney measuring 1 cm and 41 Hounsfield units (3:30), possibly representing a hemorrhagic/proteinaceous cyst. BLADDER: Unremarkable. GASTROINTESTINAL TRACT: Again seen large hiatal hernia with intrathoracic stomach as well as intrathoracic loops of small bowel, redemonstration of organoaxial rotation of the stomach. The stomach and the small bowel are nondilated. Normal appendix. Colonic diverticulosis without significant pericolonic inflammatory changes. ABDOMINAL WALL: Decreased fat stranding in the left inguinal canal compared to recent prior. No significant abdominal wall hernia. LYMPH NODES: No lymphadenopathy. VASCULAR: Atherosclerotic disease. Normal caliber of the abdominal aorta. PELVIC VISCERA: Enlarged prostate protruding into the bladder base. OSSEOUS STRUCTURES: Degenerative changes of the spine. No acute or aggressive appearing osseous findings. IMPRESSION: 1. Left-sided ureteric stent with persistent mild hydroureteronephrosis and increased fat stranding and free fluid around the collecting system, ureter, perinephric space and retroperitoneum; the stent is located within calyces of the upper pole of the kidney, recommend clinical correlation and if indicated repositioning. Also recommend correlation with superimposed infection. A 0.5 cm calculus in the distal left ureter is unchanged. Additional nonobstructing bilateral renal calculi are stable. 2. Large hiatal hernia with intrathoracic stomach and intrathoracic loops of small bowel. 3. Colonic diverticulosis but no evidence of acute diverticulitis. 4. Enlarged prostate. 5. Small hyperdense focus in the right kidney could represent a proteinaceous/hemorrhagic cyst, recommend attention on follow-up in future examinations. 6. Decreased inflammatory changes in the left inguinal region. 7. New small left pleural effusion. 8. Partially seen cardiomegaly with a small amount of pericardial fluid. Collected: 02/17/24-[facility] Status: COMP Req#: [id number] Received: 02/17/24-1346 Source: [facility] Sp Desc: Urine baird Subm Dr: Christopher Batres MD Ordered: Urine Culture Procedure Result Verified Urine Culture Final 02/19/24 Organism 1 Klebsiella pneumoniae Quant 10,000 to 50,000 cfu/mL Kleb pneum M.I.C. RX --------- --- Ampicillin >=32 R Ceftriaxone <=0.25 S Gentamicin <=1 S Levofloxacin <=0.12 S Nitrofurantoin 64 I Trimethoprim/Sulfamethoxazole <=20 S Assessment and Plan (1) Acute pyelonephritis: Status: Acute (2) Bilateral kidney stones: Status: Acute (3) FARIBA (acute kidney injury): Status: Acute (4) Ureteral stent present: Status: Acute Plan Clinically he is improved, white count has improved. Blood cultures pending. Urine culture no growth. Clinically he is improving with IV antibiotics. At this time there is not an urgent need to change the ureteral stent. Procedures Date of Service Date of Service: 03/12/24
--- NOTE | 2024-03-12 11:23 | MHC.CM.PN ---
IMM 03/12/24, EMR REVIEWED, PT W/ACUTE POLYNEPHRITIS, ?INFECTED STONE, CM MET W/PT WHO REPORTS HE TECHNICALLY LIVES ALONE HOWEVER GOES BACK AND FORTH TO PARTNERS HOME, PT IS FULLY INDEP, DENIES USE OF DME/HOME SERVICES, PT'S GOAL IS HOME NO SERVICES. PT VERIFIES PCP ON FILE CORRECT AND PT HAS BEEN EDUCATED ON AND COMPLETED A HCP NAMING HIS ELDEST SON ROSA KEARNS [facility] [address] [phone] HIS HCA AND HIS DTR WARREN ASIF [phone] HIS ALTERNATE, COPY UPLOADED TO [facility] AND PLACED IN CHART.
--- NOTE | 2024-03-12 12:16 | P.PNIM_ITS ---
Subjective Subjective Date of Service: 03/12/24 Interval History: Seen in follow up for pyelonephritis, sepsis Interval history: Pt afebrile, VSS. Still with some dysuria. No abd pain, flank pain, n/v. Had episdoes of watery diarrhea last night in ED, without recurrence since admission to the floor Review of Systems Review of Systems: Yes all other systems are reviewed and are negative Physical Exam 2 Vital Signs: Vital Signs: Last Vital Signs Temp 97.6 F 03/12/24 07:46 Pulse 81 03/12/24 07:46 Resp 12 03/12/24 07:46 BP 112/71 03/12/24 07:46 Pulse Ox 94 03/12/24 07:46 O2 Del Method Room Air 03/12/24 07:46 BMI result Body Mass Index 32.9 Constitutional - Awake and Alert, No apparent distress Eyes - PERRLA, EOMI Cardiovascular - S1S2, RRR, No edema Respiratory - Normal lung expansion, Normal respiratory effort, No respiratory distress, CTA bilaterally Gastrointestinal - NT / ND; +BS; No rebound or guarding - No CVA tenderness Extremities - no calf tenderness bilaterally, no swelling Skin - Warm/Dry Neurological - Alert & oriented x3 Psychological - Appropriate affect Objective Data Active Medications Acetaminophen (Acetaminophen 325 Mg Tablet) 650 mg PO Q6H PRN PRN Reason: Pain, Mild, fever Apixaban (Apixaban 5 Mg Tablet) 5 mg PO BID [facility] Atorvastatin Calcium (Atorvastatin Calcium 80 Mg Tablet) 80 mg PO DAILY [facility] Finasteride (Finasteride 5 Mg Tablet) 5 mg PO DAILY [facility] Sodium Chloride (Ns) 1,000 mls @ 100 mls/hr IVCONT .Q10H [facility] Last Admin: 03/12/24 03:21 Dose: 100 mls/hr Documented By: AIDEN Ceftriaxone Sodium 1 gm/ (Sodium Chloride) 50 mls @ 100 mls/hr IV Q24H [facility] Levothyroxine Sodium (Levothyroxine Sodium 150 Mcg Tablet) 150 mcg PO DAILY@0600 [facility] Omeprazole (Omeprazole 20 Mg Capsule.Dr) 20 mg PO BID [facility] Ondansetron HCl (Ondansetron Hcl 4 Mg/2 Ml Vial) 4 mg IVPUSH Q8H PRN PRN Reason: Nausea and Vomiting Senna (Sennosides 8.6 Mg Tablet) 17.2 mg PO BEDTIME PRN PRN Reason: Constipation Sodium Chloride (0.9 % Sodium Chloride Flush 3 Ml Syringe) 3 ml IVFLUSH QSHIFT [facility] Last Admin: 03/12/24 08:01 Dose: Not Given Documented By: ANTONIO Non-Admin Reason: IV Running Tamsulosin HCl (Tamsulosin Hcl 0.4 Mg Capsule) 0.4 mg PO BID [facility] Labs 03/12/24 06:05 03/12/24 06:05 Labs: Laboratory Results - last 24 hr 03/11/24 03/12/24 16:09 06:05 MCV 82.9 MCH 28.4 MCHC 34.3 RDW 14.2 Plt Count 150 L MPV 10.5 Immature Gran % (Auto) 0.6 H Neut % (Auto) 79.2 H Lymph % (Auto) 7.3 L [place] % (Auto) 12.0 H Eos % (Auto) 0.6 Baso % (Auto) 0.3 Lymph # (Auto) 0.5 L [place] # (Auto) 0.8 Eos # (Auto) 0.0 Baso # (Auto) 0.0 Abs Immat Gran (auto) 0.04 H Absolute Neuts (auto) 5.0 Absolute Nucleated RBC 0.000 Nucleated RBC % (auto) 0.0 Anion Gap 13 Estim Creat Clear Calc 69.5 Estimated GFR > 60 Random Glucose 105 Calcium 7.9 L D Influenza Type A (PCR) NEGATIVE Influenza Type B (PCR) NEGATIVE RSV RNA Qual (PCR) NEGATIVE SARS-CoV-2 RNA (RT-PCR) NEGATIVE Microbiology Microbiology Results: Microbiology 03/11/24 08:18 Blood Culture - Preliminary Blood - Venous No growth after 24 hours. 03/11/24 08:05 Blood Culture - Preliminary Blood - Venous No growth after 24 hours. 03/11/24 08:19 Urine Culture - Final Urine clean catch - Clean Catch Midstream No growth. Assessment and Plan (1) Ureteral stent present: Status: Acute (2) FARIBA (acute kidney injury): Status: Acute (3) Severe sepsis: Status: Acute (4) Acute pyelonephritis: Status: Acute Plan 73-year-old male with history of paroxysmal atrial fibrillation anticoagulated with Eliquis, GERD, hypothyroidism, hyperlipidemia, hypertension, history of CVA, history of nephrolithiasis with infected stones following with Dr. Esquivel at [facility] s/p left-sided renal stent placement 2 weeks ago admitted for further management of acute pyelonephritis with possible infected stone and stent. #Acute pyelonephritis with possible infected stone/stent and severe sepsis- -leukocytosis, tachycardia, hypotension resolved with ivf. No lactic acidosis or other end organ damage (FARIBA but creat <2.0). Blood cultures pending. NO shock- RESOLVED. WBC trending down to 6.3 -CT abd/pelvis left-sided ureteric stent with persistent mild hydroureter nephrosis and increased fat stranding and free fluid around the collecting system, ureter, perinephric space and retroperitoneum. Stent is located within calyces of the upper pole of the kidney which urology states appears to be in the correct position. There is also a 0.5 cm calculus in the distal left ureteral which is unchanged and additional nonobstructing bilateral renal calculi which are stable. -UA with 3+ leukocytes, negative nitrites, 3+ blood, positive urinary sediment -IV zosyn (initiated 03/11)- change to IV ctx 1g 03/12 -urology input appreciated- pt clinicaly improving, no indication for urgent need to change ureteral stent -dc ivf -follow CBC, cultures # acute kidney injury related to above- resolved -creatinine 1.47--> 1.09 -dc ivf -avoid nephrotoxins -follow I&O -follow renal function/lytes # paroxysmal atrial fibrillation-rate controlled -continue Eliquis for AC -hold metoprolol for now given hypotension. Resume as appropriate # hypothyroidism -continue levothyroxine # hypertension -BP improved. Resume metoprolol at this time. However, will continue holding amlodipine and resume as needed # hyperlipidemia -statin # history of CVA -Eliquis and statin # BPH -tamsulosin #ACute normocytic anemia -likely dilutional, above transfusion threshold DVT prophylaxis-Eliquis Full code Patient requires ongoing inpatient stay for management of acute pyelonephritis with severe sepsis on admission requiring IV fluid resuscitation IV antibiotics and expert consultation Dispo- clinically improving, anticipate discharge home tomorrow on PO abx pending cultures Quality Stroke Does the patient have a stroke diagnosis?: No VTE Prior VTE?: No VTE Risk Level:: Medical - moderate - high VTE Device Contraindication: Treatment Not Indicated VTE Drug Contraindication: N/A - Med Ordered
[2024-03-12] MEDS: cefTRIAXone sodium 1 GM in 0.9 % Sodium Chloride 50 ML IV (12:59)
[2024-03-12] MEDS: Tamsulosin HCL 0.4 MG CAPSULE PO ×2 (12:59→19:15)
[2024-03-12] MEDS: Finasteride 5 MG TABLET PO (13:00)
[2024-03-12] MEDS: Metoprolol Succinate ER 25 MG TAB.ER.24H PO ×2 (13:00→19:15)
[2024-03-12] MEDS: Apixaban 5 MG TABLET PO ×2 (13:00→19:15)
[2024-03-12 17:12] LABS: CDiff Gene PCR NEGATIVE (Negative)
[2024-03-12] MEDS: Omeprazole 20 MG CAPSULE.DR PO (17:32)
[2024-03-12] MEDS: 0.9 % Sodium Chloride Flush 3 ML SYRINGE IVFLUSH ×2 (17:34→23:53)
[2024-03-13 03:38] VITALS: BP 107/70; PULSE 73; RESP 18; TEMP 36.8; O2SAT 95
[2024-03-13] MEDS: Omeprazole 20 MG CAPSULE.DR PO (06:31)
[2024-03-13] MEDS: Levothyroxine Sodium 150 MCG TABLET PO (06:31)
[2024-03-13 07:34] VITALS: BP 117/81; PULSE 82; RESP 16; TEMP 36.2; O2SAT 96
[2024-03-13 08:13] VITALS: BP 117/81; PULSE 82
[2024-03-13] MEDS: Tamsulosin HCL 0.4 MG CAPSULE PO (08:13)
[2024-03-13] MEDS: Finasteride 5 MG TABLET PO (08:13)
[2024-03-13] MEDS: Atorvastatin Calcium 80 MG TABLET PO (08:13)
[2024-03-13] MEDS: Metoprolol Succinate ER 25 MG TAB.ER.24H PO (08:13)
[2024-03-13] MEDS: 0.9 % Sodium Chloride Flush 3 ML SYRINGE IVFLUSH (08:13)
[2024-03-13] MEDS: Apixaban 5 MG TABLET PO (08:14)
[2024-03-13 11:10] LABS: Adenovirus F 40/41 Not Detected (Not Detect.); Astrovirus Not Detected (Not Detect.); Campylobacter Not Detected (Not Detect.); Cryptosporidium Not Detected (Not Detect.); Cyclospora cayetanensis Not Detected (Not Detect.); E. coli EAEC Not Detected (Not Detect.); E. coli EPEC Not Detected (Not Detect.); E. coli ETEC Not Detected (Not Detect.); E. coli STEC Not Detected (Not Detect.); Entamoeba histolytica Not Detected (Not Detect.); Giardia lamblia Not Detected (Not Detect.); Norovirus GI/GII Not Detected (Not Detect.); Plesiomonas shigelloides Not Detected (Not Detect.); Rotavirus A Not Detected (Not Detect.); Salmonella Not Detected (Not Detect.); Sapovirus Not Detected (Not Detect.); Shigella sp./EIEC Not Detected (Not Detect.); Vibrio Not Detected (Not Detect.); Vibrio Cholerae Not Detected (Not Detect.); Yersinia enterocolitica Not Detected (Not Detect.)
[2024-03-13] MEDS: cefTRIAXone sodium 1 GM in 0.9 % Sodium Chloride 50 ML IV (12:22)
--- NOTE | 2024-03-13 12:22 | P.PNUR_ITS ---
Subjective Subjective Date of Service: 03/13/24 Interval history: Improving White count declining Has indwelling stent Planning for outpatient procedure Advised to delay procedure and receive antibiotics orally for 1-2 weeks Physical Exam 2 Vital Signs: Vital Signs: Last Vital Signs Temp 97.1 F 03/13/24 07:34 Pulse 82 03/13/24 08:13 Resp 16 03/13/24 07:34 BP 117/81 03/13/24 08:13 Pulse Ox 96 03/13/24 07:34 O2 Del Method Room Air 03/13/24 07:34 BMI result Body Mass Index 32.9 Const: General: cooperative, healthy appearing, comfortable and no acute distress Orientation/consciousness: patient oriented x3 HEENT: Face and sinus: Yes normal facial exam Mouth: moist mucous membranes Neck: Neck: Yes normal visual inspection, Yes full ROM and Yes trachea midline Chest: Chest palpation & inspection: normal inspection of the chest Resp: Effort & Inspection: normal respiratory effort, able to speak in complete sentences and no respiratory distress GI: Inspection: Yes normal to inspection Back/Spine/Pelvis: Cervical Spine: normal cervical lordosis Thoracic/Lumbar Spine: thoracic and lumbar spine normal to inspection Skin: General skin exam: no rashes or lesions noted Neuro: General: patient oriented x3, tone normal and moves all extremities Extrem: General: Yes normal to inspection and Yes capillary refill normal Urology Results Labs 03/12/24 06:05 03/12/24 06:05 Labs: Laboratory Results - last 24 hr 03/12/24 03/12/24 03:02 14:50 Stl C. cayetanensis PCR Not Detected Stool Rotavirus A PCR Not Detected Stl Adenov F 40/41 PCR Not Detected Stool Astrovirus (PCR) Not Detected Stool Campylobacter PCR Not Detected Stool Cryptosporidium PCR Not Detected Stl Sh Tox Pr E STEC PCR Not Detected Stool E coli O157 PCR Not applicable Stl Enterotoxigenic E PCR Not Detected Stool EPEC (PCR) Not Detected Stool EAEC (PCR) Not Detected Stl E. histolytica PCR Not Detected Stool Giardia Lamblia PCR Not Detected Stl P. shigelloides PCR Not Detected Stool Salmonella PCR Not Detected Stool Sapovirus (PCR) Not Detected Stl Shigella/EIEC PCR Not Detected St Y.enterocolitica PCR Not Detected Stool Vibrio (PCR) Not Detected Stl Vibrio cholerae PCR Not Detected Stl Norovirus GI/GII PCR Not Detected C. difficile Tox B Gene NEGATIVE Progress Note: A&P Assessment and plan (1) FARIBA (acute kidney injury): Status: Acute (2) Ureteral stent present: Status: Acute Plan Is planning outpatient stone Procedure Recommend delay for 2 weeks while receive p.o. antibiotics Time Spent With Patient Time: Total time managing care of this patient today ____ minutes. Progress Note: Quality Stroke Does the patient have a stroke diagnosis?: No
--- NOTE | 2024-03-13 12:22 | P.DS_ITS ---
DS: Providers Provider Date of Service: 03/13/24 Date of admission: 03/12/24 09:08 Primary care physician: Christopher Batres MD Consults: 03/11/24 17:07 Consult to Urology Routine Consulting Provider: Danni Celaya Reason for consultation: pyelo and possible infected stone/stent DS: Diagnosis Discharge Diagnosis (1) Ureteral stent present: Status: Acute (2) FARIBA (acute kidney injury): Status: Acute (3) Severe sepsis: Status: Acute (4) Acute pyelonephritis: Status: Acute DS: Summary Hospital Course Hospital Course: History and physical as per admitting provider. 73-year-old male with history of paroxysmal atrial fibrillation anticoagulated with Eliquis, GERD, hyp othyroidism, hyperlipidemia, hypertension, history of CVA, history of nephrolithiasis with infected stones following with Dr. Esquivel at [facility] s/p left-sided renal stent placement 2 weeks ago presented to the ED earlier today for evaluation of left flank pain and dysuria that has been ongoing for several days. He states he did reach out to his urologist but did not hear back so presented to the ED for further evaluation. He denies any fevers or chills. States he did have some hematuria postoperatively but this has since resolved. No abdominal pain, nausea, vomiting, increased urinary frequency or urgency. On arrival, patient did develop hypotension to 89/59 with improvement to 99/64 on admission following 2 L IVF. He was also initially tachycardic to 103 but afebrile. He has a leukocytosis of 12.2. Creatinine 1.46, baseline around 1.1, electrolyte levels normal. Lactic acid 1.6. Urinalysis significant for 2+ leukocytes, negative nitrites, 3+ blood, positive urinary sediment but negative bacteria. CT abdomen/pelvis shows left-sided ureteric stent with persistent mild hydroureter nephrosis and increased fat stranding and free fluid around the collecting system, ureter, perinephric space and retroperitoneum. Stent is located within calyces of the upper pole of the kidney which urology states appears to be in the correct position. There is also a 0.5 cm calculus in the distal left ureteral which is unchanged and additional nonobstructing bilateral renal calculi which are stable. In the ED given ivf and ceftriaxone. Acute pyelonephritis with possible infected stone, severe sepsis. Initially patient was admitted with leukocytosis, tachycardia, hypotension. Treated with IV fluid. No lactic acid or end-organ damage. Blood cultures came back neg ative along with the urine cultures. CT of the abdomen and pelvis showed left- sided ureteric stent with persistent mild hydroureter nephrosis and increased fat stranding and free fluid around the collecting system. He was seen and evaluated by Urology who did not think he needed any immediate intervention at this time. He does follow outpatient with Dr. Esquivel. Patient was started on IV ceftriaxone while hospitalized, will complete therapy with Ceftin. He also had some noted acute kidney injury. Creatinine peaked at 1.47. Treated with IV fluids and resolved. Plan is for patient to be discharged home to complete antibiotic therapy and follow up outpatient with his urologist. Paroxysmal atrial fibrillation. Rate controlled during hospitalization. Continue Eliquis and metoprolol Hypothyroidism. Continue levothyroxine Hypertension. Continue metoprolol and amlodipine Hyperlipidemia. Continue statin History of CVA. Continue Eliquis and statin BPH. Continue tamsulosin Acute normocytic anemia. Above transfusion threshold during hospitalization. Time Attestation Discharge Coordination Time (in mins): 40 Quality: Safe Use of Opioids Does Pt have an Active Cancer Diagnosis on the Problem List?: No Quality: Stroke Does the patient have a stroke diagnosis?: No Physical Exam Vital Signs: Vital Signs: Last Vital Signs Temp 97.1 F 03/13/24 07:34 Pulse 82 03/13/24 08:13 Resp 16 03/13/24 07:34 BP 117/81 03/13/24 08:13 Pulse Ox 96 03/13/24 07:34 O2 Del Method Room Air 03/13/24 07:34 BMI result Body Mass Index 32.9 Appearing in no acute distress head is normocephalic atraumatic eyes pupils are PERRLA sclera is anicteric mouth throat mucous membranes are intact and moist neck is supple no lymphadenopathy, no JVD noted lung sounds are clear to auscultation heart regular rate rhythm, clear S1, S2 positive bowel sounds, abdomen is soft, nontender neuro patient is alert x3, no focal deficits DS: Data Data Completed and Pending Labs on day of discharge: Laboratory Results - last 24 hr 03/12/24 03/12/24 03:02 14:50 Stl C. cayetanensis PCR Not Detected Stool Rotavirus A PCR Not Detected Stl Adenov F 40/41 PCR Not Detected Stool Astrovirus (PCR) Not Detected Stool Campylobacter PCR Not Detected Stool Cryptosporidium PCR Not Detected Stl Sh Tox Pr E STEC PCR Not Detected Stool E coli O157 PCR Not applicable Stl Enterotoxigenic E PCR Not Detected Stool EPEC (PCR) Not Detected Stool EAEC (PCR) Not Detected Stl E. histolytica PCR Not Detected Stool Giardia Lamblia PCR Not Detected Stl P. shigelloides PCR Not Detected Stool Salmonella PCR Not Detected Stool Sapovirus (PCR) Not Detected Stl Shigella/EIEC PCR Not Detected St Y.enterocolitica PCR Not Detected Stool Vibrio (PCR) Not Detected Stl Vibrio cholerae PCR Not Detected Stl Norovirus GI/GII PCR Not Detected C. difficile Tox B Gene NEGATIVE Preliminary micro results at discharge 03/11/24 08:18 Blood Culture - Preliminary Blood - Venous No growth after 48 hours. 03/11/24 08:05 Blood Culture - Preliminary Blood - Venous No growth after 48 hours. Discharge Plan Discharge Anticipated Discharge Date/Time: 03/13/24 12:19 Patient Disposition: Home, Self-Care Discharge Diagnosis: Acute pyelonephritis Severe sepsis FARIBA Referrals: Christopher Batres MD [Primary Care Provider] - 1 Week Discharge Medications: New cefuroxime axetil 500 mg tablet 500 mg PO BID Qty: 8 0RF Continued amlodipine 2.5 mg tablet 2.5 mg PO BEDTIME Qty: 90 3RF Eliquis 5 mg tablet 5 mg PO BID 90 Days Qty: 180 3RF metoprolol succinate 25 mg tablet extended release 24 hr 25 mg PO BID 90 Days Qty: 180 3RF tamsulosin 0.4 mg capsule 0.4 mg PO BID omeprazole 20 mg capsule,delayed release(DR/EC) 20 mg PO BID levothyroxine 150 mcg tablet 150 mcg PO DAILY@0600 atorvastatin 80 mg tablet 80 mg PO DAILY finasteride [Proscar] 5 mg tablet 5 mg PO DAILY 90 Days Qty: 90 3RF Discharge Orders: Discharge Order (Routine); Ordered 03/13/24 Ordered By: Kristel Locke Diet: Advance to usual diet Activity on Discharge: As tolerated Stand Alone Forms: Patient Portal Discharge page Print Language: Kazakh Care Plan Goals: Monitor for any signs of infection including fever, lower abdominal pain, pain with urination Health Concerns: Acute pyelonephritis Severe sepsis FARIBA Plan of Treatment: Follow-up with urologist, Dr. Esquivel outpatient Take all medications as prescribed Assessment: See discharge summary
--- NOTE | 2024-03-13 12:55 | MHC.CM.PN ---
EMR reviewed. Patient medically cleared for dc home self care. Friend will provide transportation around 2pm. RN aware.
== END 2024-03-13 14:31 | disposition home or self-care (01) | DRG 872 ==
LOC: HO.ED 16:41 → HO.EDOVER 18:15 → HO.S3 03-12 00:35
PROVIDERS: Nurse Practitioner Family; Student in an Organized Health Care Education/Training Program; Admitting Provider Physician Assistant; Emergency Provider Student in an Organized Health Care Education/Training Program; PCP Internal Medicine; Visit Provider Nurse Practitioner Acute Care
DX: A41.9 Sepsis, unspecified organism (principal); N13.6 Pyonephrosis; N17.9 Acute kidney failure, unspecified; R65.20 Severe sepsis without septic shock; I48.0 Paroxysmal atrial fibrillation; E03.9 Hypothyroidism, unspecified; R31.9 Hematuria, unspecified; N40.0 Benign prostatic hyperplasia without lower urinary tract symptoms; E78.5 Hyperlipidemia, unspecified; D64.9 Anemia, unspecified; I10 Essential (primary) hypertension; Z20.822 Contact with and (suspected) exposure to COVID-19; Z87.440 Personal history of urinary (tract) infections; Z86.73 Personal history of transient ischemic attack (TIA), and cerebral infarction without residual deficits; Z79.01 Long term (current) use of anticoagulants; Z79.890 Hormone replacement therapy; Z79.899 Other long term (current) drug therapy
CPT/HCPCS: 0241U; 36415; 74176; 80048; 80053; 81001; 83605; 85025; 87040; 87086; 87493; 87507; 92950; 99285; J0696; J2543

== ENCOUNTER → 2024-03-11 07:45 | Outpatient (BNV) | payer MEDICARE, SELFPAY | PROVIDERS: Emergency Provider Student in an Organized Health Care Education/Training Program; PCP Internal Medicine; Visit Provider Physician Assistant | DX: N17.9 Acute kidney failure, unspecified (principal); A41.9 Sepsis, unspecified organism; R65.20 Severe sepsis without septic shock; N10 Acute pyelonephritis; Z96.0 Presence of urogenital implants | CPT/HCPCS: 99223; 99232; 99239 ==

== ENCOUNTER → 2024-03-12 09:08 | Outpatient (BNV) | payer MEDICARE, SELFPAY | PROVIDERS: Admitting Provider Physician Assistant; Emergency Provider Student in an Organized Health Care Education/Training Program; PCP Internal Medicine; Visit Provider Urology | DX: N17.9 Acute kidney failure, unspecified (principal); Z96.0 Presence of urogenital implants | CPT/HCPCS: 99222; 99232 ==

== ENCOUNTER 2024-03-24 15:31 | Outpatient (REF) | payer MEDICARE, SELFPAY ==
[2024-03-24 15:49] LABS: Appearance Urine Clear; Glucose Urine UA Negative (Negative); Leukocyte Esterase Urine Small (1+) (Negative); Nitrite Urine Negative (Negative); PH 5.5 (5.0-9.0); UMIC TRIGGER UA YES; Urine Blood Small (1+) (Negative); Urine Ketones Trace mg/dL (Negative); Urine Protein 30 (1+) mg/dL (Neg-Trace)
[2024-03-24 15:51] LABS: Color Urine Yellow
[2024-03-24 16:29] LABS: Bacteria Urine Trace (None Seen); Hyaline Casts Urine 0-2 /LPF (0-2)
== END 2024-03-24 15:32 | disposition home or self-care (01) ==
LOC: HO.LNP 15:31
PROVIDERS: Internal Medicine; Visit Provider Internal Medicine
DX: N39.0 Urinary tract infection, site not specified (principal)
CPT/HCPCS: 81001; 87086

== ENCOUNTER 2024-04-11 11:13 | Outpatient (REF) | payer MEDICARE, SELFPAY ==
--- NOTE | ~2024-04-11 | US_ITS ---
EXAMINATION: US RETROPERITONEAL LIMITED (RENAL ONLY) CLINICAL INFORMATION: Renal cyst. COMPARISON: CT abdomen and pelvis 03/11/2024. X-ray abdomen 04/23/2016. TECHNIQUE: Real-time imaging of the kidneys. FINDINGS: RIGHT KIDNEY: 11.0 x 6.1 x 5.4 cm (SAG x AP x TRV). The kidney is normal in size, contour, and echogenicity. Renal cortical thickness is normal. There is a 5 mm lower pole echogenic focus seen consistent with a nonobstructing calculus. No focal parenchymal lesions or hydronephrosis. LEFT KIDNEY: 10.4 x 5.2 x 4.5 cm (SAG x AP x TRV). The kidney is normal in size, contour, and echogenicity. Renal cortical thickness is normal. No hydronephrosis. A benign 3.0 cm septated Bosniak class II renal cyst is noted which requires no additional imaging or followup. This was also confirmed with the prior CT scan. No solid renal masses are seen. 4 echogenic foci are noted in the left kidney with twinkle artifact consistent with nonobstructing calculi, the largest measuring 8 mm. US/US renal BI IMPRESSION: 1. Bilateral nonobstructing renal calculi. 2. Benign Bosniak class II left renal cyst which requires no additional imaging or followup.
== END 2024-04-11 11:14 | disposition home or self-care (01) ==
LOC: HO.US 11:13
PROVIDERS: PCP Internal Medicine; Visit Provider Internal Medicine
DX: N28.1 Cyst of kidney, acquired (principal)
CPT/HCPCS: 76775

== ENCOUNTER 2024-04-24 11:04 | Outpatient (REF) | payer MEDICARE, SELFPAY ==
[2024-04-24 12:11] LABS: Appearance Urine Clear; Color Urine Yellow; Glucose Urine UA Negative (Negative); Leukocyte Esterase Urine Negative (Negative); Nitrite Urine Negative (Negative); PH 6.5 (5.0-9.0); Urine Blood Negative (Negative); Urine Ketones Negative (Negative); Urine Protein Negative (Neg-Trace)
[2024-04-24 12:16] LABS: Bacteria Urine None Seen (None Seen); Hyaline Casts Urine 0-2 /LPF (0-2); RBC Urine 0-2 /HPF (0-2); Squamous Epithelial Cell Urine 0-2 /HPF (0-2); WBC Urine 0-5 /HPF (0-5)
== END 2024-04-24 11:05 | disposition home or self-care (01) ==
LOC: HO.LNP 11:04
PROVIDERS: Visit Provider Internal Medicine
DX: R31.9 Hematuria, unspecified (principal)
CPT/HCPCS: 81001

== ENCOUNTER 2024-08-10 11:23 | Outpatient (REF) | payer MEDICARE, SELFPAY ==
[2024-08-10 12:12] LABS: Alanine Aminotransferase 11 U/L (0-40); Alkaline Phosphatase 72 U/L (39-117); Aspartate Amino Transferase 13 U/L (5-37); Bilirubin Direct 0.4 mg/dL (0.0-0.5); Cholesterol 95 mg/dL (<200); HDL Cholesterol 38 mg/dL (>40); LDL Cholesterol Calculated 47 mg/dL (<100); Total Protein 6.5 g/dL (6.5-8.0); Triglycerides 51 mg/dL (<150)
[2024-08-10 12:54] LABS: Reflex LDLD? No
== END 2024-08-10 11:24 | disposition home or self-care (01) ==
LOC: HO.LNP 11:23
PROVIDERS: Visit Provider Internal Medicine
DX: E78.00 Pure hypercholesterolemia, unspecified (principal)
CPT/HCPCS: 80061; 80076

== ENCOUNTER 2025-02-20 10:38 | Outpatient (REF) | payer MEDICARE, SELFPAY ==
[2025-02-20 10:42] LABS: MANUAL DIFF FLAG NO
[2025-02-20 11:16] LABS: Appearance Urine Clear; Color Urine Yellow; Glucose Urine UA Negative (Negative); Leukocyte Esterase Urine Negative (Negative); Nitrite Urine Negative (Negative); PH 8.5 (5.0-9.0); Urine Blood Negative (Negative); Urine Ketones Negative (Negative); Urine Protein Trace mg/dL (Neg-Trace)
[2025-02-20 11:18] LABS: Basophils Percent Auto 0.7 % (0-2); Eosinophils Absolute Auto 0.2 X10*3/uL (0.0-0.4); Eosinophils Percent Auto 2.7 % (0-4); Hematocrit 45.7 % (42.0-52.0); Hemoglobin 14.9 g/dl (14.0-18.0); Imm Gran Abs Auto 0.02 X10*3/uL (0.00-0.03); Imm Gran Pct Auto 0.4 % (0.0-0.4); Lymphocytes Absolute Auto 0.9 X10*3/uL (1.2-4.9); Lymphocytes Percent Auto 16.5 % (20-40); Mean Corpuscular HGB Conc 32.6 g/dl (31.0-36.0); Mean Corpuscular Hemoglobin 28.4 pg (27.0-33.0); Mean Platelet Volume 10.8 fL (9.4-12.4); Monocytes Absolute Auto 0.6 X10*3/uL (0.1-1.2); Monocytes Percent Auto 10.1 % (2-11); Neutrophils Absolute Auto 3.9 x10*3/uL (2.0-8.3); Neutrophils Percent Auto 69.6 % (45-73); Platelet Count 193 X10*3/uL (160-400); Red Blood Count 5.25 X10*6/uL (4.60-5.80); Red Cell Distribution Width 13.6 % (11.0-16.0); White Blood Count 5.7 X10*3/uL (4.8-10.8)
[2025-02-20 11:24] LABS: Bacteria Urine None Seen (None Seen); Hyaline Casts Urine 0-2 /LPF (0-2); RBC Urine 0-2 /HPF (0-2); Squamous Epithelial Cell Urine 0-2 /HPF (0-2); WBC Urine 0-5 /HPF (0-5)
[2025-02-20 11:29] LABS: Estimated Average Glucose 111 mg/dL; Hemoglobin A1C 143.3015 umol/L; Hemoglobin A1c % 5.5 % (<6.0); Total Hemoglobin (HGBA1C) 3880.4976 umol/L
[2025-02-20 11:48] LABS: Alanine Aminotransferase 12 U/L (0-40); Albumin Level 3.9 g/dL (3.5-5.0); Alkaline Phosphatase 79 U/L (39-117); Anion Gap 9 (12-20); Aspartate Amino Transferase 19 U/L (5-37); Bilirubin Total 1.2 mg/dL (0.0-1.0); Blood Urea Nitrogen 17 mg/dL (9-16); Calcium 8.8 mg/dL (8.4-10.2); Carbon Dioxide 29 mmol/L (22-29); Chloride 106 mmol/L (96-108); Cholesterol 92 mg/dL (<200); Estimated Glomerular Filt Rate > 60; Glucose Fasting 94 mg/dL (60-99); HDL Cholesterol 34 mg/dL (>40); LDL Cholesterol Calculated 44 mg/dL (<100); Potassium 4.3 mmol/L (3.3-5.1); Sodium 140 mmol/L (135-145); Total Protein 6.4 g/dL (6.5-8.0); Triglycerides 71 mg/dL (<150)
[2025-02-20 11:52] LABS: PSA,Total (Free>4and<10) 0.34 ng/mL (0.00-4.00)
[2025-02-20 12:24] LABS: Creatinine Urine 146.11 mg/dL; Microalbum/Creatinine Ratio Ur 6.1 ug/mg cr (<30)
--- OUTSIDE RECORDS SUMMARY | 2025-02-20 12:39 | XMS_ITS ---
Author Organization Christopher Batres MD Address [address] [place] [phone] Care Team Providers Care Picked Edge Sewing Machine Operator Name Role Phone Christopher Batres Primary Care Provider Results Component Value Reference Range Notes Liver Panel Reviewed date:2024 01:27:14 PM Interpretation: Performing Lab:[facility], [address] [place] [phone] Notes/Report: Bilirubin Total 1.0 0.0-1.0 mg/dL Bilirubin Direct 0.4 0.0-0.5 mg/dL Aspartate Amino Transferase 13 5-37 U/L Alanine Aminotransferase 11 0-40 U/L Total Protein 6.5 6.5-8.0 g/dL Albumin Level 4.0 3.5-5.0 g/dL Alkaline Phosphatase 72 39-117 U/L Lipid Panel with Reflex Reviewed date:2024 01:26:58 PM Interpretation: Performing Lab:[facility], [address] [place] [phone] Notes/Report: Triglycerides 51 <150 mg/dL Desirable Triglyceride: [...] Location Date Provider Diagnosis Christopher Batres MD [address] [place] [address] [place] [phone] 2024 Christopher Batres Pure hypercholestero lemia E78.00 Assessments Encounter Date Diagnosis (ICD Code) Assessment Notes Treatment Notes Treatment Clinical Notes Section Notes 2024 Pure hypercholesterolemia (ICD-10 - E78.00) Plan Of Treatment Next Appt Details Provider Name:Christopher Johnson ier, 02/26/2025 08:30:00 AM, [address] [place] [address], Suite [facility], [place], [place], [phone], Progress Notes * Cordell COX IIIDOB: (74 yo M)Acc No.[id number]:2024 Progress Note Patient:?Cordell COX III Provider:?Christopher Batres MD :1950???Age:74 Y???Sex:Male Yunior e:2024 Address:[address] [place], [place] [phone] Subjective: * Chief Complaints: * ???1. LIVER LIPID PANELS. * Medical History:? Objective: * Vitals:? Assessment: * Assessment: 1.?Pure hypercholesterolemia - E78.00 (Primary)??? Plan: * Treatment: * Procedure Codes:?20319 VENIP UNCT, ROUTINE* * * The named appointment provid er may or may not be the originator of this progress note, and it is not deemed complete until electronically signed by the appointment provider. Sign off status: Pending * Provider:?Christopher Batres MD Date:?1 Generated for Edu urbano/Lorena/Avelitting on:?02/20/2025 12:39 PM EDT
--- OUTSIDE RECORDS SUMMARY | 2025-02-20 12:39 | XMS_ITS ---
Author Organization Christopher Batres MD Address [address] [place] [phone] Care Team Providers Care Caramel Cutter Hand Name Role Phone Christopher Batres Primary Care Provider Results Component Value Reference Range Notes Complete Blood Count Auto Di ff (Not yet reviewed by provider) Interpretation: Performing Lab:[facility], [address] [place] [phone] Notes/Report: White Blood Count 5.7 4.8-10.8 X10*3/uL [...] NRBC Abs Auto 0.000 0.0-0.012 X10*3/uL Comprehensive Crosby. Panel Fa st (Not yet reviewed by provider) Interpretation: Performing Lab:[facility], [address] [place] [phone] Notes/Report: Sodium 140 135-145 mmol/L Potassium 4.3 [...] Alkaline Phosphatase 79 39-117 U/L Lipid Panel (Not yet reviewe d by provider) Interpretation: Performing Lab:[facility], [address] [place] [phone] Notes/Report: Triglycerides 71 <150 mg/dL Desirable Triglyceride: [...] low results in patients with liver disease. TSH reflex Free T4 (Not yet reviewed by provider) Interpretation: Performing Lab:[facility], [address] [place] [phone] Notes/Report: TSH reflex Free T4 1.60 0.32-4.0 uIU/mL Microalbumin, Random (Not ye t reviewed by provider) Interpretation: Performing Lab:[address] [phone] Notes/Report: Creatinine Urine 146.11 Microalbumin Urine 9.0 Microalbum/Creatinine Ratio Ur 6.1 <30 ug/mg cr Albumin/Creatinine Ratio Reference Ranges: Normal: < 30 ug/mg creatinine Microalbuminuria: 30 - 300 ug/mg creatinine Clinical Albuminuria: > 300 ug/mg creatinine UA ClnCatch+Micro w/rflx Cul t (Not yet reviewed by provider) Interpretation: Performing Lab:[address] [phone] Notes/Report: Urine, Clean Catch Color Urine Yellow Appearance Urine Clear PH 8.5 5.0-9.0 Glucose Urine UA Negative Negative mg/dL Urine Blood Negative Negative Specific [place] - Urine 1.020 1.005-1.025 Urine Protein Trace Neg-Trace mg/dL Urine Ketones Negative Negative mg/dL Nitrite Urine Negative Negative Leukocyte Esterase Urine Negative Negative RBC Urine 0-2 0-2 /HPF WBC Urine 0-5 0-5 /HPF Squamous Epithelial Cell Urine 0-2 0-2 /HPF Bacteria Urine None Seen None Seen Hyaline Casts Urine 0-2 0-2 /LPF PSA,Total (Free>4and<10) Reviewed date:02/20/2025 12:27:16 PM Interpretation: Performing Lab:[facility], [address] [place] [phone] Notes/Report: PSA,Total (Free>4and<10) 0.34 0.00-4.00 ng/mL A [...] Cerda Alinity i Chemiluminescent Microparticle Immunoassay (CMIA) Hemoglobin A1c Reviewed date:02/20/2025 12:27:25 PM Interpretation: Performing Lab:[facility], [address] [place] [phone] Notes/Report: Hemoglobin A1c % 5.5 <6.0 % [...] average glucose, using the formula of the S2E-Datxhgp Average Glucose study (ADAG), Diabetes Care, Vol.31,#8, Jun. 2007 REASON FOR VISIT FASTING LABS Encounters Encounter Location Date Provider Diagnosis Christopher Batres MD [address] [place] [address] [address] [place], [place] [phone] 02/20/2025 Christopher Batres Blood tests for rout [...] on (ICD-10 - I10) Plan Of Treatment Pending Test Test Name Order Date Complete Blood Count Auto Diff Comprehensive Crosby. Panel Fast 5 Lipid Panel 02/20/2025 TSH reflex Free T4 02/20/2025 Microalbumin, Random 02/20/2025 UA ClnCatch+Micro w/rflx Cult 02/20/2025 Next Appt Details Provider Name:Christopher Johnson ier, 02/26/2025 08:30:00 AM, [address] [facility], [address], [place], [place], [phone], Progress Notes * Cordell COX IIIDOB: (74 yo M)Acc No.[id number]:02/20/2025 Progress Note Patient:?Cordell COX III Provider:?Christopher Batres MD :1950???Age:74 Y???Sex:Male Yunior e:02/20/2025 Address:[address] [place], [place] [phone] Subjective: * Chief Complaints: * ???1. FASTING LABS. * Medical History:? Objective: * Vitals:? Assessment: * Assessment: 1.?Blood tests for routine g eneral physical examination - Z00.00 (Primary)???2.?Acquired hypothyroidism - E03.9???3.?Prediabetes - R73.09???4.?Pure hypercholesterolemia - E78.00???5.?Essential hypertension - I10??? Plan: * Treatment: 2.?Acquired hypothyroidism?LAB: Complete Blood Count Auto Diff (Collection Date & Time 02/20/2025 08:00 AM) ?LAB: Comprehensive Crosby. Panel Fast (Collection Date & Time 02/20/2025 08:00 AM) ?LAB: Lipid Panel (Collection & Time 02/20/2025 08:00 AM) ?LAB: TSH reflex Free T4 (Collection Date & Time 02/20/2025 08:00 AM) ?LAB: Microalbumin, Random (Collection Date & Time 02/20/2025 08:00 AM) ?LAB: UA ClnCatch+Micro w/rflx Cult (Collection Date & Time 02/20/2025 08:00 AM) ?LAB: PSA,Total (Free>4and<10) (Collection Date & Time 02/20/2025 08:00 AM) ?LAB: Hemoglobin A1c (Collection Date & Time 02/20/2025 08:00 AM) 3.?Prediabetes?LAB: Complete Blood Count Auto Diff (Collection Date & Time 02/20/2025 08:00 AM) ?LAB: Comprehensive Crosby. Panel Fast (Collection Date & Time 02/20/2025 08:00 AM) ?LAB: Lipid Panel (Collection & Time 02/20/2025 08:00 AM) ?LAB: TSH reflex Free T4 (Collection Date & Time 02/20/2025 08:00 AM) ?LAB: Microalbumin, Random (Collection Date & Time 02/20/2025 08:00 AM) ?LAB: UA ClnCatch+Micro w/rflx Cult (Collection Date & Time 02/20/2025 08:00 AM) ?LAB: PSA,Total (Free>4and<10) (Collection Date & Time 02/20/2025 08:00 AM) ?LAB: Hemoglobin A1c (Collection Date & Time 02/20/2025 08:00 AM) 4.?Pure hypercholesterolemia ?LAB: Complete Blood Count Auto Diff (Collection Date & Time 02/20/2025 08:00 AM) ?LAB: Comprehensive Crosby. Panel Fast (Collection Date & Time 02/20/2025 08:00 AM) ?LAB: Lipid Panel (Collection Date & Time 02/20/2025 08:00 AM) ?LAB: TSH reflex Free T4 (Collection Date & Time 02/20/2025 08:00 AM) ?LAB: Microalbumin, Random (Collection Date & Time 02/20/2025 08:00 AM) ?LAB: UA ClnCatch+Micro w/rflx Cult (Collection Date & Time 02/20/2025 08:00 AM) ?LAB: PSA,Total (Free>4and<10) (Collection Date & Time 02/20/2025 08:00 AM) ?LAB: Hemoglobin A1c (Collection Date & Time 02/20/2025 08:00 AM) 5.?Essential hypertension?LAB: Complete Blood Count Auto Diff (Collection Date & Time 02/20/2025 08:00 AM) ?LAB: Comprehensive Crosby. Panel Fast (Collection Date & Time 02/20/2025 08:00 AM) ?LAB: Lipid Panel (Collection Date & Time 02/20/2025 08:00 AM) ?LAB: TSH reflex Free T4 (Collection Date & Time 02/20/2025 08:00 AM) ?LAB: Microalbumin, Random (Collection Date & Time 02/20/2025 08:00 AM) ?LAB: UA ClnCatch+Micro w/rflx Cult (Collection Date & Time 02/20/2025 08:00 AM) ?LAB: PSA,Total (Free>4and<10) (Collection Date & Time 02/20/2025 08:00 AM) ?LAB: Hemoglobin A1c (Collection Date & Time 02/20/2025 08:00 AM) * Procedure Codes:?39025 VENIP UNCT, ROUTINE* * * The named appointment provid er may or may not be the originator of this progress note, and it is not deemed complete until electronically signed by the appointment provider. Sign off status: Pending * Provider:?Christopher Btares MD Date:?0 02/20/2025 Generated for Edu urbano/Lorena/Adilson on:?02/20/2025 12:39 PM EDT
--- OUTSIDE RECORDS SUMMARY | 2025-02-20 12:39 | XMS_ITS | Patient Health Record ---
Author Organization [facility] Address [address] [place] [address] Care Team Providers Care Executive Business Coach Name Role Phone Gisel MACK, Christopher Primary Care Provider Corey Sher Jr Unavailable [phone] Allergies No Known Allergies Reason For Referral No Information Medications Medication SIG (Take, Route, Frequency, Duration) Notes Start Date End Date Status Pradaxa 150 MG 1 capsule Orally Twi ce a day Active amLODIPine Besylate 2.5 MG 1 tablet Oral ly Once a day Active Levothyroxine Sodium 150 MCG 1 tablet in the morning on an empty stomach Orally Once a day Active Omeprazole 20 MG Orally twice a day Active Tamsulosin HCl 0.4 MG 1 capsule Orally O nce a day Active Flecainide Acetate 100 MG as directed Or ally twice a day Active MiraLax (colon prep) 17 GM/SCOOP mixed with Gatorade or Crystal Light Orally begin at 5:00 p.m. the day before the procedure for 1 day 04/29/2022 Active Metoprolol Succinate 25 MG 1 capsule Ora lly Once a day Active Atorvastatin Calcium 80 MG 1 tablet Oral ly Once a day Active Immunizations Vaccine Route Administration Date Status Comme nts Influenza Unknown 08/17/2018 Administered Influenza Unknown 07/02/2021 Administered Problems Problem Type SNOMED Code ICD Code Onset Dates Problem Status W/U Status Risk Notes Problem 784348147 Colon cancer screening (Z12.11) Active confirmed Problem 807859020 Gastro-esophagea l reflux disease without esophagitis (K21.9) Active confirmed Problem 183688133 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.01) Active confirmed Problem 796839740 Gastroesophageal reflux disease without esophagitis (K21.9) Active confirmed Problem 59057424 Hiatal hernia (K44.9) Active confirmed Problem Diverticulosis of colon (876030548) Diverticulosis of colon (K57.30) Active confirmed Plan Of Treatment Future Test Test Name Order Date UPPER GI ENDOSCOPY 07/31/2016 COLONOSCOPY 04/29/2022 Insurance Providers Payer Name Payer Address Payer Phone Subscriber Number Group Number Insured Name Patient Relationship to Insured Coverage Start Date Coverage End Date [facility] [address] [place] [address] [id number] ROSA KEARNS Self - patient is the insured Medical (General) History Medical History History ICD Code hypertension Atrial fibrillation CVA Hiatal hernia with Schatzki ring Coronary artery disease with history of IA 07/17 hypothyroidism Surgical History Surgery Date(Month/Year) cardiac ablation kidney stones 04/2016
--- OUTSIDE RECORDS SUMMARY | 2025-02-20 12:39 | XMS_ITS | Patient Health Record ---
Author Organization Christopher Batres MD Address [address] [place] [id number] Care Team Providers Care Machine Stapler Name Role Phone Christopher Batres Primary Care Provider [phone] Allergies No Known Allergies Results Component Value Reference Range Notes UA ClnCatch+Micro w/rflx Cul t Reviewed date:04/25/2024 04:58:36 PM Interpretation: Performing Lab:[facility], [address] [place] [phone] Notes/Report: Urine, Clean Catch Color Urine Yellow Appearance Urine Clear PH 6.5 5.0-9.0 Glucose Urine UA Negative Negative mg/dL Urine Blood Negative Negative Specific [place] - Urine 1.010 1.005-1.025 Urine Protein Negative Neg-Trace mg/dL Urine Ketones Negative Negative mg/dL Nitrite Urine Negative Negative Leukocyte Esterase Urine Negative Negative RBC Urine 0-2 0-2 /HPF WBC Urine 0-5 0-5 /HPF Squamous Epithelial Cell Urine 0-2 0-2 /HPF Bacteria Urine None Seen None Seen Hyaline Casts Urine 0-2 0-2 /LPF Liver Panel Reviewed date:2024 01:27:14 PM Interpretation: Performing Lab:[facility], [address] [place] [phone] Notes/Report: Bilirubin Total 1.0 0.0-1.0 mg/dL Bilirubin Direct 0.4 0.0-0.5 mg/dL Aspartate Amino Transferase 13 5-37 U/L Alanine Aminotransferase 11 0-40 U/L Total Protein 6.5 6.5-8.0 g/dL Albumin Level 4.0 3.5-5.0 g/dL Alkaline Phosphatase 72 39-117 U/L Lipid Panel with Reflex Reviewed date:2024 01:26:58 PM Interpretation: Performing Lab:[facility], [address] [place] [phone] Notes/Report: Triglycerides 51 <150 mg/dL Desirable Triglyceride: [...] low results in patients with liver disease. Complete Blood Count Auto Di ff (Not yet reviewed by provider) Interpretation: Performing Lab:[facility], [address] [place] [phone] Notes/Report: White Blood Count 5.7 4.8-10.8 X10*3/uL [...] 0.0 0.0-0.2 /100WBC Neutrophils Absolute Auto 3.9 2.0-8. 3 x10*3/uL Imm Gran Abs Auto 0.02 0.00-0.03 X10*3/uL Lymphocytes Absolute Auto 0.9 1.2-4. 9 X10*3/uL Monocytes Absolute Auto 0.6 0.1-1.2 X10*3/uL Eosinophils Absolute Auto 0.2 0.0-0. 4 X10*3/uL Basophils Absolute Auto 0.0 0.0-0.2 X10*3/uL NRBC Abs Auto 0.000 0.0-0.012 X10*3/uL Comprehensive Lamar. Panel Fa st (Not yet reviewed by provider) Interpretation: Performing Lab:[facility], [address] [place] [phone] Notes/Report: Sodium 140 135-145 mmol/L Potassium 4.3 [...] yet reviewe d by provider) Interpretation: Performing Lab:[address] [phone] Notes/Report: Triglycerides 71 <150 mg/dL Desirable Triglyceride: [...] (Not yet reviewed by provider) Interpretation: Performing Lab:[address] [phone] Notes/Report: TSH reflex Free T4 1.60 0.32-4.0 uIU/mL Microalbumin, Random (Not ye t reviewed by provider) Interpretation: Performing Lab:[facility], [address] [place] [phone] Notes/Report: Creatinine Urine 146.11 Microalbumin Urine 9.0 Microalbum/Creatinine Ratio Ur 6.1 <30 ug/mg cr Albumin/Creatinine Ratio Reference Ranges: Normal: < 30 ug/mg creatinine Microalbuminuria: 30 - 300 ug/mg creatinine Clinical Albuminuria: > 300 ug/mg creatinine UA ClnCatch+Micro w/rflx Cul t (Not yet reviewed by provider) Interpretation: Performing Lab:[address] [phone] Notes/Report: Urine, Clean Catch Color Urine Yellow Appearance Urine Clear PH 8.5 5.0-9.0 Glucose Urine UA Negative Negative mg/dL Urine Blood Negative Negative Specific [place] - Urine 1.020 1.005-1.025 Urine Protein Trace Neg-Trace mg/dL Urine Ketones Negative Negative mg/dL Nitrite Urine Negative Negative Leukocyte Esterase Urine Negative Negative RBC Urine 0-2 0-2 /HPF WBC Urine 0-5 0-5 /HPF Squamous Epithelial Cell Urine 0-2 0-2 /HPF Bacteria Urine None Seen None Seen Hyaline Casts Urine 0-2 0-2 /LPF PSA,Total (Free>4and<10) Reviewed date:02/20/2025 12:27:16 PM Interpretation: Performing Lab:[address] [phone] Notes/Report: PSA,Total (Free>4and<10) 0.34 0.00-4. 00 ng/mL A Free PSA was not performed: [...] A1c Reviewed date:02/20/2025 12:27:25 PM Interpretation: Performing Lab:[address] [phone] Notes/Report: Hemoglobin A1c % 5.5 <6.0 % [...] average glucose, using the formula of the [id number] Average Glucose study (ADAG), Diabetes Care, Vol.31,#8, Jun. 2007 Occult Blood, Stool, Guaiac Reviewed date:02/24/2024 09:54:12 AM Interpretation:Negative Performing Lab: Notes/Report: Negative Occult Blood, Stool, Guaiac Neg UA ClnCatch+Micro w/rflx Cul t Reviewed date:02/24/2024 12:25:11 PM Interpretation: Performing Lab:[facility], [address] [place] [phone] Notes/Report: Urine, Clean Catch Color Urine Yellow Appearance Urine Clear PH 6.5 5.0-9.0 Glucose Urine UA Negative Negative mg/dL Urine Blood Negative Negative Specific [place] - Urine 1.015 1.005-1.025 Urine Protein Negative Neg-Trace mg/dL Urine Ketones Negative Negative mg/dL Nitrite Urine Negative Negative Leukocyte Esterase Urine Negative Negative RBC Urine 0-2 0-2 /HPF WBC Urine 0-5 0-5 /HPF Squamous Epithelial Cell Urine 0-2 0-2 /HPF Bacteria Urine None Seen None Seen Hyaline Casts Urine 0-2 0-2 /LPF Urinalysis and Microscopic Reviewed date:03/28/2024 12:42:24 PM Interpretation: Performing Lab:[facility], [address] [place] [phone] Notes/Report: Color Urine Yellow Appearance Urine Clear PH 5.5 5.0-9.0 Glucose Urine UA Negative Negative mg/dL Urine Blood Small (1+) Negative Specific [place] - Urine 1.020 1.005-1.025 Urine Protein 30 (1+) Neg-Trace mg/dL Urine Ketones Trace Negative mg/dL Nitrite Urine Negative Negative Leukocyte Esterase Urine Small (1+) Negative RBC Urine 3-5 0-2 /HPF WBC Urine 6-10 0-5 /HPF Squamous Epithelial Cell Urine 3-5 0-2 /HPF Bacteria Urine Trace None Seen Hyaline Casts Urine 0-2 0-2 /LPF Urine Culture Reviewed date:03/27/2024 01:41:26 PM Interpretation: Performing Lab:[facility], [address] [place] [phone] Notes/Report: Urine Culture Report Result Urine Culture < 10,000 cfu/ml Complete Blood Count Auto Di ff Reviewed date:03/12/2024 06:10:10 PM Interpretation: Performing Lab:[facility], [address] [place] [phone] Notes/Report: White Blood Count 12.2 4.8-10.8 X10*3/uL Red Blood Count 5.37 4.60-5.80 X10*6/uL Hemoglobin 15.3 14.0-18.0 g/dl Hematocrit 44.8 42.0-52.0 % Mean Corpuscular Volume 83.4 80.0-98.0 fL Mean Corpuscular Hemoglobin 28.5 27.0-33.0 pg Mean Corpuscular HGB Conc 34.2 31.0-36.0 g/dl Red Cell Distribution Width 14.1 11.0-16.0 % Platelet Count 164 160-400 X10*3/uL Mean Platelet Volume 10.2 9.4-12.4 fL Neutrophils Percent Auto 83.5 45-73 % Imm Gran Pct Auto 0.6 0.0-0.4 % Lymphocytes Percent Auto 4.7 20-40 % Monocytes Percent Auto 11.0 2-11 % Eosinophils Percent Auto 0.0 0-4 % Basophils Percent Auto 0.2 0-2 % NRBC Pct Auto 0.0 0.0-0.2 /100WBC Neutrophils Absolute Auto 10.2 2.0-8. 3 x10*3/uL Imm Gran Abs Auto 0.07 0.00-0.03 X10*3/uL Lymphocytes Absolute Auto 0.6 1.2-4. 9 X10*3/uL Monocytes Absolute Auto 1.3 0.1-1.2 X10*3/uL Eosinophils Absolute Auto 0.0 0.0-0. 4 X10*3/uL Basophils Absolute Auto 0.0 0.0-0.2 X10*3/uL NRBC Abs Auto 0.000 0.0-0.012 X10*3/uL Comprehensive Met. Panel Reviewed date:03/12/2024 06:09:50 PM Interpretation: Performing Lab:[facility], [address] [place] [phone] Notes/Report: Sodium 134 135-145 mmol/L Potassium 3.6 3.3-5.1 mmol/L Chloride 101 96-108 mmol/L Carbon Dioxide 23 22-29 mmol/L Anion Gap 14 12-20 Blood Urea Nitrogen 16 9-16 mg/dL Creatinine 1.46 0.5-1.4 mg/dL Creatinine Clr Calc Pharmacy 49.6 eGFR (calculated from the MDRD study equation) and eCrCl (calculated from the Cockcroft-Gault equation) are based on different parameters and may not yield comparable results. If eCrCl result is absurd, please check patient's height/weight. Estimated Glomerular Filt Rate 47 NOTE: For -[place]ol[place] individuals, multiply the result by 1.210. Chronic Kidney Disease: Estimated GFR < 60 mL/min/1.73m2 Severe Kidney Disease: Estimated GFR < 15 mL/min/1.73m2 Glucose Random 125 60-115 mg/dL Calcium 9.2 8.4-10.2 mg/dL Bilirubin Total 1.4 0.0-1.0 mg/dL Aspartate Amino Transferase 13 5-37 U/L Alanine Aminotransferase 10 0-40 U/L Total Protein 6.5 6.5-8.0 g/dL Albumin Level 3.6 3.5-5.0 g/dL Alkaline Phosphatase 70 39-117 U/L Lactic Acid Reviewed date:03/12/2024 06:03:11 PM Interpretation: Performing Lab:[address] [phone] Notes/Report: Lactic Acid 1.6 0.5-2.0 mmol/L Urine Culture Reviewed date:03/12/2024 06:06:29 PM Interpretation: Performing Lab:[address] [phone] Notes/Report: Urine Culture No growth. SARS-CoV2/FLU/RSV Reviewed date:03/12/2024 06:00:19 PM Interpretation: Performing Lab:[address] [phone] Notes/Report: Influenza A PCR NEGATIVE Negative Influenza B PCR NEGATIVE Negative Resp Syncy Virus RNA Qual PCR NEGATIVE Negative SARS COV2 PCR INHOUSE NEGATIVE Negative All test results must be correlated with clinical findings. Negative results do not preclude SARS-CoV2, influenza A virus, influenza B virus and/or RSV infection and should not be used as the sole basis for treatment or other patient management decisions. Negative results must be combined with clinical observations, patient history, and epidemiological information. This test has not been evaluated for monitoring treatment of infection. This test has been authorized by the FDA under an Emergency Use Authorization (EUA) for use by authorized laboratories. Testing performed on the [employer] GeneXpert utilizing real-time RT-PCR. All SARS CoV2 and positive influenza A/B results are reported to [facility]. Blood Culture (First) Reviewed date:03/16/2024 01:02:43 PM Interpretation: Performing Lab:[address] [phone] Notes/Report: Blood Culture (First) No growth after 5 days. Blood Culture (Second) Reviewed date:03/16/2024 01:02:49 PM Interpretation: Performing Lab:[facility], [address] [place] [phone] Notes/Report: Blood Culture (Second) No growth after 5 days. UA ClnCatch+Micro w/rflx Cul t Reviewed date:03/14/2024 04:20:15 PM Interpretation: Performing Lab:[address] [phone] Notes/Report: [id number] Urine, Clean Catch Color Urine Dark Yellow Appearance Urine Hazy PH 5.5 5.0-9.0 Glucose Urine UA Negative Negative mg/dL Urine Blood Large (3+) Negative Specific [place] - Urine 1.025 1.005-1.025 Urine Protein 100 (2+) Neg-Trace mg/dL Urine Ketones Negative Negative mg/dL Nitrite Urine Negative Negative Leukocyte Esterase Urine Moderate (2+) Negative RBC Urine >20 0-2 /HPF WBC Urine >50 0-5 /HPF Squamous Epithelial Cell Urine 6-10 0-2 /HPF Bacteria Urine None Seen None Seen Hyaline Casts Urine 0-2 0-2 /LPF CT abdomen pelvis wo con Reviewed date:03/13/2024 07:06:36 AM Interpretation: Performing Lab: Notes/Report: [address] [address] [address] Scan Report Signed Patient: Cordell Cox MR#: [id number] : 1950 Acct:[id number] Age/Sex: 73 / M ADM Date: 03/11/24 Loc: .ED Attending Dr: Ordering Physician: Nia Waddell CNP Date of Service: 03/11/24 Procedure(s): CT abdomen pelvis wo IV con Accession Number(s): [id number] cc: Nia Waddell CNP; Christopher Batres MD EXAMINATION: CT ABDOMEN AND PELVIS WITHOUT CONTRAST CLINICAL INFORMATION: Left flank pain, recent stent, hematuria. COMPARISON: CT abdomen/pelvis 01/23/2023. TECHNIQUE: Multidetector volumetric imaging was performed from the superior aspect of the liver through the pubic symphysis. Sagittal and coronal reformatted images were obtained on the technologist's workstation. This CT examination was performed using dose optimization techniques as appropriate, variously including the following: *Automated exposure control *Adjustment of mA and/or kV according to patient size (this includes techniques or standardized protocols for targeted exams where dose is matched to indication/reason for exam; i.e. extremities or head) *Use of iterative reconstruction technique DLP: 603 mGy-cm FINDINGS: The lack of intravenous contrast limits evaluation of the solid visceral organs including the liver, spleen, pancreas, and kidneys. LUNG BASES: Left greater than right subsegmental atelectasis. New small left pleural effusion. Partially seen cardiomegaly with a small amount of pericardial fluid. LIVER, GALLBLADDER, AND BILIARY TREE: The liver is normal in size, shape, and attenuation. No focal hepatic lesion or biliary ductal dilatation is present. The gallbladder is unremarkable with no evidence of radiopaque gallstones, gallbladder wall thickening, or obvious pericholecystic inflammatory changes. PANCREAS: Unremarkable. SPLEEN: Unremarkable. ADRENAL GLANDS: Unremarkable. KIDNEYS AND URETERS: Left-sided ureteric stent projecting from calices in the upper pole to the lumen of the urinary bladder with persistent mild hydroureteronephrosis and increased fat stranding and free fluid around the collecting system, ureter, perinephric space and retroperitoneum. Stable 0.5 cm calculus in the distal left ureter posterior to the stent at approximately 1.8 cm from the ureterovesical junction (3:72). Stable nonobstructing calculi in the left kidney measuring 0.7 cm and 0.3 cm in the upper pole (3:31) and 0.4 cm in the lower pole (3:40). Unchanged nonobstructive calculus in the lower right kidney measuring 0.8 cm. Redemonstration of benign-appearing simple fluid attenuating cyst in the upper left kidney, for which no imaging follow-up is recommended and homogeneously hyperdense observation in the posterior cortex of the upper right kidney measuring 1 cm and 41 Hounsfield units (3:30), possibly representing a hemorrhagic/proteinaceous cyst. BLADDER: Unremarkable. GASTROINTESTINAL TRACT: Again seen large hiatal hernia with intrathoracic stomach as well as intrathoracic loops of small bowel, redemonstration of organoaxial rotation of the stomach. The stomach and the small bowel are nondilated. Normal appendix. Colonic diverticulosis without significant pericolonic inflammatory changes. ABDOMINAL WALL: Decreased fat stranding in the left inguinal canal compared to recent prior. No significant abdominal wall hernia. LYMPH NODES: No lymphadenopathy. VASCULAR: Atherosclerotic disease. Normal caliber of the abdominal aorta. PELVIC VISCERA: Enlarged prostate protruding into the bladder base. OSSEOUS STRUCTURES: Degenerative changes of the spine. No acute or aggressive appearing osseous findings. CT/CT abdomen pelvis wo IV con IMPRESSION: 1. Left-sided ureteric stent with persistent mild hydroureteronephrosis and increased fat stranding and free fluid around the collecting system, ureter, perinephric space and retroperitoneum; the stent is located within calyces of the upper pole of the kidney, recommend clinical correlation and if indicated repositioning. Also recommend correlation with superimposed infection. A 0.5 cm calculus in the distal left ureter is unchanged. Additional nonobstructing bilateral renal calculi are stable. 2. Large hiatal hernia with intrathoracic stomach and intrathoracic loops of small bowel. 3. Colonic diverticulosis but no evidence of acute diverticulitis. 4. Enlarged prostate. 5. Small hyperdense focus in the right kidney could represent a proteinaceous/hemorrhagic cyst, recommend attention on follow-up in future examinations. 6. Decreased inflammatory changes in the left inguinal region. 7. New small left pleural effusion. 8. Partially seen cardiomegaly with a small amount of pericardial fluid. Dictated By: Tish Reveles Signed By: <Electronically signed by Tish Reveles in [place]> 03/11/24 1005 DD/ 9572 TD/TT: Respiratory Therapist: [address] [address] [address] Scan Report Signed Patient: Jaquan Cox MR#: [id number] : 1950 Acct:[id number] Age/Sex: 73 / M ADM Date: 03/11/24 Loc: HO.ED Attending Dr: Ordering Physician: Nia Waddell CNP Date of Service: 03/11/24 Procedure(s): CT abd omen pelvis wo IV con Accession Number(s): [id number] cc: Nia Waddell CNP; Christopher Batres MD EXAMINATION: CT ABDOMEN AND PELVI S WITHOUT CONTRAST CLINICAL INFORMATION: Left flank pain, rec ent stent, hematuria. COMPARISON: CT abdomen/pelvis 01/23/2023. TECHNIQUE: Multidetector volume tric imaging was performed from the superior aspect of the liver through the pubic symphysis. Sagittal and coronal reformatted images w ere obtained on the technologist's workstation. This CT examination was performed using dose optimization techniques as appropriate, various ly including the following: *Automated exposure control *Adjustment of mA an d/or kV according to patient size (this includes techniques or standa rdized protocols for targeted exams where dose is matched to indication/reason for exam; i.e. extremities or head) *Use of iterative reconstruction technique DLP: 603 mGy-cm FINDINGS: The lack of intraven ous contrast limits evaluation of the solid visceral organs incl uding the liver, spleen, pancreas, and kidneys. LUNG BASES: Left gre ater than right subsegmental atelectasis. New small left pleural effusio n. Partially seen cardiomegaly with a small amount of pericardial fluid. LIVER, GALLBLADDER, AND BILIARY TREE: The liver is normal in size, shape, and attenuati on. No focal hepatic lesion or biliary ductal dilatation is presen t. The gallbladder is unremarkable with no evidence of radiopaque gallst ones, gallbladder wall thickening, or obvious pericholecystic inflammatory changes. PANCREAS: Unremarkable. SPLEEN: Unremarkable. ADRENAL GLANDS: Unremarkable. KIDNEYS AND URETERS: Left-sided ureteric stent projecting from calices in the upper pole to the lumen of the urinary bladder with persistent mild hydroureteronep hrosis and increased fat stranding and free fluid around the collectin g system, ureter, perinephric space and retroperitoneum. Sta ble 0.5 cm calculus in the distal left ureter posterior to the norris nt at approximately 1.8 cm from the ureterovesical junction (3:72). Sta ble nonobstructing calculi in the left kidney measuring 0.7 cm and 0.3 cm in the upper pole (3:31) and 0.4 cm in the lower pole (3:40). Unchanged nonobstructive calculus in the lower right kidney measuring 0.8 cm. Redemonstration of benign-appearing simple fluid attenuating cyst in the upper left kidne y, for which no imaging follow-up is recommended and homogeneously hyperdense observation in the posterior cortex of the upper right kidney measuring 1 cm and 41 Hounsfield units (3:30), possibly representin g a hemorrhagic/proteinaceous cyst. BLADDER: Unremarkable. GASTROINTESTINAL TRA CT: Again seen large hiatal hernia with intrathoracic stomac h as well as intrathoracic loops of small bowel, redemonstration of organoaxial rotation of the stomach. The stomach and the small bowel are nondilated. Normal appendix. Colonic diverticulosis without significant pericolonic inflammatory changes. ABDOMINAL WALL: Decr eased fat stranding in the left inguinal canal compared to recent p rior. No significant abdominal wall hernia. LYMPH NODES: No lymphadenopathy. VASCULAR: Atheroscle rotic disease. Normal caliber of the abdominal aorta. PELVIC VISCERA: Enla rged prostate protruding into the bladder base. OSSEOUS STRUCTURES: Degenerative changes of the spine. No acute or aggressive appearing osseous findings. C T/CT abdomen pelvis wo IV con IMPRESSION: 1. Left-sided ureter ic stent with persistent mild hydroureteronephrosi s and increased fat stranding and free fluid around the collecting syste m, ureter, perinephric space and retroperitoneum; the stent is located within calyces of the upper pole of the kidney, recommend clinical correlation and if indicated repositioning. Also recommend correlatio n with superimposed infection. A 0.5 cm calculus in the distal left uret er is unchanged. Additional nonobstructing bilateral renal calc amira are stable. 2. Large hiatal shakira ia with intrathoracic stomach and intrathoracic loops of small bowel. 3. Colonic diverticu losis but no evidence of acute diverticulitis. 4. Enlarged prostate. 5. Small hyperdense focus in the right kidney could represent a proteinaceous/hemorr hagic cyst, recommend attention on follow-up in future examinations. 6. Decreased inflamm atory changes in the left inguinal region. 7. New small left pl eural effusion. 8. Partially seen cardiomegaly with a small amount of pericardial fluid. Dictated By: Tish Reveles Signed By: <Jatinder fernandez signed by Tish Reveles in [place]> 03/11/24 1005 DD/ 0847 TD/TT: Respiratory Therapist: Complete Blood Count Auto Di ff Reviewed date:03/12/2024 06:10:48 PM Interpretation: Performing Lab:[facility], [address] [place] [phone] Notes/Report: White Blood Count 6.3 4.8-10.8 X10*3/uL Red Blood Count 4.57 4.60-5.80 X10*6/uL Hemoglobin 13.0 14.0-18.0 g/dl Hematocrit 37.9 42.0-52.0 % Mean Corpuscular Volume 82.9 80.0-98.0 fL Mean Corpuscular Hemoglobin 28.4 27.0-33.0 pg Mean Corpuscular HGB Conc 34.3 31.0-36.0 g/dl Red Cell Distribution Width 14.2 11.0-16.0 % Platelet Count 150 160-400 X10*3/uL Mean Platelet Volume 10.5 9.4-12.4 fL Neutrophils Percent Auto 79.2 45-73 % Imm Gran Pct Auto 0.6 0.0-0.4 % Lymphocytes Percent Auto 7.3 20-40 % Monocytes Percent Auto 12.0 2-11 % Eosinophils Percent Auto 0.6 0-4 % Basophils Percent Auto 0.3 0-2 % NRBC Pct Auto 0.0 0.0-0.2 /100WBC Neutrophils Absolute Auto 5.0 2.0-8. 3 x10*3/uL Imm Gran Abs Auto 0.04 0.00-0.03 X10*3/uL Lymphocytes Absolute Auto 0.5 1.2-4. 9 X10*3/uL Monocytes Absolute Auto 0.8 0.1-1.2 X10*3/uL Eosinophils Absolute Auto 0.0 0.0-0. 4 X10*3/uL Basophils Absolute Auto 0.0 0.0-0.2 X10*3/uL NRBC Abs Auto 0.000 0.0-0.012 X10*3/uL Basic Metabolic Panel Reviewed date:03/12/2024 06:08:55 PM Interpretation: Performing Lab:[facility], [address] [place] [phone] Notes/Report: Sodium 135 135-145 mmol/L Potassium 3.7 3.3-5.1 mmol/L Chloride 108 96-108 mmol/L Carbon Dioxide 18 22-29 mmol/L Anion Gap 13 12-20 Blood Urea Nitrogen 15 9-16 mg/dL Creatinine 1.09 0.5-1.4 mg/dL Creatinine Clr Calc Pharmacy 69.5 eGFR (calculated from the MDRD study equation) and eCrCl (calculated from the Cockcroft-Gault equation) are based on different parameters and may not yield comparable results. If eCrCl result is absurd, please check patient's height/weight. Estimated Glomerular Filt Rate > 60 NOTE: For -[place] individuals, multiply the result by 1.210. Chronic Kidney Disease: Estimated GFR < 60 mL/min/1.73m2 Severe Kidney Disease: Estimated GFR < 15 mL/min/1.73m2 Glucose Random 105 60-115 mg/dL Calcium 7.9 8.4-10.2 mg/dL Test was veri fied by repeat analysis. CDiff Gene PCR Reviewed date:03/12/2024 06:05:54 PM Interpretation: Performing Lab:[facility], [address] [place] [phone] Notes/Report: CDiff Gene PCR NEGATIVE Negative If C. difficile strongly suspected despite one negative test, a second test may be sent vs. empiric treatment for C. difficile infection. GI Panel Reviewed date:03/13/2024 12:42:36 PM Interpretation: Performing Lab:[facility], [address] [place] [phone] Notes/Report: Campylobacter Not Detected Not Detect. Plesiomonas shigelloides Not Detected Not Detect. Salmonella Not Detected Not Detect. Vibrio Not Detected Not Detect. Vibrio Cholerae Not Detected Not Detect. Yersinia enterocolitica Not Detected Not Detect. E. coli EAEC Not Detected Not Detect. E. coli EPEC Not Detected Not Detect. E. coli ETEC Not Detected Not Detect. E. coli STEC Not Detected Not Detect. E. coli O157 Not applicable Not Detect. E. coli containing the O157 antigen are a subset of Shiga-like toxin-producing E. coli (STEC). Shigella sp./EIEC Not Detected Not Detect. Cryptosporidium Not Detected Not Detect. Cyclospora cayetanensis Not Detected Not Detect. Entamoeba histolytica Not Detected Not Detect. Giardia lamblia Not Detected Not Detect. Adenovirus F 40/41 Not Detected Not Detect. Astrovirus Not Detected Not Detect. Norovirus GI/GII Not Detected Not Detect. Rotavirus A Not Detected Not Detect. Sapovirus Not Detected Not Detect. All results must be correlated with clinical findings. Negative results do not exclude the possibility of gastrointestinal infection and should not be used as the sole basis for diagnosis, treatment, or other management decisions. Virus, bacteria, and parasite nucleic acid may persist in vivo independently of organism viability. Additionally, some organisms may be carried symptomatically. Detection of organism targets does not imply that the corresponding organisms are infectious or are the causative agents for clinical symptoms. There is a risk of false negative values due to the presence of sequence variants in the gene targets of the assay, amplification inhibitors in specimens, or inadequate numbers of organisms for amplification. The identification of several diarrheagenic E. coli pathotypes has historically relied upon phenotypic characteristics. This panel targets genetic determinants characteristic of most pathogenic strains, but may not detect all strains having phenotypic characteristics of a pathotype. The performance of this test has not been established for monitoring treatment of infection with any of the panel organisms. This assay is performed by Multiplexed PCR, utilizing the Satiety Array. US renal BI Reviewed date:05/08/2024 08:03:22 AM Interpretation: Performing Lab: Notes/Report: [place] [id number] Ultrasound Report Signed Patient: Cordell Cox MR#: [id number] : 1950 Acct:[id number] Age/Sex: 73 / M ADM Date: 04/11/24 Loc: HO.US Attending Dr: Christopher Batres MD Ordering Physician: Christopher Batres MD Date of Service: 04/11/24 Procedure(s): US renal BI Accession Number(s): [id number] cc: Christopher Batres MD EXAMINATION: US RETROPERITONEAL LIMITED (RENAL ONLY) CLINICAL INFORMATION: Renal cyst. COMPARISON: CT abdomen and pelvis 03/11/2024. X-ray abdomen 04/23/2016. TECHNIQUE: Real-time imaging of the kidneys. FINDINGS: RIGHT KIDNEY: 11.0 x 6.1 x 5.4 cm (SAG x AP x TRV). The kidney is normal in size, contour, and echogenicity. Renal cortical thickness is normal. There is a 5 mm lower pole echogenic focus seen consistent with a nonobstructing calculus. No focal parenchymal lesions or hydronephrosis. LEFT KIDNEY: 10.4 x 5.2 x 4.5 cm (SAG x AP x TRV). The kidney is normal in size, contour, and echogenicity. Renal cortical thickness is normal. No hydronephrosis. A benign 3.0 cm septated Bosniak class II renal cyst is noted which requires no additional imaging or followup. This was also confirmed with the prior CT scan. No solid renal masses are seen. 4 echogenic foci are noted in the left kidney with twinkle artifact consistent with nonobstructing calculi, the largest measuring 8 mm. US/US renal BI IMPRESSION: 1. Bilateral nonobstructing renal calculi. 2. Benign Bosniak class II left renal cyst which requires no additional imaging or followup. Dictated By: Jarrod Gómez MD Signed By: <Electronically signed by Jarrod Gómez MD in OV> 05/03/24 1438 DD/ 1140 TD/TT: Respiratory Therapist: [place] [id number] Ultrasound Report Signed Patient: Jaquan Cox MR#: [id number] : 1950 Acct:[id number] Age/Sex: 73 / M ADM Date: 04/11/24 Loc: HO.US Attending Dr: Christopher Batres MD Ordering Physician: Christopher Batres MD Date of Service: 04/11/24 Procedure(s): US renal BI Accession Number(s): [id number] cc: Christopher Batres MD EXAMINATION: US RETROPERITONEAL L IMITED (RENAL ONLY) CLINICAL INFORMATION: Renal cyst. COMPARISON: CT abdomen and pelvi s 03/11/2024. X-ray abdomen 04/23/2016. TECHNIQUE: Real-time imaging of the kidneys. FINDINGS: RIGHT KIDNEY: 11.0 x 6.1 x 5.4 cm (SAG x AP x TRV). The kidney is normal in size, cont our, and echogenicity. Renal cortical thickness is normal. There is a 5 mm lower pole echogenic focus seen consistent with a nonobstructing daksha culus. No focal parenchymal lesions or hydronephrosis. LEFT KIDNEY: 10.4 x 5.2 x 4.5 cm (SAG x AP x TRV). The kidney is normal in size, contour, an d echogenicity. Renal cortical thickness is normal. No hydronephrosis. A benign 3.0 cm septated Bosniak class II renal cyst is noted which requires no additional imaging or followup. This was also confirmed w ith the prior CT scan. No solid renal masses are seen. 4 echogenic fo ci are noted in the left kidney with twinkle artifact consistent with nonobstructing calculi, the largest measuring 8 mm. U S/US renal BI IMPRESSION: 1. Bilateral nonobstructing renal calculi. 2. Benign Bosniak cl ass II left renal cyst which requires no additional imaging or followup. Dictated By: Jarrod Gómez MD Signed By: <[facility] signed by Jarrod Gómez MD in OV> 05/03/24 1438 DD/ 1140 TD/TT: Life Teacher ist: QUIRINO Verde Reviewed date:2024 12:55:58 PM Interpretation: Performing Lab:[facility], [address] [place] [id number] Notes/Report: Gagan Verde See Note Specimen held untested for 24 hours; Call to request Chemistry testing. Reason For Referral No Information Medications Medication SIG (Take, Route, Frequency, Duration) Notes Start Date End Date Status Finasteride 5 MG 1 tablet Orally Once a day for 30 day(s) Active Valtrex 500 MG 1 tablet Orally twic e a day for 3 days 12/08/2022 Not-Taking Doxycycline Hyclate 100 MG 1 capsule Orally Twice a day for 5 days 12/04/2022 Not-Taking Eliquis 5 MG 1 tablet Orally Twic e a day Active Triamcinolone Acetonide 0.1 % 1 application Externally Twice a day for 14 days 12/04/2021 Active Viagra 50 MG 1 tablet as needed Orally Once a day for 30 DAYS 06/30/2012 Not-Taking Levothyroxine Sodium 150 MCG TAKE ONE TABLET BY MOUTH ONCE DAILY for 90 Active Cephalexin 500 MG 1 capsule Orally william ry 8 hrs for 7 days 03/24/2024 Active Metoprolol Succinate ER 25 MG TAKE 1 TABLET BY MOUTH DAILY Active Omeprazole 20 MG TAKE 1 TO 2 CAPSULES BY MOUTH ONCE DAILY for 90 Active Atorvastatin Calcium 80 MG TAKE ONE TABLET BY MOUTH EVERY DAY for 90 Active Tamsulosin HCl 0.4 MG TAKE ONE CAPSULE B Y MOUTH TWICE A DAY for 90 Active Immunizations Vaccine Route Administration Date Status Comme nts DECLINED, FLU Unknown 01/02/2013 Administered DECLINED, FLU Unknown 07/13/2013 Administered Flu Vaccine IM Intramuscular 09/14/2014 Administered Fluarix Quadrivalent IM Intramuscular 08/26/2015 Administe red PPSV23 (Pnemovax) IM Intramuscular 09/05/2015 Administered Fluarix Quadrivalent IM Intramuscular 08/06/2016 Administe red Prevnar 13 IM Intramuscular 03/25/2017 Administered Fluarix Quadrivalent IM Intramuscular 09/21[facility] Quad[facility] IM Intr[facility] 10/17/2018 [facility] Flu[facility]ix Quadrivalent IM Intramuscular 10/31/2019 [facility] SARS-COV-2 Pfizer Unknown 11/26/2020 Administered SARS-COV-2 Pfizer Unknown 12/17/2020 Administered SARS-COV-2 Pfizer Unknown 10/22/2021 Administered Fluarix Quadrivalent Unknown 10/22/2021 Administered Influenza High Dose IM Intramuscular 07/10/2024 Administer ed Social History Tobacco Use: Social History Observation Description Date Details (start date - stop date) Never Smoker NA - NA Tobacco Use/Smoking Question Answer Notes Patient is a nonsmoker Additional Findings: Tobacco Non-User Cu rrent non-smoker, currently using no form of tobacco Alcohol Screen Question Answer Notes Did you have a drink containing alcohol in the p ast year? No Points 0 Interpretation Negative Problems Problem Type SNOMED Code ICD Code Onset Dates Problem Status W/U Status Risk Notes Problem 158462339 Paroxysmal atria l fibrillation (I48.0) Active confirmed Problem Hypothyroidism (14055083) Hypothyroidism, unspecified (E03.9) Active confirmed Problem Obesity (111669569) Obesity, unspecified (E66.9) Active confirmed Problem 918651823 Gastroesophageal reflux disease without esophagitis (K21.9) Active confirmed Problem 01367501 Essential hypert ension (I10) Active confirmed Problem 257429924 Acquired hypothyroidism (E03.9) Active confirmed Problem 1438932 Prediabetes (R73.09) Active confirmed Problem 630974082 Low HDL (under 4 0) (E78.6) Active confirmed Problem 708171967 Lung nodule (R91.1) Active confirmed Problem 86115024 Thoracic aortic aneurysm without rupture (I71.2) Active confirmed Problem 205144180 History of MT (myocardial infarction) (I25.2) Active confirmed Problem 33788784 Dysthymia (F34.1) Active confirmed Problem 04142251 Sleep apnea, unspecified type (G47.30) Active confirmed Problem 0629909 Paraesophageal h iatal hernia (K44.9) Active confirmed Problem 759827720 Pure hypercholesterolemia (E78.00) Active confirmed Problem 363247814 Neurogenic bladd er (N31.9) Active confirmed Vital Signs Blood pressure diastolic 70 mm Hg 08/11/2024 Height 67.25 in 08/11/2024 Blood pressure systolic 110 mm Hg 08/11/2024 Weight 197 lbs 03/24/2024 weight is down 11 pounds since 02-24-24 BMI 30.62 kg/m2 03/24/2024 weight is down 11 pounds since 02-24-24 Encounters Encounter Location Date Provider Diagnosis Christopher Batres MD [address] [place] [address] [id number] 04/24/2024 Christopher Batres Hematuria, unspecifi ed type R31.9 Chritsopher Batres MD [address] [place] [address] [id number] 07/10/2024 Christopher Batres Encounter for immuni zation Z23 Christopher Batres MD [address] [place] [address] [id number] 2024 Christopher Batres Pure hypercholestero lemia E78.00 Christopher Batres MD [address] [place] [address] [id number] 02/20/2025 Christopher Batres Blood tests for rout ine general physical examination Z00.00 ; Acquired hypothyroidism E03.9 ; Prediabetes R73.09 ; Pure hypercholesterolemia E78.00 and Essential hypertension I10 Christopher Batres MD [address] [place] [address] [id number] 02/24/2024 Christopher Batres Neurogenic bladder N 31.9 ; Annual physical exam Z00.00 ; Acquired hypothyroidism E03.9 ; Prediabetes R73.09 ; Pure hypercholesterolemia E78.00 ; Paroxysmal atrial fibrillation I48.0 ; Gastroesophageal reflux disease without esophagitis K21.9 ; Colon cancer screening Z12.11 and Depression screening Z13.31 Christopher Batres MD [address] [place] [address] [id number] 03/24/2024 Christopher Batres Essential hypertensi on I10 and Acute UTI N39.0 Christopher Batres MD [address] [place] [address] [id number] 08/11/2024 Christopher Batres Acquired hypothyroid ism E03.9 and Symptomatic hypotension I95.9 Christopher Batres MD [address] [place] [address] [id number] 03/13/2024 Christopher Batres Left flank pain R10. 9 Christopher Batres MD [address] [place] [address] [id number] 03/14/2024 Christopher Batres MD [address] [place] [address] [id number] 03/17/2024 Christopher Batres MD [address] [place] [address] [id number] 03/31/2024 Christopher Batres Renal cyst N28.1 Assessments Encounter Date Diagnosis (ICD Code) Assessment Notes Treatment Notes Treatment Clinical Notes Section Notes 04/24/2024 Hematuria, unspecifi ed type (ICD-10 - R31.9) 07/10/2024 Encounter for immunization (ICD-10 - Z23) 2024 Pure hypercholesterolemia (ICD-10 - E78.00) 02/20/[address] ine general physical examination (ICD-10 - Z00.00) 02/24/2024 Neurogenic bladder (ICD-10 - N31.9) is being followed by urology 02/24/2024 Annual physical exam (ICD-10 - Z00.00) labs reviewed and discussed with patient 03/24/2024 Essential hypertensi on (ICD-10 - I10) doing well on meds. will continue current regiment 03/24/2024 Acute UTI (ICD-10 - N39.0) will give ab to have on hand incase he starts to get uti and can take it vefore getting too sick, patient verbalized understanding of medication and directions for use 08/11/2024 Acquired hypothyroid ism (ICD-10 - E03.9) tsh was good 08/11/2024 Symptomatic hypotens ion (ICD-10 - I95.9) seems the weak spells were related to the bp, patient verbalized understanding to stop medication, will monitor BP 03/31/2024 Renal cyst (ICD-10 - N28.1) 02/20/2025 Acquired hypothyroid ism (ICD-10 - E03.9) 02/24/2024 Acquired hypothyroid ism (ICD-10 - E03.9) good tsh, will continue current regiment 03/13/2024 Left flank pain (ICD -10 - R10.9) order made and printed and put into the future order folder for beginning of April 2024 02/20/2025 Prediabetes (ICD-10 - R73.09) 02/24/2024 Prediabetes (ICD-10 - R73.09) good aic, no need formedication at this time 02/20/2025 Pure hypercholesterolemia (ICD-10 - E78.00) 02/24/2024 Pure hypercholesterolemia (ICD-10 - E78.00) well controlled, will continue current regiment 02/20/2025 Essential hypertensi on (ICD-10 - I10) 02/24/2024 Paroxysmal atrial fibrillation (ICD-10 - I48.0) stable, will continue current regiment 02/24/2024 Gastroesophageal ref lux disease without esophagitis (ICD-10 - K21.9) stable, will continue current regiment 02/24/2024 Colon cancer screeni ng (ICD-10 - Z12.11) guaiac negative 02/24/2024 Depression screening (ICD-10 - Z13.31) negative screen Plan Of Treatment Pending Test Test Name Order Date Electrocardiogram (EKG) 10/28/2018 Electrocardiogram (EKG) 11/16/2019 Electrocardiogram (EKG) 03/19/2016 Electrocardiogram (EKG) 03/25/2017 PROTHROMBIN TIME-INR 10/12/2013 XR CHEST 2 VIEW PA & LAT 01/28/2023 Complete Blood Count Auto Diff 5 Comprehensive Lamar. Panel Fast 5 Lipid Panel 02/20/2025 TSH reflex Free T4 02/20/2025 Microalbumin, Random 02/20/2025 US abdomen limited 03/13/2024 US renal BI 03/31/2024 UA ClnCatch+Micro w/rflx Cult 02/20/2025 Next Appt Details Provider Name:Christopher Zimmer Frankpal ier, 02/26/2025 08:30:00 AM, [address], [address], [place], [place], [phone], Insurance Providers Payer Name Payer Address Payer Phone Subscriber Number Group Number Insured Name Patient Relationship to Insured Coverage Start Date Coverage End Date [employer] [address] [place], [place] [id number] Cordell Cox Self - patient is the insured Medical (General) History Medical History History ICD Code hypothyroid ablation of pulmonary artery a fib reflux with schadirkki sleep apnea depression cva after ablation colonoscopy 12/2010 due in 10 years colon oscopy done 06/22 no further Cystoscopy 04/[address] Aguilera had mi with normal coronariew. possible embolic lung nodule evaluated and no need for fu rther evaluation Surgical History Surgery Date(Month/Year) Cystoscopy 04/2016
--- OUTSIDE RECORDS SUMMARY | 2025-02-20 12:39 | XMS_ITS | Clinical Summary ---
Author Organization [facility] Address [address] [place] [address] Care Team Providers Care Building Contractor Name Role Phone Unavailable Primary Care Provider Unavailabl e Social History Tobacco Use Types Packs/Day Years Used Date Smoking Tobacco: Never Assessed Sex and Gender Information Value Date Recorded Sex Assigned at Not on file Legal Sex Male 6:45 PM EDT Gender Identity Not on file Sexual Orientation Not on file Plan of Treatment Health Maintenance Due Date Last Done Comments Hepatitis C Virus Screening 1950 DTaP/Tdap/Td Vaccines (1 - Tdap) 1970 Pneumococcal Vaccines 50+ (1 of 1 - PCV) 2001 Zoster (Shingles) Vaccine (1 of 2) 2001 COVID-19 Vaccine ( - 2023-2 5 season) 2024 RSV Vaccine 60 years and old er and Patients (1 - 1-dose 75+ series) 2026 Hepatitis B Vaccines Aged Out No long er eligible based on patient's age to complete this topic
--- OUTSIDE RECORDS SUMMARY | 2025-02-20 12:39 | XMS_ITS ---
Author Organization Christopher Batres MD Address [address] [place] [id number] Care Team Providers Care Pierogi Maker Name Role Phone Christopher Batres Primary Care [...] Location Date Provider Diagnosis Christopher Batres MD [address] [place] [address] [place] [id number] 08/11/2024 Christopher Batres Acquired hypothyroidism E03.9 and [...] monitor BP Next Appt Details Provider Name:Christopher Johnson ier, 02/26/2025 08:30:00 AM, [address] [place] [address], Suite [facility], [place], [place], [phone], Progress Notes * Cordell COX IIIDOB: (74 yo M)Acc No.[id number]:08/11/2024 Progress Notes Patient:?Cordell Cox Provider:?Christopher Batres MD :1950???Age:74 Y???Sex:Male Yunior e:08/11/2024 Address:[address] [place] [address] , [place] [address], [facility] Subjective: * Chief Complaints: * ???6 MO F/U * HPI: ???Symptom(s):? patient is a 74 yo male here for 6 month follow up visit, has been doing well. no uti's since he had surgery. at one point he was told that he needed catherter. 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 happens every few months. * ROS:?General/Constitutional:?Denies?Chills.?Denies?Fatigue.?Denies?Fever.?Denies?Headache.?ENT:?Patient denies?decreased sense of smell , any loss of taste , sore throat.?Denies?Sore throat.?Respiratory:?Denies?Cough.?Denies?Shortness of breath at rest.?Denies?Shortness of breath with exertion.?Gastrointestinal:?Denies?Diarrhea.?Denies?Nausea.?Musculoskeletal:?Patient denies?muscle aches.?Peripheral Vascular:?Patient denies?red and blue toes.? * Medical History:? * Surgical History:? * Hospitalization/Major Diagno stic Procedure:? * Medications:?TakingFinasteri de 5 MG Tablet 1 tablet Orally Once [...] reviewed and reconciled with the patient * Allergies:?N.K.D.A.yes[Aller gies Verified] Objective: * Vitals:?Ht: 67.25, BP:110/70 . * Examination: ???General Examination: ?GENERAL APPEARANCE:? alert, well hydrated, in no distress , male.?SKIN:? good turgor.?HEART:? regular rate and rhythm, no murmurs, rubs, gallops.?LUNGS:? no wheezes, rales, rhonchi, good air movement, clear to auscultation bilaterally.? Assessment: * Assessment: 1.?Acquired hypothyroidism - E03.9 (Primary)?2.?Symptomatic hypotension - I95.9? Plan: * Treatment: 2.?Symptomatic hypotension? Stop amLODIPine Besylate Tablet, 2.5 MG, 1 tablet, Orally, Once a day.?? Notes: seems the weak spells were related to the bp, patient verbalized understanding to stop medication, will monitor BP?? * Procedure Codes:? * * Sign off status: Completed true * Provider:?Christopher Batres MD Date:?1 Generated for Edu urbano/Lorena/eTransmitting on:?02/20/2025 12:39 PM EDT History and Physical Notes * HPI (History of Present Illness) Category Sub-Category Detail Notes Category Not es Symptom(s) patient is a 74 yo male here for 6 month follow up visit, has been doing well. no uti's since he had surgery. at one point he was told that he needed catherter. 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
== END 2025-02-20 10:39 | disposition home or self-care (01) ==
LOC: HO.LNP 10:38
PROVIDERS: Visit Provider Internal Medicine
DX: Z00.00 Encounter for general adult medical examination without abnormal findings (principal); E03.9 Hypothyroidism, unspecified; R73.03 Prediabetes; E78.00 Pure hypercholesterolemia, unspecified; I10 Essential (primary) hypertension; Z12.5 Encounter for screening for malignant neoplasm of prostate
CPT/HCPCS: 80053; 80061; 81001; 82043; 82570; 83036; 84153; 84443; 85025

== ENCOUNTER 2025-02-22 08:04 | Outpatient (AMB) | payer MEDICARE, SELFPAY ==
--- OUTSIDE RECORDS SUMMARY | 2025-02-22 08:16 | XMS_ITS | Clinical Summary ---
Author Organization [facility] Address [address] [place] [address] Care Team Providers Care Inspector Raw Quartz Name Role Phone Unavailable Primary Care Provider [...]
--- OUTSIDE RECORDS SUMMARY | 2025-02-22 08:16 | XMS_ITS | Patient Health Record ---
Author Organization Christopher Batres MD Address [address] [place] [address] [phone] Care Team Providers Care Best Second Jobs Name Role Phone Christopher Batres Primary Care Provider Allergies No Known Allergies Results Component Value Reference Range Notes UA ClnCatch+Micro w/rflx Cul t Reviewed date:04/25/2024 04:58:36 PM Interpretation: Performing Lab:[facility], [address] [place] [phone] Notes/Report: Urine, Clean Catch Color Urine Yellow Appearance Urine Clear PH 6.5 5.0-9.0 Glucose Urine UA Negative Negative mg/dL Urine Blood Negative Negative Specific [place] - Urine 1.010 1.005-1.025 Urine Protein Negative Neg-Trace mg/dL Urine Ketones Negative Negative mg/dL Nitrite Urine Negative Negative Leukocyte Esterase Urine Negative Negative RBC Urine 0-2 0-2 /HPF WBC Urine 0-5 0-5 /HPF Squamous Epithelial Cell Urine 0-2 0-2 /HPF Bacteria Urine None Seen None Seen Hyaline Casts Urine 0-2 0-2 /LPF Liver Panel Reviewed date:2024 01:27:14 PM Interpretation: Performing Lab:[facility], [address] [place] [phone] Notes/Report: Bilirubin Total 1.0 0.0-1.0 mg/dL Bilirubin Direct 0.4 0.0-0.5 mg/dL Aspartate Amino Transferase 13 5-37 U/L Alanine Aminotransferase 11 0-40 U/L Total Protein 6.5 6.5-8.0 g/dL Albumin Level 4.0 3.5-5.0 g/dL Alkaline Phosphatase 72 39-117 U/L Lipid Panel with Reflex Reviewed date:2024 01:26:58 PM Interpretation: Performing Lab:[facility], [address] [place] [phone] Notes/Report: Triglycerides 51 <150 mg/dL Desirable Triglyceride: [...] disease. Complete Blood Count Auto Di ff Reviewed date:02/20/2025 06:37:17 PM Interpretation: Performing Lab:[facility], [address] [place] [phone] Notes/Report: White Blood Count 5.7 4.8-10.8 X10*3/uL [...] NRBC Abs Auto 0.000 0.0-0.012 X10*3/uL Comprehensive Moody. Panel Fa st Reviewed date:02/20/2025 06:43:21 PM Interpretation: Performing Lab:[facility], [address] [place] [phone] Notes/Report: Sodium 140 135-145 mmol/L Potassium 4.3 [...] Panel Reviewed date:02/20/2025 06:29:30 PM Interpretation: Performing Lab:[address] [phone] Notes/Report: Triglycerides 71 <150 mg/dL Desirable Triglyceride: [...] (Free>4and<10) Reviewed date:02/20/2025 12:27:16 PM Interpretation: Performing Lab:[address] [phone] Notes/Report: PSA,Total (Free>4and<10) 0.34 0.00-4. 00 ng/mL [...] T4 Reviewed date:02/20/2025 06:25:27 PM Interpretation: Performing Lab:[address] [phone] Notes/Report: TSH reflex Free T4 1.60 0.32-4.0 uIU/mL Microalbumin, Random Reviewed date:02/20/2025 06:31:01 PM Interpretation: Performing Lab:[address] [phone] Notes/Report: Creatinine Urine 146.11 Microalbumin Urine 9.0 Microalbum/Creatinine Ratio Ur 6.1 <30 ug/mg cr Albumin/Creatinine Ratio Reference Ranges: Normal: < 30 ug/mg creatinine Microalbuminuria: 30 - 300 ug/mg creatinine Clinical Albuminuria: > 300 ug/mg creatinine Hemoglobin A1c Reviewed date:02/20/2025 12:27:25 PM Interpretation: Performing Lab:[address] [phone] Notes/Report: Hemoglobin A1c % 5.5 <6.0 % [...] average glucose, using the formula of the R6U-Oaiycbk Average Glucose study (ADAG), Diabetes Care, Vol.31,#8, Jun. 2007 UA ClnCatch+Micro w/rflx Cul t Reviewed date:02/20/2025 06:42:27 PM Interpretation: Performing Lab:[address] [phone] Notes/Report: Urine, Clean Catch Color Urine Yellow Appearance Urine Clear PH 8.5 5.0-9.0 Glucose Urine UA Negative Negative mg/dL Urine Blood Negative Negative Specific [place] - Urine 1.020 1.005-1.025 Urine Protein Trace Neg-Trace mg/dL Urine Ketones Negative Negative mg/dL Nitrite Urine Negative Negative Leukocyte Esterase Urine Negative Negative RBC Urine 0-2 0-2 /HPF WBC Urine 0-5 0-5 /HPF Squamous Epithelial Cell Urine 0-2 0-2 /HPF Bacteria Urine None Seen None Seen Hyaline Casts Urine 0-2 0-2 /LPF Occult Blood, Stool, Guaiac Reviewed date:02/24/2024 09:54:12 AM Interpretation:Negative Performing Lab: Notes/Report: Negative Occult Blood, Stool, Guaiac Neg UA ClnCatch+Micro w/rflx Cul t Reviewed date:02/24/2024 12:25:11 PM Interpretation: Performing Lab:[facility], [address] [place] [phone] Notes/Report: Urine, Clean Catch Color Urine Yellow Appearance Urine Clear PH 6.5 5.0-9.0 Glucose Urine UA Negative Negative mg/dL Urine Blood Negative Negative Specific [place] - Urine 1.015 1.005-1.025 Urine Protein Negative Neg-Trace mg/dL Urine Ketones Negative Negative mg/dL Nitrite Urine Negative Negative Leukocyte Esterase Urine Negative Negative RBC Urine 0-2 0-2 /HPF WBC Urine 0-5 0-5 /HPF Squamous Epithelial Cell Urine 0-2 0-2 /HPF Bacteria Urine None Seen None Seen Hyaline Casts Urine 0-2 0-2 /LPF Urinalysis and Microscopic Reviewed date:03/28/2024 12:42:24 PM Interpretation: Performing Lab:[facility], [address] [place] [phone] Notes/Report: Color Urine Yellow Appearance Urine Clear PH 5.5 5.0-9.0 Glucose Urine UA Negative Negative mg/dL Urine Blood Small (1+) Negative Specific [place] - Urine 1.020 1.005-1.025 Urine Protein 30 (1+) Neg-Trace mg/dL Urine Ketones Trace Negative mg/dL Nitrite Urine Negative Negative Leukocyte Esterase Urine Small (1+) Negative RBC Urine 3-5 0-2 /HPF WBC Urine 6-10 0-5 /HPF Squamous Epithelial Cell Urine 3-5 0-2 /HPF Bacteria Urine Trace None Seen Hyaline Casts Urine 0-2 0-2 /LPF Urine Culture Reviewed date:03/27/2024 01:41:26 PM Interpretation: Performing Lab:[address] [phone] Notes/Report: Urine Culture Report Result Urine Culture < 10,000 cfu/ml Complete Blood Count Auto Di ff Reviewed date:03/12/2024 06:10:10 PM Interpretation: Performing Lab:[facility], [address] [place] [phone] Notes/Report: White Blood Count 12.2 4.8-10.8 X10*3/uL [...] Reviewed date:03/12/2024 06:09:50 PM Interpretation: Performing Lab:[facility], [address] [place] [phone] Notes/Report: Sodium 134 135-145 mmol/L Potassium 3.6 [...] Estimated Glomerular Filt Rate 47 NOTE: For -Dominican individuals, multiply the result by 1.210. Chronic [...] Acid Reviewed date:03/12/2024 06:03:11 PM Interpretation: Performing Lab:[facility], [address] [place] [phone] Notes/Report: Lactic Acid 1.6 0.5-2.0 mmol/L Urine Culture Reviewed date:03/12/2024 06:06:29 PM Interpretation: Performing Lab:[facility], [address] [place] [phone] Notes/Report: Urine Culture No growth. SARS-CoV2/FLU/RSV Reviewed date:03/12/2024 06:00:19 PM Interpretation: Performing Lab:[facility], [address] [place] [phone] Notes/Report: Influenza A PCR NEGATIVE Negative Influenza [...] by authorized laboratories. Testing performed on the Tuee GeneXpert utilizing real-time RT-PCR. All SARS CoV2 and positive influenza A/B results are reported to [facility]. Blood Culture (First) Reviewed date:03/16/2024 01:02:43 PM Interpretation: Performing Lab:[address] [phone] Notes/Report: Blood Culture (First) No growth after 5 days. Blood Culture (Second) Reviewed date:03/16/2024 01:02:49 PM Interpretation: Performing Lab:[address] [phone] Notes/Report: Blood Culture (Second) No growth after 5 days. UA ClnCatch+Micro w/rflx Cul t Reviewed date:03/14/2024 04:20:15 PM Interpretation: Performing Lab:[address] [phone] Notes/Report: [id number] Urine, Clean Catch Color Urine Dark Yellow Appearance Urine Hazy PH 5.5 5.0-9.0 Glucose Urine UA Negative Negative mg/dL Urine Blood Large (3+) Negative Specific [place] - Urine 1.025 1.005-1.025 Urine Protein 100 [...] date:03/13/2024 07:06:36 AM Interpretation: Performing Lab: Notes/Report: [address] [address] [address] Scan Report Signed Patient: Cordell Cox MR#: [id number] : 1950 Acct:[id number] Age/Sex: 73 / M ADM Date: 03/11/24 Loc: .ED Attending Dr: Ordering Physician: Nia Waddell CNP Date of Service: 03/11/24 Procedure(s): CT abdomen pelvis wo IV con Accession Number(s): [id number] cc: Nia Waddlel CNP; Christopher Batres MD EXAMINATION: CT ABDOMEN [...] Tish Reveles in OV> 03/11/24 1005 DD/ 0528 TD/TT: Interior Assemblies Installer: [address] [address] [address] Scan Report Signed Patient: Jaquan Cox MR#: [id number] : 1950 Acct:[id number] Age/Sex: 73 / M ADM Date: 03/11/24 Loc: HO.ED Attending Dr: Ordering Physician: Nia Waddell CNP Date of Service: 03/11/24 Procedure(s): CT abd omen pelvis wo IV con Accession Number(s): [id number] cc: Nia Waddell CNP; Christopher Batres MD [...] fluid. Dictated By: Tish Reveles Signed By: <Electron ically signed by Tish Reveles in OV> 03/11/24 1005 DD/ 0847 TD/TT: Interior Assemblies Installer: Complete Blood Count Auto Di ff Reviewed date:03/12/2024 06:10:48 PM Interpretation: Performing Lab:[facility], [address] [place] [phone] Notes/Report: White Blood Count 6.3 4.8-10.8 X10*3/uL [...] Reviewed date:03/12/2024 06:08:55 PM Interpretation: Performing Lab:[facility], [address] [place] [phone] Notes/Report: Sodium 135 135-145 mmol/L Potassium 3.7 [...] Glomerular Filt Rate > 60 NOTE: For -Dominican individuals, multiply the result by 1.210. Chronic Kidney Disease: Estimated GFR < 60 mL/min/1.73m2 Severe Kidney Disease: Estimated GFR < 15 mL/min/1.73m2 Glucose Random 105 60-115 mg/dL Calcium 7.9 8.4-10.2 mg/dL Test was veri fied by repeat analysis. CDiff Gene PCR Reviewed date:03/12/2024 06:05:54 PM Interpretation: Performing Lab:[facility], [address] [place] [phone] Notes/Report: CDiff Gene PCR NEGATIVE Negative If C. difficile strongly suspected despite one negative test, a second test may be sent vs. empiric treatment for C. difficile infection. GI Panel Reviewed date:03/13/2024 12:42:36 PM Interpretation: Performing Lab:[facility], [address] [place] [phone] Notes/Report: Campylobacter Not Detected Not Detect. Plesiomonas [...] is performed by Multiplexed PCR, utilizing the C$ cMoney Array. US renal BI Reviewed date:05/08/2024 08:03:22 AM Interpretation: Performing Lab: Notes/Report: [address] [address] Ultrasound Report Signed Patient: Cordell Cox MR#: [id number] : 1950 Acct:[id number] Age/Sex: 73 / M ADM Date: 04/11/24 Loc: HO.US Attending Dr: Christopher Batres MD Ordering Physician: Christopher Batres MD Date of Service: 04/11/24 Procedure(s): US renal BI Accession Number(s): [id number] cc: Christopher Batres MD EXAMINATION: US RETROPERITONEAL [...] in OV> 05/03/24 1438 DD/ 1140 TD/TT: Interior Assemblies Installer: [place] [address] Ultrasound Report Signed Patient: Jaquan Cox MR#: [id number] : 1950 Acct:[id number] Age/Sex: 73 / M ADM Date: 04/11/24 Loc: HO.US Attending Dr: Christopher Batres MD Ordering Physician: Christopher Batres MD Date of Service: 04/11/24 Procedure(s): US renal BI Accession Number(s): [id number] cc: Christopher Batres MD EXAMINATION: US RETROPERITONEAL [...] By: Jarrod Gómez MD Signed By: <Jatinder fernandez signed by Jarrod Gómez MD in OV> 05/03/24 1438 DD/ 1140 TD/TT: Forensic Social Worker ist: QUIRINO Verde Reviewed date:2024 12:55:58 PM Interpretation: Performing Lab:[facility], [address] [place] [phone] Notes/Report: Gagan Verde See Note Specimen held [...] 03/25/2017 Administered Fluarix Quadrivalent IM Intramuscular 09/21/2017 Administe red Fluarix Quadrivalent IM Intramuscular 10/17/2018 Administe red Fluarix Quadrivalent IM Intramuscular 10/31/2019 Administe red SARS-COV-2 Pfizer Unknown 11/26/2020 Administered SARS-COV-2 [...] Problem Status W/U Status Risk Notes Problem 046308380 Paroxysmal atria l fibrillation (I48.0) Active confirmed Problem Hypothyroidism (49007390) Hypothyroidism, unspecified (E03.9) Active confirmed Problem Obesity (874675599) Obesity, unspecified (E66.9) Active confirmed Problem 401757621 Gastroesophageal reflux disease without esophagitis (K21.9) Active confirmed Problem 64353432 Essential hypert ension (I10) Active confirmed Problem 112833448 Acquired hypothyroidism (E03.9) Active confirmed Problem 3952872 Prediabetes (R73.09) Active confirmed Problem 234349819 Low HDL (under 4 0) (E78.6) Active confirmed Problem 500798500 Lung nodule (R91.1) Active confirmed Problem 37211020 Thoracic aortic aneurysm without rupture (I71.2) Active confirmed Problem 396841286 History of ME (myocardial infarction) (I25.2) Active confirmed Problem 83496213 Dysthymia (F34.1) Active confirmed Problem 12100636 Sleep apnea, unspecified type (G47.30) Active confirmed Problem 1150880 Paraesophageal h iatal hernia (K44.9) Active confirmed Problem 341126911 Pure hypercholesterolemia (E78.00) Active confirmed Problem 244387823 Neurogenic bladd er (N31.9) Active confirmed Vital Signs Blood pressure diastolic 70 mm Hg 08/11/2024 Height 67.25 in 08/11/2024 Blood pressure systolic 110 mm Hg 08/11/2024 Weight 197 lbs 03/24/2024 weight is down 11 pounds since 02-24-24 BMI 30.62 kg/m2 03/24/2024 weight is down 11 pounds since 02-24-24 Encounters Encounter Location Date Provider Diagnosis Christopher Batres MD [address] [place] [id number] 04/24/2024 Christopher Batres Hematuria, unspecifi ed type R31.9 Christopher Batres MD [address] [place] [id number] 07/10/2024 Christopher Batres Encounter for immuni zation Z23 Christopher Batres MD [address] [place] [id number] 2024 Christopher Batres Pure hypercholestero lemia E78.00 Christopher Batres MD [address] [place] [id number] 02/20/2025 Christopher Batres Blood tests for rout ine general physical examination Z00.00 ; Acquired hypothyroidism E03.9 ; Prediabetes R73.09 ; Pure hypercholesterolemia E78.00 and Essential hypertension I10 Christopher Batres MD [address] [place] [id number] 02/24/2024 Christopher Batres Neurogenic bladder N 31.9 ; Annual physical exam Z00.00 ; Acquired hypothyroidism E03.9 ; Prediabetes R73.09 ; Pure hypercholesterolemia E78.00 ; Paroxysmal atrial fibrillation I48.0 ; Gastroesophageal reflux disease without esophagitis K21.9 ; Colon cancer screening Z12.11 and Depression screening Z13.31 Christopher Batres MD [address] [place] [id number] 03/24/2024 Christopher Batres Essential hypertensi on I10 and Acute UTI N39.0 Christopher Batres MD [address] [place] [id number] 08/11/2024 Christopher Batres Acquired hypothyroid ism E03.9 and Symptomatic hypotension I95.9 Christopher Batres MD [address] [place] [id number] 03/13/2024 Christopher Batres Left flank pain R10. 9 Christopher Batres MD [address] [id number] 03/14/2024 Christopher Batres MD [address] [id number] 03/17/2024 Christopher Batres MD [address] [place] [id number] 03/31/2024 Christopher Batres Renal cyst N28.1 Assessments [...] Test Test Name Order Date Electrocardiogram (EKG) 03/19/2016 Electrocardiogram (EKG) 03/25/2017 Electrocardiogram (EKG) 10/28/2018 Electrocardiogram (EKG) 11/16/2019 PROTHROMBIN TIME-INR 10/12/2013 XR CHEST 2 VIEW PA & LAT 01/28/2023 US abdomen limited 03/13/2024 US renal BI 03/31/2024 Next Appt Details Provider Name:Christopher Johnson ier, 02/26/2025 08:30:00 AM, [address] [place] [address], [address], [place], [place], [phone], Insurance Providers Payer Name Payer Address Payer Phone Subscriber Number Group Number Insured Name Patient Relationship to Insured Coverage Start Date Coverage End Date [employer] [address] [place], [place] [phone] [id number] Cordell Cox Self - patient is the [...]
--- OUTSIDE RECORDS SUMMARY | 2025-02-22 08:17 | XMS_ITS | Patient Health Record ---
Author Organization [facility] Address [address] [place] [address] Care Team Providers Care Charging Manipulator Name Role Phone Gisel MACK, Christopher Primary Care Provider Corey Sher Jr Unavailable Allergies No Known Allergies Reason For Referral [...] Problem Status W/U Status Risk Notes Problem 285951091 Colon cancer screening (Z12.11) Active confirmed Problem 184491350 Gastro-esophagea l reflux disease without esophagitis (K21.9) Active confirmed Problem 932668389 buttermaker (curre nt) use of anticoagulants (Z79.01) Active confirmed Problem 710833064 Gastroesophageal reflux disease without esophagitis (K21.9) Active confirmed Problem 63645213 Hiatal hernia (K44.9) Active confirmed Problem Diverticulosis of colon (205935914) Diverticulosis of colon (K57.30) Active confirmed Plan Of Treatment Future Test Test Name Order Date UPPER GI ENDOSCOPY 07/31/2016 COLONOSCOPY 04/29/2022 Insurance Providers Payer Name Payer Address Payer Phone Subscriber Number Group Number Insured Name Patient Relationship to Insured Coverage Start Date Coverage End Date [facility] [address] [place] [address] [id number] ROSA KEARNS Self - patient is the insured Medical (General) History Medical History History ICD Code hypertension Atrial fibrillation CVA Hiatal hernia with Schatzki ring Coronary artery disease with history of DE 07/17 hypothyroidism Surgical History Surgery Date(Month/Year) cardiac ablation kidney stones 04/2016
--- OUTSIDE RECORDS SUMMARY | 2025-02-22 08:17 | XMS_ITS ---
Author Organization Christopher Batres MD Address [address] [place] [id number] Care Team Providers Care Nutrition And Dietetics Instructor Name Role Phone Christopher Batres Primary Care Provider [phone] Results Component Value Reference Range Notes Liver Panel Reviewed date:2024 01:27:14 PM Interpretation: Performing Lab:[facility], [address] [place] [phone] Notes/Report: Bilirubin Total 1.0 0.0-1.0 mg/dL Bilirubin Direct 0.4 0.0-0.5 mg/dL Aspartate Amino Transferase 13 5-37 U/L Alanine Aminotransferase 11 0-40 U/L Total Protein 6.5 6.5-8.0 g/dL Albumin Level 4.0 3.5-5.0 g/dL Alkaline Phosphatase 72 39-117 U/L Lipid Panel with Reflex Reviewed date:2024 01:26:58 PM Interpretation: Performing Lab:[facility], [address] [place] [phone] Notes/Report: Triglycerides 51 <150 mg/dL Desirable Triglyceride: [...] Location Date Provider Diagnosis Christopher Batres MD [address] [place] [address] [place] [id number] 2024 Christopher Batres Pure hypercholestero lemia E78.00 Assessments Encounter Date Diagnosis (ICD Code) Assessment Notes Treatment Notes Treatment Clinical Notes Section Notes 2024 Pure hypercholesterolemia (ICD-10 - E78.00) Plan Of Treatment Next Appt Details Provider Name:Christopher Johnson ier, 02/26/2025 08:30:00 AM, [address] [place] [address], Suite [facility], [place], [place], [phone], Progress Notes * Cordell COX IIIDOB: (74 yo M)Acc No.[id number] Progress Note Patient:?Cordell COX III Provider:?Christopher Batres MD :1950???Age:74 Y???Sex:Male Yunior e:2024 Address:[address] [place], [place] [phone] Subjective: * Chief Complaints: * ???1. LIVER LIPID PANELS. * Medical History:? Objective: * Vitals:? Assessment: * Assessment: 1.?Pure hypercholesterolemia - E78.00 (Primary)??? Plan: * Treatment: * Procedure Codes:?08126 VENIP UNCT, ROUTINE* * * The named appointment provid er may or may not be the originator of this progress note, and it is not deemed complete until electronically signed by the appointment provider. Sign off status: Pending * Provider:?Christopher Batres MD Date:?1 Generated for Edu urbano/Lorena/Avelitting on:?02/22/2025 08:16 AM EDT
--- OUTSIDE RECORDS SUMMARY | 2025-02-22 08:17 | XMS_ITS ---
Author Organization Christopher Batres MD Address [address] [place] [phone] Care Team Providers Care Yard Motor Operator Name Role Phone Christopher Batres Primary [...] Location Date Provider Diagnosis Christopher Batres MD [address] [place] [address] [place] [id number] 08/11/2024 Christopher Batres Acquired hypothyroidism E03.9 and [...] Provider Name:Christopher Johnson ier, 02/26/2025 08:30:00 AM, [address] [place] [address], Suite [facility], [place], [place], [phone], Progress Notes * Cordell COX IIIDOB: (74 yo M)Acc No.[id number]:08/11/2024 Progress Notes Patient:?Cordell Cox Provider:?Christopher Batres MD :1950???Age:74 Y???Sex:Male Yunior e:08/11/2024 Address:[address] [place] [address] , [place] [address], [facility] Subjective: * Chief Complaints: * ???6 MO F/U * HPI: ???Symptom(s):? patient is a 74 yo male here for 6 month follow up visit, has been doing well. no uti's since he had surgery. at one point he was told that he needed catherter. 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 no uti's since he had surgery. at one point he was told that he needed catherter. 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
--- OUTSIDE RECORDS SUMMARY | 2025-02-22 08:17 | XMS_ITS ---
Author Organization Christopher Batres MD Address [address] [place] [phone] Care Team Providers Care Technology Lab Teacher Name Role Phone Christopher Batres Primary Care Provider Results Component Value Reference Range Notes Complete Blood Count Auto Di ff Reviewed date:02/20/2025 06:37:17 PM Interpretation: Performing Lab:[facility], [address] [place] [phone] Notes/Report: White Blood Count 5.7 4.8-10.8 X10*3/uL [...] NRBC Abs Auto 0.000 0.0-0.012 X10*3/uL Comprehensive [facility]. Panel Fa st Reviewed date:02/20/2025 06:43:21 PM Interpretation: Performing Lab:[facility], [address] [place] [phone] Notes/Report: Sodium 140 135-145 mmol/L Potassium 4.3 [...] Panel Reviewed date:02/20/2025 06:29:30 PM Interpretation: Performing Lab:[facility], [address] [place] [phone] Notes/Report: Triglycerides 71 <150 mg/dL Desirable Triglyceride: [...] (Free>4and<10) Reviewed date:02/20/2025 12:27:16 PM Interpretation: Performing Lab:[facility], [address] [place] [phone] Notes/Report: PSA,Total (Free>4and<10) 0.34 0.00-4.00 ng/mL A [...] T4 Reviewed date:02/20/2025 06:25:27 PM Interpretation: Performing Lab:[facility], [address] [place] [phone] Notes/Report: TSH reflex Free T4 1.60 0.32-4.0 uIU/mL Microalbumin, Random Reviewed date:02/20/2025 06:31:01 PM Interpretation: Performing Lab:[facility], [address] [place] [phone] Notes/Report: Creatinine Urine 146.11 Microalbumin Urine 9.0 Microalbum/Creatinine Ratio Ur 6.1 <30 ug/mg cr Albumin/Creatinine Ratio Reference Ranges: Normal: < 30 ug/mg creatinine Microalbuminuria: 30 - 300 ug/mg creatinine Clinical Albuminuria: > 300 ug/mg creatinine Hemoglobin A1c Reviewed date:02/20/2025 12:27:25 PM Interpretation: Performing Lab:[facility], [address] [place] [phone] Notes/Report: Hemoglobin A1c % 5.5 <6.0 % [...] average glucose, using the formula of the S4N-Cnptvmn Average Glucose study (ADAG), Diabetes Care, Vol.31,#8, Jun. 2007 UA ClnCatch+Micro w/rflx Cul t Reviewed date:02/20/2025 06:42:27 PM Interpretation: Performing Lab:[facility], [address] [place] [phone] Notes/Report: Urine, Clean Catch Color Urine Yellow Appearance Urine Clear PH 8.5 5.0-9.0 Glucose Urine UA Negative Negative mg/dL Urine Blood Negative Negative Specific [place] - Urine 1.020 1.005-1.025 Urine Protein Trace [...] Location Date Provider Diagnosis Christopher Batres MD [address] [place] [address] Drive [address] [place], [place] [phone] 02/20/2025 Christopher Batres Blood tests for rout [...] Provider Name:Christopher Johnson ier, 02/26/2025 08:30:00 AM, [address] [place] [address], [address], [place], [place], [phone], Progress Notes * Cordell COX IIIDOB: (74 yo M)Acc No.[id number]:02/20/2025 Progress Note Patient:?Cordell COX III Provider:?Christopher Batres MD :1950???Age:74 Y???Sex:Male Yunior e:02/20/2025 Address:[address] [place], [place] [phone] Subjective: * Chief Complaints: * ???1. FASTING LABS. * Medical History:? Objective: * Vitals:? Assessment: * Assessment: 1.?Blood tests for routine g eneral physical examination - Z00.00 (Primary)???2.?Acquired hypothyroidism - E03.9???3.?Prediabetes - R73.09???4.?Pure hypercholesterolemia - E78.00???5.?Essential hypertension - I10??? Plan: * Treatment: 2.?Acquired hypothyroidism?LAB: Complete Blood Count Auto Diff (Collection Date & Time - 02/20/2025 08:00 AM) ?LAB: Comprehensive [facility]. Panel Fast (Collection Date & Time 02/20/2025 [...] AM) ?LAB: UA ClnCatch+Micro w/rflx Cult (Collection & Time 02/20/2025 08:00 AM) 3.?Prediabetes?LAB: Complete Blood Count Auto Diff (Collection & Time 02/20/2025 08:00 AM) ?LAB: Comprehensive [facility]. Panel Fast (Collection Date & Time 02/20/2025 08:00 AM) ?LAB: Lipid Panel (Collection Date & Time 02/20/2025 08:00 AM) ?LAB: PSA,Total (Free>4and<10) (Collection Date & Time 02/20/2025 08:00 AM) ?LAB: TSH reflex Free T4 (Collection Date & Time 02/20/2025 08:00 AM) ?LAB: Microalbumin, Random (Collection & Time 02/20/2025 08:00 AM) ?LAB: Hemoglobin A1c (Collection Date & Time 02/20/2025 08:00 AM) ?LAB: UA ClnCatch+Micro w/rflx Cult (Collection Date & Time 02/20/2025 08:00 AM) 4.?Pure hypercholesterolemia ?LAB: Complete Blood Count Auto Diff (Collection Date & Time 02/20/2025 08:00 AM) ?LAB: Comprehensive [facility]. Panel Fast (Collection Date & Time 02/20/2025 08:00 AM) ?LAB: Lipid Panel (Collection Date & Time - 02/20/2025 08:00 AM) ?LAB: PSA,Total (Free>4and<10) (Collection Date & Time - 02/20/2025 08:00 AM) ?LAB: TSH reflex Free T4 (Collection Date & Time - 02/20/2025 08:00 AM) ?LAB: Microalbumin, Random (Collection Date & Time 02/20/2025 08:00 AM) ?LAB: Hemoglobin A1c (Collection Date & Time - 02/20/2025 08:00 AM) ?LAB: UA ClnCatch+Micro w/rflx Cult (Collection Date & Time 02/20/2025 08:00 AM) 5.?Essential hypertension?LAB: Complete Blood Count Auto Diff (Collection Date & Time 02/20/2025 08:00 AM) ?LAB: Comprehensive [facility]. Panel Fast (Collection Date & Time 02/20/2025 08:00 AM) ?LAB: Lipid Panel (Collection Date & Time 02/20/2025 08:00 AM) ?LAB: PSA,Total (Free>4and<10) (Collection Date & Time - 02/20/2025 08:00 AM) ?LAB: TSH reflex Free T4 (Collection Date & Time 02/20/2025 08:00 AM) ?LAB: Microalbumin, Random (Collection Date & Time 02/20/2025 08:00 AM) ?LAB: Hemoglobin A1c (Collection Date & Time 02/20/2025 08:00 AM) ?LAB: UA ClnCatch+Micro w/rflx Cult (Collection Date & Time 02/20/2025 08:00 AM) * Procedure Codes:?58281 VENIP UNCT, ROUTINE* * * The named appointment provid er may or may not be the originator of this progress note, and it is not deemed complete until electronically signed by the appointment provider. Sign off status: Pending * Provider:?Christopher Batres MD Date:?0 02/20/2025 Generated for Edu urbano/Lorena/Avelitting on:?02/22/2025 08:17 AM EDT
--- NOTE | 2025-02-22 08:32 | A.OFFVIS_ITS ---
Vital Signs 02/22/25 08:33 Height 5 ft 8 in Weight 216 lb 0.848 oz BMI 32.8 BP 120/70 Blood Pressure Location Lt brachial Position Sitting Pulse 85 Intake Visit Reasons: 1 yr f/up Intake Note: 1 year follow-up with ekg feeling good Grievance Coordinator Required: No Allergies No Known Allergies [No Known Allergies*] Allergy (Verified 03/11/24 07:24) Medication List - Last Reconciled 02/22/25 by Troy Collins MD amlodipine 2.5 mg PO BEDTIME apixaban (Eliquis) 5 mg PO BID 90 days atorvastatin 80 mg PO DAILY finasteride (Proscar) 5 mg PO DAILY 90 days levothyroxine 150 mcg PO DAILY@0600 metoprolol succinate ER 25 mg PO BID 90 days omeprazole 20 mg PO BID tamsulosin 0.4 mg PO BID HPI Comments Details: Pepe comes for follow-up. He has been doing overall well although noted today to be in atrial fibrillation. He said he does not notices usual symptoms of atrial fibrillation at this point time with symptoms of palpitation she is not sure how long he has been in atrial fibrillation at this point in time. He does complain of some fatigue in his legs but not overall worsening shortness of breath or exertional fatigue. No orthopnea, PND, leg edema. Taking his medications religiously. Denies any chest pain. No lightheadedness, syncope. No bleeding issues or neurologic events. [facility] Medical History Ureteral stent present Bilateral kidney stones GERD (gastroesophageal reflux disease) Hypothyroid Hyperlipemia Sinus bradycardia Thoracic aortic aneurysm HTN (hypertension) Paroxysmal atrial fibrillation CVA (cerebral vascular accident) Surgical History Hx of left inguinal hernia repair Hx of cystoscopy History of esophagogastroduodenoscopy (EGD) History of colonoscopy History of radiofrequency ablation (RFA) procedure for cardiac arrhythmia Family History Father No problems noted. Mother CVD (cardiovascular disease) Social History Household Members: None Housing: House Do you presently have visiting nurse or other home services: No Alcohol intake: never Patient Tobacco Use Status: Never used Tobacco service: No Current occupational status: retired Review of Systems Const Denies chills, Denies fatigue, Denies fever(s), Denies frequent falls, Denies weakness, Denies weight gain and Denies weight loss ENT Denies dizziness Card Denies chest pain, Denies leg edema, Denies lightheadedness, Denies palpitations, Denies dyspnea, Denies dyspnea on exertion, Denies orthopnea and Denies other (loss of consciousness) Resp Denies cough, Denies dyspnea and Denies dyspnea on exertion GI Denies hematochezia and Denies change in stool character Musc Denies abnormal gait, Denies muscle weakness, Denies numbness, Denies radiating pain into limb and Denies tingling Neuro Denies abnormal gait, Denies dizziness, Denies frequent falls, Denies numbness, Denies tingling and Denies weakness Endo Denies fatigue and Denies palpitations Physical Exam Vital Signs: Last Vital Signs Pulse 85 02/22/25 08:33 BP 120/70 02/22/25 08:33 BMI result Body Mass Index 32.8 Const General: cooperative, healthy appearing, comfortable and no acute distress Neck Neck: Yes normal visual inspection Resp Effort & Inspection: normal respiratory effort Auscultation: clear to auscultation bilaterally, no crackles, no rales, no rhonchi and no wheezes Cardio Jugular venous distension: no JVD Rhythm: abnormal rhythm irregularly irregular Heart sounds: S1 normal heart sound present, S2 normal heart sound present, no murmurs and no rubs Peripheral pulses: Peripheral pulses 2+ throughout Extrem General: Yes normal to inspection Psych Appearance: grossly normal Mental Status: mental status grossly normal Speech and movement: Normal speech and movement present Office Procedures EKG Details: EKG shows atrial fibrillation at 85 beats per minute with Q-waves in lead 3 most likely pseudo inferior infarct pattern due to body habitus [id number], Complete Assessment & Plan Assessment & Plan (1) Persistent atrial fibrillation: Code(s): I48.19 - Other persistent atrial fibrillation Category: Medical Plan: Patient with recurrent persistent atrial fibrillation status post ablation in the past. Currently not having any symptoms except for wake fatigue in his leg s. This is surprising as he was quite symptomatic in the past with his atrial fibrillation. At this point time although given his age I would continue to pursue rhythm control approach. Exact duration of atrial fibrillation is unknown at this point time. However he has been taking oral anticoagulation therapy with Eliquis continuously. Continue the same. Will start him on flecainide 100 mg b.i.d. in conjunction with metoprolol. Follow-up EKG in 1 week. If he has does not convert to sinus rhythm by medical means will schedule him for synchronized cardioversion in couple of weeks time. Also suggest follow-up echocardiogram after the cardioversion. Also suggest a Holter monitor after cardioversion., the risks benefits, alternatives to synchronized cardioversion was discussed. Plan of treatment was discussed in details. He understands. (2) Thoracic aortic aneurysm: Code(s): I71.2 - Thoracic aortic aneurysm, without rupture Category: Medical Plan: Mild thoracic aortic enlargement. Currently having no symptoms. At this point time will follow-up echocardiogram as above in 4 weeks time. Continue aggressive blood pressure control which is currently well optimized. Advised to monitor blood pressure at home maintain a log. Goal blood pressure less than 130/84. Low-salt diet was discussed. Advise avoid strenuous isometric exercise. Lipids are well modified with LDL in the 40s. Follow up in the clinic in 6 weeks time, sooner p.r.n.. Thank you for allowing me to partake in his care Medications: New flecainide 100 mg PO Q12H 60 tabs 2RF Coding Level of Care Code Est Pt Level 4 (19169) Complex EM visit Add On G2211 Diagnoses Persistent atrial fibrillation I48.19 Thoracic aortic aneurysm I71.2 CPT Codes EKG - CPT: 80914-[id number], Complete ([id number])
[2025-02-22 08:33] VITALS: BP 120/70; PULSE 85; BMI 32.8
== END 2025-02-22 09:07 | disposition home or self-care (01) ==
LOC: HO.HCS 08:05
PROVIDERS: PCP Internal Medicine; Visit Provider Internal Medicine Cardiovascular Disease
DX: I48.19 Other persistent atrial fibrillation (principal); I71.20 Thoracic aortic aneurysm, without rupture, unspecified
CPT/HCPCS: 93010; 99214; G2211

== ENCOUNTER → 2025-02-22 08:04 | Outpatient (BNVA) | payer MEDICARE, SELFPAY | PROVIDERS: PCP Internal Medicine; Visit Provider Internal Medicine Cardiovascular Disease | DX: I48.19 Other persistent atrial fibrillation (principal); I71.20 Thoracic aortic aneurysm, without rupture, unspecified; R94.31 Abnormal electrocardiogram [ECG] [EKG] | CPT/HCPCS: 93005; 99212 ==

== ENCOUNTER → 2025-02-28 08:47 | Outpatient (BNVA) | payer MEDICARE, SELFPAY | PROVIDERS: PCP Internal Medicine; Visit Provider Internal Medicine Cardiovascular Disease ==

== ENCOUNTER 2025-03-07 12:53 | Outpatient (AMB) | payer MEDICARE, SELFPAY ==
--- NOTE | 2025-03-07 12:59 | AM.OFFVISNUR ---
Intake Visit Reasons: ekg ? afib Allergies No Known Allergies [No Known Allergies*] Allergy (Verified 03/11/24 07:24) Nursing Note pt is here for nurse visit with ekg ekg reviewed by dr flores and left on dr summer pillai pt is on flecainide 100 mg PO Q12H pt has no symptoms Office Procedures EKG [id number], Complete Coding CPT Codes EKG - CPT: 78766-[id number], Complete ([id number])
--- OUTSIDE RECORDS SUMMARY | 2025-03-07 13:57 | XMS_ITS | Patient Health Record ---
Author Organization 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 (Z79.01) Active confirmed Problem 656934324 Gastroesophageal reflux disease without esophagitis (K21.9) Active confirmed Problem 96781744 Hiatal hernia (K44.9) Active confirmed Problem Diverticulosis o f colon (K57.30) Active confirmed Plan Of Treatment Future Test Test Name Order Date UPPER GI ENDOSCOPY 07/31/2016 COLONOSCOPY 04/29/2022 Insurance Providers Payer Name Payer Address Payer Phone Subscriber Number Group Number Insured Name Patient Relationship to Insured Coverage Start Date Coverage End Date [facility] [address] [place] [address] [id number] ROSA KEARNS Self - patient is the insured Medical (General) History Medical History History ICD Code hypertension Atrial fibrillation CVA Hiatal hernia with Schatzki ring Coronary artery disease with history of DE 07/17 hypothyroidism Surgical History Surgery Date(Month/Year) cardiac ablation kidney stones 04/2016
--- OUTSIDE RECORDS SUMMARY | 2025-03-07 13:57 | XMS_ITS | Patient Health Record ---
Author Organization Christopher Batres MD Address [address] [place] [phone] Care Team Providers Care Ore Miner Blasting Name Role Phone Christopher Batres Primary Care Provider Allergies No Known Allergies Results Component Value Reference Range Notes UA ClnCatch+Micro w/rflx Cul t Reviewed date:04/25/2024 04:58:36 PM Interpretation: Performing Lab:[facility], [address] [place] [phone] Notes/Report: Urine, Clean Catch Color Urine Yellow Appearance Urine Clear PH 6.5 5.0-9.0 Glucose Urine UA Negative Negative mg/dL Urine Blood Negative Negative Specific [place] - Urine 1.010 1.005-1.025 Urine Protein Negative Neg-Trace mg/dL Urine Ketones Negative Negative mg/dL Nitrite Urine Negative Negative Leukocyte Esterase Urine Negative Negative RBC Urine 0-2 0-2 /HPF WBC Urine 0-5 0-5 /HPF Squamous Epithelial Cell Urine 0-2 0-2 /HPF Bacteria Urine None Seen None Seen Hyaline Casts Urine 0-2 0-2 /LPF Liver Panel Reviewed date:2024 01:27:14 PM Interpretation: Performing Lab:[facility], [address] [place] [phone] Notes/Report: Bilirubin Total 1.0 0.0-1.0 mg/dL Bilirubin Direct 0.4 0.0-0.5 mg/dL Aspartate Amino Transferase 13 5-37 U/L Alanine Aminotransferase 11 0-40 U/L Total Protein 6.5 6.5-8.0 g/dL Albumin Level 4.0 3.5-5.0 g/dL Alkaline Phosphatase 72 39-117 U/L Lipid Panel with Reflex Reviewed date:2024 01:26:58 PM Interpretation: Performing Lab:[facility], [address] [place] [phone] Notes/Report: Triglycerides 51 <150 mg/dL Desirable Triglyceride: [...] ff Reviewed date:02/20/2025 06:37:17 PM Interpretation: Performing Lab:[facility], [address] [place] [phone] Notes/Report: White Blood Count 5.7 4.8-10.8 X10*3/uL [...] NRBC Abs Auto 0.000 0.0-0.012 X10*3/uL Comprehensive [place]. Panel Fa st Reviewed date:02/20/2025 06:43:21 PM Interpretation: Performing Lab:[facility], [address] [place] [phone] Notes/Report: Sodium 140 135-145 mmol/L Potassium 4.3 [...] Panel Reviewed date:02/20/2025 06:29:30 PM Interpretation: Performing Lab:[address] [phone] Notes/Report: Triglycerides 71 <150 mg/dL Desirable Triglyceride: [...] (Free>4and<10) Reviewed date:02/20/2025 12:27:16 PM Interpretation: Performing Lab:[address] [phone] Notes/Report: PSA,Total (Free>4and<10) 0.34 0.00-4. 00 ng/mL [...] T4 Reviewed date:02/20/2025 06:25:27 PM Interpretation: Performing Lab:[address] [address] Notes/Report: TSH reflex Free T4 1.60 0.32-4.0 uIU/mL Microalbumin, Random Reviewed date:02/20/2025 06:31:01 PM Interpretation: Performing Lab:[address] [address] Notes/Report: Creatinine Urine 146.11 Microalbumin Urine 9.0 Microalbum/Creatinine Ratio Ur 6.1 <30 ug/mg cr Albumin/Creatinine Ratio Reference Ranges: Normal: < 30 ug/mg creatinine Microalbuminuria: 30 - 300 ug/mg creatinine Clinical Albuminuria: > 300 ug/mg creatinine Hemoglobin A1c Reviewed date:02/20/2025 12:27:25 PM Interpretation: Performing Lab:[address] [address] Notes/Report: Hemoglobin A1c % 5.5 <6.0 % [...] average glucose, using the formula of the O2H-Imkxhsd Average Glucose study (ADAG), Diabetes Care, Vol.31,#8, Jun. 2007 UA ClnCatch+Micro w/rflx Cul t Reviewed date:02/20/2025 06:42:27 PM Interpretation: Performing Lab:[address] [address] Notes/Report: Urine, Clean Catch Color Urine Yellow Appearance Urine Clear PH 8.5 5.0-9.0 Glucose Urine UA Negative Negative mg/dL Urine Blood Negative Negative Specific [place] - Urine 1.020 1.005-1.025 Urine Protein Trace Neg-Trace mg/dL Urine Ketones Negative Negative mg/dL Nitrite Urine Negative Negative Leukocyte Esterase Urine Negative Negative RBC Urine 0-2 0-2 /HPF WBC Urine 0-5 0-5 /HPF Squamous Epithelial Cell Urine 0-2 0-2 /HPF Bacteria Urine None Seen None Seen Hyaline Casts Urine 0-2 0-2 /LPF Urinalysis and Microscopic Reviewed date:03/28/2024 12:42:24 PM Interpretation: Performing Lab:[facility], [address] [place] [phone] Notes/Report: Color Urine Yellow Appearance Urine Clear PH 5.5 5.0-9.0 Glucose Urine UA Negative Negative mg/dL Urine Blood Small (1+) Negative Specific [place] - Urine 1.020 1.005-1.025 Urine Protein 30 (1+) Neg-Trace mg/dL Urine Ketones Trace Negative mg/dL Nitrite Urine Negative Negative Leukocyte Esterase Urine Small (1+) Negative RBC Urine 3-5 0-2 /HPF WBC Urine 6-10 0-5 /HPF Squamous Epithelial Cell Urine 3-5 0-2 /HPF Bacteria Urine Trace None Seen Hyaline Casts Urine 0-2 0-2 /LPF Urine Culture Reviewed date:03/27/2024 01:41:26 PM Interpretation: Performing Lab:[facility], [address] [place] [phone] Notes/Report: Urine Culture Report Result Urine Culture < 10,000 cfu/ml Complete Blood Count Auto Di ff Reviewed date:03/12/2024 06:10:10 PM Interpretation: Performing Lab:[facility], [address] [place] [phone] Notes/Report: White Blood Count 12.2 4.8-10.8 X10*3/uL [...] Panel Reviewed date:03/12/2024 06:09:50 PM Interpretation: Performing Lab:[facility], [address] [place] [phone] Notes/Report: Sodium 134 135-145 mmol/L Potassium 3.6 [...] Estimated Glomerular Filt Rate 47 NOTE: For -Green[place]ic individuals, multiply the result by 1.210. Chronic [...] Acid Reviewed date:03/12/2024 06:03:11 PM Interpretation: Performing Lab:[address] [address] Notes/Report: Lactic Acid 1.6 0.5-2.0 mmol/L Urine Culture Reviewed date:03/12/2024 06:06:29 PM Interpretation: Performing Lab:[address] [address] Notes/Report: Urine Culture No growth. SARS-CoV2/FLU/RSV Reviewed date:03/12/2024 06:00:19 PM Interpretation: Performing Lab:[address] [address] Notes/Report: Influenza A PCR NEGATIVE Negative Influenza [...] by authorized laboratories. Testing performed on the [employer] GeneXpert utilizing real-time RT-PCR. All SARS CoV2 and positive influenza A/B results are reported to [facility]. Blood Culture (First) Reviewed date:03/16/2024 01:02:43 PM Interpretation: Performing Lab:[address] [address] Notes/Report: Blood Culture (First) No growth after 5 days. Blood Culture (Second) Reviewed date:03/16/2024 01:02:49 PM Interpretation: Performing Lab:[address] [address] Notes/Report: Blood Culture (Second) No growth after 5 days. UA ClnCatch+Micro w/rflx Cul t Reviewed date:03/14/2024 04:20:15 PM Interpretation: Performing Lab:[facility], [address] [place] [phone] Notes/Report: [id number] Urine, Clean Catch Color Urine Dark Yellow Appearance Urine Hazy PH 5.5 5.0-9.0 Glucose Urine UA Negative Negative mg/dL Urine Blood Large (3+) Negative Specific [place] - Urine 1.025 1.005-1.025 Urine Protein 100 [...] date:03/13/2024 07:06:36 AM Interpretation: Performing Lab: Notes/Report: [address] [address] [address] Scan Report Signed Patient: Cordell Cox MR#: [id number] : 1950 Acct:[id number] Age/Sex: 73 / M ADM Date: 03/11/24 Loc: .ED Attending Dr: Ordering Physician: Nia Waddell CNP Date of Service: 03/11/24 Procedure(s): CT abdomen pelvis wo IV con Accession Number(s): [id number] cc: Nia Waddell CNP; Christopher Batres MD [...] in OV> 03/11/24 1005 DD/ 0847 TD/TT: Garment Worker: [place] [address] CT Scan Report Signed Patient: Jaquan Cox MR#: [id number] : 1950 Acct:[id number] Age/Sex: 73 / M ADM Date: 03/11/24 Loc: HO.ED Attending Dr: Ordering Physician: Nia Waddell CNP Date of Service: 03/11/24 Procedure(s): CT abd omen pelvis wo IV con Accession Number(s): [id number] cc: Nia Waddell CNP; Christopher Batres MD [...] in OV> 03/11/24 1005 DD/ 0847 TD/TT: Garment Worker: Complete Blood Count Auto Di ff Reviewed date:03/12/2024 06:10:48 PM Interpretation: Performing Lab:[facility], [address] [place] [phone] Notes/Report: White Blood Count 6.3 4.8-10.8 X10*3/uL [...] Panel Reviewed date:03/12/2024 06:08:55 PM Interpretation: Performing Lab:[facility], [address] [place] [phone] Notes/Report: Sodium 135 135-145 mmol/L Potassium 3.7 [...] Glomerular Filt Rate > 60 NOTE: For -Green[place]ic individuals, multiply the result by 1.210. Chronic Kidney Disease: Estimated GFR < 60 mL/min/1.73m2 Severe Kidney Disease: Estimated GFR < 15 mL/min/1.73m2 Glucose Random 105 60-115 mg/dL Calcium 7.9 8.4-10.2 mg/dL Test was veri fied by repeat analysis. CDiff Gene PCR Reviewed date:03/12/2024 06:05:54 PM Interpretation: Performing Lab:[address] [phone] Notes/Report: CDiff Gene PCR NEGATIVE Negative If C. difficile strongly suspected despite one negative test, a second test may be sent vs. empiric treatment for C. difficile infection. GI Panel Reviewed date:03/13/2024 12:42:36 PM Interpretation: Performing Lab:[address] [address] Notes/Report: Campylobacter Not Detected Not Detect. Plesiomonas [...] is performed by Multiplexed PCR, utilizing the [employer] Array. US renal BI Reviewed date:05/08/2024 08:03:22 AM Interpretation: Performing Lab: Notes/Report: [address] [address] Ultrasound Report Signed Patient: Cordell Cox MR#: [id number] : 1950 Acct:[id number] Age/Sex: 73 / M ADM Date: 04/11/24 Loc: HO.US Attending Dr: Christopher Batres MD Ordering Physician: Christopher Batres MD Date of Service: 04/11/24 Procedure(s): US renal BI Accession Number(s): [id number] cc: Christopher Batres MD EXAMINATION: US RETROPERITONEAL [...] in OV> 05/03/24 1438 DD/ 1140 TD/TT: Garment Worker: [place] [address] Ultrasound Report Signed Patient: Jaquan Cox MR#: [id number] : 1950 Acct:[id number] Age/Sex: 73 / M ADM Date: 04/11/24 Loc: HO.US Attending Dr: Christopher Batres MD Ordering Physician: Christopher Batres MD Date of Service: 04/11/24 Procedure(s): US renal BI Accession Number(s): [id number] cc: Christopher Batres MD EXAMINATION: US RETROPERITONEAL [...] Dictated By: Jarrod Gómez MD Signed By: <Electron ically signed by Jarrod Gómez MD in OV> 05/03/24 1438 DD/ 1140 TD/TT: Surveillance Observer ist: SS Gagan Verde Reviewed date:2024 12:55:58 PM Interpretation: Performing Lab:[facility], [address] [place] [phone] Notes/Report: Gagan Verde See Note Specimen held untested for 24 hours; Call to request Chemistry testing. Reason For Referral Reason abnormal scalp with actinic keratosis please eval and treat Diagnosis 1 Actinic keratosis (L 57.0) Referral Organization Christopher Batres MD Referring Provider First Name Christopher Referring Provider Last Name Gisel Referring Provider Speciality Internal M edicine Referred Provider Jer[facility]o Dermatol leopoldo Jericho Referred Provider Specialty Dermatology General Notes Teri Branch 0 02/26/2025 09:11:41 AM >letter with referral faxed for requesting an briseidatSarina Annette 02/27/2025 02:12:17 PM >appt is with Sarina Green Annette 02/27/2025 02:13:10 PM >called patient with info and mailed Referral Priority Routine Referral Appointment Date 04/05/2025 Medications Medication SIG (Take, Route, Frequency, Duration) Notes Start Date End Date Status Omeprazole 20 MG TAKE 1 TO 2 CAPSULES BY MOUTH ONCE DAILY for 90 Active Tamsulosin HCl 0.4 MG TAKE ONE CAPSULE B Y MOUTH TWICE A DAY for 90 Active Doxycycline Hyclate 100 MG 1 capsule Orally Twice a day for 5 days 12/04/2022 Not-Taking Valtrex 500 MG 1 tablet Orally twic e a day for 3 days 12/08/2022 Not-Taking Eliquis 5 MG 1 tablet Orally Twic e a day Active Flecainide Acetate 100 MG 0.5 tablet Ora lly every 12 hrs Active Viagra 50 MG 1 tablet as needed Orally Once a day for 30 DAYS 06/30/2012 Not-Taking Metoprolol Succinate ER 25 MG TAKE 1 TABLET BY MOUTH DAILY Active Finasteride 5 MG 1 tablet Orally Once a day for 30 day(s) Active Atorvastatin Calcium 80 MG TAKE ONE TABLET BY MOUTH EVERY DAY Active Triamcinolone Acetonide 0.1 % 1 application Externally Twice a day for 14 days 12/04/2021 Active Levothyroxine Sodium 150 MCG TAKE ONE TABLET BY MOUTH ONCE DAILY Active Immunizations Vaccine Route Administration Date Status Comme nts DECLINED, FLU Unknown 01/02/2013 Administered DECLINED, FLU Unknown 07/13/2013 Administered Flu Vaccine IM Intramuscular 09/14/2014 Administered Fluarix Quadrivalent IM Intramuscular 08/26/2015 Adminwinnie red PPSV23 (Pnemovax) IM Intramuscular 09/05/2015 Administered Fluarix Quadrivalent IM Intramuscular 08/06/2016 Adminwinnie red Prevnar 13 IM Intramuscular 03/25/2017 Administered Fluarix Quadrivalent IM Intramuscular 09/21/2017 Adminwinnie red Fluarix Quadrivalent IM Intramuscular 10/17/2018 [facility] Fluarix Quadrivalent IM Intramuscular 10/31/2019 Adminwinnie red SARS-COV-2 Pfizer Unknown 11/26/2020 Administered SARS-COV-2 [...] Problem Status W/U Status Risk Notes Problem 630486897 Paroxysmal atria l fibrillation (I48.0) Active confirmed Problem Hypothyroidism (82171569) Hypothyroidism, unspecified (E03.9) Active confirmed Problem Obesity (340662058) Obesity, unspecified (E66.9) Active confirmed Problem 533242881 Gastroesophageal reflux disease without esophagitis (K21.9) Active confirmed Problem 53671144 Essential hypert ension (I10) Active confirmed Problem 875946178 Acquired hypothyroidism (E03.9) Active confirmed Problem 5065028 Prediabetes (R73.09) Active confirmed Problem 198512066 Low HDL (under 4 0) (E78.6) Active confirmed Problem 067768141 Lung nodule (R91.1) Active confirmed Problem 47138360 Thoracic aortic aneurysm without rupture (I71.2) Active confirmed Problem 936734157 History of [place] (myocardial infarction) (I25.2) Active confirmed Problem 12264196 Dysthymia (F34.1) Active confirmed Problem 52825807 Sleep apnea, unspecified type (G47.30) Active confirmed Problem 5946312 Paraesophageal h iatal hernia (K44.9) Active confirmed Problem 607123631 Pure hypercholesterolemia (E78.00) Active confirmed Problem 823966590 Neurogenic bladd er (N31.9) Active confirmed Vital Signs Blood pressure diastolic 70 mm Hg 02/26/2025 cliff ght is up 13 pounds since 03-24-24 Height 67.25 in 02/26/2025 weight is up 13 pounds since 03-24-24 Blood pressure systolic 114 mm Hg 02/26/2025 weig ht is up 13 pounds since 03-24-24 Weight 210 lbs 02/26/2025 weight is up 13 pounds since 03-24-24 BMI 32.64 kg/m2 02/26/2025 weight is up 13 pounds since 03-24-24 Encounters Encounter Location Date Provider Diagnosis Christopher Batres MD [address] [place] [id number] 04/24/2024 Christopher Batres Hematuria, unspecifi ed type R31.9 Christopher Batres MD [address] [place] [id number] 07/10/2024 Christopher Batres Encounter for immuni zation Z23 Christopher Batres MD [address] [place] [id number] 2024 Christopher Batres Pure hypercholestero lemia E78.00 Christopher Batres MD [address] [place] [id number] 02/20/2025 Christopher Batres Blood tests for rout ine general physical examination Z00.00 ; Acquired hypothyroidism E03.9 ; Prediabetes R73.09 ; Pure hypercholesterolemia E78.00 and Essential hypertension I10 Christopher Batres MD [address] [place] [id number] 03/24/2024 Christopher Batres Essential hypertensi on I10 and Acute UTI N39.0 Christopher Batres MD [address] [id number] 08/11/2024 Christopher Batres Acquired hypothyroid ism E03.9 and Symptomatic hypotension I95.9 Christopher Batres MD [address] [place] [id number] 02/26/2025 Christopher Batres Paroxysmal atrial fibrillation I48.0 ; Adult general medical examination Z00.00 ; Acquired hypothyroidism E03.9 ; Essential hypertension I10 ; Prediabetes R73.09 ; History of [place] (myocardial infarction) I25.2 ; Pure hypercholesterolemia E78.00 ; Depression screening Z13.31 and Colon cancer screening Z12.11 Christopher Batres MD [address] [place] [id number] 03/13/2024 Christopher Batres Left flank pain R10. 9 Christopher Batres MD [address] [id number] 03/14/2024 Christopher Batres MD [address] [id number] 03/17/2024 Christopher Batres MD [address] [id number] 03/31/2024 Christopher Batres Renal cyst N28.1 Assessments Encounter Date Diagnosis (ICD Code) Assessment Notes Treatment Notes Treatment Clinical Notes Section Notes 04/24/2024 Hematuria, unspecifi ed type (ICD-10 - R31.9) 07/10/2024 Encounter for immunization (ICD-10 - Z23) 2024 Pure hypercholesterolemia (ICD-10 - E78.00) 02/20/[address] ine general physical examination (ICD-10 - Z00.00) 03/24/2024 Essential hypertensi on (ICD-10 - I10) [...] understanding to stop medication, will monitor BP 02/26/2025 Paroxysmal atrial fibrillation (ICD-10 - I48.0) does not sound like a fib now, will continue to monitor 02/26/2025 Adult general medica l examination (ICD-10 - Z00.00) labs reviewed and discussed with patient 03/31/2024 Renal cyst (ICD-10 - N28.1) 02/20/2025 Acquired hypothyroid ism (ICD-10 - E03.9) 02/26/2025 Acquired hypothyroid ism (ICD-10 - E03.9) tsh good, will continue current regiment 03/13/2024 Left flank pain (ICD -10 - R10.9) order made and printed and put into the future order folder for beginning of April 2024 02/20/2025 Prediabetes (ICD-10 - R73.09) 02/26/2025 Essential hypertensi on (ICD-10 - I10) well controlled, will continue current regiment 02/20/2025 Pure hypercholesterolemia (ICD-10 - E78.00) 02/26/2025 Prediabetes (ICD-10 - R73.09) doing well, no need for medication at this time 02/20/2025 Essential hypertensi on (ICD-10 - I10) 02/26/2025 History of [place] (myocardial infarction) (ICD-10 - I25.2) not having any problems, will continue to monitor 02/26/2025 Pure hypercholesterolemia (ICD-10 - E78.00) stable, will continue current regiment 02/26/2025 Depression screening (ICD-10 - Z13.31) negative screen 02/26/2025 Colon cancer screeni ng (ICD-10 - Z12.11) guaiac negative Plan Of Treatment Pending Test Test Name Order Date Electrocardiogram (EKG) 03/19/2016 Electrocardiogram (EKG) 03/25/2017 Electrocardiogram (EKG) 10/28/2018 Electrocardiogram (EKG) 11/16/2019 PROTHROMBIN TIME-INR 10/12/2013 XR CHEST 2 VIEW PA & LAT 01/28/2023 US abdomen limited 03/13/2024 US renal BI 03/31/2024 Next Appt Details Provider Name:Christopher Johnson ier, 08/24/2025 07:45:00 AM, [address], [place], [place], [phone], Provider Name:Christopher Johnson ier, 08/31/2025 10:00:00 AM, [address] [place] [address], Suite [facility], [place], [place], [phone], Provider Name:Christopher Johnson ier, 02/21/2026 07:30:00 AM, [address] [place] [address], [address], [place], [place], [phone], Provider Name:Christopher Johnson ier, 02/28/2026 08:00:00 AM, [address] [place] [address], [address], [place], [place], [phone], Insurance Providers Payer Name Payer Address Payer Phone Subscriber Number Group Number Insured Name Patient Relationship to Insured Coverage Start Date Coverage End Date [employer] [address] [place], [place] [id number] [phone] [id number] Cordell Cox Self - patient is the insured Medical (General) History Medical History History ICD Code hypothyroid ablation of pulmonary artery a fib reflux with roblse sleep apnea depression cva after ablation colonoscopy 12/2010 due in 10 years colon oscopy done 06/22 no further Cystoscopy 04/[address] Aguilera had mi with normal coronariew. possible embolic lung nodule evaluated and no need for fu rther evaluation Surgical History Surgery Date(Month/Year) Cystoscopy 04/2016
--- OUTSIDE RECORDS SUMMARY | 2025-03-07 13:57 | XMS_ITS ---
Author Organization Christopher Batres MD Address [address] [place] [phone] Care Team Providers Care Shank Piece Tacker Name Role Phone Christopher Batres Primary Care [...] Location Date Provider Diagnosis Christopher Batres MD [address] [place] [id number] 08/11/2024 Christopher Batres Acquired hypothyroidism E03.9 and [...] BP Next Appt Details Provider Name:Christopher lim, 08/24/2025 07:45:00 AM, [address] [place] [address], [phone], Provider Name:Christopher lim, 08/31/2025 10:00:00 AM, [address] [place] [address], [phone], Provider Name:Christopher lim, 02/21/2026 07:30:00 AM, [address] [place] [address], [phone], Provider Name:Christopher lim, 02/28/2026 08:00:00 AM, [address] [place] [address], [phone], Progress Notes * Cordell COX IIIDOB: (74 yo M)Acc No.[id number]:08/11/2024 Progress Notes Patient:?Cordell Cox Provider:?Christopher Batres MD :1950???Age:74 Y???Sex:Male Yunior e:08/11/2024 Address:[address] [place] [address], [address] [id number] Subjective: * Chief Complaints: * ???6 MO F/U * HPI: ???Symptom(s):? patient is a 74 yo male here for 6 month follow up visit, has been doing well. no uti's since he had surgery. at one point he was told that he needed catherter. 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 no uti's since he had surgery. at one point he was told that he needed catherter. 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
--- OUTSIDE RECORDS SUMMARY | 2025-03-07 13:57 | XMS_ITS | Clinical Summary ---
Author Organization [facility] Address [address] [place] [address] Care Team Providers Care Wader Boot Top Assembler Name Role Phone Unavailable Primary Care Provider [...]
--- OUTSIDE RECORDS SUMMARY | 2025-03-07 13:57 | XMS_ITS ---
Author Organization Christopher Batres MD Address [address] [place] [phone] Care Team Providers Care Tomato Paste Maker Name Role Phone Christopher Batres Primary Care Provider Allergies No Known Allergies Reason For Referral Reason abnormal scalp with actinic keratosis please eval and treat Diagnosis 1 Actinic keratosis (L 57.0) Referral Organization Christopher Batres MD Referring Provider First Name Christopher Referring Provider Last Name Gisel Referring Provider Speciality Internal M edicine Referred Provider [place] [facility] [place] Referred Provider Specialty Dermatology General Notes Teri [...] Date Provider Diagnosis Christopher Batres MD [address] [facility] [address] [place], [place] [phone] 02/26/2025 Christopher Batres Paroxysmal atrial fibrillation I48.0 ; Adult general medical examination Z00.00 ; Acquired hypothyroidism E03.9 ; Essential hypertension I10 ; Prediabetes R73.09 ; History of OH (myocardial infarction) I25.2 ; Pure hypercholesterolemia E78.00 [...] medication at this time 02/26/2025 History of OH (myocardial infarction) (ICD-10 - I25.2) not having [...] for medication at this time History of OH (myocardial infarction) no t having any problems, will continue to monitor Pure hypercholesterolemia stable, will c ontinue current regiment Depression screening negative screen Colon cancer screening guaiac negative Referrals Referral Date Details 02/26/2025 02/26/2025, abnormal scalp with actinic keratosis please eval and treat, [facility] Next Appt Details Follow Up: 6 Months, Reason: Provider Name:Christopher lim, 08/24/2025 07:45:00 AM, [address], [address], [place], [phone], Provider Name:Christopher Johnson ier, 08/31/2025 10:00:00 AM, [address], [address], [place], [phone], Provider Name:Christopher Johnson ier, 02/21/2026 07:30:00 AM, [address], [address], [place], [phone], Provider Name:Christopher Johnson ier, 02/28/2026 08:00:00 AM, [address], [address], [place], [phone], Progress Notes * Cordell COX IIIDOB: (74 yo M)Acc No.[id number]:02/26/2025 Patient:?Cordell COX III Provider:?Christopher Batres MD :1950???Age:74 Y???Sex:Male Yunior e:02/26/2025 Address:[address] [place] [address], [id number] Subjective: * Chief Complaints: * ???COMP EXAM * HPI: ???Depression Screening:?PHQ-9?Little interest or pleasure in doing things?Not at all,?Feeling down, depressed, or hopeless?Not at all,?Trouble falling or staying asleep, or sleeping too much?Not at all,?Feeling tired or having little energy?Not at all,?Poor appetite or overeating?Not at all,?Feeling bad about yourself or that you are a failure, or have let yourself or your family down?Not at all,?Trouble concentrating on things, such as reading the newspaper or watching television?Not at all,?Moving or speaking so slowly that other people could have noticed; or the opposite, being so fidgety or restless that you have been moving around a lot more than usual?Not at all,?Thoughts that you would be better off or of hurting yourself in some way?Not at all,?Total Score?0.?Interpretation and Intervention?Depression Screening Findings?Negative,?Follow-Up for Depression?: review of PHQ-9 found negative result, no follow-up needed.?Communication Needs:?Communication Needs?Does the patient have a hearing impairment?No,?Does the patient have a vision impairment??Yes,?If yes, what is the vision impairment??Glasses,?Does the patient have a cognition impairment??No.?Fall Risk:?History?Have you had any falls with injury in the past year??No,?Have you had two or more falls in the past year??No.?SDOH Questions:?SDOH Questions?In the past year have you been worried about losing housing??No,?In the past year have you or any family members you live with been unable to get any of the following when it was really needed? Check all that apply:?None.?Symptom(s):? patient is a 74 yo male here for annual visit with review of recent labs and follow up of chronic issues?went for us few days ago. * ROS:?General/Constitutional:?Change in appetite?denies.?Chills?denies.?Fever?denies.?Ophthalmologic:?Blurred vision?denies.?Discharge?denies.?Pain?denies.?ENT:?Decreased hearing?denies.?Sore throat?denies.?Swollen glands?denies.?Endocrine:?Cold intolerance?denies.?Excessive thirst?denies.?Heat intolerance?denies.?Weight loss?denies.?Respiratory:?Cough?denies.?Shortness of breath at rest?denies.?Shortness of breath with exertion?denies.?Wheezing?denies.?Cardiovascular:?Chest pain at rest?denies.?Chest pain with exertion?denies.?Irregular heartbeat?denies.?Shortness of breath?denies.?Gastrointestinal:?Abdominal pain?denies.?Change in bowel habits?denies.?Diarrhea?denies.?Nausea?denies.?Rectal bleeding?denies.?Vomiting?denies .?Genitourinary:?Blood in urine?denies.?Difficulty urinating?denies.?Frequent urination?denies.?Musculoskeletal:?Painful joints?denies.?Weakness?denies.?Skin:?Dry skin?denies.?Itching?denies.?Denies?Mole(s),? changes in moles, new moles or any lesions of concern.?Denies?Photosensitivity.?Rash?denies.?Neurologic:?Dizziness?denies.?Fainting?denies.?Headache?denies.? * Medical History:? * Surgical History:? * Hospitalization/Major Diagno stic Procedure:? * Family History:?Father: dece ased 85 yrs.?Mother: 83 yrs.?2 brother(s) . 2 son(s) , 1 daughter(s) . .? Father- ? Mother-CVA, Denies mental health/substance abuse family history, Denies mental health/substance abuse family history, No pertinent family medical history, Denies mental health/substance abuse family history. * Social History:?Tobacco Use:?Tobacco Use/Smoking?Patient is a?nonsmoker,?Additional Findings: Tobacco Non-User?Current non-smoker, currently using no form of tobacco.?Drugs/Alcohol:?Alcohol Screen?Did you have a drink containing alcohol in the past year??No,?Points?0,?Interpretation?Negative.?Miscellaneous:?Caffeine: 2-3 cups per day. Children: yes. Community involvements: no. Exercise: no, none. Home smoke detector use: yes. Living with: family. Marital status: . Occupation: works full-time. Pets: 1 cat. Travel outside of the [place]: no. * Medications:?TakingFlecainid e Acetate 100 MG Tablet 0.5 tablet Orally [...] as needed Orally Once a day * Allergies:?N.K.D.A.yes[Aller gies Verified] Objective: * Vitals:?Ht: 67.25, Wt: 210, BMI:32.64, BP:114/70, Wt-k.26. weight is up 13 pounds since 03-24-24. * ???Past Orders: ???Lab:PSA,Total (Free>4and< 10) (Order Date - 02/20/2025) (Collection Date & Time - 02/20/2025 08:00 AM) ? Value Reference Range ?PSA,Total (Free>4and<10) 0.34 0.00-4.00 - ng/mL ???Lab:Hemoglobin A1c (Order 02/20/2025) (Collection & Time - 02/20/2025 08:00 AM) ? Value Reference Range ?Hemoglobin A1c % 5.5 <6. 0 - % ?Estimated Average Glucose 111 - mg/dL ???Lab:Microalbumin, Random (Order 02/20/2025) (Collection & Time 02/20/2025 08:00 AM) ? Value Reference Range ?Creatinine Urine 146.11 - m g/dL ?Microalbumin Urine 9.0 - mg/L ?Microalbum Creatinine Ratio Ur 6.1 <30 - ug/mg cr ???Lab:Complete Blood Count Auto Diff (Order 02/20/2025) (Collection & Time - 02/20/2025 08:00 AM) ? Value Reference Range ?White Blood Count 5.7 4. 8-10.8 - X10*3/uL ?Red Blood Count 5.25 4.60 -5.80 - X10*6/uL ?Hemoglobin 14.9 14.0-18.0 - g/dl ?Hematocrit 45.7 42.0-52.0 - % ?Mean Corpuscular Volume 87.0 80.0-98.0 - fL ?Mean Corpuscular Hemoglobin 28.4 27.0-33.0 - pg ?Mean Corpuscular HGB Conc 32.6 31.0-36.0 - g/dl ?Red Cell Distribution Width 13.6 11.0-16.0 - % ?Platelet Count 193 160-4 00 - X10*3/uL ?Mean Platelet Volume 10.8 9.4-12.4 - fL ?Neutrophils Percent Auto 69.6 45-73 - % ?Imm Gran Pct Auto 0.4 0. 0-0.4 - % ?Lymphocytes Percent Auto 16.5 L 20-40 - % ?Monocytes Percent Auto 10.1 2-11 - % ?Eosinophils Percent Auto 2.7 0-4 - % ?Basophils Percent Auto 0.7 0-2 - % ?NRBC Pct Auto 0.0 0.0-0. 2 - /100WBC ?Neutrophils Absolute Auto 3.9 2.0-8.3 - x10*3/uL ?Imm Gran Abs Auto 0.02 0. 00-0.03 - X10*3/uL ?Lymphocytes Absolute Auto 0.9 L 1.2-4.9 - X10*3/uL ?Monocytes Absolute Auto 0.6 0.1-1.2 - X10*3/uL ?Eosinophils Absolute Auto 0.2 0.0-0.4 - X10*3/uL ?Basophils Absolute Auto 0.0 0.0-0.2 - X10*3/uL ?NRBC Abs Auto 0.000 0.0-0. 012 - X10*3/uL ???Lab:Comprehensive [place]. P yaw Fast (Order Date - 02/20/2025) (Collection Date & Time - 02/20/2025 08:00 AM) ? Value Reference Range ?Sodium 140 135-145 - mmo l/L ?Bilirubin Total 1.2 H 0.0- 1.0 - mg/dL ?Aspartate Amino Transferase 19 5-37 - U/L ?Alanine Aminotransferase 12 0-40 - U/L ?Total Protein 6.4 L 6.5-8. 0 - g/dL ?Albumin Level 3.9 3.5-5. 0 - g/dL ?Alkaline Phosphatase 79 39-117 - U/L ?Potassium 4.3 3.3-5.1 - mmol/L ?Chloride 106 96-108 - mm ol/L ?Carbon Dioxide 29 22-29 - mmol/L ?Anion Gap 9 L 12-20 - ?Blood Urea Nitrogen 17 H 9-16 - mg/dL ?Creatinine 1.05 0.5-1.4 - mg/dL ?Estimated Glomerular Filt Rate > 60 - ?Glucose Fasting 94 60-9 9 - mg/dL ?Calcium 8.8 8.4-10.2 - m g/dL ???Lab:UA ClnCatch+Micro w/r flx Cult (Order Date - 02/20/2025) (Collection Date & Time - 02/20/2025 08:00 AM) ? Value Reference Range ?Color Urine Yellow - ?Appearance Urine Clear - ?PH 8.5 5.0-9.0 - ?Glucose Urine UA Negative Neg ative - mg/dL ?Urine Blood Negative Negative - ?Specific [place] - Urine 1.020 1.005-1.025 - ?Urine Protein Trace Neg-Tr mynor - mg/dL ?Urine Ketones Negative Negati ve - mg/dL ?Nitrite Urine Negative Negati ve - ?Leukocyte Esterase Urine Negative Negative - ?RBC Urine 0-2 0-2 - /HPF ?WBC Urine 0-5 0-5 - /HPF ?Squamous Epithelial Cell Urine 0-2 0-2 - /HPF ?Bacteria Urine None Seen None Seen - ?Hyaline Casts Urine 0-2 0-2 - /LPF ???Lab:Lipid Panel (Order Da te - 02/20/2025) (Collection Date & Time - 02/20/2025 08:00 AM) ? Value Reference Range ?Triglycerides 71 <150 - mg/dL ?Cholesterol 92 <200 - m g/dL ?LDL Cholesterol Calculated 44 <100 - mg/dL ?HDL Cholesterol 34 L >40 - mg/dL ???Lab:TSH reflex Free T4 (O rder Date - 02/20/2025) (Collection Date & Time - 02/20/2025 08:00 AM) ? Value Reference Range ?TSH reflex Free T4 1.60 0 .32-4.0 - uIU/mL * Examination: ???General Examination: ?GENERAL APPEARANCE:?well developed, well nourished, in no acute distress.?HEAD:?normocephalic, atraumatic.?EYES:?pupils equal, round, reactive to light and accommodation, sclera non-icteric.?EARS:?normal.?ORAL CAVITY:?mucosa moist.?THROAT:?clear.?NECK/THYROID:?neck supple, full range of motion, no cervical lymphadenopathy, no bruits.?SKIN:?warm and dry, no suspicious lesions, abnormal scalp with actinic keratoisis.?HEART:?regular rate and rhythm, S1, S2 normal, no murmurs.?LUNGS:?clear to auscultation bilaterally.?ABDOMEN:?soft, nontender, nondistended, bowel sounds present, normal, no organomegaly , no masses palpable.?RECTAL EXAM:?normal tone, no external hemorrhoids, no masses palpable, prostate normal, stool guaiac negative.?MALE GENITOURINARY:?circumcised, no penile lesions or discharge, no testicular mass, testes descended bilaterally.?EXTREMITIES:?no clubbing, cyanosis, or edema.?NEUROLOGIC:?nonfocal, motor strength normal upper and lower extremities, sensory exam intact.? Assessment: * Assessment: 1.?Adult general medical exa mination - Z00.00 (Primary)???2.?Paroxysmal atrial fibrillation - I48.0???3.?Acquired hypothyroidism - E03.9???4.?Essential hypertension - I10???5.?Prediabetes - R73.09???6.?History of OH (myocardial infarction) - I25.2???7.?Pure hypercholesterolemia - E78.00???8.?Depression screening - Z13.31???9.?Colon cancer screening - Z12.11??? Plan: * Treatment: 2.?Paroxysmal atrial fibrill ation? Continue Eliquis Tablet, 5 MG, 1 tablet, Orally, Twice a day.?? Notes: does not sound like a fib now, will continue to monitor?? 3.?Acquired hypothyroidism? Continue Levothyroxine Sodium Tablet, 150 MCG, TAKE ONE TABLET BY MOUTH ONCE DAILY.?? Notes: tsh good, will continue current regiment?? 4.?Essential hypertension? Continue Metoprolol Succinate ER Tablet Extended Release 24 Hour, 25 MG, TAKE 1 TABLET BY MOUTH DAILY.?? Notes: well controlled, will continue current regiment?? 5.?Prediabetes? Notes: doing well, no need for medication at this time?? 6.?History of OH (myocardial infarction)? Notes: not having any problems, will continue to monitor?? 7.?Pure hypercholesterolemia ? Continue Atorvastatin Calcium Tablet, 80 MG, TAKE ONE TABLET BY MOUTH EVERY DAY.?? Notes: stable, will continue current regiment?? 8.?Depression screening? Notes: negative screen?? 9.?Colon cancer screening? Notes: guaiac negative?? 10.?Others? Referral To:[facility]??Dermatology ?Reason:abnormal scalp with actinic keratosis please eval and treat * Procedure Codes:? * Preventive Medicine:? ??Counseling:?Care goal follow-up plan:?Counseling for abnormal BMI provided?Yes,?Above Normal BMI Follow-up?Giving encouragement to exercise.? * Follow Up:?6 Months * * Sign off status: Completed true * Provider:?Christopher Batres MD Date:?0 02/26/2025 Generated for Edu urbano/Lorena/eTransmitting on:?03/07/2025 01:57 PM [...] Total Score: 0 Interpretation and Intervention Depression Elisae alberto Findings: Negative Follow-Up for Depression: : review [...] patient have a vision impairmen t?: Yes ?If yes, what is the vision impairment?: Glasses Does the patient have a cognition impair ment?: No Examination Category Sub-Category Detail Notes Category Not es General Examination GENERAL APPEARANCE: well dev eloped, well nourished, in no acute distress HEAD: normocephalic, atrau matic EYES: pupils equal, round, reactive to light and accommodation, sclera non- icteric EARS: normal THROAT: clear NECK/THYROID: neck supple, [...] Provider Not es 02/26/2025 Christopher Batres Radu deepakologyAdeel abnormal scalp with actinic keratosis please eval and treat
--- OUTSIDE RECORDS SUMMARY | 2025-03-07 13:58 | XMS_ITS ---
Author Organization Christopher Batres MD Address [address] [place] [phone] Care Team Providers Care Vp Publisher Development Name Role Phone Christopher Batres Primary Care Provider Results Component Value Reference Range Notes Complete Blood Count Auto Di ff Reviewed date:02/20/2025 06:37:17 PM Interpretation: Performing Lab:[facility] [place], [address] [place] [phone] Notes/Report: White Blood Count 5.7 4.8-10.8 X10*3/uL [...] NRBC Abs Auto 0.000 0.0-0.012 X10*3/uL Comprehensive [place]. Panel Fa st Reviewed date:02/20/2025 06:43:21 PM Interpretation: Performing Lab:[facility] [place], [address] [place] [phone] Notes/Report: Sodium 140 135-145 mmol/L Potassium 4.3 [...] Panel Reviewed date:02/20/2025 06:29:30 PM Interpretation: Performing Lab:[facility] [place], [address] [place] [phone] Notes/Report: Triglycerides 71 <150 mg/dL Desirable Triglyceride: [...] (Free>4and<10) Reviewed date:02/20/2025 12:27:16 PM Interpretation: Performing Lab:[facility] [place], [address] [place] [phone] Notes/Report: PSA,Total (Free>4and<10) 0.34 0.00-4.00 ng/mL A [...] T4 Reviewed date:02/20/2025 06:25:27 PM Interpretation: Performing Lab:[facility] [place], [address] [place] [phone] Notes/Report: TSH reflex Free T4 1.60 0.32-4.0 uIU/mL Microalbumin, Random Reviewed date:02/20/2025 06:31:01 PM Interpretation: Performing Lab:[facility] [place], [address] [place] [phone] Notes/Report: Creatinine Urine 146.11 Microalbumin Urine 9.0 Microalbum/Creatinine Ratio Ur 6.1 <30 ug/mg cr Albumin/Creatinine Ratio Reference Ranges: Normal: < 30 ug/mg creatinine Microalbuminuria: 30 - 300 ug/mg creatinine Clinical Albuminuria: > 300 ug/mg creatinine Hemoglobin A1c Reviewed date:02/20/2025 12:27:25 PM Interpretation: Performing Lab:[facility] [place], [address] [place] [phone] Notes/Report: Hemoglobin A1c % 5.5 <6.0 % [...] average glucose, using the formula of the E7Q-Txtbjcy Average Glucose study (ADAG), Diabetes Care, Vol.31,#8, Jun. 2007 UA ClnCatch+Micro w/rflx Cul t Reviewed date:02/20/2025 06:42:27 PM Interpretation: Performing Lab:[facility] [place], [address] [place] [phone] Notes/Report: Urine, Clean Catch Color Urine Yellow Appearance Urine Clear PH 8.5 5.0-9.0 Glucose Urine UA Negative Negative mg/dL Urine Blood Negative Negative Specific [place] - Urine 1.020 1.005-1.025 Urine Protein Trace [...] Location Date Provider Diagnosis Christopher Batres MD [address] [place] [address] Drive [address] [place], [place] [phone] 02/20/2025 Christopher Batres Blood tests for rout [...] Treatment Next Appt Details Provider Name:Christopher lim, 08/24/2025 07:45:00 AM, [address] [place] [address], [address], [phone], Provider Name:Christopher lim, 08/31/2025 10:00:00 AM, [address] [place] [address], [address], [phone], Provider Name:Christopher lim, 02/21/2026 07:30:00 AM, [address] [place] [address], [place] [address], [place], [place], [phone], Provider Name:Christopher lim, 02/28/2026 08:00:00 AM, [address] [place] [address], [address], [phone], Progress Notes * Cordell COX IIIDOB: (74 yo M)Acc No.[id number]:02/20/2025 Progress Note Patient:?Cordell COX III Provider:?Christopher Batres MD :1950???Age:74 Y???Sex:Male Yunior e:02/20/2025 Address:[address] [place] [address], [facility] Subjective: * Chief Complaints: * ???1. FASTING LABS. * Medical History:? Objective: * Vitals:? Assessment: * Assessment: 1.?Blood tests for routine g eneral physical examination - Z00.00 (Primary)???2.?Acquired hypothyroidism - E03.9???3.?Prediabetes - R73.09???4.?Pure hypercholesterolemia - E78.00???5.?Essential hypertension - I10??? Plan: * Treatment: 2.?Acquired hypothyroidism?LAB: Complete Blood Count Auto Diff (Collection Date & Time - 02/20/2025 08:00 AM) ?LAB: Comprehensive [place]. Panel Fast (Collection Date & Time - 02/20/2025 08:00 AM) ?LAB: Lipid Panel (Collection [...] Date & Time - 02/20/2025 08:00 AM) 3.?Prediabetes?LAB: Complete Blood Count Auto Diff (Collection Date & Time - 02/20/2025 08:00 AM) ?LAB: Comprehensive [place]. Panel Fast (Collection Date & Time - 02/20/2025 08:00 AM) ?LAB: Lipid Panel (Collection Date & Time - 02/20/2025 08:00 AM) ?LAB: PSA,Total (Free>4and<10) (Collection Date & Time - 02/20/2025 08:00 AM) ?LAB: TSH reflex Free T4 (Collection Date & Time - 02/20/2025 08:00 AM) ?LAB: Microalbumin, Random (Collection Date & Time 02/20/2025 08:00 AM) ?LAB: Hemoglobin A1c (Collection & Time 02/20/2025 08:00 AM) ?LAB: UA ClnCatch+Micro w/rflx Cult (Collection Date & Time 02/20/2025 08:00 AM) 4.?Pure hypercholesterolemia ?LAB: Complete Blood Count Auto Diff (Collection Date & Time 02/20/2025 08:00 AM) ?LAB: Comprehensive [place]. Panel Fast (Collection Date & Time 02/20/2025 08:00 AM) ?LAB: Lipid Panel (Collection & Time 02/20/2025 08:00 AM) ?LAB: PSA,Total (Free>4and<10) (Collection Date & Time 02/20/2025 08:00 AM) ?LAB: TSH reflex Free T4 (Collection Date & Time 02/20/2025 08:00 AM) ?LAB: Microalbumin, Random (Collection Date & Time 02/20/2025 08:00 AM) ?LAB: Hemoglobin A1c (Collection & Time 02/20/2025 08:00 AM) ?LAB: UA ClnCatch+Micro w/rflx Cult (Collection Date & Time 02/20/2025 08:00 AM) 5.?Essential hypertension?LAB: Complete Blood Count Auto Diff (Collection Date & Time 02/20/2025 08:00 AM) ?LAB: Comprehensive [place]. Panel Fast (Collection Date & Time 02/20/2025 [...] Time - 02/20/2025 08:00 AM) * Procedure Codes:?70690 VENIP UNCT, ROUTINE* * * The named appointment provid er may or may not be the originator of this progress note, and it is not deemed complete until electronically signed by the appointment provider. Sign off status: Pending * Provider:?Christopher Batres MD Date:?0 02/20/2025 Generated for Edu urbano/Lorena/Avelitting on:?03/07/2025 01:57 PM EDT
== END 2025-03-07 13:14 | disposition home or self-care (01) ==
LOC: HO.HCS 12:53
PROVIDERS: PCP Internal Medicine; Visit Provider Internal Medicine Cardiovascular Disease
DX: R94.31 Abnormal electrocardiogram [ECG] [EKG] (principal)
CPT/HCPCS: 93010

== ENCOUNTER → 2025-03-07 12:53 | Outpatient (BNVA) | payer MEDICARE, SELFPAY | PROVIDERS: PCP Internal Medicine; Visit Provider Internal Medicine Cardiovascular Disease | DX: Z13.6 Encounter for screening for cardiovascular disorders (principal) | CPT/HCPCS: 93005 ==

== ENCOUNTER → 2025-03-22 07:45 | Outpatient (REF) | payer MEDICARE, SELFPAY ==
--- OUTSIDE RECORDS SUMMARY | 2025-03-22 07:48 | XMS_ITS | Patient Health Record ---
Author Organization Christopher Batres MD Address [address] [place] [phone] Care Team Providers Care Building Coordinator Name Role Phone Christopher Batres Primary Care Provider [phone] Allergies No Known Allergies Results Component Value Reference Range Notes UA ClnCatch+Micro w/rflx Cul t Reviewed date:04/25/2024 04:58:36 PM Interpretation: Performing Lab:[facility], [address] [place] [phone] Notes/Report: Urine, Clean Catch Color Urine Yellow Appearance Urine Clear PH 6.5 5.0-9.0 Glucose Urine UA Negative Negative mg/dL Urine Blood Negative Negative Specific [place] - Urine 1.010 1.005-1.025 Urine Protein Negative Neg-Trace mg/dL Urine Ketones Negative Negative mg/dL Nitrite Urine Negative Negative Leukocyte Esterase Urine Negative Negative RBC Urine 0-2 0-2 /HPF WBC Urine 0-5 0-5 /HPF Squamous Epithelial Cell Urine 0-2 0-2 /HPF Bacteria Urine None Seen None Seen Hyaline Casts Urine 0-2 0-2 /LPF Liver Panel Reviewed date:2024 01:27:14 PM Interpretation: Performing Lab:[facility], [address] [place] [phone] Notes/Report: Bilirubin Total 1.0 0.0-1.0 mg/dL Bilirubin Direct 0.4 0.0-0.5 mg/dL Aspartate Amino Transferase 13 5-37 U/L Alanine Aminotransferase 11 0-40 U/L Total Protein 6.5 6.5-8.0 g/dL Albumin Level 4.0 3.5-5.0 g/dL Alkaline Phosphatase 72 39-117 U/L Lipid Panel with Reflex Reviewed date:2024 01:26:58 PM Interpretation: Performing Lab:[facility], [address] [place] [phone] Notes/Report: Triglycerides 51 <150 mg/dL Desirable Triglyceride: [...] 06:37:17 PM Interpretation: Performing Lab:[facility], [address] [place] [phone] Notes/Report: White Blood Count 5.7 4.8-10.8 X10*3/uL [...] 0.0-0.2 /100WBC Neutrophils Absolute Auto 3.9 2.0-8.3 x10*3/uL Imm Gran Abs Auto 0.02 0.00-0.03 X10*3/uL Lymphocytes Absolute Auto 0.9 1.2-4.9 X10*3/uL Monocytes Absolute Auto 0.6 0.1-1.2 X10*3/uL Eosinophils Absolute Auto 0.2 0.0-0.4 X10*3/uL Basophils Absolute Auto 0.0 0.0-0.2 X10*3/uL NRBC Abs Auto 0.000 0.0-0.012 X10*3/uL Comprehensive [place]. Panel Fa st Reviewed date:02/20/2025 06:43:21 PM Interpretation: Performing Lab:[facility], [address] [place] [phone] Notes/Report: Sodium 140 135-145 mmol/L Potassium 4.3 [...] Panel Reviewed date:02/20/2025 06:29:30 PM Interpretation: Performing Lab:[address] [phone] Notes/Report: Triglycerides 71 <150 mg/dL Desirable Triglyceride: [...] (Free>4and<10) Reviewed date:02/20/2025 12:27:16 PM Interpretation: Performing Lab:[address] [phone] Notes/Report: PSA,Total (Free>4and<10) 0.34 0.00-4.00 ng/mL A [...] T4 Reviewed date:02/20/2025 06:25:27 PM Interpretation: Performing Lab:[address] [phone] Notes/Report: TSH reflex Free T4 1.60 0.32-4.0 uIU/mL Microalbumin, Random Reviewed date:02/20/2025 06:31:01 PM Interpretation: Performing Lab:[address] [phone] Notes/Report: Creatinine Urine 146.11 Microalbumin Urine 9.0 Microalbum/Creatinine Ratio Ur 6.1 <30 ug/mg cr Albumin/Creatinine Ratio Reference Ranges: Normal: < 30 ug/mg creatinine Microalbuminuria: 30 - 300 ug/mg creatinine Clinical Albuminuria: > 300 ug/mg creatinine Hemoglobin A1c Reviewed date:02/20/2025 12:27:25 PM Interpretation: Performing Lab:[address] [phone] Notes/Report: Hemoglobin A1c % 5.5 <6.0 % [...] average glucose, using the formula of the A1I-Ralvchl Average Glucose study (ADAG), Diabetes Care, Vol.31,#8, Jun. 2007 UA ClnCatch+Micro w/rflx Cul t Reviewed date:02/20/2025 06:42:27 PM Interpretation: Performing Lab:[address] [phone] Notes/Report: Urine, Clean Catch Color Urine Yellow Appearance Urine Clear PH 8.5 5.0-9.0 Glucose Urine UA Negative Negative mg/dL Urine Blood Negative Negative Specific [place] - Urine 1.020 1.005-1.025 Urine Protein Trace Neg-Trace mg/dL Urine Ketones Negative Negative mg/dL Nitrite Urine Negative Negative Leukocyte Esterase Urine Negative Negative RBC Urine 0-2 0-2 /HPF WBC Urine 0-5 0-5 /HPF Squamous Epithelial Cell Urine 0-2 0-2 /HPF Bacteria Urine None Seen None Seen Hyaline Casts Urine 0-2 0-2 /LPF Urinalysis and Microscopic Reviewed date:03/28/2024 12:42:24 PM Interpretation: Performing Lab:[facility], [address] [place] [phone] Notes/Report: Color Urine Yellow Appearance Urine Clear PH 5.5 5.0-9.0 Glucose Urine UA Negative Negative mg/dL Urine Blood Small (1+) Negative Specific [place] - Urine 1.020 1.005-1.025 Urine Protein 30 (1+) Neg-Trace mg/dL Urine Ketones Trace Negative mg/dL Nitrite Urine Negative Negative Leukocyte Esterase Urine Small (1+) Negative RBC Urine 3-5 0-2 /HPF WBC Urine 6-10 0-5 /HPF Squamous Epithelial Cell Urine 3-5 0-2 /HPF Bacteria Urine Trace None Seen Hyaline Casts Urine 0-2 0-2 /LPF Urine Culture Reviewed date:03/27/2024 01:41:26 PM Interpretation: Performing Lab:[facility], [address] [place] [phone] Notes/Report: Urine Culture Report Result Urine Culture < 10,000 cfu/ml US renal BI Reviewed date:05/08/2024 08:03:22 AM Interpretation: Performing Lab: Notes/Report: [address] [address] Ultrasound Report Signed Patient: Cordell Cox MR#: [id number] : 1950 Acct:[id number] Age/Sex: 73 / M ADM Date: 04/11/24 Loc: HO.US Attending Dr: Christopher Batres MD Ordering Physician: Christopher Batres MD Date of Service: 04/11/24 Procedure(s): US renal BI Accession Number(s): [id number] cc: Christopher Batres MD EXAMINATION: US RETROPERITONEAL [...] in OV> 05/03/24 1438 DD/ 1140 TD/TT: Commercial Roofer: [place] [address] Ultrasound Report Signed Patient: Cordell Cox MR#: [id number] : 1950 Acct:[id number] Age/Sex: 73 / M ADM Date: 04/11/24 Loc: .US Attending Dr: Christopher Batres MD Ordering Physician: Christopher Batres MD Date of Service: 04/11/24 Procedure(s): US arjun al BI Accession Number(s): [id number] cc: Christopher Batres MD EXAMINATION: US RETROPERITONEAL [...] in OV> 05/03/24 1438 DD/ 1140 TD/TT: Commercial Roofer: QUIRINO Verde Reviewed date:2024 12:55:58 PM Interpretation: Performing Lab:[facility], [address] [place] [phone] Notes/Report: Gagan Verde See Note Specimen held untested for 24 hours; Call to request Chemistry testing. Reason For Referral Reason abnormal scalp with actinic keratosis please eval and treat Diagnosis 1 Actinic keratosis (L 57.0) Referral Organization Christopher Batres MD Referring Provider First Name Christopher Referring Provider Last Name Gisel Referring Provider Speciality Internal M edicine Referred Provider [facility] [place] Referred Provider Specialty Dermatology General Notes Teri [...] 03/25/2017 Administered Fluarix Quadrivalent IM Intramuscular [facility]/2017 [facility] Quadriv[facility] IM Intr[facility]cular 10/17/2018 [facility] Fluarix Quadrivalent IM Intramuscular 10/31/2019 [facility] SARS-COV-2 Pfizer Unknown 11/26/2020 Administered SARS-COV-2 [...] Problem Status W/U Status Risk Notes Problem 758572990 Paroxysmal atria l fibrillation (I48.0) Active confirmed Problem Hypothyroidism (14531817) Hypothyroidism, unspecified (E03.9) Active confirmed Problem Obesity, unspeci fied (E66.9) Active confirmed Problem 762657668 Gastroesophageal reflux disease without esophagitis (K21.9) Active confirmed Problem 13371837 Essential hypert ension (I10) Active confirmed Problem 695218403 Acquired hypothyroidism (E03.9) Active confirmed Problem 6006356 Prediabetes (R73.09) Active confirmed Problem 720174917 Low HDL (under 4 0) (E78.6) Active confirmed Problem 503501455 Lung nodule (R91.1) Active confirmed Problem 89707424 Thoracic aortic aneurysm without rupture (I71.2) Active confirmed Problem 115665588 History of [place] (myocardial infarction) (I25.2) Active confirmed Problem 45670696 Dysthymia (F34.1) Active confirmed Problem 58656057 Sleep apnea, unspecified type (G47.30) Active confirmed Problem 8760568 Paraesophageal h iatal hernia (K44.9) Active confirmed Problem 706296844 Pure hypercholesterolemia (E78.00) Active confirmed Problem 483979267 Neurogenic bladd er (N31.9) Active confirmed Vital [...] Encounters Encounter Location Date Provider Diagnosis Christopher Baters MD [address] [place] [address] Drive [address] [place] [id number] 04/24/2024 Christopher Batres Hematuria, unspecifi ed type R31.9 Christopher Batres MD [address] [place] [id number] 07/10/2024 Christopher Batres Encounter for immuni zation Z23 Christopher Batres MD [address] [place] [id number] 2024 Christopher Batres Pure hypercholestero lemia E78.00 Christopher Batres MD [address] [facility] [address] [place] [id number] 02/20/2025 Christopher Batres Blood tests for rout ine general physical examination Z00.00 ; Acquired hypothyroidism E03.9 ; Prediabetes R73.09 ; Pure hypercholesterolemia E78.00 and Essential hypertension I10 Christopher Batres MD [address] [facility] [address] [id number] 03/24/2024 Christopher Batres Essential hypertensi on I10 and Acute UTI N39.0 Christopher Batres MD [address] [facility] [address] [id number] 08/11/2024 Christopher Batres Acquired hypothyroid ism E03.9 and Symptomatic hypotension I95.9 Christopher Batres MD [address] [place] [id number] 02/26/2025 Christopher Batres Paroxysmal atrial fibrillation I48.0 ; Adult general medical examination Z00.00 ; Acquired hypothyroidism E03.9 ; Essential hypertension I10 ; Prediabetes R73.09 ; History of [place] (myocardial infarction) I25.2 ; Pure hypercholesterolemia E78.00 ; Depression screening Z13.31 and Colon cancer screening Z12.11 Christopher Batres MD [address] [place] [id number] 03/31/2024 Christopher Batres Renal cyst N28.1 Assessments [...] E03.9) tsh good, will continue current regiment 02/20/2025 Prediabetes (ICD-10 - R73.09) 02/26/2025 Essential hypertensi on (ICD-10 - I10) well controlled, will continue current regiment 02/20/2025 Pure hypercholesterolemia (ICD-10 - E78.00) 02/26/2025 Prediabetes (ICD-10 - R73.09) doing well, no need for medication at this time 02/20/2025 Essential hypertensi on (ICD-10 - I10) 02/26/2025 History of [place] (myocardial infarction) (ICD-10 - I25.2) not having [...] Provider Name:Christopher Johnson ier, 08/24/2025 07:45:00 AM, [address], [address], [place], [place], [phone], Provider Name:Christopher Johnson ier, 08/31/2025 10:00:00 AM, [address], [address], [place], [place], [phone], Provider Name:Christopher Johnson ier, 02/21/2026 07:30:00 AM, [address] [place] [address] Drive, [address], [place], [place], [phone], Provider Name:Christopher Johnson ier, 02/28/2026 08:00:00 AM, [address] [place] [address] Drive, [address], [place], [place], [phone], Insurance Providers Payer Name Payer Address Payer Phone Subscriber Number Group Number Insured Name Patient Relationship to Insured Coverage Start Date Coverage End Date [employer] [facility] [address] [place], [place] [phone] [id number] Cordell Cox Self - patient is the insured Medical (General) History Medical History History ICD Code hypothyroid ablation of pulmonary artery a fib reflux with schatzki sleep apnea depression cva after ablation colonoscopy 12/2010 due in 10 years colon oscopy done 06/22 no further Cystoscopy 04/[address] Aguilera had mi with normal coronariew. possible embolic lung nodule evaluated and no need for fu rther evaluation Surgical History Surgery Date(Month/Year) Cystoscopy 04/2016
--- OUTSIDE RECORDS SUMMARY | 2025-03-22 07:48 | XMS_ITS | Patient Health Record ---
Author Organization [facility] Address [address] [place] [address] Care Team Providers Care Casing Tier Name Role Phone Gisel MACK, Christopher Primary Care Provider Corey Sher Jr Unavailable [phone] Allergies No Known Allergies Reason For [...] Problem Status W/U Status Risk Notes Problem 666687720 Colon cancer screening (Z12.11) Active confirmed Problem 925864227 Gastro-esophagea l reflux disease without esophagitis (K21.9) Active confirmed Problem 179790104 half-way (curre nt) use of anticoagulants (Z79.01) Active confirmed Problem 282162526 Gastroesophageal reflux disease without esophagitis (K21.9) Active confirmed Problem 90349320 Hiatal hernia (K44.9) Active confirmed Problem Diverticulosis o f colon (K57.30) Active confirmed Plan Of Treatment Future Test Test Name Order Date UPPER GI ENDOSCOPY 07/31/2016 COLONOSCOPY 04/29/2022 Insurance Providers Payer Name Payer Address Payer Phone Subscriber Number Group Number Insured Name Patient Relationship to Insured Coverage Start Date Coverage End Date [facility] [address] [place] [address] [id number] ROSA KEARNS Self - patient is the insured Medical (General) History Medical History History ICD Code hypertension Atrial fibrillation CVA Hiatal hernia with Schatzki ring Coronary artery disease with history of [place] 07/17 hypothyroidism Surgical History Surgery Date(Month/Year) cardiac ablation kidney stones 04/2016
--- OUTSIDE RECORDS SUMMARY | 2025-03-22 07:48 | XMS_ITS ---
Author Organization Christopher Batres MD Address [address] [place] [phone] Care Team Providers Care Miter Operator Name Role Phone Christopher Batres Primary Care Provider Allergies No Known Allergies Reason For Referral Reason abnormal scalp with actinic keratosis please eval and treat Diagnosis 1 Actinic keratosis (L 57.0) Referral Organization Christopher Batres MD Referring Provider First Name Christopher Referring Provider Last Name Gisel Referring Provider Speciality Internal M edicine Referred Provider [facility] [facility] [place] Referred Provider Specialty Dermatology General Notes Teri [...] Date Provider Diagnosis Christopher Batres MD [address] [facility] [address] [place], [place] [id number] 02/26/2025 Christopher Batres Paroxysmal atrial fibrillation I48.0 ; Adult general medical examination Z00.00 ; Acquired hypothyroidism E03.9 ; Essential hypertension I10 ; Prediabetes R73.09 ; History of [place] (myocardial infarction) I25.2 ; Pure hypercholesterolemia E78.00 [...] medication at this time 02/26/2025 History of [place] (myocardial infarction) (ICD-10 - I25.2) not having [...] for medication at this time History of [place] (myocardial infarction) no t having any problems, will continue to monitor Pure hypercholesterolemia stable, will c ontinue current regiment Depression screening negative screen Colon cancer screening guaiac negative Referrals Referral Date Details 02/26/2025 02/26/2025, abnormal scalp with actinic keratosis please eval and treat, [facility] Next Appt Details Follow Up: 6 Months, Reason: Provider Name:Christopher lim, 08/24/2025 07:45:00 AM, [address], [address], [place], [phone], Provider Name:Christopher Johnson ier, 08/31/2025 10:00:00 AM, [address], [address], [place], [phone], Provider Name:Christopher Johnson ier, 02/21/2026 07:30:00 AM, [address], [address], [place], [phone], Provider Name:Christopher Johnson ier, 02/28/2026 08:00:00 AM, [address], [address], [place], [phone], Progress Notes * Cordell COX IIIDOB: (74 yo M)Acc No.[id number]:02/26/2025 Patient:?Cordell COX III Provider:?Christopher Batres MD :1950???Age:74 Y???Sex:Male Yunior e:02/26/2025 Address:[address] [place] [address], [facility] Subjective: * Chief Complaints: * ???COMP EXAM [...] Auto 0.000 0.0-0. 012 - X10*3/uL ???Lab:Comprehensive [place]. P yaw Fast (Order Date - 02/20/2025) [...] mg/dL ?Urine Blood Negative Negative - ?Specific [place] - Urine 1.020 1.005-1.025 - ?Urine Protein [...] E03.9???4.?Essential hypertension - I10???5.?Prediabetes - R73.09???6.?History of [place] (myocardial infarction) - I25.2???7.?Pure hypercholesterolemia - E78.00???8.?Depression [...] for medication at this time?? 6.?History of [place] (myocardial infarction)? Notes: not having any problems, will continue to monitor?? 7.?Pure hypercholesterolemia ? Continue Atorvastatin Calcium Tablet, 80 MG, TAKE ONE TABLET BY MOUTH EVERY DAY.?? Notes: stable, will continue current regiment?? 8.?Depression screening? Notes: negative screen?? 9.?Colon cancer screening? Notes: guaiac negative?? 10.?Others? Referral To:[facility]??Dermatology ?Reason:abnormal scalp with actinic keratosis please eval and treat * Procedure Codes:? * Preventive Medicine:? ??Counseling:?Care goal follow-up plan:?Counseling for abnormal BMI provided?Yes,?Above Normal BMI Follow-up?Giving encouragement to exercise.? * Follow Up:?6 Months * * Sign off status: Completed true * Provider:?Christopher Batres MD Date:?0 02/26/2025 Generated for Edu urbano/Lorena/eTransmitting on:?03/22/2025 07:48 AM EDT History and Physical Notes * [...]
--- OUTSIDE RECORDS SUMMARY | 2025-03-22 07:48 | XMS_ITS ---
Author Organization Christopher Batres MD Address [address] [place] [phone] Care Team Providers Care Machinist Apprentice Name Role Phone Christopher Batres Primary Care Provider [phone] Results Component Value Reference Range Notes Complete Blood Count Auto Di ff Reviewed date:02/20/2025 06:37:17 PM Interpretation: Performing Lab:[facility], [address] [place] [phone] Notes/Report: White Blood Count 5.7 4.8-10.8 X10*3/uL [...] NRBC Abs Auto 0.000 0.0-0.012 X10*3/uL Comprehensive [place]. Panel Fa st Reviewed date:02/20/2025 06:43:21 PM Interpretation: Performing Lab:[facility], [address] [place] [phone] Notes/Report: Sodium 140 135-145 mmol/L Potassium 4.3 [...] Panel Reviewed date:02/20/2025 06:29:30 PM Interpretation: Performing Lab:[facility], [address] [place] [phone] Notes/Report: Triglycerides 71 <150 mg/dL Desirable Triglyceride: [...] (Free>4and<10) Reviewed date:02/20/2025 12:27:16 PM Interpretation: Performing Lab:[facility], [address] [place] [phone] Notes/Report: PSA,Total (Free>4and<10) 0.34 0.00-4.00 ng/mL A [...] T4 Reviewed date:02/20/2025 06:25:27 PM Interpretation: Performing Lab:[facility], [address] [place] [phone] Notes/Report: TSH reflex Free T4 1.60 0.32-4.0 uIU/mL Microalbumin, Random Reviewed date:02/20/2025 06:31:01 PM Interpretation: Performing Lab:[facility], [address] [place] [phone] Notes/Report: Creatinine Urine 146.11 Microalbumin Urine 9.0 Microalbum/Creatinine Ratio Ur 6.1 <30 ug/mg cr Albumin/Creatinine Ratio Reference Ranges: Normal: < 30 ug/mg creatinine Microalbuminuria: 30 - 300 ug/mg creatinine Clinical Albuminuria: > 300 ug/mg creatinine Hemoglobin A1c Reviewed date:02/20/2025 12:27:25 PM Interpretation: Performing Lab:[facility], [address] [place] [phone] Notes/Report: Hemoglobin A1c % 5.5 <6.0 % [...] average glucose, using the formula of the W0O-Geeqhuf Average Glucose study (ADAG), Diabetes Care, Vol.31,#8, Jun. 2007 UA ClnCatch+Micro w/rflx Cul t Reviewed date:02/20/2025 06:42:27 PM Interpretation: Performing Lab:[facility], [address] [place] [phone] Notes/Report: Urine, Clean Catch Color Urine Yellow Appearance Urine Clear PH 8.5 5.0-9.0 Glucose Urine UA Negative Negative mg/dL Urine Blood Negative Negative Specific [place] - Urine 1.020 1.005-1.025 Urine Protein Trace [...] Location Date Provider Diagnosis Christopher Batres MD [address] [place] [address] Drive [address] [place], [place] [phone] 02/20/2025 Christopher Batres Blood tests for rout [...] Details Provider Name:Christopher lim, 08/24/2025 07:45:00 AM, [address] [place] [address], [address], [phone], Provider Name:Christopher lim, 08/31/2025 10:00:00 AM, [address] [place] [address], [address], [phone], Provider Name:Christopher lim, 02/21/2026 07:30:00 AM, [address] [place] [address], [place] [address], [place], [place], [phone], Provider Name:Christopher lim, 02/28/2026 08:00:00 AM, [address] [place] [address], [address], [phone], Progress Notes * Cordell COX IIIDOB: (74 yo M)Acc No.[id number]:02/20/2025 Progress Note Patient:?Cordell COX III Provider:?Christopher Batres MD :1950???Age:74 Y???Sex:Male Yunior e:02/20/2025 Address:[address] [place] [address], [id number] Subjective: * Chief Complaints: * ???1. FASTING LABS. * Medical History:? Objective: * Vitals:? Assessment: * Assessment: 1.?Blood tests for routine g eneral physical examination - Z00.00 (Primary)???2.?Acquired hypothyroidism - E03.9???3.?Prediabetes - R73.09???4.?Pure hypercholesterolemia - E78.00???5.?Essential hypertension - I10??? Plan: * Treatment: 2.?Acquired hypothyroidism?LAB: Complete Blood Count Auto Diff (Collection Date & Time - 02/20/2025 08:00 AM) ?LAB: Comprehensive [place]. Panel Fast (Collection Date & Time - [...] Time - 02/20/2025 08:00 AM) ?LAB: Comprehensive [place]. Panel Fast (Collection Date & Time - [...] & Time 02/20/2025 08:00 AM) ?LAB: Comprehensive [place]. Panel Fast (Collection Date & Time 02/20/2025 [...] & Time 02/20/2025 08:00 AM) ?LAB: Comprehensive [place]. Panel Fast (Collection Date & Time 02/20/2025 [...] Time - 02/20/2025 08:00 AM) * Procedure Codes:?90677 VENIP UNCT, ROUTINE* * * The named appointment provid er may or may not be the originator of this progress note, and it is not deemed complete until electronically signed by the appointment provider. Sign off status: Pending * Provider:?Christopher Batres MD Date:?0 02/20/2025 Generated for Edu urbano/Lorena/Avelitting on:?03/22/2025 07:48 AM EDT
--- OUTSIDE RECORDS SUMMARY | 2025-03-22 07:48 | XMS_ITS ---
Author Organization Christopher Batres MD Address [address] [place] [phone] Care Team Providers Care Photovoltaic Installation Technician Name Role Phone Christopher Batres Primary Care [...] Date Provider Diagnosis Christopher Batres MD [address] [place] [phone] 08/11/2024 Christopher Batres Acquired hypothyroidism E03.9 and [...] Details Provider Name:Christopher lim, 08/24/2025 07:45:00 AM, [address] [place] [address], [phone], Provider Name:Christopher lim, 08/31/2025 10:00:00 AM, [address] [place] [address], [phone], Provider Name:Christopher lim, 02/21/2026 07:30:00 AM, [address] [place] [address], [phone], Provider Name:Christopher lim, 02/28/2026 08:00:00 AM, [address] [place] [address], [phone], Progress Notes * Cordell COX IIIDOB: (74 yo M)Acc No.[id number]:08/11/2024 Progress Notes Patient:?Cordell Cox Provider:?Christopher Batres MD :1950???Age:74 Y???Sex:Male Yunior e:08/11/2024 Address:[address] [place] [address] [place] [id number] Subjective: * Chief Complaints: * ???6 MO F/U * HPI: ???Symptom(s):? patient is a 74 yo male here for 6 month follow up visit, has been doing well. no uti's since he had surgery. at one point he was told that he needed catherter. 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 occasionally when he bends down to continuous pickling line pickler dog legs go numb and he has [...]
--- NOTE | 2025-03-22 07:53 | CA_ITS ---
Transthoracic Echocardiogram Patient (Last, First, Middle): Cordell Cox H Gender: Male Date of : 1950 Age: 74 Procedure Date: 03/22/2025 Procedure Type: Transthoracic Echocardiogram Location: OP Height: 172.72 cm Weight: 92.99 kg BSA: 2.07 m2 Heart Rate: 49 bpm BP: 135 / 70 mmHg Director Of Business Systems: CLARICE/ABBY Referring MD: Troy Collins MD Medical Nurse: Troy Collins MD Symptoms: PAF Study Quality: Adequate ECG Rhythm: Sinus Conclusions: - 1. Normal LV ejection fraction of 55-60% with pseudonormal filling pattern 2. Mildly dilated left atrium 3. Trace aortic regurgitation 4. Normal RV systolic pressure 5. Mildly dilated ascending aorta at 4 cm 6. No gross pericardial effusion Findings Left Ventricle Normal left ventricular size, thickness, and systolic function. The visually estimated ejection fraction is between 55-60%. Spectral Doppler is indicative of a pseudonormal filling pattern. E/E prime ratio is between 8 and 15 consistent with indeterminate filling pressures. Right Ventricle Normal right ventricular cavity size and systolic function. Atria The left atrium is mildly dilated. There is no evidence of interatrial shunt. The right atrium is normal in size. Aortic Valve Normal aortic valve structure and function. There is no aortic valve stenosis. There is trace (trivial) aortic valve regurgitation. Mitral Valve Normal mitral valve structure and function. There is trace mitral valve regurgitation. There is no mitral valve stenosis. Pulmonic Valve The pulmonic valve is likely normal. There is trace to mild pulmonic valve regurgitation. Tricuspid Valve Likely normal tricuspid valve structure and function. There is trace tricuspid valve regurgitation. The right ventricular systolic pressure is normal. The right ventricular systolic pressure is 23 mmHg. Normal right atrial pressure. There is no evidence of pulmonary hypertension. Great Vessels The pulmonary artery was not well visualized. There is mild dilatation of the ascending aorta measuring 4.00 cm. Venous The inferior vena cava is normal in size and collapses greater than 50% with inspiration. Pericardium/Pleural There is no evidence of pericardial effusion. Prior Study Comparison No significant change compared to prior study dated: 11/15/2023. Measurements 2D Linear Measurements IVSd: 1.12 0.6-0.9/0.6-1.0 cm LVIDd: 4.67 3.9-5.3/4.2-5.9 cm LVIDd Index: 2.26 2.4-3.2/2.2-3.1 cm/m2 LVIDs: 2.72 2.0-3.6 cm LVPWd: 1.01 0.7-1.1 cm LA Diam: 2.80 2.7-3.8/3.0-4.0 cm LAIDs Index: 1.35 1.5-2.3 cm/m2 LV Mass: 221.09 67-162/88-224 g LV Mass Index: 106.81 43-95/49-115 g/m2 LVOT Diam: 2.30 3.0+(-)1.3 cm 2D Systolic Function EF 4C: 58.50 >55% EF 2C: 56.20 >55% EF BiP: 57.30 >55% Mitral Valve MV Pk E: 0.81 MV PK A: 0.45 MV Decel Time: 265.00 E/A: 1.80 E'Lateral: 6.79 E'Medial: 5.77 E/E' Med: 14.00 E/E' Lat: 11.90 PHT: 78.00 MVA PHT: 2.82 Decel [place]: 3.04 Aortic Valve AoV Pk Lukasz: 1.12 AoV Mn Lukasz: 0.79 AoV VTI: 0.29 AoV Pk Grad: 5.00 Aov Mn Grad: 3.00 DELVIN Cont.VTI: 3.70 LVOT LVOT Pk Lukasz: 1.05 LVOT Mn Lukasz: 0.66 LVOT VTI: 0.26 LVOT Pk Grad: 4.00 LVOT Mn Grad: 2.00 LVOT Diam: 2.30 LVOT Area: 4.15 Diastolic Function MV Pk E: 0.81 MV Pk A: 0.45 E/A: 1.80 E'Medial: 5.77 E/E' Med: 14.00 E' Laterial: 6.79 E/E' Lat: 11.90 Right Ventricle TAPSE (mm): 25.40 TVS' Lukasz: 12.20 Tricuspid Valve TR Pk Lukasz: 2.24 TR Pk Grad: 20.00 RA Press: 3.00 RVSP: 23.00 Great Vessels Aorta Sinus of Valsalva: 4.20 2.0-3.5 cm Ao Asc: 4.00 2.1-3.4 cm Ao Arch: 3.50 Pulmonary Valve PV Pk Lukasz: 0.83 Peak PV Grad: 3.00 Updated in Other Vendor System with Status of Final Troy Collins MD electronically signed on 03/22/2025 4:44:46 PM with status of Final
== END ==
LOC: HO.CARD 07:45
PROVIDERS: PCP Internal Medicine; Visit Provider Internal Medicine Cardiovascular Disease
DX: I48.19 Other persistent atrial fibrillation (principal)
CPT/HCPCS: 93242; 93306

== ENCOUNTER → 2025-03-22 07:53 | Outpatient (BNV) | payer MEDICARE, SELFPAY | PROVIDERS: PCP Internal Medicine; Visit Provider Internal Medicine Cardiovascular Disease | DX: I35.1 Nonrheumatic aortic (valve) insufficiency (principal); I37.1 Nonrheumatic pulmonary valve insufficiency; I77.810 Thoracic aortic ectasia | CPT/HCPCS: 93306 ==

== ENCOUNTER 2025-08-24 10:12 | Outpatient (REF) | payer MEDICARE, SELFPAY ==
--- OUTSIDE RECORDS SUMMARY | 2024-03-17 09:27 | XMS_ITS ---
Author Organization Christopher Batres MD Address [address] [place] [phone] Care Team Providers Care Drafter Chief Design Name Role Phone Christopher Batres Primary Care Provider [phone] REASON FOR VISIT US Abdomen due . Encounters Encounter Location Date Provider Diagnosis Christopher Batres MD [address] [facility] [address] [place] [phone] 03/17/2024 Christopher Batres Plan Of Treatment Next Appt Details Provider Name:Christopher lim, 08/31/2025 10:00:00 AM, [address] [place] [address], Suite [facility], [place], [place], [phone], Provider Name:Christopher lim, 02/21/2026 07:30:00 AM, [address] [place] [address], Suite [facility], [place], [place], [phone], Provider Name:Christopher lim, 02/28/2026 08:00:00 AM, [address] [place] [address], [address], [phone], Progress Notes * Cordell COX IIIDOB: (73 yo M)Acc No.[id number]:03/17/2024 Patient: Cordell Ferrara :1950 A ge:73 Y S ex:Male Address: [address], [place], [place] [address] * true * Date: Generated for Edu urbano/Lorena/Maurosmitting on: 11:38 AM EDT
--- OUTSIDE RECORDS SUMMARY | 2024-03-24 09:00 | XMS_ITS ---
Author Organization Christopher Batres MD Address [address] [place] [phone] Care Team Providers Care Mini Bar Attendant Name Role Phone Christopher Batres Primary Care Provider Allergies No Known Allergies Results Component Value Reference Range Notes Urinalysis and Microscopic Reviewed date:03/28/2024 12:42:24 PM Interpretation: Performing Lab:[facility], [address] [place] [phone] Notes/Report: Color Urine Yellow Appearance Urine Clear PH 5.5 5.0-9.0 Glucose Urine UA Negative Negative mg/dL Urine Blood Small (1+) Negative Specific [place] - Urine 1.020 1.005-1.025 Urine Protein 30 (1+) Neg-Trace mg/dL Urine Ketones Trace Negative mg/dL Nitrite Urine Negative Negative Leukocyte Esterase Urine Small (1+) Negative RBC Urine 3-5 0-2 /HPF WBC Urine 6-10 0-5 /HPF Squamous Epithelial Cell Urine 3-5 0-2 /HPF Bacteria Urine Trace None Seen Hyaline Casts Urine 0-2 0-2 /LPF Urine Culture Reviewed date:03/27/2024 01:41:26 PM Interpretation: Performing Lab:[facility], [address] [place] [address], [place] [phone] Notes/Report: Urine Culture Report Result Urine Culture < 10,000 cfu/ml REASON FOR VISIT PH/TCM Medications Medication SIG (Take, Route, Frequency, Duration) Notes Start Date End Date Status Viagra 50 MG 1 tablet as needed Orally Once a day for 30 DAYS 06/30/2012 Not-Taking Valtrex 500 MG 1 tablet Orally twic e a day for 3 days 12/08/2022 Not-Taking Doxycycline Hyclate 100 MG 1 capsule Orally Twice a day for 5 days 12/04/2022 Not-Taking Levothyroxine Sodium 150 MCG TAKE ONE TABLET BY MOUTH EVERY DAY for 90 Active Tamsulosin HCl 0.4 MG TAKE ONE CAPSULE B Y MOUTH TWICE A DAY Orally twice a day for 90 days Active Triamcinolone Acetonide 0.1 % 1 application Externally Twice a day for 14 days 12/04/2021 Active Cephalexin 500 MG 1 capsule Orally william ry 8 hrs for 7 days 03/24/2024 Active Omeprazole 20 MG TAKE 1 TO 2 CAPSULES BY MOUTH ONCE A DAY for 90 Active Atorvastatin Calcium 80 MG TAKE ONE TABLET BY MOUTH EVERY DAY for 90 Active Eliquis 5 MG 1 tablet Orally Twic e a day Active Finasteride 5 MG 1 tablet Orally Once a day for 30 day(s) Active amLODIPine Besylate 2.5 MG 1 tablet Orally Once a day Active Metoprolol Succinate ER 25 MG TAKE 1 TABLET BY MOUTH DAILY Active Vital Signs Blood pressure systolic 92 mm Hg 03/24/20 24 Blood pressure diastolic 60 mm Hg 024 Height 67.25 in 03/24/2024 Weight 197 lbs 03/24/2024 BMI 30.62 kg/m2 03/24/2024 weight is down 11 pounds sin 02-24-24 Encounters Encounter Location Date Provider Diagnosis Christopher Batres MD [address] [facility] [address] [place], [place] [phone] 03/24/2024 Christopher Batres Essential hypertension I10 and Acute UTI N39.0 Assessments Encounter Date Diagnosis (ICD Code) Assessment Notes Treatment Notes Treatment Clinical Notes Section Notes 03/24/2024 Essential hypertension (ICD-10 - I10) doing well on meds. will continue current regiment 03/24/2024 Acute UTI (ICD-10 - N39.0) will give ab to have on hand incase he starts to get uti and can take it vefore getting too sick, patient verbalized understanding of medication and directions for use Plan Of Treatment Medication Medication Name Sig Start Date Stop Date Notes Cephalexin 500 MG 1 capsule Orally william ry 8 hrs for 7 days 03/24/2024 amLODIPine Besylate 2.5 MG 1 tablet Orally Once a day Metoprolol Succinate ER 25 MG TAKE 1 TABLET BY MOUTH DAILY Treatment Notes Assessment Notes Essential hypertension doing well on med s. will continue current regiment Acute UTI will give ab to have on hand incase he starts to get uti and can take it vefore getting too sick, patient verbalized understanding of medication and directions for use Next Appt Details Provider Name:Christopher lim, 08/31/2025 10:00:00 AM, [address] [place] [address], [phone], Provider Name:Christopher lim, 02/21/2026 07:30:00 AM, [address] [place] [address], [phone], Provider Name:Christopher lim, 02/28/2026 08:00:00 AM, [address] [place] [address], [phone], Progress Notes * Cordell COX IIIDOB: (73 yo M)Acc No.[id number]:03/24/2024 Patient: Anthony Cordell weaver Provider: Kassie Batres MD :1950 A ge:73 Y S ex:Male Date:03/24/2024 Address: [address], [place] , [phone] Subjective: * Chief Complaints: * P H/TCM * HPI: S ymptom(s): patient is a 73 yo male here for tranistional care management visit, discharge summary has been reviewed and medications reconcilled, was in hospital for uti. then bp got too low. was in 2 days. then diarrhea for 4 days is getting better. had stent removed few days ago/ had stones removed bladder. no residual. * ROS: G eneral/Constitutional: Patient denies c hills, fatigue, fever, headache. ? E NT: Patient denies d ecreased sense of smell, any loss of taste, sore throat. C ardiovascular: Denies C hest pain at rest. D enies C hest pain with exertion. D enies D izziness. D enies P alpitations. D enies S hortness of breath. G enitourinary: Denies A bdominal pain/swelling. D enies B lood in urine. M usculoskeletal: Patient denies m uscle aches. P eripheral Vascular: Patient denies r ed and blue toes. * Medical History: * Surgical History: * Hospitalization/Major Diagno stic Procedure: * Medications: T akingFinasteride 5 MG Tablet 1 tablet Orally Once a dayTriamcinolone Acetonide 0.1 % Cream 1 application Externally Twice a dayamLODIPine Besylate 2.5 MG Tablet 1 tablet Orally Once a dayMetoprolol Succinate ER 25 MG Tablet Extended Release 24 Hour TAKE 1 TABLET BY MOUTH DAILY Eliquis 5 MG Tablet 1 tablet Orally Twice a dayAtorvastatin Calcium 80 MG Tablet TAKE ONE TABLET BY MOUTH EVERY DAY Omeprazole 20 MG Capsule Delayed Release TAKE 1 TO 2 CAPSULES BY MOUTH ONCE A DAY Tamsulosin HCl 0.4 MG Capsule TAKE ONE CAPSULE BY MOUTH TWICE A DAY Orally twice a dayLevothyroxine Sodium 150 MCG Tablet TAKE ONE TABLET BY MOUTH EVERY DAY Taking Finasteride 5 MG Tablet 1 tablet Orally Once a dayTaking Triamcinolone Acetonide 0.1 % Cream 1 application Externally Twice a dayTaking amLODIPine Besylate 2.5 MG Tablet 1 tablet Orally Once a dayTaking Metoprolol Succinate ER 25 MG Tablet Extended Release 24 Hour TAKE 1 TABLET BY MOUTH DAILY Taking Eliquis 5 MG Tablet 1 tablet Orally Twice a dayTaking Atorvastatin Calcium 80 MG Tablet TAKE ONE TABLET BY MOUTH EVERY DAY Taking Omeprazole 20 MG Capsule Delayed Release TAKE 1 TO 2 CAPSULES BY MOUTH ONCE A DAY Taking Tamsulosin HCl 0.4 MG Capsule TAKE ONE CAPSULE BY MOUTH TWICE A DAY Orally twice a dayTaking Levothyroxine Sodium 150 MCG Tablet TAKE ONE TABLET BY MOUTH EVERY DAY Not-Taking/PRNDoxycycline Hyclate 100 MG Capsule 1 capsule Orally Twice a dayValtrex 500 MG Tablet 1 tablet Orally twice a dayViagra 50 MG Tablet 1 tablet as needed Orally Once a dayMedication List reviewed and reconciled with the patientNot-Taking/PRN Doxycycline Hyclate 100 MG Capsule 1 capsule Orally Twice a dayNot-Taking/PRN Valtrex 500 MG Tablet 1 tablet Orally twice a dayNot- Taking/PRN Viagra 50 MG Tablet 1 tablet as needed Orally Once a dayMedication List reviewed and reconciled with the patient * Allergies: N .K.D.A.yes[Allergies Verified] Objective: * Vitals: H t: 67.25, Wt:197, BMI:30.62, BP:92/60 weight is down 11 pounds since 02-24-24. * Examination: G eneral Examination: GENERAL APPEARANCE: alert, well hydrated, in no distress . HEAD: normocephalic. SKIN: good turgor. HEART: no murmurs, rubs, gallops regular rate and rhythm.? LUNGS: no wheezes, rales, rhonchi good air movement clear to auscultation bilaterally. Assessment: * Assessment: 1. A cute UTI - N39.0 (Primary) 2 . E ssential hypertension - I10 Plan: * Treatment: ?LAB: Urine Culture Notes: will give ab to have on hand incase he starts to get uti and can take it vefore getting too sick, patient verbalized understanding of medication and directions for use.??2.?Essential hypertension? Continue amLODIPine Besylate Tablet, 2.5 MG, 1 tablet, Orally, Once a day;?Continue MetoprololSuccinate ER Tablet Extended Release 24 Hour, 25 MG, TAKE 1 TABLET BY MOUTH DAILY.?? Notes: doing well on meds. will continue current regiment.?? * Procedure Codes: * * Sign off status: Completed true * Provider: Kassie Batres MD Date: 03/24/2024 Generated for Edu urbano/Lorena/Maurosmitting on: 11:39 AM EDT History and Physical Notes * HPI (History of Present Illness) Category Sub-Category Detail Notes Category Not es Symptom(s) patient is a 73 yo male here for tranistional care management visit, discharge summary has been reviewed and medications reconcilled, was in hospital for uti. then bp got too low. was in 2 days. then diarrhea for 4 days is getting better. had stent removed few days ago/ had stones removed bladder. no residual. Examination Category Sub-Category Detail Notes Category Not es General Examination GENERAL APPEARANCE: alert, w ell hydrated, in no distress HEAD: normocephalic HEART: no murmurs, rubs, ga llops regular rate and rhythm LUNGS: no wheezes, rales, r honchi good air movement clear to auscultation bilaterally SKIN: good turgor
--- OUTSIDE RECORDS SUMMARY | 2024-03-31 04:33 | XMS_ITS ---
Author Organization Christopher Batres MD Address [address] [place] [phone] Care Team Providers Care Enterprise Application Analyst Name Role Phone Christopher Batres Primary Care Provider [phone] Encounters Encounter Location Date Provider Diagnosis Christopher Batres MD [address] [place] [phone] 03/31/2024 Christopher Batres Renal cyst N28.1 Assessments Encounter Date Diagnosis (ICD Code) Assessment Notes Treatment Notes Treatment Clinical Notes Section Notes 03/31/2024 Renal cyst (ICD-10 - N28.1) Plan Of Treatment Pending Test Test Name Order Date US renal BI 03/31/2024 Next Appt Details Provider Name:Christopher lim, 08/31/2025 10:00:00 AM, [address] [place] [address], [address], [phone], Provider Name:Christopher lim, 02/21/2026 07:30:00 AM, [address] [place] [address], [address], [phone], Provider Name:Christopher Johnson ier, 02/28/2026 08:00:00 AM, [address], [address], [place], [place], [phone], Progress Notes * Cordell COX IIIDOB: (73 yo M)Acc No.[id number]:03/31/2024 Patient: Cordell Ferrara :1950 A ge:73 Y S ex:Male Address: [address], [place] [address] Subjective: * Chief Complaints: * * Medical History: * Surgical History: * Hospitalization/Major Diagno stic Procedure: * Medications: Objective: Assessment: * Assessment: 1. R enal cyst - N28.1 (Primary) Plan: * Treatment: * Procedure Codes: * true * Date: Generated for Edu urbano/Lorena/eTransmitting on: 11:39 AM EDT
--- OUTSIDE RECORDS SUMMARY | 2024-04-24 03:45 | XMS_ITS ---
Author Organization Christopher Batres MD Address [address] [place] [phone] Care Team Providers Care Medication Specialist Name Role Phone Christopher Batres Primary Care Provider [phone] Results Component Value Reference Range Notes UA ClnCatch+Micro w/rflx Cul t Reviewed date:04/25/2024 04:58:36 PM Interpretation: Performing Lab:[facility], [address] [place] [phone] Notes/Report: Urine, Clean Catch Color Urine Yellow Appearance Urine Clear PH 6.5 5.0-9.0 Glucose Urine UA Negative Negative mg/dL Urine Blood Negative Negative Specific [place] - Urine 1.010 1.005-1.025 Urine Protein Negative Neg-Trace mg/dL Urine Ketones Negative Negative mg/dL Nitrite Urine Negative Negative Leukocyte Esterase Urine Negative Negative RBC Urine 0-2 0-2 /HPF WBC Urine 0-5 0-5 /HPF Squamous Epithelial Cell Urine 0-2 0-2 /HPF Bacteria Urine None Seen None Seen Hyaline Casts Urine 0-2 0-2 /LPF REASON FOR VISIT Repeat U/A hematuria Encounters Encounter Location Date Provider Diagnosis Christopher Batres MD [address] [place] [address] [place] [phone] 04/24/2024 Christopher Batres Hematuria, unspecified type R31.9 Assessments Encounter Date Diagnosis (ICD Code) Assessment Notes Treatment Notes Treatment Clinical Notes Section Notes 04/24/2024 Hematuria, unspecified type (ICD-10 - R31.9) Plan Of Treatment Next Appt Details Provider Name:Christopher Johnson ier, 08/31/2025 10:00:00 AM, [address] [place] [address], [address] [place] [address], [phone], Provider Name:Christopher Johnson ier, 02/21/2026 07:30:00 AM, [address] [place] [address], [address], [phone], Provider Name:Christopher Johnson iebeth, 02/28/2026 08:00:00 AM, [address] [place] [address], [address], [phone], Progress Notes * Cordell COX IIIDOB: (75 yo M)Acc No.[id number]:04/24/2024 Progress Note Patient: Cordell WEST III Provider: Kassie Batres MD :1950 A ge:73 Y S ex:Male Date:04/24/2024 Address:[address] [place], [place] [phone] Subjective: * Chief Complaints: * 1 . Repeat U/A hematuria. * Medical History: Objective: * Vitals: Assessment: * Assessment: 1. H ematuria, unspecified type - R31.9 Plan: * Treatment: * * The named appointment provid er may or may not be the originator of this progress note, and it is not deemed complete until electronically signed by the appointment provider. Sign off status: Pending * Provider: Kassie Batres MD Date: 0 04/24/2024 Generated for Edu urbano/Lorena/eTransmitting on: 1 11:39 AM EDT
--- OUTSIDE RECORDS SUMMARY | 2024-07-10 04:45 | XMS_ITS ---
Author Organization Christopher Batres MD Address [address] [place] [phone] Care Team Providers Care Sample Display Preparer Name Role Phone Christopher Batres Primary Care Provider REASON FOR VISIT HDF Immunizations Vaccine Route Administration Date Status Comme nts Influenza High Dose IM Intramuscular 07/10/2024 Administer ed Encounters Encounter Location Date Provider Diagnosis Christopher Batres MD [address] [place] [phone] 07/10/2024 Christopher Batres Encounter for immunization Z23 Assessments Encounter Date Diagnosis (ICD Code) Assessment Notes Treatment Notes Treatment Clinical Notes Section Notes 07/10/2024 Encounter for immunization (ICD-10 - Z23) Plan Of Treatment Next Appt Details Provider Name:Christopher lim, 08/31/2025 10:00:00 AM, [address] [place] [address], [address], [phone], Provider Name:Christopher lim, 02/21/2026 07:30:00 AM, [address] [place] [address], [address], [phone], Provider Name:Christopher Johnson ier, 02/28/2026 08:00:00 AM, [address], [address], [place], [phone], Progress Notes * Cordell COX IIIDOB: (75 yo M)Acc No.[id number]:07/10/2024 Progress Note Patient: Cordell WEST III Provider: Kassie Batres MD :1950 A ge:73 Y S ex:Male Date:07/10/2024 Address:[address] [place] [address], [facility] Subjective: * Chief Complaints: * 1 . HDF. * Medical History: Objective: * Vitals: Assessment: * Assessment: 1. E ncounter for immunization - Z23 (Primary) Plan: * Treatment: * Immunizations: Influenza High Dose : 0.5 mL (Dose No:1) (Route: Intramuscular) given by Mari Farias , Office Staff on Left Deltoid * Procedure Codes: 9 0662 FLU VACC PRSV FREE INC ANTIG, G0008 ADMN FLU VAC NO FEE SCHED SAME DAY * Preventive Medicine: Immunizations: I nfluenza H ave you had a flu shot since the most recent July 02? Y es. * * The named appointment provid er may or may not be the originator of this progress note, and it is not deemed complete until electronically signed by the appointment provider. Sign off status: Pending * Provider: Kassie Batres MD Date: 0 07/10/2024 Generated for Edu urbano/Lorena/eTransmitting on: 1 11:38 AM EDT
--- OUTSIDE RECORDS SUMMARY | 2024-08-10 04:00 | XMS_ITS ---
Author Organization Christopher Batres MD Address [address] [place] [phone] Care Team Providers Care Loftsman/Woman Name Role Phone Crhistopher Batres Primary Care Provider Results Component Value Reference Range Notes Liver Panel Reviewed date:2024 01:27:14 PM Interpretation: Performing Lab:[facility], [address] [place] [phone] Notes/Report: Bilirubin Total 1.0 0.0-1.0 mg/dL Bilirubin Direct 0.4 0.0-0.5 mg/dL Aspartate Amino Transferase 13 5-37 U/L Alanine Aminotransferase 11 0-40 U/L Total Protein 6.5 6.5-8.0 g/dL Albumin Level 4.0 3.5-5.0 g/dL Alkaline Phosphatase 72 39-117 U/L Lipid Panel with Reflex Reviewed date:2024 01:26:58 PM Interpretation: Performing Lab:[facility], [address] [place] [phone] Notes/Report: Triglycerides 51 <150 mg/dL Desirable Triglyceride: less than 150 mg/dL Borderline High Triglyceride 150-199 mg/dL High Triglyceride: 200-499 mg/dL Very High Triglyceride: greater than or equal to 5OO mg/dL Cholesterol 95 <200 mg/dL Desirable Cholesterol: less than 200 mg/dL Borderline High Cholesterol: 200-239 mg/dL High Cholesterol: greater than 239 mg/dL LDL Cholesterol Calculated 47 <100 mg/dL Desirable LDL: less than 100 mg/dL Near Optimal/Above Optimal LDL: 110-129 mg/dL Borderline High LDL: 130-159 mg/dL High LDL: 160-189 mg/dL Very High LDL: greater than or equal to 190 mg/dL HDL Cholesterol 38 >40 mg/dL Desirable HDL: greater than 40 mg/dL Note: This HDL assay may give artificially low results in patients with liver disease. REASON FOR VISIT LIVER LIPID PANELS Encounters Encounter Location Date Provider Diagnosis Christopher Batres MD [address] [place] [phone] 2024 Christopher Batres Pure hypercholestero lemia E78.00 Assessments Encounter Date Diagnosis (ICD Code) Assessment Notes Treatment Notes Treatment Clinical Notes Section Notes 2024 Pure hypercholesterolemia (ICD-10 - E78.00) Plan Of Treatment Next Appt Details Provider Name:Christopher lim, 08/31/2025 10:00:00 AM, [address] [place] [address], [phone], Provider Name:Christopher lim, 02/21/2026 07:30:00 AM, [address] [place] [address], [phone], Provider Name:Christopher lim, 02/28/2026 08:00:00 AM, [address] [place] [address], [phone], Progress Notes * Cordell COX IIIDOB: (75 yo M)Acc No.[id number]:2024 Progress Note Patient: Cordell WEST III Provider: Kassie Batres MD :1950 A ge:74 Y S ex:Male Date:2024 Address:[address] [place] [address], [place] [id number] Subjective: * Chief Complaints: * 1 . LIVER LIPID PANELS. * Medical History: Objective: * Vitals: Assessment: * Assessment: 1. P ure hypercholesterolemia - E78.00 (Primary) Plan: * Treatment: * Procedure Codes: 3 6415 VENIPUNCT, ROUTINE* * * The named appointment provid er may or may not be the originator of this progress note, and it is not deemed complete until electronically signed by the appointment provider. Sign off status: Pending * Provider: Kassie Batres MD Date: Generated for Edu urbano/Lorena/Avelitting on: 11:39 AM EDT
--- OUTSIDE RECORDS SUMMARY | 2024-08-11 06:00 | XMS_ITS ---
Author Organization Christopher Batres MD Address [address] [place] [phone] Care Team Providers Care Intel Analyst Name Role Phone Christopher Batres Primary Care Provider Allergies No Known Allergies REASON FOR VISIT 6 MO F/U Medications Medication SIG (Take, Route, Frequency, Duration) Notes Start Date End Date Status Doxycycline Hyclate 100 MG 1 capsule Orally Twice a day for 5 days 12/04/2022 Not-Taking Metoprolol Succinate ER 25 MG TAKE 1 TABLET BY MOUTH DAILY Active Omeprazole 20 MG TAKE 1 TO 2 CAPSULES BY MOUTH ONCE DAILY for 90 Active Atorvastatin Calcium 80 MG TAKE ONE TABLET BY MOUTH EVERY DAY for 90 Active Tamsulosin HCl 0.4 MG TAKE ONE CAPSULE B Y MOUTH TWICE A DAY for 90 Active Finasteride 5 MG 1 tablet Orally Once a day for 30 day(s) Active Eliquis 5 MG 1 tablet Orally Twic e a day Active Triamcinolone Acetonide 0.1 % 1 application Externally Twice a day for 14 days 12/04/2021 Active Cephalexin 500 MG 1 capsule Orally william ry 8 hrs for 7 days 03/24/2024 Active Levothyroxine Sodium 150 MCG TAKE ONE TABLET BY MOUTH EVERY DAY Active Valtrex 500 MG 1 tablet Orally twic e a day for 3 days 12/08/2022 Not-Taking Viagra 50 MG 1 tablet as needed Orally Once a day for 30 DAYS 06/30/2012 Not-Taking Vital Signs Blood pressure systolic 110 mm Hg 08/11/20 24 Blood pressure diastolic 70 mm Hg 024 Height 67.25 in 08/11/2024 Encounters Encounter Location Date Provider Diagnosis Christopher Batres MD [address] [place] [phone] 08/11/2024 Christopher Batres Acquired hypothyroidism E03.9 and Symptomatic hypotension I95.9 Assessments Encounter Date Diagnosis (ICD Code) Assessment Notes Treatment Notes Treatment Clinical Notes Section Notes 08/11/2024 Acquired hypothyroidism (ICD-10 - E03.9) tsh was good 08/11/2024 Symptomatic hypotension (ICD-10 - I95.9) seems the weak spells were related to the bp, patient verbalized understanding to stop medication, will monitor BP Plan Of Treatment Medication Medication Name Sig Start Date Stop Date Notes amLODIPine Besylate 2.5 MG 1 tablet Orally Once a day Levothyroxine Sodium 150 MCG TAKE ONE TA BLET BY MOUTH EVERY DAY Treatment Notes Assessment Notes Acquired hypothyroidism tsh was good Symptomatic hypotension seems the weak s pells were related to the bp, patient verbalized understanding to stop medication, will monitor BP Next Appt Details Provider Name:Christopher lim, 08/31/2025 10:00:00 AM, [address] [place] [address], [phone], Provider Name:Christopher lim, 02/21/2026 07:30:00 AM, [address] [place] [address], [phone], Provider Name:Christopher lim, 02/28/2026 08:00:00 AM, [address] [place] [address], [phone], Progress Notes * Cordell COX IIIDOB: (74 yo M)Acc No.[id number]:08/11/2024 Progress Notes Patient: Cordell Ferrara Provider: Kassie Batres MD :1950 A ge:74 Y S ex:Male Date:08/11/2024 Address:[address] [place] [address] [place], [place], [facility] Subjective: * Chief Complaints: * 6 MO F/U * HPI: S ymptom(s): patient is a 74 yo male here for 6 month follow up visit, has been doing well. no uti's since he had surgery. at one point he was told that he needed catherter. 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 happens every few months. * ROS: G eneral/Constitutional: Denies C hills. D enies F atigue. D enies F ever. D enies H eadache. E NT: Patient denies d ecreased sense of smell , any loss of taste , sore throat. D enies S ore throat. R espiratory: Denies C ough. D enies S hortness of breath at rest. D enies S hortness of breath with exertion. G astrointestinal: Denies D iarrhea. D enies N ausea. M usculoskeletal: Patient denies m uscle aches. P eripheral Vascular: Patient denies r ed and blue toes. * Medical History: * Surgical History: * Hospitalization/Major Diagno stic Procedure: * Medications: T akingFinasteride 5 MG Tablet 1 tablet Orally Once a dayTriamcinolone Acetonide 0.1 % Cream 1 application Externally Twice a dayEliquis 5 MG Tablet 1 tablet Orally Twice a dayLevothyroxine Sodium 150 MCG Tablet TAKE ONE TABLET BY MOUTH EVERY DAY Cephalexin 500 MG Capsule 1 capsule Orally every 8 hrsamLODIPine Besylate 2.5 MG Tablet 1 tablet Orally Once a dayMetoprolol Succinate ER 25 MG Tablet Extended Release 24 Hour TAKE 1 TABLET BY MOUTH DAILY Atorvastatin Calcium 80 MG Tablet TAKE ONE TABLET BY MOUTH EVERY DAY Omeprazole 20 MG Capsule Delayed Release TAKE 1 TO 2 CAPSULES BY MOUTH ONCE DAILY Tamsulosin HCl 0.4 MG Capsule TAKE ONE CAPSULE BY MOUTH TWICE A DAY Taking Finasteride 5 MG Tablet 1 tablet Orally Once a dayTaking Triamcinolone Acetonide 0.1 % Cream 1 application Externally Twice a dayTaking Eliquis 5 MG Tablet 1 tablet Orally Twice a dayTaking Levothyroxine Sodium 150 MCG Tablet TAKE ONE TABLET BY MOUTH EVERY DAY Taking Cephalexin 500 MG Capsule 1 capsule Orally every 8 hrsTaking amLODIPine Besylate 2.5 MG Tablet 1 tablet Orally Once a dayTaking Metoprolol Succinate ER 25 MG Tablet Extended Release 24 Hour TAKE 1 TABLET BY MOUTH DAILY Taking Atorvastatin Calcium 80 MG Tablet TAKE ONE TABLET BY MOUTH EVERY DAY Taking Omeprazole 20 MG Capsule Delayed Release TAKE 1 TO 2 CAPSULES BY MOUTH ONCE DAILY Taking Tamsulosin HCl 0.4 MG Capsule TAKE ONE CAPSULE BY MOUTH TWICE A DAY Not-Taking/PRNDoxycycline Hyclate 100 MG Capsule 1 [...] Verified] Objective: * Vitals: H t: 67.25, BP:110/70. * Examination: G eneral Examination: GENERAL APPEARANCE: alert, well hydrated, in no distress , male. SKIN: good turgor. HEART: regular rate and rhythm, no murmurs, rubs, gallops. LUNGS: no wheezes, rales, rhonchi, good air movement, clear to auscultation bilaterally. Assessment: * Assessment: 1. A cquired hypothyroidism - E03.9 (Primary) 2 . S ymptomatic hypotension - I95.9 Plan: * Treatment: 2. S ymptomatic hypotension Stop amLODIPine Besylate Tablet, 2.5 MG, 1 tablet, Orally, Once a day. Notes: seems the weak spells were related to the bp, patient verbalized understanding to stop medication, will monitor BP * Procedure Codes: * * Sign off status: Completed true * Provider: Kassie Batres MD Date: Generated for Edu urbano/Lorena/Adilson on: 11:38 AM EDT History and Physical Notes * HPI (History of Present Illness) Category Sub-Category Detail Notes Category Not es Symptom(s) patient is a 74 yo male here for 6 month follow up visit, has been doing well. no uti's since he had surgery. at one point he was told that he needed catherter. 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 happens every few months. Examination Category Sub-Category Detail Notes Category Not es General Examination GENERAL APPEARANCE: alert, w ell hydrated, in no distress , male HEART: regular rate and rhy thm, no murmurs, rubs, gallops LUNGS: no wheezes, rales, r honchi, good air movement, clear to auscultation bilaterally SKIN: good turgor
--- OUTSIDE RECORDS SUMMARY | 2025-02-20 04:00 | XMS_ITS ---
Author Organization Christopher Batres MD Address [address] [place] [phone] Care Team Providers Care Elastic Attacher Coverstitch Name Role Phone Christopher Batres Primary Care Provider Results Component Value Reference Range Notes Complete Blood Count Auto Di ff Reviewed date:02/20/2025 06:37:17 PM Interpretation: Performing Lab:[facility], [address] [place] [phone] Notes/Report: White Blood Count 5.7 4.8-10.8 X10*3/uL Red Blood Count 5.25 4.60-5.80 X10*6/uL Hemoglobin 14.9 14.0-18.0 g/dl Hematocrit 45.7 42.0-52.0 % Mean Corpuscular Volume 87.0 80.0-98.0 fL Mean Corpuscular Hemoglobin 28.4 27.0-33.0 pg Mean Corpuscular HGB Conc 32.6 31.0-36.0 g/dl Red Cell Distribution Width 13.6 11.0-16.0 % Platelet Count 193 160-400 X10*3/uL Mean Platelet Volume 10.8 9.4-12.4 fL Neutrophils Percent Auto 69.6 45-73 % Imm Gran Pct Auto 0.4 0.0-0.4 % Lymphocytes Percent Auto 16.5 20-40 % Monocytes Percent Auto 10.1 2-11 % Eosinophils Percent Auto 2.7 0-4 % Basophils Percent Auto 0.7 0-2 % NRBC Pct Auto 0.0 0.0-0.2 /100WBC Neutrophils Absolute Auto 3.9 2.0-8.3 x10*3/u L Imm Gran Abs Auto 0.02 0.00-0.03 X10*3/uL Lymphocytes Absolute Auto 0.9 1.2-4.9 X10*3/u L Monocytes Absolute Auto 0.6 0.1-1.2 X10*3/uL Eosinophils Absolute Auto 0.2 0.0-0.4 X10*3/u L Basophils Absolute Auto 0.0 0.0-0.2 X10*3/uL NRBC Abs Auto 0.000 0.0-0.012 X10*3/uL Comprehensive [place]. Panel Fa st Reviewed date:02/20/2025 06:43:21 PM Interpretation: Performing Lab:[facility], [address] [place] [phone] Notes/Report: Sodium 140 135-145 mmol/L Potassium 4.3 3.3-5.1 mmol/L Chloride 106 96-108 mmol/L Carbon Dioxide 29 22-29 mmol/L Anion Gap 9 12-20 Blood Urea Nitrogen 17 9-16 mg/dL Creatinine 1.05 0.5-1.4 mg/dL Estimated Glomerular Filt Rate > 60 Chronic Kidney Disease: Estimated GFR < 60 mL/min/1.73m2 Severe Kidney Disease: Estimated GFR < 15 mL/min/1.73m2 Glucose Fasting 94 60-99 mg/dL Calcium 8.8 8.4-10.2 mg/dL Bilirubin Total 1.2 0.0-1.0 mg/dL Aspartate Amino Transferase 19 5-37 U/L Alanine Aminotransferase 12 0-40 U/L Total Protein 6.4 6.5-8.0 g/dL Albumin Level 3.9 3.5-5.0 g/dL Alkaline Phosphatase 79 39-117 U/L Lipid Panel Reviewed date:02/20/2025 06:29:30 PM Interpretation: Performing Lab:[facility], [address] [place] [phone] Notes/Report: Triglycerides 71 <150 mg/dL Desirable Triglyceride: less than 150 mg/dL Borderline High Triglyceride 150-199 mg/dL High Triglyceride: 200-499 mg/dL Very High Triglyceride: greater than or equal to 5OO mg/dL Cholesterol 92 <200 mg/dL Desirable Cholesterol: less than 200 mg/dL Borderline High Cholesterol: 200-239 mg/dL High Cholesterol: greater than 239 mg/dL LDL Cholesterol Calculated 44 <100 mg/dL Desirable LDL: less than 100 mg/dL Near Optimal/Above Optimal LDL: 110-129 mg/dL Borderline High LDL: 130-159 mg/dL High LDL: 160-189 mg/dL Very High LDL: greater than or equal to 190 mg/dL HDL Cholesterol 34 >40 mg/dL Desirable HDL: greater than 40 mg/dL Note: This HDL assay may give artificially low results in patients with liver disease. PSA,Total (Free>4and<10) Reviewed date:02/20/2025 12:27:16 PM Interpretation: Performing Lab:[facility], [address] [place] [phone] Notes/Report: PSA,Total (Free>4and<10) 0.34 0.00-4.00 ng/mL A Free PSA was not performed: The percentage of Free PSA can be used to enhance the differentiation of prostate cancer from benign prostatic disease in subjects whose PSA levels are between 4.0 and 10.0 ng/mL. For subjects whose PSA levels are below 4.0 or above 10.0 ng/mL, the risk of prostate cancer is determined on the basis of the PSA alone. Therefore the % Free PSA is recommended only for those subjects whose PSA levels are between 4.0 and 10.0 ng/mL. PSA methodology: Cerda Alinity i Chemiluminescent Microparticle Immunoassay (CMIA) TSH reflex Free T4 Reviewed date:02/20/2025 06:25:27 PM Interpretation: Performing Lab:[facility], [address] [place] [phone] Notes/Report: TSH reflex Free T4 1.60 0.32-4.0 uIU/mL Microalbumin, Random Reviewed date:02/20/2025 06:31:01 PM Interpretation: Performing Lab:[facility], [address] [place] [phone] Notes/Report: Creatinine Urine 146.11 Microalbumin Urine 9.0 Microalbum/Creatinine Ratio Ur 6.1 <30 ug/mg cr Albumin/Creatinine Ratio Reference Ranges: Normal: < 30 ug/mg creatinine Microalbuminuria: 30 - 300 ug/mg creatinine Clinical Albuminuria: > 300 ug/mg creatinine Hemoglobin A1c Reviewed date:02/20/2025 12:27:25 PM Interpretation: Performing Lab:[facility], [address] [place] [phone] Notes/Report: Hemoglobin A1c % 5.5 <6.0 % Hemoglobin A1C Reference Range Adults: 4.8 - 6.0 % Non diabetic: < 6.0 % Goal: < 7.0 % Additional Action Suggested: > 8.0 % Note: Hemoglobin A1c results are invalid for patients with abnormal amounts of HbF. Blood transfusions may impact the HbA1c concentration in the patient sample. Estimated Average Glucose 111 eAG = Estimated average glucose which is %A1C expressed as average glucose, using the formula of the J5F-Ohavwby Average Glucose study (ADAG), Diabetes Care, Vol.31,#8, Jun. 2007 UA ClnCatch+Micro w/rflx Cul t Reviewed date:02/20/2025 06:42:27 PM Interpretation: Performing Lab:[facility], [address] [place] [phone] Notes/Report: Urine, Clean Catch Color Urine Yellow Appearance Urine Clear PH 8.5 5.0-9.0 Glucose Urine UA Negative Negative mg/dL Urine Blood Negative Negative Specific [place] - Urine 1.020 1.005-1.025 Urine Protein Trace Neg-Trace mg/dL Urine Ketones Negative Negative mg/dL Nitrite Urine Negative Negative Leukocyte Esterase Urine Negative Negative RBC Urine 0-2 0-2 /HPF WBC Urine 0-5 0-5 /HPF Squamous Epithelial Cell Urine 0-2 0-2 /HPF Bacteria Urine None Seen None Seen Hyaline Casts Urine 0-2 0-2 /LPF REASON FOR VISIT FASTING LABS Encounters Encounter Location Date Provider Diagnosis Christopher Batres MD [address] [place] [address] Drive [address] [place], [place] [phone] 02/20/2025 Christopher Batres Blood tests for rout ine general physical examination Z00.00 ; Acquired hypothyroidism E03.9 ; Prediabetes R73.09 ; Pure hypercholesterolemia E78.00 and Essential hypertension I10 Assessments Encounter Date Diagnosis (ICD Code) Assessment Notes Treatment Notes Treatment Clinical Notes Section Notes 02/20/2025 Blood tests for rout ine general physical examination (ICD-10 - Z00.00) 02/20/2025 Acquired hypothyroid ism (ICD-10 - E03.9) 02/20/2025 Prediabetes (ICD-10 - R73.09) 02/20/2025 Pure hypercholesterolemia (ICD-10 - E78.00) 02/20/2025 Essential hypertensi on (ICD-10 - I10) Plan Of Treatment Next Appt Details Provider Name:Christopher lim, 08/31/2025 10:00:00 AM, [address] [place] [address], [address] [place] [address], [phone], Provider Name:Christopher lim, 02/21/2026 07:30:00 AM, [address] [place] [address], Suite [facility], [place], [place], [phone], Provider Name:Christopher lim, 02/28/2026 08:00:00 AM, [address] [place] [address], Suite [facility], [place], [place], [phone], Progress Notes * Cordell COX IIIDOB: (75 yo M)Acc No.[id number]:02/20/2025 Progress Note Patient: Cordell WEST III Provider: Kassie Batres MD :1950 A ge:74 Y S ex:Male Date:02/20/2025 Address:[address] [place] [address], [place], [id number] Subjective: * Chief Complaints: * 1 . FASTING LABS. * Medical History: Objective: * Vitals: Assessment: * Assessment: 1. B lood tests for routine general physical examination - Z00.00 (Primary) 2 .?Acquired hypothyroidism - E03.9 3 . P rediabetes - R73.09 4 . P ure hypercholesterolemia - E78.00 5 . E ssential hypertension - I10? Plan: * Treatment: 2. A cquired hypothyroidism L AB: Complete Blood Count Auto Diff (Collection Date & Time - 02/20/2025 08:00 AM) L AB: Comprehensive [place]. Panel Fast (Collection Date & Time - 02/20/2025 08:00 AM) L AB: Lipid Panel (Collection Date & Time - 02/20/2025 08:00 AM) L AB: PSA,Total (Free>4and<10) (Collection Date & Time - 02/20/2025 08:00 AM) L AB: TSH reflex Free T4 (Collection Date & Time - 02/20/2025 08:00 AM) L AB: Microalbumin, Random (Collection Date & Time - 02/20/2025 08:00 AM) L AB: Hemoglobin A1c (Collection Date & Time - 02/20/2025 08:00 AM) L AB: UA ClnCatch+Micro w/rflx Cult (Collection Date & Time - 02/20/2025 08:00 AM) 3. P rediabetes L AB: Complete Blood Count Auto Diff (Collection Date & Time - 02/20/2025 08:00 AM) L AB: Comprehensive [place]. Panel Fast (Collection Date & Time - 02/20/2025 08:00 AM) L AB: Lipid Panel (Collection Date & Time - 02/20/2025 08:00 AM) L AB: PSA,Total (Free>4and<10) (Collection Date & Time - 02/20/2025 08:00 AM) L AB: TSH reflex Free T4 (Collection Date & Time - 02/20/2025 08:00 AM) L AB: Microalbumin, Random (Collection Date & Time - 02/20/2025 08:00 AM) L AB: Hemoglobin A1c (Collection Date & Time - 02/20/2025 08:00 AM) L AB: UA ClnCatch+Micro w/rflx Cult (Collection Date & Time - 02/20/2025 08:00 AM) 4. P ure hypercholesterolemia L AB: Complete Blood Count Auto Diff (Collection Date & Time - 02/20/2025 08:00 AM) L AB: Comprehensive [place]. Panel Fast (Collection Date & Time - 02/20/2025 08:00 AM) L AB: Lipid Panel (Collection Date & Time - 02/20/2025 08:00 AM) L AB: PSA,Total (Free>4and<10) (Collection Date & Time - 02/20/2025 08:00 AM) L AB: TSH reflex Free T4 (Collection Date & Time - 02/20/2025 08:00 AM) L AB: Microalbumin, Random (Collection Date & Time - 02/20/2025 08:00 AM) L AB: Hemoglobin A1c (Collection Date & Time - 02/20/2025 08:00 AM) L AB: UA ClnCatch+Micro w/rflx Cult (Collection Date & Time - 02/20/2025 08:00 AM) 5. E ssential hypertension L AB: Complete Blood Count Auto Diff (Collection Date & Time - 02/20/2025 08:00 AM) L AB: Comprehensive [place]. Panel Fast (Collection Date & Time - 02/20/2025 08:00 AM) L AB: Lipid Panel (Collection Date & Time - 02/20/2025 08:00 AM) L AB: PSA,Total (Free>4and<10) (Collection Date & Time - 02/20/2025 08:00 AM) L AB: TSH reflex Free T4 (Collection Date & Time - 02/20/2025 08:00 AM) L AB: Microalbumin, Random (Collection Date & Time - 02/20/2025 08:00 AM) L AB: Hemoglobin A1c (Collection Date & Time - 02/20/2025 08:00 AM) L AB: UA ClnCatch+Micro w/rflx Cult (Collection Date & Time - 02/20/2025 08:00 AM) * Procedure Codes: 3 6415 VENIPUNCT, ROUTINE* * * The named appointment provid er may or may not be the originator of this progress note, and it is not deemed complete until electronically signed by the appointment provider. Sign off status: Pending * Provider: Kassie Batres MD Date: 0 02/20/2025 Generated for Edu ng/Sheliag/eTransmitting on: 1 11:38 AM EDT
--- OUTSIDE RECORDS SUMMARY | 2025-02-26 04:30 | XMS_ITS ---
Author Organization Christopher Batres MD Address [address] [place] [id number] Care Team Providers Care [employer] Name Role Phone Christopher Batres Primary Care Provider Allergies No Known Allergies Reason For Referral Reason abnormal scalp with actinic keratosis please eval and treat Diagnosis 1 Actinic keratosis (L 57.0) Referral Organization Christopher Batres MD Referring Provider First Name Christopher Referring Provider Last Name Gisel Referring Provider Speciality Internal M edicine Referred Provider [place] [facility] [place] Referred Provider Specialty Dermatology General Notes Teri Branch 0 02/26/2025 09:11:41 AM >letter with referral faxed for requesting an apptSarina Annette 02/27/2025 02:12:17 PM >appt is with Sarina Green Annette 02/27/2025 02:13:10 PM >called patient with info and mailed Referral Priority Routine Referral Appointment Date 04/05/2025 REASON FOR VISIT COMP EXAM Medications Medication SIG (Take, Route, Frequency, Duration) Notes Start Date End Date Status Valtrex 500 MG 1 tablet Orally twic e a day for 3 days 12/08/2022 Not-Taking Viagra 50 MG 1 tablet as needed Orally Once a day for 30 DAYS 06/30/2012 Not-Taking Metoprolol Succinate ER 25 MG TAKE 1 TABLET BY MOUTH DAILY Active Atorvastatin Calcium 80 MG TAKE ONE TABLET BY MOUTH EVERY DAY Active Levothyroxine Sodium 150 MCG TAKE ONE TABLET BY MOUTH ONCE DAILY Active Omeprazole 20 MG TAKE 1 TO 2 CAPSULES BY MOUTH ONCE DAILY for 90 Active Tamsulosin HCl 0.4 MG TAKE ONE CAPSULE B Y MOUTH TWICE A DAY for 90 Active Doxycycline Hyclate 100 MG 1 capsule Orally Twice a day for 5 days 12/04/2022 Not-Taking Eliquis 5 MG 1 tablet Orally Twic e a day Active Triamcinolone Acetonide 0.1 % 1 application Externally Twice a day for 14 days 12/04/2021 Active Flecainide Acetate 100 MG 0.5 tablet Ora lly every 12 hrs Active Finasteride 5 MG 1 tablet Orally Once a day for 30 day(s) Active Social History Tobacco Use: Social History Observation [...] ast year? No Points 0 Interpretation Negative Vital Signs Blood pressure systolic 114 mm Hg 02/27/20 25 Blood pressure diastolic 70 mm Hg 025 Height 67.25 in 02/26/2025 Weight 210 lbs 02/26/2025 BMI 32.64 kg/m2 02/26/2025 weight is up 13 pounds since 03-24-24 Encounters Encounter Location Date Provider Diagnosis Christopher Batres MD [address] [facility] [address] [place], [place] [phone] 02/26/2025 Christopher Batres Paroxysmal atrial fibrillation I48.0 ; Adult general medical examination Z00.00 ; Acquired hypothyroidism E03.9 ; Essential hypertension I10 ; Prediabetes R73.09 ; History of PR (myocardial infarction) I25.2 ; Pure hypercholesterolemia E78.00 ; Depression screening Z13.31 and Colon cancer screening Z12.11 Assessments Encounter Date Diagnosis (ICD Code) Assessment Notes Treatment Notes Treatment Clinical Notes Section Notes 02/26/2025 Paroxysmal atrial fibrillation (ICD-10 - I48.0) does not sound like a fib now, will continue to monitor 02/26/2025 Adult general medica l examination (ICD-10 - Z00.00) labs reviewed and discussed with patient 02/26/2025 Acquired hypothyroid ism (ICD-10 - E03.9) tsh good, will continue current regiment 02/26/2025 Essential hypertensi on (ICD-10 - I10) well controlled, will continue current regiment 02/26/2025 Prediabetes (ICD-10 - R73.09) doing well, no need for medication at this time 02/26/2025 History of PR (myocardial infarction) (ICD-10 - I25.2) not having any problems, will continue to monitor 02/26/2025 Pure hypercholesterolemia (ICD-10 - E78.00) stable, will continue current regiment 02/26/2025 Depression screening (ICD-10 - Z13.31) negative screen 02/26/2025 Colon cancer screeni ng (ICD-10 - Z12.11) guaiac negative Plan Of Treatment Medication Medication Name Sig Start Date Stop Date Notes Metoprolol Succinate ER 25 MG TAKE 1 TABLET BY MOUTH DAILY Atorvastatin Calcium 80 MG TAKE ONE TABL ET BY MOUTH EVERY DAY Levothyroxine Sodium 150 MCG TAKE ONE TA BLET BY MOUTH ONCE DAILY Eliquis 5 MG 1 tablet Orally Twice a day Treatment Notes Assessment Notes Paroxysmal atrial fibrillation does not sound like a fib now, will continue to monitor Adult general medical examination labs r eviewed and discussed with patient Acquired hypothyroidism tsh good, will c ontinue current regiment Essential hypertension well controlled, will continue current regiment Prediabetes doing well, no need for medication at this time History of PR (myocardial infarction) no t having any problems, will continue to monitor Pure hypercholesterolemia stable, will c ontinue current regiment Depression screening negative screen Colon cancer screening guaiac negative Referrals Referral Date Details 02/26/2025 02/26/2025, abnormal scalp with actinic keratosis please eval and treat, [facility] Next Appt Details Follow Up: 6 Months, Reason: Provider Name:Christopher lim, 08/31/2025 10:00:00 AM, [address], [address], [place], [place], [phone], Provider Name:Christopher Johnson ier, 02/21/2026 07:30:00 AM, [address], [address], [place], [phone], Provider Name:Christopher Johnson ier, 02/28/2026 08:00:00 AM, [address] [facility], [address], [place], [phone], Progress Notes * Cordell COX IIIDOB: (74 yo M)Acc No.[id number]:02/26/2025 Patient: Cordell WEST III Provider: Kassie Batres MD :1950 A ge:74 Y S ex:Male Date:02/26/2025 Address:[address] [place], [place] [id number] Subjective: * Chief Complaints: * C OMP EXAM * HPI: D epression Screening: PHQ-9 L ittle interest or pleasure in doing things N ot at all, F eeling down, depressed, or hopeless N ot at all, T rouble falling or staying asleep, or sleeping too much N ot at all, F eeling tired or having little energy N ot at all, P oor appetite or overeating N ot at all, F eeling bad about yourself or that you are a failure, or have let yourself or your family down N ot at all, T rouble concentrating on things, such as reading the newspaper or watching television N ot at all, M oving or speaking so slowly that other people could have noticed; or the opposite, being so fidgety or restless that you have been moving around a lot more than usual N ot at all, T houghts that you would be better off or of hurting yourself in some way N ot at all, T otal Score 0 . I nterpretation and Intervention D epression Screening Findings N egative, F ollow-Up for Depression : review of PHQ-9 found negative result, no follow-up needed. C ommunication Needs: Communication Needs D oes the patient have a hearing impairment N o, D oes the patient have a vision impairment? Y es, I f yes, what is the vision impairment? G lasses, D oes the patient have a cognition impairment? N o. F all Risk: History H ave you had any falls with injury in the past year? N o, H ave you had two or more falls in the past year? N o. S FRANCISCA Questions: SDOH Questions I n the past year have you been worried about losing housing? N o, I n the past year have you or any family members you live with been unable to get any of the following when it was really needed? Check all that apply: N one. S ymptom(s): patient is a 74 yo male here for annual visit with review of recent labs and follow up of chronic issues w ent for us few days ago. * ROS: G eneral/Constitutional: Change in appetite d enies. C hills d enies. F ever d enies. O phthalmologic: Blurred vision d enies. D ischarge d enies. P ain d enies. E NT: Decreased hearing d enies. S ore throat d enies.?Swollen glands d enies. E ndocrine: Cold intolerance d enies. E xcessive thirst d enies. H eat intolerance d enies. W eight loss d enies. R espiratory: Cough d enies. S hortness of breath at rest d enies. S hortness of breath with exertion d enies. W heezing d enies. C ardiovascular: Chest pain at rest d enies. C hest pain with exertion?denies. I rregular heartbeat d enies. S hortness of breath d enies. ? G astrointestinal: Abdominal pain d enies. C hange in bowel habits d enies. D iarrhea d enies. N ausea d enies. R ectal bleeding d enies. V omiting d enies . G enitourinary: Blood in urine d enies. D ifficulty urinating d enies. F requent urination d enies. M usculoskeletal: Painful joints d enies. W eakness d enies. ? S kin: Dry skin d enies. I tching d enies. D enies?Mole(s), changes in moles, new moles or any lesions of concern. D enies P hotosensitivity. R yasmani d enies. N eurologic: Dizziness d enies. F ainting d enies. H eadache?denies. * Medical History: * Surgical History: * Hospitalization/Major Diagno stic Procedure: * Family History: F ather: 85 yrs. M other: 83 yrs. 2 brother(s) . 2 son(s) , 1 daughter(s) . . Father- ? Mother-CVA, Denies mental health/substance abuse family history, Denies mental health/substance abuse family history, No pertinent family medical history, Denies mental health/substance abuse family history. * Social History: T obacco Use: T obacco Use/Smoking P atient is a n onsmoker, A dditional Findings: Tobacco Non-User C urrent non-smoker, currently using no form of tobacco. D rugs/Alcohol: A lcohol Screen D id you have a drink containing alcohol in the past year? N o, P oints 0 , I nterpretation N egative. M iscellaneous: C affeine: 2-3 cups per day. Children: yes. Community involvements: no. Exercise: no, none. Home smoke detector use: yes. Living with: family. Marital status: . Occupation: works full-time. Pets: 1 cat. Travel outside of the [place]: no. * Medications: T akingFlecainide Acetate 100 MG Tablet 0.5 tablet Orally every 12 hrs Finasteride 5 MG Tablet 1 tablet Orally Once a day Triamcinolone Acetonide 0.1 % Cream 1 application Externally Twice a day Eliquis 5 MG Tablet 1 tablet Orally Twice a day Metoprolol Succinate ER 25 MG Tablet Extended Release 24 Hour TAKE 1 TABLET BY MOUTH DAILY Atorvastatin Calcium 80 MG Tablet TAKE ONE TABLET BY MOUTH EVERY DAY Omeprazole 20 MG Capsule Delayed Release TAKE 1 TO 2 CAPSULES BY MOUTH ONCE DAILY Tamsulosin HCl 0.4 MG Capsule TAKE ONE CAPSULE BY MOUTH TWICE A DAY Levothyroxine Sodium 150 MCG Tablet TAKE ONE TABLET BY MOUTH ONCE DAILY Taking Flecainide Acetate 100 MG Tablet 0.5 tablet Orally every 12 hrs Taking Finasteride 5 MG Tablet 1 tablet Orally Once a day Taking Triamcinolone Acetonide 0.1 % Cream 1 application Externally Twice a day Taking Eliquis 5 MG Tablet 1 tablet Orally Twice a day Taking Metoprolol Succinate ER 25 MG Tablet Extended Release 24 Hour TAKE 1 TABLET BY MOUTH DAILY Taking Atorvastatin Calcium 80 MG Tablet TAKE ONE TABLET BY MOUTH EVERY DAY Taking Omeprazole 20 MG Capsule Delayed Release TAKE 1 TO 2 CAPSULES BY MOUTH ONCE DAILY Taking Tamsulosin HCl 0.4 MG Capsule TAKE ONE CAPSULE BY MOUTH TWICE A DAY Taking Levothyroxine Sodium 150 MCG Tablet TAKE ONE TABLET BY MOUTH ONCE DAILY Not-Taking/PRNDoxycycline Hyclate 100 MG Capsule 1 capsule Orally Twice a day Valtrex 500 MG Tablet 1 tablet Orally twice a day Viagra 50 MG Tablet 1 tablet as needed Orally Once a day Not-Taking/PRN Doxycycline Hyclate 100 MG Capsule 1 capsule Orally Twice a day Not-Taking/PRN Valtrex 500 MG Tablet 1 tablet Orally twice a day Not-Taking/PRN Viagra 50 MG Tablet 1 tablet as needed Orally Once a day * Allergies: N .K.D.A.yes[Allergies Verified] Objective: * Vitals: H t: 67.25, Wt: 210, BMI:32.64, BP:114/70, Wt-k.26. weight is up 13 pounds since 03-24-24. * P ast Orders: L ab:PSA,Total (Free>4and<10) (Order Date - 02/20/2025) (Collection Date & Time - 02/20/2025 08:00 AM) Value Reference Range PSA,Total (Free>4and<10) 0.34 0.00-4.00 - ng/ mL L ab:Hemoglobin A1c (Order Date - 02/20/2025) (Collection Date & Time - 02/20/2025 08:00 AM) Value Reference Range Hemoglobin A1c % 5.5 <6.0 - % Estimated Average Glucose 111 - mg/dL L ab:Microalbumin, Random (Order Date - 02/20/2025) (Collection Date & Time - 02/20/2025 08:00 AM) Value Reference Range Creatinine Urine 146.11 - mg/dL Microalbumin Urine 9.0 - mg/L Microalbum Creatinine Ratio Ur 6.1 <30 - ug/ mg cr L ab:Complete Blood Count Auto Diff (Order Date - 02/20/2025) (Collection Date & Time - 02/20/2025 08:00 AM) Value Reference Range White Blood Count 5.7 4.8-10.8 - X10*3/uL Red Blood Count 5.25 4.60-5.80 - X10*6/uL Hemoglobin 14.9 14.0-18.0 - g/dl Hematocrit 45.7 42.0-52.0 - % Mean Corpuscular Volume 87.0 80.0-98.0 - fL Mean Corpuscular Hemoglobin 28.4 27.0-33.0 - pg Mean Corpuscular HGB Conc 32.6 31.0-36.0 - g/ dl Red Cell Distribution Width 13.6 11.0-16.0 - % Platelet Count 193 160-400 - X10*3/uL Mean Platelet Volume 10.8 9.4-12.4 - fL Neutrophils Percent Auto 69.6 45-73 - % Imm Gran Pct Auto 0.4 0.0-0.4 - % Lymphocytes Percent Auto 16.5 L 20-40 - % Monocytes Percent Auto 10.1 2-11 - % Eosinophils Percent Auto 2.7 0-4 - % Basophils Percent Auto 0.7 0-2 - % NRBC Pct Auto 0.0 0.0-0.2 - /100WBC Neutrophils Absolute Auto 3.9 2.0-8.3 - x10* 3/uL Imm Gran Abs Auto 0.02 0.00-0.03 - X10*3/uL Lymphocytes Absolute Auto 0.9 L 1.2-4.9 - X10* 3/uL Monocytes Absolute Auto 0.6 0.1-1.2 - X10*3/ uL Eosinophils Absolute Auto 0.2 0.0-0.4 - X10* 3/uL Basophils Absolute Auto 0.0 0.0-0.2 - X10*3/ uL NRBC Abs Auto 0.000 0.0-0.012 - X10*3/uL L ab:Comprehensive [place]. Panel Fast (Order Date - 02/20/2025) (Collection Date & Time - 02/20/2025 08:00 AM) Value Reference Range Sodium 140 135-145 - mmol/L Bilirubin Total 1.2 H 0.0-1.0 - mg/dL Aspartate Amino Transferase 19 5-37 - U/L Alanine Aminotransferase 12 0-40 - U/L Total Protein 6.4 L 6.5-8.0 - g/dL Albumin Level 3.9 3.5-5.0 - g/dL Alkaline Phosphatase 79 39-117 - U/L Potassium 4.3 3.3-5.1 - mmol/L Chloride 106 96-108 - mmol/L Carbon Dioxide 29 22-29 - mmol/L Anion Gap 9 L 12-20 - Blood Urea Nitrogen 17 H 9-16 - mg/dL Creatinine 1.05 0.5-1.4 - mg/dL Estimated Glomerular Filt Rate > 60 - Glucose Fasting 94 60-99 - mg/dL Calcium 8.8 8.4-10.2 - mg/dL L ab:UA ClnCatch+Micro w/rflx Cult (Order Date - 02/20/2025) (Collection Date & Time - 02/20/2025 08:00 AM) Value Reference Range Color Urine Yellow - Appearance Urine Clear - PH 8.5 5.0-9.0 - Glucose Urine UA Negative Negative - mg/dL Urine Blood Negative Negative - Specific [place] - Urine 1.020 1.005-1.025 - Urine Protein Trace Neg-Trace - mg/dL Urine Ketones Negative Negative - mg/dL Nitrite Urine Negative Negative - Leukocyte Esterase Urine Negative Negative - RBC Urine 0-2 0-2 - /HPF WBC Urine 0-5 0-5 - /HPF Squamous Epithelial Cell Urine 0-2 0-2 - /HP F Bacteria Urine None Seen None Seen - Hyaline Casts Urine 0-2 0-2 - /LPF L ab:Lipid Panel (Order Date - 02/20/2025) (Collection Date & Time - 02/20/2025 08:00 AM) Value Reference Range Triglycerides 71 <150 - mg/dL Cholesterol 92 <200 - mg/dL LDL Cholesterol Calculated 44 <100 - mg/dL HDL Cholesterol 34 L >40 - mg/dL L ab:TSH reflex Free T4 (Order Date - 02/20/2025) (Collection Date & Time - 02/20/2025 08:00 AM) Value Reference Range TSH reflex Free T4 1.60 0.32-4.0 - uIU/mL * Examination: G eneral Examination: GENERAL APPEARANCE: w ell developed, well nourished, in no acute distress. HEAD: n ormocephalic, atraumatic. EYES: p upils equal, round, reactive to light and accommodation, sclera non-icteric. EARS: n ormal. ORAL CAVITY: m ucosa moist. THROAT: c lear. NECK/THYROID: n eulogio supple, full range of motion, no cervical lymphadenopathy, no bruits. SKIN: w arm and dry, no suspicious lesions, abnormal scalp with actinic keratoisis. HEART: r egular rate and rhythm, S1, S2 normal, no murmurs.? LUNGS: c lear to auscultation bilaterally. ABDOMEN: s oft, nontender, nondistended, bowel sounds present, normal, no organomegaly , no masses palpable. RECTAL EXAM: n ormal tone, no external hemorrhoids, no masses palpable, prostate normal, stool guaiac negative. MALE GENITOURINARY: c ircumcised, no penile lesions or discharge, no testicular mass, testes descended bilaterally. EXTREMITIES: n o clubbing, cyanosis, or edema. NEUROLOGIC: n onfocal, motor strength normal upper and lower extremities, sensory exam intact. Assessment: * Assessment: 1. A dult general medical examination - Z00.00 (Primary) 2 . P aroxysmal atrial fibrillation - I48.0 3 . A cquired hypothyroidism - E03.9 4 . E ssential hypertension - I10 5 . P rediabetes - R73.09 6 . H istory of PR (myocardial infarction) - I25.2 7 . P ure hypercholesterolemia - E78.00 8 . D epression screening - Z13.31 9 . C olon cancer screening - Z12.11 Plan: * Treatment: 2. P aroxysmal atrial fibrillation Continue Eliquis Tablet, 5 MG, 1 tablet, Orally, Twice a day. Notes: does not sound like a fib now, will continue to monitor 3. A cquired hypothyroidism Continue Levothyroxine Sodium Tablet, 150 MCG, TAKE ONE TABLET BY MOUTH ONCE DAILY. Notes: tsh good, will continue current regiment 4. E ssential hypertension Continue Metoprolol Succinate ER Tablet Extended Release 24 Hour, 25 MG, TAKE 1 TABLET BY MOUTH DAILY. Notes: well controlled, will continue current regiment 5. P rediabetes Notes: doing well, no need for medication at this time 6. H istory of PR (myocardial infarction) Notes: not having any problems, will continue to monitor 7. P ure hypercholesterolemia Continue Atorvastatin Calcium Tablet, 80 MG, TAKE ONE TABLET BY MOUTH EVERY DAY. Notes: stable, will continue current regiment 8. D epression screening Notes: negative screen 9. C olon cancer screening Notes: guaiac negative 10. O thers Referral To:[facility] Dermatology Reason:abnormal scalp with actinic keratosis please eval and treat * Procedure Codes: * Preventive Medicine: Counseling: C are goal follow-up plan: C ounseling for abnormal BMI provided?Yes, A dante Normal BMI Follow-up G radha encouragement to exercise. * Follow Up: 6 Months * * Sign off status: Completed true * Provider: Kassie Batres MD Date: 0 02/26/2025 Generated for Edu urbano/Lorena/Avelitting on: 1 11:39 AM EDT History and Physical Notes * HPI (History of Present Illness) Category Sub-Category Detail Notes Category Not es Symptom(s) patient is a 74 yo male here for annual visit with review of recent labs and follow up of chronic issues went for us few days ago Depression Screening PHQ-9 Little inte rest or pleasure in doing things: Not at all Feeling down, depressed, or hopeless: No t at all Trouble falling or staying asleep, or sl eeping too much: Not at all Feeling tired or having little energy: N ot at all Poor appetite or overeating: Not at all Feeling bad about yourself o r that you are a failure, or have let yourself or your family down: Not at all Trouble concentrating on thi ngs, such as reading the newspaper or watching television: Not at all Moving or speaking so slowly that other people could have noticed; or the opposite, being so fidgety or restless that you have been moving around a lot more than usual: Not at all Thoughts that you would be b karlee off or of hurting yourself in some way: Not at all Total Score: 0 Interpretation and Intervention Depression Jefferson dominguez Findings: Negative Follow-Up for Depression: : review of PH Q-9 found negative result, no follow-up needed SDOH Questions SDOH Questions In the past year have you been worried about losing housing?: No In the past year have you or any family members you live with been unable to get any of the following when it was really needed? Check all that apply:: None Fall Risk History Have you had any falls with injury i n the past year?: No Have you had two or more falls in the year?: No Communication Needs Communication Needs Does the patient have a hearing impairment: No Does the patient have a vision impairmen t?: Yes If yes, what is the vision impairment?: Glasses Does the patient have a cognition impair ment?: No Examination Category Sub-Category Detail Notes Category Not es General Examination GENERAL APPEARANCE: well dev eloped, well nourished, in no acute distress HEAD: normocephalic, atrau matic EYES: pupils equal, round, reactive to light and accommodation, sclera non-icteric EARS: normal THROAT: clear NECK/THYROID: neck supple, full ra nge of motion, no cervical lymphadenopathy, no bruits HEART: regular rate and rhy thm, S1, S2 normal, no murmurs LUNGS: clear to auscultatio n bilaterally ABDOMEN: soft, nontender, non distended, bowel sounds present, normal, no organomegaly , no masses palpable NEUROLOGIC: nonfocal, motor stre ngth normal upper and lower extremities, sensory exam intact SKIN: warm and dry, no priscilla picious lesions, abnormal scalp with actinic keratoisis EXTREMITIES: no clubbing, cyanosi s, or edema MALE GENITOURINARY: circumcised, no peni le lesions or discharge, no testicular mass, testes descended bilaterally RECTAL EXAM: normal tone, no exte rnal hemorrhoids, no masses palpable, prostate normal, stool guaiac negative ORAL CAVITY: mucosa moist Consultation Request Notes Referral Date Referring Provider Referred Provider Not es 02/26/2025 Christopher Batres [facility] [place] abnormal scalp with actinic keratosis please eval and treat
--- OUTSIDE RECORDS SUMMARY | 2025-08-24 03:45 | XMS_ITS ---
Author Organization Christopher Batres MD Address [address] [place] [phone] Care Team Providers Care Rn Emergency Name Role Phone Christopher Batres Primary Care Provider Results Component Value Reference Range Notes Hemoglobin A1c (Not yet revi ewed by provider) Interpretation: Performing Lab:[facility], [address] [place] [phone] Notes/Report: Hemoglobin A1c % 5.5 <6.0 % [...] average glucose, using the formula of the Q6W-Gwncpty Average Glucose study (ADAG), Diabetes Care, Vol.31,#8, Jun. 2007 REASON FOR VISIT FASTING LIPIDS Immunizations Vaccine Route Administration Date Status Comme nts Influenza High Dose IM Intramuscular 08/24/2025 Administer ed Encounters Encounter Location Date Provider Diagnosis Christopher Batres MD [address] [place] [address] [place] [id number] 08/24/2025 Christopher Batres Prediabetes R73.09 ; Pure hypercholesterolemia E78.00 and Encounter for administration of vaccine Z23 Assessments Encounter Date Diagnosis (ICD Code) Assessment Notes Treatment Notes Treatment Clinical Notes Section Notes 08/24/2025 Prediabetes (ICD-10 - R73.09) 08/24/2025 Pure hypercholesterolemia (ICD-10 - E78.00) 08/24/2025 Encounter for administration of vaccine (ICD-10 - Z23) Plan Of Treatment Pending Test Test Name Order Date Liver Panel 08/24/2025 Glucose Fasting 08/24/2025 Lipid Panel with Reflex 08/24/2025 Hemoglobin A1c 08/24/2025 Next Appt Details Provider Name:Christopher lim, 08/31/2025 10:00:00 AM, [address] [place] [address], [address], [phone], Provider Name:Christopher lim, 02/21/2026 07:30:00 AM, [address] [place] [address], [address], [phone], Provider Name:Christopher lim, 02/28/2026 08:00:00 AM, [address] [place] [address], [address], [phone], Progress Notes * Cordell COX IIIDOB: (75 yo M)Acc No.[id number]:08/24/2025 Progress Note Patient: Anthony OLUSCOTCordell III Provider: Kassie Batres MD :1950 A ge:75 Y S ex:Male Date:08/24/2025 Address:[address] [place], [place] [phone] Subjective: * Chief Complaints: * 1 . FASTING LIPIDS. * Medical History: Objective: * Vitals: Assessment: * Assessment: 1. P rediabetes - R73.09 (Primary) 2 . P ure hypercholesterolemia - E78.00? 3. E ncounter for administration of vaccine - Z23 Plan: * Treatment: 2. P ure hypercholesterolemia L AB: Liver Panel L AB: Glucose Fasting L AB: Lipid Panel with Reflex L AB: Hemoglobin A1c (Collection Date & Time - 08/24/2025 07:45 AM) * Immunizations: Influenza High Dose : 0.5 mL (Dose No:1) (Route: Intramuscular) given by Mari Farias , Office Staff on Left Deltoid * Procedure Codes: 3 6415 VENIPUNCT, ROUTINE*, 09227 FLU VACC PRSV FREE INC ANTIG, 26982 IMMUNIZATION ADMIN * * The named appointment provid er may or may not be the originator of this progress note, and it is not deemed complete until electronically signed by the appointment provider. Sign off status: Pending * Provider: Kassie Batres MD Date: Generated for Edu urbano/Lorena/Avelitting on: 11:40 AM EDT
[2025-08-24 10:36] LABS: Alanine Aminotransferase 12 U/L (0-40); Albumin Level 3.9 g/dL (3.5-5.0); Alkaline Phosphatase 73 U/L (39-117); Aspartate Amino Transferase 21 U/L (5-37); Cholesterol 103 mg/dL (<200); HDL Cholesterol 34 mg/dL (>40); Total Protein 6.3 g/dL (6.5-8.0); Triglycerides 63 mg/dL (<150)
--- OUTSIDE RECORDS SUMMARY | 2025-08-24 11:38 | XMS_ITS | Clinical Summary ---
Author Organization [facility] Address [address] [place] [address] Care Team Providers Care Learning Technologist Name Role Phone Unavailable Primary Care Provider Unavailabl e Social History Tobacco Use Types Packs/Day Years Used Date Smoking Tobacco: Never Assessed Sex and Gender Information Value Date Recorded Sex Assigned at Not on file Legal Sex Male 6:45 PM EDT Gender Identity Not on file Sexual Orientation Not on file Plan of Treatment Health Maintenance Due Date Last Done Comments Advance Care Planning 1950 Hepatitis C Virus Screening 1950 DTaP/Tdap/Td Vaccines (1 - Tdap) 1970 Pneumococcal Vaccines 50+ (1 of 1 - PCV) 2001 Zoster (Shingles) Vaccine (1 of 2) 2001 COVID-19 Vaccine ( - 2023-2 5 season) 2025 RSV Vaccine 50 years and old er and Patients (1 - 1-dose 75+ series) 2026 Hepatitis B Vaccines Aged Out No long er eligible based on patient's age to complete this topic
--- OUTSIDE RECORDS SUMMARY | 2025-08-24 11:38 | XMS_ITS | Patient Health Record ---
Author Organization Christopher Batres MD Address [address] [place] [phone] Care Team Providers Care Chain Person Name Role Phone Christopher Batres Primary Care Provider [phone] Allergies No Known Allergies Results Component Value Reference Range Notes Complete Blood Count Auto Di ff Reviewed date:02/20/2025 06:37:17 PM Interpretation: Performing Lab:[facility], [address] [place] [phone] Notes/Report: White Blood Count 5.7 4.8-10.8 X10*3/uL [...] NRBC Abs Auto 0.000 0.0-0.012 X10*3/uL Comprehensive [place]. Panel Fa st Reviewed date:02/20/2025 06:43:21 PM Interpretation: Performing Lab:[facility], [address] [place] [phone] Notes/Report: Sodium 140 135-145 mmol/L Potassium 4.3 [...] Panel Reviewed date:02/20/2025 06:29:30 PM Interpretation: Performing Lab:[facility], [address] [place] [phone] Notes/Report: Triglycerides 71 <150 mg/dL Desirable Triglyceride: [...] (Free>4and<10) Reviewed date:02/20/2025 12:27:16 PM Interpretation: Performing Lab:[facility], [address] [place] [phone] Notes/Report: PSA,Total (Free>4and<10) 0.34 0.00-4.00 ng/mL A [...] T4 Reviewed date:02/20/2025 06:25:27 PM Interpretation: Performing Lab:[facility], [address] [place] [phone] Notes/Report: TSH reflex Free T4 1.60 0.32-4.0 uIU/mL Microalbumin, Random Reviewed date:02/20/2025 06:31:01 PM Interpretation: Performing Lab:[facility], [address] [place] [phone] Notes/Report: Creatinine Urine 146.11 Microalbumin Urine 9.0 Microalbum/Creatinine Ratio Ur 6.1 <30 ug/mg cr Albumin/Creatinine Ratio Reference Ranges: Normal: < 30 ug/mg creatinine Microalbuminuria: 30 - 300 ug/mg creatinine Clinical Albuminuria: > 300 ug/mg creatinine Hemoglobin A1c Reviewed date:02/20/2025 12:27:25 PM Interpretation: Performing Lab:[facility], [address] [place] [phone] Notes/Report: Hemoglobin A1c % 5.5 <6.0 % [...] average glucose, using the formula of the K9W-Xvauwdf Average Glucose study (ADAG), Diabetes Care, Vol.31,#8, 2007 UA ClnCatch+Micro w/rflx Cul t Reviewed date:02/20/2025 06:42:27 PM Interpretation: Performing Lab:[facility], [address] [place] [phone] Notes/Report: Urine, Clean Catch Color Urine Yellow Appearance Urine Clear PH 8.5 5.0-9.0 Glucose Urine UA Negative Negative mg/dL Urine Blood Negative Negative Specific [place] - Urine 1.020 1.005-1.025 Urine Protein Trace Neg-Trace mg/dL Urine Ketones Negative Negative mg/dL Nitrite Urine Negative Negative Leukocyte Esterase Urine Negative Negative RBC Urine 0-2 0-2 /HPF WBC Urine 0-5 0-5 /HPF Squamous Epithelial Cell Urine 0-2 0-2 /HPF Bacteria Urine None Seen None Seen Hyaline Casts Urine 0-2 0-2 /LPF Hemoglobin A1c (Not yet revi ewed by provider) Interpretation: Performing Lab:[facility], [address] [place] [phone] Notes/Report: Hemoglobin A1c % 5.5 <6.0 % [...] average glucose, using the formula of the C2I-Nnlxfml Average Glucose study (ADAG), Diabetes Care, Vol.31,#8, Jun. 2007 Hold Gold (Not yet reviewed by provider) Interpretation: Performing Lab:[facility], [address] [place] [phone] Notes/Report: Hold Gold See Note Specimen held untested for 24 hours; Call to request Chemistry testing. Reason For Referral Reason abnormal scalp with actinic keratosis please eval and treat Diagnosis 1 Actinic keratosis (L 57.0) Referral Organization Christopher Batres MD Referring Provider First Name Christopher Referring Provider Last Name Gisel Referring Provider Speciality Internal M edicine Referred Provider [place] [facility] [place] Referred Provider Specialty Dermatology General Notes Teri Branch 0 02/26/2025 09:11:41 AM >letter with referral faxed for requesting an briseidatSarina Annette 02/27/2025 02:12:17 PM >appt is with Sarina Green Annette 02/27/2025 02:13:10 PM >called patient with info and mailed Referral Priority Routine Referral Appointment Date 04/05/2025 Medications Medication SIG (Take, Route, Frequency, Duration) Notes Start Date End Date Status Tamsulosin HCl 0.4 MG TAKE ONE CAPSULE B Y MOUTH TWICE A DAY for 90 Active Atorvastatin Calcium 80 MG TAKE ONE TABLET BY MOUTH EVERY DAY for 90 Active Doxycycline Hyclate 100 MG 1 capsule Orally Twice a day for 5 days 12/04/2022 Not-Taking Omeprazole 20 MG TAKE 1 TO 2 CAPSULES BY MOUTH ONCE DAILY for 90 Active Valtrex 500 MG 1 tablet Orally [...] Once a day for 30 day(s) Active Triamcinolone Acetonide 0.1 % 1 application [...] 03/25/2017 Administered Fluarix Quadrivalent IM Intramuscular 09/21/2017 [facility] Quadriv[facility] IM Intramuscular 10/17/2018 [facility] Quadriv[facility] IM Intramuscular 10/31/2019 [facility] SARS-COV-2 Pfizer Unknown 11/26/2020 Administered SARS-COV-2 Pfizer Unknown 12/17/2020 Administered SARS-COV-2 Pfizer Unknown 10/22/2021 Administered Fluarix Quadrivalent Unknown 10/22/2021 Administered Influenza High Dose IM Intramuscular 07/10/2024 Administer ed Influenza High Dose IM Intramuscular 08/24/2025 Administer ed Social History Tobacco Use: Social [...] Problem Status W/U Status Risk Notes Problem 129679382 Paroxysmal atria l fibrillation (I48.0) Active confirmed Problem Hypothyroidism (47973074) Hypothyroidism, unspecified (E03.9) Active confirmed Problem Obesity (404141175) Obesity, unspecified (E66.9) Active confirmed Problem 851602723 Gastroesophageal reflux disease without esophagitis (K21.9) Active confirmed Problem 87127876 Essential hypert ension (I10) Active confirmed Problem 561346859 Acquired hypothyroidism (E03.9) Active confirmed Problem 6521927 Prediabetes (R73.09) Active confirmed Problem 461150087 Low HDL (under 4 0) (E78.6) Active confirmed Problem 675658254 Lung nodule (R91.1) Active confirmed Problem 74118523 Thoracic aortic aneurysm without rupture (I71.2) Active confirmed Problem 958902771 History of MD (myocardial infarction) (I25.2) Active confirmed Problem 82528090 Dysthymia (F34.1) Active confirmed Problem 37510638 Sleep apnea, unspecified type (G47.30) Active confirmed Problem 9467068 Paraesophageal h iatal hernia (K44.9) Active confirmed Problem 774636035 Pure hypercholesterolemia (E78.00) Active confirmed Problem 440430470 Neurogenic bladd er (N31.9) Active confirmed Vital [...] Christopher Batres MD [address] [place] [id number] 02/20/2025 Christopher Batres Blood tests for rout ine general physical examination Z00.00 ; Acquired hypothyroidism E03.9 ; Prediabetes R73.09 ; Pure hypercholesterolemia E78.00 and Essential hypertension I10 Christopher Batres MD [address] [place] [id number] 08/24/2025 Christopher Batres Prediabetes R73.09 ; Pure hypercholesterolemia E78.00 and Encounter for administration of vaccine Z23 Christopher Batres MD [address] [place] [id number] 02/26/2025 Christopher Bombardier Paroxysmal atrial fibrillation I48.0 ; Adult general medical examination Z00.00 ; Acquired hypothyroidism E03.9 ; Essential hypertension I10 ; Prediabetes R73.09 ; History of MD (myocardial infarction) I25.2 ; Pure hypercholesterolemia E78.00 ; Depression screening Z13.31 and Colon cancer screening Z12.11 Assessments Encounter Date Diagnosis (ICD Code) Assessment Notes Treatment Notes Treatment Clinical Notes Section Notes 02/20/2025 [address] tests [address] ine general physical examination (ICD-10 - Z00.00) 08/24/2025 Prediabetes (ICD-10 - R73.09) 08/24/2025 Pure hypercholesterolemia (ICD-10 - E78.00) 02/26/2025 Paroxysmal atrial fibrillation (ICD-10 - I48.0) does not sound like a fib now, will continue to monitor 02/26/2025 Adult general medica l examination (ICD-10 - Z00.00) labs reviewed and discussed with patient 02/20/2025 Acquired hypothyroid ism (ICD-10 - E03.9) 08/24/2025 Encounter for administration of vaccine (ICD-10 - Z23) 02/26/2025 Acquired hypothyroid ism (ICD-10 - E03.9) tsh good, will continue current regiment 02/20/2025 Prediabetes (ICD-10 - R73.09) 02/26/2025 Essential hypertensi on (ICD-10 - I10) well controlled, will continue current regiment 02/20/2025 Pure hypercholesterolemia (ICD-10 - E78.00) 02/26/2025 Prediabetes (ICD-10 - R73.09) doing well, no need for medication at this time 02/20/2025 Essential hypertensi on (ICD-10 - I10) 02/26/2025 History of MD (myocardial infarction) (ICD-10 - I25.2) not having [...] CHEST 2 VIEW PA & LAT 01/28/2023 Liver Panel 08/24/2025 Glucose Fasting 08/24/2025 Lipid Panel with Reflex 08/24/2025 Hold Gold 08/24/2025 US abdomen limited 03/13/2024 US renal BI 03/31/2024 Hemoglobin A1c 08/24/2025 Next Appt Details Provider Name:Christopher Johnson ier, 08/31/2025 10:00:00 AM, [address], [address], [place], [place], [phone], Provider Name:Christopher Johnson ier, 02/21/2026 07:30:00 AM, [address], [address], [place], [place], [phone], Provider Name:Christopher Johnson ier, 02/28/2026 08:00:00 AM, [address], [place], [place], [phone], Insurance Providers Payer Name Payer Address Payer Phone Subscriber Number Group Number Insured Name Patient Relationship to Insured Coverage Start Date Coverage End Date [employer] [address] [place], [place] [id number] [phone] [id number] Cordell Cox Self - patient is the [...]
--- OUTSIDE RECORDS SUMMARY | 2025-08-24 11:39 | XMS_ITS | Patient Health Record ---
Author Organization [facility] Address [address] [place] [address] Care Team Providers Care Angle Roll Operator Name Role Phone Gisel MACK, Christopher Primary Care Provider Corey Sher Jr Unavailable [phone] Allergies No Known Allergies Reason For [...] at 5:00 p.m. the day before the procedure; Duration: 1 day 04/29/2022 Active Metoprolol Succinate 25 MG 1 capsule Ora lly Once a day Active Atorvastatin Calcium 80 MG 1 tablet Oral ly Once a day Active Immunizations Vaccine Route Administration Date Status Comme nts Influenza Unknown 08/17/2018 Administered Influenza Unknown 07/02/2021 Administered Problems Problem Type SNOMED Code ICD Code Onset Dates Problem Status W/U Status Risk Notes Problem Colon cancer screening (793015064) Colon cancer screening (Z12.11) Active confirmed Problem Gastro-esophageal reflux disease without esophagitis (156265822) Gastro-esophageal reflux disease without esophagitis (K21.9) Active confirmed Problem Long-term current use of anticoagulant (991732793) group home (current) use of anticoagulants (Z79.01) Active confirmed Problem Gastroesophageal reflux disease without esophagitis (546762665) Gastroesophageal reflux disease without esophagitis (K21.9) Active confirmed Problem Hiatal hernia (70676260) Hiatal hernia (K44.9) Active confirmed Problem Diverticulosis of colon (407923824) Diverticulosis of colon (K57.30) Active confirmed Plan Of Treatment Future Test Test Name Order Date UPPER GI ENDOSCOPY 07/31/2016 COLONOSCOPY 04/29/2022 Insurance Providers Payer Name Payer Address Payer Phone Subscriber Number Group Number Insured Name Patient Relationship to Insured Coverage Start Date Coverage End Date [facility] [address] [place] [address] [phone] [id number] ROSA KEARNS Self - patient is the insured Medical (General) History Medical History History ICD Code hypertension Atrial fibrillation CVA Hiatal hernia with Schatzki ring Coronary artery disease with history of NM 07/17 hypothyroidism Surgical History Surgery Date(Month/Year) cardiac ablation kidney stones 04/2016
[2025-08-24 13:48] LABS: Reflex LDLD? No
== END 2025-08-24 10:13 | disposition home or self-care (01) ==
LOC: HO.LNP 10:12
PROVIDERS: Visit Provider Internal Medicine
DX: R73.09 Other abnormal glucose (principal); E78.00 Pure hypercholesterolemia, unspecified
CPT/HCPCS: 80061; 80076; 82947; 83036